=== PATIENT | female | born 1940 | race Caucasian/White ===

== ENCOUNTER 2023-08-05 20:28 | Inpatient (IN) | payer MEDICARE, OTHER, SELFPAY ==
[2023-08-05 20:30] VITALS: BP 165/82; PULSE 68; RESP 18; TEMP 36.7; O2SAT 97; BMI 19.5
--- NOTE | 2023-08-05 20:55 | CT_ITS ---
EXAM: CT ABDOMEN AND PELVIS WITH INTRAVENOUS CONTRAST CLINICAL INDICATION: abdominal pain TECHNIQUE: Helically acquired images were obtained of the abdomen and pelvis with intravenous contrast. This CT exam was performed using one or more of the following dose reduction techniques: automated exposure control, adjustment of the mA and/or kV according to patient size, and/or use of iterative reconstruction technique. CONTRAST: IV 100mL [id number] COMPARISON: No relevant prior studies available. FINDINGS: LOWER THORAX: Unremarkable. Lung bases are clear. No cardiomegaly. No significant pericardial effusion. ABDOMEN: LIVER: Unremarkable. Homogeneous. No focal mass. GALLBLADDER AND BILE DUCTS: There is dilatation of the common bile duct measuring 1.3 cm. Patient is status post cholecystectomy. PANCREAS: Unremarkable. No focal cystic or solid mass. SPLEEN: Unremarkable. Normal size without focal cystic or solid mass. ADRENALS: Unremarkable. No nodules. KIDNEYS AND URETERS: Unremarkable. Normal renal size and position. No hydronephrosis. STOMACH AND BOWEL: There are dilated gas and fluid-filled loops of small bowel proximally with normal caliber bowel loops distally compatible chemical obstruction. Transition point appears to be within the pelvis. There is no free air. The stomach is mildly distended with fluid. No focal inflammatory change. PELVIS: APPENDIX: No evidence of acute appendicitis. BLADDER: Unremarkable. REPRODUCTIVE: Unremarkable as visualized. No mass. ABDOMEN and PELVIS: INTRAPERITONEAL SPACE: See above. BONES/JOINTS: Unremarkable. No suspicious lytic or blastic abnormality. SOFT TISSUES: Unremarkable. No discrete abdominal or pelvic wall hernia. VASCULATURE: Unremarkable. Abdominal aorta is non-dilated. LYMPH NODES: Unremarkable. No enlarged lymph nodes. CT/Abdomen/Pelvis W IV Cont ONLY IMPRESSION: Dilated gas and fluid-filled loops of small bowel proximally with normal caliber bowel loops distally compatible with bowel obstruction. Transition point appears be within the pelvis. There is no free air. Electronically Signed: Nito Franks MD at 0:01 EDT ,
--- NOTE | 2023-08-05 21:08 | EX.ED.DYSGE1 ---
HPI <IOANA Osborn - Last Filed: 08/05/23 21:50> History of Present Illness Chief Complaint: Abd Pain Narrative Narrative: Patient presenting today with generalized abdominal pain that started last night. She reports that the pain is constant and sharp. She does have a history of diverticulitis, is unsure if this feels similar. She has had intermittent chills, nausea, and several episodes of loose stool today. Previous abdominal surgeries include cholecystectomy, appendectomy, colostomy and colostomy reversal. She denies any urinary symptoms, melena, and hematochezia. PFSH <IOANA Osborn - Last Filed: 08/05/23 21:50> PFSH Home Medications fluoxetine 20 mg capsule (Prozac) 20 mg PO DAILY 08/05/23 [History Last Taken Unknown] levothyroxine 2 tab PO .COMPLEX 08/05/23 [History Last Taken Unknown] Allergy/AdvReac Type Severity Reaction Status Date / Time Penicillins Allergy Intermediate SKIN SHEDS Verified 08/05/23 20:32 Surgical History (Updated 08/05/23 @ 22:07 by Hattie Potter) History of colostomy Social History Smoking Status: Never smoker ROS <IOANA Osborn - Last Filed: 08/05/23 21:50> ROS ED Constitutional Constitutional ED: Denies chills or fever(s) Cardiovascular Cardiovascular: Denies chest pain Respiratory/Chest Respiratory/Chest: Denies cough or dyspnea Gastrointestinal Gastrointestinal: Reports abdominal pain, diarrhea, nausea and vomiting; Denies constipation or melena Genitourinary Genitourinary ED: Denies dysuria, hematuria or urinary urgency Musculoskeletal Musculoskeletal: Denies arthralgias or myalgias Integumentary Denies rash Neurologic Neurologic: Denies weakness EXAM <IOANA Osborn - Last Filed: 08/05/23 21:50> Physical Exam Const Vital Signs: 08/05/23 20:30 08/05/23 22:29 08/05/23 23:10 Temperature 98.1 F 97.5 F L Temperature Source Temporal Temporal Pulse Rate 68 75 Respiratory Rate 18 16 Respiratory Effort Normal Respiratory Pattern Normal Blood Pressure 165/82 H 141/66 H Blood Pressure Mean 109 91 Pulse Ox 97 93 Oxygen Delivery Method Room Air Room Air Oxygen Flow Rate (L/min) 08/05/23 23:19 08/05/23 23:19 Temperature Temperature Source Pulse Rate Respiratory Rate 16 18 Respiratory Effort Respiratory Pattern Blood Pressure Blood Pressure Mean Pulse Ox 87 94 Oxygen Delivery Method Room Air Nasal Cannula Oxygen Flow Rate (L/min) 2 Positive well nourished, well developed and no apparent distress General Appearance ED: well developed HEENT Reports normocephalic and head/scalp atraumatic Mouth ED: Yes moist mucous membranes normal Eyes PERRL and EOMs intact bilaterally Neck full ROM and supple Chest Wall inspection of chest normal Resp normal respiratory effort and clear to auscultation bilaterally Cardio regular rate and regular rhythm GI non-distended and no masses GI Narrative: Patient has generalized abdominal tenderness on exam, she does have rigidity and guarding Back/Spine normal ROM and normal to inspection Extremity normal to inspection and full ROM Neuro oriented x3, CN's II-XII intact bilaterally, moves all extremities, no focal motor deficits and no sensory deficits noted Sensorium / Orientation: awake and alert Psych mental status grossly normal and thought process normal Skin no rashes or lesions noted and no wounds <Dr. Cornelius Bowden DO - Last Filed: 08/06/23 01:06> Physical Exam Const Vital Signs: 08/05/23 20:30 08/05/23 22:29 08/05/23 23:10 Temperature 98.1 F 97.5 F L Temperature Source Temporal Temporal Pulse Rate 68 75 Respiratory Rate 18 16 Respiratory Effort Normal Respiratory Pattern Normal Blood Pressure 165/82 H 141/66 H Blood Pressure Mean 109 91 Pulse Ox 97 93 Oxygen Delivery Method Room Air Room Air Oxygen Flow Rate (L/min) 08/05/23 23:19 08/05/23 23:19 Temperature Temperature Source Pulse Rate Respiratory Rate 16 18 Respiratory Effort Respiratory Pattern Blood Pressure Blood Pressure Mean Pulse Ox 87 94 Oxygen Delivery Method Room Air Nasal Cannula Oxygen Flow Rate (L/min) 2 MDM <IOANA Osborn - Last Filed: 08/05/23 21:50> [facility] Narrative Medical decision making narrative: Patient presenting due to generalized abdominal pain, nausea, and diarrhea that started last night. She does appear to be uncomfortable. She does have significant abdominal tenderness to palpation on exam, CT scan will be obtained to rule out diverticulitis, bowel obstruction, and other etiology. She will be given IV fluids, Zofran, and morphine. Abdominal labs will be obtained. Workup is pending. Lab Data Labs: Laboratory Results - last 24 hr 08/05/23 08/05/23 08/05/23 21:18 22:26 22:40 WBC 27.9 H RBC 5.08 Hgb 15.6 H Hct 47.6 H MCV 93.7 MCH 30.7 MCHC 32.8 RDW Std Deviation 47.4 H RDW Coeff of Jenn 13.8 Plt Count 336 MPV 10.9 Immature Gran % (Auto) 0.900 Neut % (Auto) 82.4 H Lymph % (Auto) 8.8 L [place] % (Auto) 6.8 Eos % (Auto) 0.5 Baso % (Auto) 0.6 Absolute Neuts (auto) 23.0 H Absolute Lymphs (auto) 2.45 Nucleated RBC % 0 Differential Comment SCANNED Diff Path Review May foll PT Cancelled INR Cancelled APTT Cancelled Sodium 138 Potassium 4.1 Chloride 104 Carbon Dioxide 25.0 Anion Gap 9 BUN 37 H Creatinine 0.89 Estim Creat Clear Calc 38.54 Est GFR (MDRD) Af Amer 78 Est GFR (MDRD) Non-Af 65 BUN/Creatinine Ratio 41.7 H Glucose 214 H Lactic Acid 2.5 H* Calcium 9.3 Total Bilirubin 0.70 AST 22 ALT 23 Alkaline Phosphatase 54 Total Protein 7.5 Albumin 3.5 Globulin 4.0 Albumin/Globulin Ratio 0.9 Lipase 1168 H 08/05/23 23:48 WBC RBC Hgb Hct MCV MCH MCHC RDW Std Deviation RDW Coeff of Jenn Plt Count MPV Immature Gran % (Auto) Neut % (Auto) Lymph % (Auto) [place] % (Auto) Eos % (Auto) Baso % (Auto) Absolute Neuts (auto) Absolute Lymphs (auto) Nucleated RBC % Differential Comment Diff Path Review PT 14.0 INR 1.1 APTT 24.0 L Sodium Potassium Chloride Carbon Dioxide Anion Gap BUN Creatinine Estim Creat Clear Calc Est GFR (MDRD) Af Amer Est GFR (MDRD) Non-Af BUN/Creatinine Ratio Glucose Lactic Acid Calcium Total Bilirubin AST ALT Alkaline Phosphatase Total Protein Albumin Globulin Albumin/Globulin Ratio Lipase Radiography Diagnostic Testing: Clinical Impression(s) from Imaging Studies Abdomen/Pelvis CT 08/05/23 20:55 IMPRESSION: Dilated gas and fluid-filled loops of small bowel proximally with normal caliber bowel loops distally compatible with bowel obstruction. Transition point appears be within the pelvis. There is no free air. Electronically Signed: Nito Franks MD at 0:01 EDT , <Dr. Cornelius Bowden, DO - Last Filed: 08/06/23 01:06> MDM MDM Narrative Medical decision making narrative: Patient presenting due to generalized abdominal pain, nausea, and diarrhea that started last night. She does appear to be uncomfortable. She does have significant abdominal tenderness to palpation on exam, CT scan will be obtained to rule out diverticulitis, bowel obstruction, and other etiology. She will be given IV fluids, Zofran, and morphine. Abdominal labs will be obtained. Workup is pending. Interventions / MDM: Differential diagnosis: Bowel obstruction, pancreatitis Diagnosis considered but do not suspect: Pneumoperitoneum however CT negative. Colitis however CT negative. KUB #1: NG kinked and does not appear to be in the stomach. KUB #2: Appropriate position of NG tube. My EKG interpretation: N/A Imaging independently reviewed and interpreted by myself: CT abdomen and pelvis IV contrast: Distended gastrum proximal small bowels with air-fluid level consistent with bowel obstruction. Normal pancreas. This also read by radiology. External documents reviewed: N/A Test considered but not ordered:N/A ED course: Attending note: Patient seen and evaluated with screen room operator. I perform my own [id number] evaluation. I agree with the plan of work-up. Increasing mid abdominal pain since yesterday worsened today with increased distention. Cholecystectomy, appendectomy, colostomy with reversal in 2021 from diverticulitis. Recently moved here from [place] here with son. Reports has chronic continued diarrhea. No recent antibiotics. Reports chills. Nausea started vomiting in the ED. Allergies to penicillin causing scaly skin. Denies any alcohol history. Exam with uncomfortable tender mid abdomen. Patient had abdominal labs ordered, CT scan abdomen pelvis, pain and nausea medicines and fluids were started. In the interim had a leukocytosis 27.9. Lactic acid blood cultures were added on type and screen as she is fairly tender on exam. Additional pain medications. Her lipase returned at 1168 normal liver enzymes. Lactic acid 2.5. Fluids were continued. CT scan concerning bowel obstruction with air-fluid levels. NG tube ordered for placement. I discussed with surgeon Dr. Guerrero. Initial KUB appears to be above the diaphragm discussed with nurse the events. This was advanced and improved. 600 cc immediate output with improving symptoms. Patient seen by surgery in the ED, will continue fluids, admit under surgery for further management. Re-evaluation: stable Disposition discussed with patient/family/significant other: Patient and family Case discussed with consulting clinician: General surgery This note was generated with Revel[employer] dictation software. It may contain incorrect words, spelling, and punctuation that were not noted in checking the note before signing. Lab Data Attestation: I reviewed the patient's lab results. Labs: Laboratory Results - last 24 hr 08/05/23 08/05/23 08/05/23 21:18 22:26 22:40 WBC 27.9 H RBC 5.08 Hgb 15.6 H Hct 47.6 H MCV 93.7 MCH 30.7 MCHC 32.8 RDW Std Deviation 47.4 H RDW Coeff of Jenn 13.8 Plt Count 336 MPV 10.9 Immature Gran % (Auto) 0.900 Neut % (Auto) 82.4 H Lymph % (Auto) 8.8 L [place] % (Auto) 6.8 Eos % (Auto) 0.5 Baso % (Auto) 0.6 Absolute Neuts (auto) 23.0 H Absolute Lymphs (auto) 2.45 Nucleated RBC % 0 Differential Comment SCANNED Diff Path Review May foll PT Cancelled INR Cancelled APTT Cancelled Sodium 138 Potassium 4.1 Chloride 104 Carbon Dioxide 25.0 Anion Gap 9 BUN 37 H Creatinine 0.89 Estim Creat Clear Calc 38.54 Est GFR (MDRD) Af Amer 78 Est GFR (MDRD) Non-Af 65 BUN/Creatinine Ratio 41.7 H Glucose 214 H Lactic Acid 2.5 H* Calcium 9.3 Total Bilirubin 0.70 AST 22 ALT 23 Alkaline Phosphatase 54 Total Protein 7.5 Albumin 3.5 Globulin 4.0 Albumin/Globulin Ratio 0.9 Lipase 1168 H 08/05/23 23:48 WBC RBC Hgb Hct MCV MCH MCHC RDW Std Deviation RDW Coeff of Jenn Plt Count MPV Immature Gran % (Auto) Neut % (Auto) Lymph % (Auto) [place] % (Auto) Eos % (Auto) Baso % (Auto) Absolute Neuts (auto) Absolute Lymphs (auto) Nucleated RBC % Differential Comment Diff Path Review PT 14.0 INR 1.1 APTT 24.0 L Sodium Potassium Chloride Carbon Dioxide Anion Gap BUN Creatinine Estim Creat Clear Calc Est GFR (MDRD) Af Amer Est GFR (MDRD) Non-Af BUN/Creatinine Ratio Glucose Lactic Acid Calcium Total Bilirubin AST ALT Alkaline Phosphatase Total Protein Albumin Globulin Albumin/Globulin Ratio Lipase Radiography Diagnostic Testing: Clinical Impression(s) from Imaging Studies Abdomen/Pelvis CT 08/05/23 20:55 IMPRESSION: Dilated gas and fluid-filled loops of small bowel proximally with normal caliber bowel loops distally compatible with bowel obstruction. Transition point appears be within the pelvis. There is no free air. Electronically Signed: Nito Franks MD at 0:01 EDT , Discharge Plan Dx/Rx/DC Orders Clinical Impression: Complete small bowel obstruction, Abdominal pain, Acute pancreatitis Disposition Disposition: Acute Care Hospital [facility]
[2023-08-05] MEDS: Ondansetron 4 MG/2 ML Vial IV (21:16)
[2023-08-05] MEDS: Morphine 4 MG/ML Syringe IV ×2 (21:16→22:38)
[2023-08-05] MEDS: 0.9% Normal Saline (1000mL) 1,000 ML 1000 ML IV (21:18)
[2023-08-05 21:38] LABS: Absolute Lymphocyte Count 2.45 X10^3/uL (0.83-4.51); Basophil# 0.16 X10^3/uL; Basophil% 0.6 % (0-1); Eosinophil# 0.15 X10^3/uL; Eosinophils% 0.5 % (0-5); Hematocrit 47.6 % (37-47); Hemoglobin 15.6 g/dL (12.0-15.0); Lymphocyte # 2.45 X10^3/ul (0.83-4.51); Lymphocyte % 8.8 % (19-41); Mean Corp Hgb Conc 32.8 g/dL (32-36); Mean Corpuscular Hgb 30.7 pg (27.0-32.0); Mean Corpuscular Volume 93.7 fL (81-99); Mean Platelet Vol. 10.9 fl (6.2-12.0); Monocyte% 6.8 % (0-10); NRBC Flagged by Analyzer 0 % (0-5); Neutrophil # 23.02 X10^3/uL (2.7-7.7); Neutrophil % 82.4 % (47-70); POSITIVE DIFFERENTIAL YES; Platelet Count 336 K/mm3 (150-450); RBC Distribution Width CV 13.8 % (11.6-14.6); RBC Distribution Width SD 47.4 fl (35.1-43.9); Red Blood Count 5.08 M/mm3 (4.2-5.4); White Blood Count 27.9 K/mm3 (4.4-11.0)
[2023-08-05 22:03] LABS: Differential Indicated SCAN CRITERIA MET
[2023-08-05 22:29] VITALS: BP 141/66; PULSE 75; RESP 16; TEMP 36.4; O2SAT 93
[2023-08-05 22:39] LABS: Differential Comment SCANNED
[2023-08-05 22:59] LABS: ALB/GLOB Ratio 0.9 RATIO (0.9-2.4); AST(SGOT) 22 U/L (15-37); Alanine Aminotransfer ALT/SGPT 23 U/L (13-56); Albumin, Serum 3.5 g/dL (3.2-5.0); Alkaline Phosphatase 54 U/L (45-117); Anion Gap 9 (5-15); BUN 37 mg/dL (7-18); BUN/Creat Ratio 41.7 RATIO (10-20); Calcium,Total 9.3 mg/dL (8.5-10.1); Chloride 104 mmol/L (98-107); Creatinine, Serum 0.89 mg/dL (0.55-1.02); EST Glomerular Filtration Rate 65 mL/min (>60); Est Glom Filt Rate - Afr Amer 78 mL/min (>60); Estimated Creatinine Clearance 38.54 ml/min; Glucose 214 mg/dL (74-106); Lipase 1168 U/L (13-75); Potassium 4.1 mmol/L (3.5-5.1); Protein, Total 7.5 g/dL (6.4-8.2); Sodium Level 138 mmol/L (136-145)
[2023-08-05 23:17] LABS: Lactic Acid 2.5 mmol/L (0.4-1.9)
[2023-08-05 23:19] VITALS: RESP 16; RESP 18; O2SAT 87; O2SAT 94
[2023-08-05] MEDS: 0.9% Normal Saline (1000mL) 1,000 ML 100 ML IV (23:19)
[2023-08-06] VITALS (9 sets, daily range): BP systolic 121–149; BP diastolic 67–98; PULSE 67–87; RESP 16–18; TEMP 36.2–37; O2SAT 94–100; BMI 19.6
--- NOTE | 2023-08-06 00:07 | RAD_ITS ---
INDICATION: ng tube -- KUB with both diaphragms for NG/OG Verification EXAMINATION/TECHNIQUE: X-RAY - XR Abdomen 1 View AP portable. 12:32 AM. COMPARISON: CT abdomen and pelvis earlier FINDINGS: Single view included lower chest upper abdomen. Tip of the nasogastric tube is in the distal esophagus just above the GE junction, with a focal angulation or kink in the tubing at the sidehole in the distal esophagus. The tube does not extend into the stomach. The stomach is distended. Dilated small bowel in the upper abdomen as on the CT. Opacities at both lung bases. RAD/Abdomen Single View (Portable) IMPRESSION: NG tube in the distal esophagus as detailed above. Electronically Signed: Trini Cuevas MD at 1:14 EDT ,
[2023-08-06 00:08] LABS: International Normalized Ratio 1.1
[2023-08-06] MEDS: Morphine 4 MG/ML Syringe IV (00:13)
[2023-08-06] MEDS: Oxymetazoline 0.05% 1 SPRAY SPRAY.BTL 2 SPRAY NASAL (00:13)
[2023-08-06 00:38] LABS: Bacteria 0 SEEN /hpf (None Seen); Mucous, Urine 0 SEEN /hpf (<or=2+); Red Blood Cells-Urine 0 SEEN /hpf (0-5)
[2023-08-06 00:49] LABS: Color, Urine Yellow (Yellow); Glucose, Dipstick Normal (Normal); Ketone-Dipstick Negative (Negative); Leukocyte Esterase-Dipstick 100 /ul (Negative); Nitrite-Dipstick Negative (Negative); Occult Blood-Urine Negative /ul (Negative); Protein-Dipstick Negative (Negative); Specific Gravity, Urine 1.015 (1.002-1.030); Urine Bilirubin Dipstick Negative (Negative); Urine Clarity Clear (Clear); Urine Urobilinogen Normal (Normal)
--- NOTE | 2023-08-06 00:52 | RAD_ITS ---
INDICATION: ng repositioned EXAMINATION/TECHNIQUE: X-RAY - XR Abdomen 1 View AP portable. 12:55 AM COMPARISON: Abdomen x-ray 12:32 AM FINDINGS: Tip of the nasogastric tube is in the mid stomach. Repositioned compared to the earlier study. Stomach is distended. Small bowel dilated in the upper abdomen as on prior studies. Patchy opacities in the lung bases. RAD/Abdomen Single View (Portable) IMPRESSION: NG tube as described. Dilated bowel in the upper abdomen. Electronically Signed: Trini Cuevas MD at 1:15 EDT ,
--- NOTE | 2023-08-06 01:12 | PCM.HP.STD ---
HPI - General HPI Narrative EMETERIO NGUYEN, is a 82 F who presents with abdominal pain of 2 days. The patient has history of Fabiano fundoplication and open cholecystectomy but most recently in 2021 she had a sigmoid colectomy with colostomy for diverticulitis. She had the colostomy reversed in another hospital in late 2021. She has had no issues since then except for chronic diarrhea. She reports that she had a bowel movement today which was diarrhea. She says the pain is in her upper abdomen. She is not able to vomit because she has had a Fabiano fundoplication. After NG was placed she reports she is much more comfortable. She denies fevers or chills. She says she believes she may have COPD but she has been told also that she does not have COPD. PFSH Home Medications fluoxetine 20 mg capsule (Prozac) 20 mg PO DAILY 08/05/23 [History Last Taken Unknown] levothyroxine 2 tab PO .COMPLEX 08/05/23 [History Last Taken Unknown] Allergy/AdvReac Type Severity Reaction Status Date / Time Penicillins Allergy Intermediate SKIN SHEDS Verified 08/05/23 20:32 Surgical History (Updated 08/05/23 @ 22:07 by Hattie Potter) History of colostomy Social History Smoking Status: Never smoker ROS Constitutional Constitutional: Denies anorexia, chills or fatigue Eyes Eyes: Denies blurry vision ENT HEENT: Denies abnormal hearing Cardiovascular Cardiovascular: Denies chest pain Respiratory/Chest Respiratory/Chest: Reports cough and shortness of breath at rest Gastrointestinal Gastrointestinal: Reports abdominal pain, diarrhea and nausea; Denies constipation or vomiting Genitourinary Genitourinary: Denies change in urinary stream Musculoskeletal Musculoskeletal: Denies abnormal gait Integumentary Integumentary: Denies new lesions Neurologic Neurologic: Denies abnormal gait Psychiatric Psychiatric: Denies anxiety Endocrine Endocrinology: Denies heat intolerance Hematologic/Lymphatic Hematologic/Lymphatic: Denies easy bleeding Vital Signs Vital Signs Vital Signs: 08/05/23 20:30 08/05/23 22:29 08/05/23 23:10 Temperature 98.1 F 97.5 F L Temperature Source Temporal Temporal Pulse Rate 68 75 Respiratory Rate 18 16 Respiratory Effort Normal Respiratory Pattern Normal Blood Pressure 165/82 H 141/66 H Blood Pressure Mean 109 91 Pulse Ox 97 93 Oxygen Delivery Method Room Air Room Air Oxygen Flow Rate (L/min) 08/05/23 23:19 08/05/23 23:19 Temperature Temperature Source Pulse Rate Respiratory Rate 16 18 Respiratory Effort Respiratory Pattern Blood Pressure Blood Pressure Mean Pulse Ox 87 94 Oxygen Delivery Method Room Air Nasal Cannula Oxygen Flow Rate (L/min) 2 Weight Weight: 110 lb 7 oz Body Mass Index (BMI) 19.5 Physical Exam Const oriented x3 and no apparent distress Resp normal respiratory effort Cardio regular rate and regular rhythm GI soft to palpation Inspection: abdominal distention Palpation: tender epigastric Extremity normal to inspection Results Lab / Micro Data 08/05/23 21:18 08/05/23 21:18 Labs: Laboratory Results - last 24 hr 08/05/23 21:18: WBC 27.9 H, RBC 5.08, Hgb 15.6 H, Hct 47.6 H, MCV 93.7, MCH 30.7, MCHC 32.8, RDW Std Deviation 47.4 H, RDW Coeff of Jenn 13.8, Plt Count 336, MPV 10.9, Immature Gran % (Auto) 0.900, Neut % (Auto) 82.4 H, Lymph % (Auto) 8.8 L, [place] % (Auto) 6.8, Eos % (Auto) 0.5, Baso % (Auto) 0.6, Absolute Neuts (auto) 23.0 H, Absolute Lymphs (auto) 2.45, Nucleated RBC % 0, Differential Comment SCANNED, Diff Path Review July, Sodium 138, Potassium 4.1, Chloride 104, Carbon Dioxide 25.0, Anion Gap 9, BUN 37 H, Creatinine 0.89, Estim Creat Clear Calc 38.54, Est GFR (MDRD) Af Amer 78, Est GFR (MDRD) Non-Af 65, BUN/Creatinine Ratio 41.7 H, Glucose 214 H, Calcium 9.3, Total Bilirubin 0.70, AST 22, ALT 23, Alkaline Phosphatase 54, Total Protein 7.5, Albumin 3.5, Globulin 4.0, Albumin/Globulin Ratio 0.9, Lipase 1168 H 08/05/23 22:26: Lactic Acid 2.5 H* 08/05/23 22:40: PT Cancelled, INR Cancelled, APTT Cancelled 08/05/23 23:48: PT 14.0, INR 1.1, APTT 24.0 L Imaging Radiology Impression Abdomen/Pelvis CT 08/05/23 20:55 IMPRESSION: Dilated gas and fluid-filled loops of small bowel proximally with normal caliber bowel loops distally compatible with bowel obstruction. Transition point appears be within the pelvis. There is no free air. Electronically Signed: Nito Franks MD at 0:01 EDT , Assessment & Plan Assessment/Plan (1) Small bowel obstruction: (2) Acute pancreatitis: QUALIFIERS: Pancreatitis type: unspecified pancreatitis type Acute pancreatitis complication: unspecified Qualified Code(s): K85.90 - Acute pancreatitis without necrosis or infection, unspecified PLAN: Plan The patient is having upper abdominal pain that is been there for 2 days. I reviewed the patient's CT scan which showed dilated loops of small bowel approximately with nondilated loops distally. I discussed with the radiologist and they report that they do not see any inflammation around the pancreas although they do see dilated pancreatic and bile duct. LFTs are normal. The patient has elevated lipase. Her lactate was also elevated and her white count is significantly elevated with left shift. The patient has been having bowel obstruction for 2 days and not able to vomit due to history of Fabiano and she may be having an element of ischemia in the bowel although they also said they did not see any pneumatosis or inflammation around the bowel to suggest ischemia. They also postured that it may be the obstruction causing the pancreatitis and the dilated loops. NG was placed and about 800 cc of fluid was suctioned. She did report immediate relief and improvement in pain. She is currently very comfortable. I am going to recheck a lactate in 2 hours and recheck labs in the morning. I will admit her to the floor and check a KUB in the morning. Currently her vitals are stable and she is much more comfortable after the NG was placed. If any of her vital signs worsen or physical exam worsens I will take her to surgery for exploration. If she is doing better in the morning and her labs are improving I will order a small bowel follow-through. Emmett Guerrero MD Pager: [facility] [address] [place] [address], [address] [place] [address] Office:
[2023-08-06 01:16] LABS: Calcium Oxalate Crystals Ur 4+ /hpf (<or=2+); Squamous Epithelial Cells - UA 0-5 SEEN /hpf (5-10); White Blood Cells 5-10 SEEN /hpf (0-5)
[2023-08-06] MEDS: Ondansetron 4 MG/2 ML Vial IV (02:16)
[2023-08-06] MEDS: 0.9% Normal Saline (1000mL) 1,000 ML 125 ML IV ×3 (02:20→14:36)
[2023-08-06 02:33] LABS: Reflex Lactate? Y
[2023-08-06 03:31] LABS: Basophil% 0.5 % (0-1); Eosinophil# 0.06 X10^3/uL; Eosinophils% 0.3 % (0-5); Hematocrit 41.4 % (37-47); Hemoglobin 13.6 g/dL (12.0-15.0); Lymphocyte % 3.5 % (19-41); Mean Corp Hgb Conc 32.9 g/dL (32-36); Mean Corpuscular Hgb 31.3 pg (27.0-32.0); Mean Corpuscular Volume 95.2 fL (81-99); Mean Platelet Vol. 10.2 fl (6.2-12.0); Monocyte# 1.83 X10^3/uL; Monocyte% 9.2 % (0-10); NRBC Flagged by Analyzer 0 % (0-5); Neutrophil # 16.98 X10^3/uL (2.7-7.7); Neutrophil % 85.9 % (47-70); POSITIVE DIFFERENTIAL YES; Platelet Count 258 K/mm3 (150-450); RBC Distribution Width CV 13.9 % (11.6-14.6); RBC Distribution Width SD 49.1 fl (35.1-43.9); Red Blood Count 4.35 M/mm3 (4.2-5.4); White Blood Count 19.8 K/mm3 (4.4-11.0)
[2023-08-06 03:37] LABS: Differential Indicated SCAN CRITERIA MET
[2023-08-06 03:50] LABS: Differential Comment SCANNED
[2023-08-06 03:57] LABS: ALB/GLOB Ratio 0.9 RATIO (0.9-2.4); AST(SGOT) 285 U/L (15-37); Alanine Aminotransfer ALT/SGPT 194 U/L (13-56); Alkaline Phosphatase 67 U/L (45-117); Anion Gap 5 (5-15); BUN 33 mg/dL (7-18); BUN/Creat Ratio 39.3 RATIO (10-20); Calcium,Total 8.5 mg/dL (8.5-10.1); Chloride 106 mmol/L (98-107); Creatinine, Serum 0.84 mg/dL (0.55-1.02); EST Glomerular Filtration Rate 69 mL/min (>60); Est Glom Filt Rate - Afr Amer 83 mL/min (>60); Globulin 3.3 g/dL (2.2-4.2); Glucose 155 mg/dL (74-106); Lipase > 250 U/L (13-75); Magnesium 1.8 mg/dL (1.6-2.6); Phosphorus 4.1 mg/dL (2.5-4.9); Potassium 4.9 mmol/L (3.5-5.1); Protein, Total 6.3 g/dL (6.4-8.2); Sodium Level 140 mmol/L (136-145)
[2023-08-06 03:58] LABS: Lactic Acid 2.2 mmol/L (0.4-1.9)
--- NOTE | 2023-08-06 05:55 | RAD_ITS ---
INDICATION: sbo EXAMINATION/TECHNIQUE: X-RAY - XR Abdomen 1 View portable. 4:52 AM COMPARISON: Abdomen x-ray at 12:[address] abdomen and pelvis 08/05/2023. FINDINGS: NG tube tip in the distal stomach. Dilated small bowel mainly in the left midabdomen, overall partially decreased compared to the prior. Decreased gastric dilatation. There is stool and air in the colon specially the cecum to the transverse. Residual contrast in the ureters and bladder from previous contrast. RAD/Abdomen Single View (Portable) IMPRESSION: Persistent dilated small bowel in the left abdomen, overall partially decreased compared to earlier. Electronically Signed: Trini Cuevas MD at 5:44 EDT ,
--- NOTE | 2023-08-06 08:34 | PCM.PN.SRG ---
Subjective Subjective Patient reports no abdominal pain this morning. She denies flatus. She is not nauseated. Objective Data Objective Data Vital Signs: Vital Signs Temp Pulse Resp BP Pulse Ox O2 Del Method O2 Flow Rate 97.9 F 87 17 142/98 H 98 Nasal Cannula 2 08/06/23 02:25 08/06/23 02:25 08/06/23 02:25 08/06/23 02:25 08/06/23 02:25 08/06/23 02:57 08/06/23 02:57 Oxygen Flow Rate (L/min) 2 Oxygen Delivery Method Nasal Cannula Weight: 110 lb 14.28 oz Body Mass Index (BMI) 19.6 Intake & Output: Intake and Output for Last 24 Hours 08/04/23 08/05/23 08/06/23 23:59 23:59 23:59 Intake Total 1000 / 1000 1958.33 / 1958.33 Output Total 200 / 200 Balance 1000 / 1000 1758.33 / 1758.33 Lab / Micro Data 08/06/23 03:18 08/06/23 03:18 Labs: Laboratory Results - last 24 hr 08/05/23 21:18: WBC 27.9 H, RBC 5.08, Hgb 15.6 H, Hct 47.6 H, MCV 93.7, MCH 30.7, MCHC 32.8, RDW Std Deviation 47.4 H, RDW Coeff of Jenn 13.8, Plt Count 336, MPV 10.9, Immature Gran % (Auto) 0.900, Neut % (Auto) 82.4 H, Lymph % (Auto) 8.8 L, [place] % (Auto) 6.8, Eos % (Auto) 0.5, Baso % (Auto) 0.6, Absolute Neuts (auto) 23.0 H, Absolute Lymphs (auto) 2.45, Nucleated RBC % 0, Differential Comment SCANNED, Diff Path Review July, Sodium 138, Potassium 4.1, Chloride 104, Carbon Dioxide 25.0, Anion Gap 9, BUN 37 H, Creatinine 0.89, Estim Creat Clear Calc 38.54, Est GFR (MDRD) Af Amer 78, Est GFR (MDRD) Non-Af 65, BUN/Creatinine Ratio 41.7 H, Glucose 214 H, Calcium 9.3, Total Bilirubin 0.70, AST 22, ALT 23, Alkaline Phosphatase 54, Total Protein 7.5, Albumin 3.5, Globulin 4.0, Albumin/Globulin Ratio 0.9, Lipase 1168 H 08/05/23 22:26: Lactic Acid 2.5 H* 08/05/23 22:40: PT Cancelled, INR Cancelled, APTT Cancelled 08/05/23 23:48: PT 14.0, INR 1.1, APTT 24.0 L, Blood Type A POSITIVE, Antibody Screen NEGATIVE 08/06/23 00:25: Urine Color Yellow, Urine Clarity Clear, Urine pH 5.0, Ur Specific [place] 1.015, Urine Protein Negative, Urine Glucose (UA) Normal, Urine Ketones Negative, Urine Occult Blood Negative, Urine Nitrite Negative, Urine Bilirubin Negative, Urine Urobilinogen Normal, Ur Leukocyte Esterase 100 H, Urine RBC 0 SEEN, Urine WBC 5-10 SEEN, Ur Squamous Epith Cells 0-5 SEEN, Calcium Oxalate Crystal 4+, Urine Bacteria 0 SEEN, Urine Mucus 0 SEEN 08/06/23 03:18: WBC 19.8 H, RBC 4.35, Hgb 13.6, Hct 41.4, MCV 95.2, MCH 31.3, MCHC 32.9, RDW Std Deviation 49.1 H, RDW Coeff of Jenn 13.9, Plt Count 258, MPV 10.2, Immature Gran % (Auto) 0.600, Neut % (Auto) 85.9 H, Lymph % (Auto) 3.5 L, [place] % (Auto) 9.2, Eos % (Auto) 0.3, Baso % (Auto) 0.5, Absolute Neuts (auto) 17.0 H, Absolute Lymphs (auto) 0.70 L, Nucleated RBC % 0, Differential Comment SCANNED, Sodium 140, Potassium 4.9, Chloride 106, Carbon Dioxide 29.0, Anion Gap 5, BUN 33 H, Creatinine 0.84, Estim Creat Clear Calc 41.00, Est GFR (MDRD) Af Amer 83, Est GFR (MDRD) Non-Af 69, BUN/Creatinine Ratio 39.3 H, Glucose 155 H, Lactic Acid 2.2 H*, Calcium 8.5, Phosphorus 4.1, Magnesium 1.8, Total Bilirubin 1.10 H, AST 285 H, ALT 194 H, Alkaline Phosphatase 67, Total Protein 6.3 L, Albumin 3.0 L, Globulin 3.3, Albumin/Globulin Ratio 0.9, Lipase > 250 H Radiography Diagnostic Testing: Radiology Impression Abdomen/Pelvis CT 08/05/23 20:55 IMPRESSION: Dilated gas and fluid-filled loops of small bowel proximally with normal caliber bowel loops distally compatible with bowel obstruction. Transition point appears be within the pelvis. There is no free air. Electronically Signed: Nito Franks MD at 0:01 EDT , KUB X-Ray 08/06/23 00:07 IMPRESSION: NG tube in the distal esophagus as detailed above. Electronically Signed: Trini Cuevas MD at 1:14 EDT , KUB X-Ray 08/06/23 00:52 IMPRESSION: NG tube as described. Dilated bowel in the upper abdomen. Electronically Signed: Trini Cuevas MD at 1:15 EDT , KUB X-Ray 08/06/23 05:55 IMPRESSION: Persistent dilated small bowel in the left abdomen, overall partially decreased compared to earlier. Electronically Signed: Trini Cuevas MD at 5:44 EDT , Physical Exam Const oriented x3 and no apparent distress Resp normal respiratory effort GI soft to palpation and non-tender Inspection: Negative for abdominal distention Assessment & Plan Assessment/Plan (1) Small bowel obstruction: PLAN: The patient has pancreatitis as well as small bowel obstruction. She had NG placed yesterday which decompressed her abdomen and she is feeling much better today with no pain. Her NG output still looks like she is obstructed but it has had decreased output. I will order a small bowel follow-through today to see how far out we will go through. If she gets nauseated we will connect her back to suction. Emmett Guerrero MD Pager: [facility] [place] [facility] [address] [place] [address], [address] [place] [address] Office:
--- NOTE | 2023-08-06 08:35 | RAD_ITS ---
STUDY: GASTROGRAFIN SMALL BOWEL FOLLOW-THROUGH EXAMINATION. REASON FOR EXAM: Female, 82 years old. sbo -- gastrograffin TECHNIQUE: Gastrografin was introduced through the indwelling oral gastric tube. COMPARISON: None. FINDINGS: There is evidence of scarring and/or infiltrates at the lung bases. There is evidence of a small bowel dilatation. Contrast is seen within the right hemicolon at 90 minutes. Findings are suggestive of a partial small bowel obstruction. The patient is status post laminectomy and fusion in the lower lumbar spine. RAD/Small Bowel Series Only IMPRESSION: Findings in keeping with partial small bowel obstruction. Electronically Signed: Sudeep Cooper MD at 14:03 EDT ,
[2023-08-06] MEDS: Pantoprazole Sodium 40 MG in 0.9% Normal Saline (100mL MB+) 100 ML 330 MG IV (09:54)
--- NOTE | 2023-08-06 10:06 | NURSING ---
pt to x ray via bed and 2l/nc
[2023-08-06 10:09] LABS: Lactic Acid 1.1 mmol/L (0.4-1.9)
--- NOTE | 2023-08-06 12:14 | NURSING ---
pt remains off unit in radiology for testing sfamily in room updated
[2023-08-06 14:38] LABS: Pathologist Review Reviewed
--- NOTE | 2023-08-06 14:40 | CASEMGMT ---
RN?CM?CUSTOMER CARE CONSULTANT?CM?to room to meet with patient for initial transition planning/care coordination?assessment.?RN?CM?introduced self and role at [facility].? Pt voices understanding and consents to?assessment?at this time.? Pt resting in bed in no distress at this time.?Son, Delroy, @ bedside and pt agreeable to him being present during assessment. Pt is A/O at this time and answers all questions appropriately.?? Care providers, pharmacy, and demographics verified/updated at this time. PCP: Pt just moved to [place] from [place] about a month ago and has not established w/PCP yet. Given local provider directory. Specialists: Dr Cohn @ [facility] for neurogenic cough. Pt plans to get established w/GI as well. Preferred [facility]acy: [facility] Insurance: [employer], [employer] supplement Prescription Benefit:?yes Living Will/HPOA:?Has done LW and HCPOA, who is her son, Delroy LNOK: SonDelroy. Living Arrangements: Lives alone in one-story home w/basement and 2 steps to enter and states does okay w/the stairs. Independent w/ADL's, IADL's, and manages her own medications. Transportation:?Pt states drives self and states no transportation concerns at this time.? DME: States has the following DME:?[employer] and [employer] that belongs to her, although she states she no longer wears home oxygen. Pt currently on O2 via [place]. Discussed possibilty of pt qualifying for o2 @ dc. Pt states if she does need home O2 she wishes to use her Inogen and does not want any O2 set up through a DME co, although, she states it is still packed away and she does not know if it is charged. Delroy states he will try and locate it and charge it up. Pt made aware if she does qualify for o2 @ d/c and if [employer] unable to be located and charged to let staff know so home o2 can be set up through DME co. She voices understanding. Pt states no need for further DME at this time.? HHC/SNF: No hx of either. Has had HHC in the past when in [place]. Pt wishes to return home and states has no concerns with going home at time of discharge. ?CM?to follow for home oxygen needs and any further discharge planning/needs.? Pt voices no further concerns/needs at this time.? Advised pt to ask for?CM?if any further questions/concerns/needs arise.? Voices understanding. PLAN:??Home Follow for possible home o2. Rayne BSN?RN?CM
[2023-08-07] MEDS: 0.9% Normal Saline (1000mL) 1,000 ML 125 ML IV ×2 (00:04→07:06)
[2023-08-07 04:07] VITALS: BP 118/75; PULSE 60; RESP 18; TEMP 36.6; O2SAT 93
--- NOTE | 2023-08-07 05:35 | RAD_ITS ---
INDICATION: sbo EXAMINATION/TECHNIQUE: X-RAY - XR Abdomen 1 View portable. 5:30 AM COMPARISON: Abdomen x-rays/small bowel series 08/06/2023. FINDINGS: AP supine view. There is residual contrast in the colon cecum to the rectum. No dilated small bowel. Previously noted small bowel dilatation is decreased. Sensitivity for free air limited on supine view. Lung bases were not included. Nasogastric tube was removed. RAD/Abdomen Single View (Portable) IMPRESSION: No bowel obstruction. Contrast in the colon to the rectum with decreased small bowel dilatation. Electronically Signed: Trini Cuevas MD at 8:08 EDT ,
[2023-08-07 10:00] VITALS: BP 121/69; PULSE 76; RESP 16; TEMP 36.8; O2SAT 94
--- NOTE | 2023-08-07 10:08 | PN.SURG_ITS ---
Subjective Subjective Patient seen and examined during AM rounds. She is found resting in bed. She states that she has some soreness of her abdomen today. However, she comments that she has had ongoing loose bowels and her abdominal distention from yesterday is improved. She denies an appetite today. Objective Data Objective Data Vital Signs: Vital Signs Temp Pulse Resp BP Pulse Ox O2 Del Method O2 Flow Rate 98 F 60 18 118/75 93 Room Air 2 08/07/23 04:07 08/07/23 04:07 08/07/23 04:07 08/07/23 04:07 08/07/23 04:07 08/07/23 04:19 08/06/23 15:00 Oxygen Flow Rate (L/min) 2 Oxygen Delivery Method Room Air Weight: 110 lb 14.28 oz Body Mass Index (BMI) 19.6 Intake & Output: Intake and Output for Last 24 Hours 08/05/23 08/06/23 08/07/23 23:59 23:59 23:59 Intake Total 1000 / 1000 4776.33 / 4776.33 879.17 / 879.17 Output Total 700 / 700 Balance 1000 / 1000 4076.33 / 4076.33 879.17 / 879.17 Lab / Micro Data 08/07/23 10:23 08/06/23 03:18 Labs: Laboratory Results - last 24 hr 08/05/23 21:18: Diff Path Review Reviewed 08/06/23 03:18: Diff Path Review May 08/06/23 09:30: Lactic Acid 1.1 Radiography Diagnostic Testing: Radiology Impression Small Bowel X-Ray 08/06/23 08:35 IMPRESSION: Findings in keeping with partial small bowel obstruction. Electronically Signed: Sudeep Cooper MD at 14:03 EDT , KUB X-Ray 08/07/23 05:35 IMPRESSION: No bowel obstruction. Contrast in the colon to the rectum with decreased small bowel dilatation. Electronically Signed: Trini Cueavs MD at 8:08 EDT , Physical Exam Const oriented x3 and no apparent distress Resp normal respiratory effort GI GI Narrative: Nondistended, soft, mild tenderness with palpation particularly periumbilically Assessment & Plan Assessment/Plan (1) Small bowel obstruction: PLAN: Patient is hospital day 3 for admission for pancreatitis as well as small bowel obstruction. She passed a small bowel follow-through yesterday with rather rapid transit to the colon, but still radiology was calling probable partial small bowel obstruction. This a.m. repeat KUB shows all of the contrast that remains in the colon and no evidence of dilated small bowel. However, patient remains mildly tender on palpation and denies an appetite. I am suspicious for ongoing pancreatitis symptoms and therefore the encourage patient to go slowly with reinitiation of a clear liquid diet today. Will plan to reassess for tolerance this afternoon. Repeating labs now. Dion Haji MD General Surgery Endocrine Surgery Pager: [facility] [address] [place] [address], [address] [place] [address] Office: [phone] Charges/Coding Visit Charges Inpatient E&M: 42399 Subs Hosp L2
[2023-08-07 10:45] LABS: Absolute Lymphocyte Count 1.52 X10^3/uL (0.83-4.51); Absolute Neutrophil Count 6.2 X10^3/uL (2.0-7.7); Basophil# 0.02 X10^3/uL; Basophil% 0.2 % (0-1); Eosinophil# 0.22 X10^3/uL; Eosinophils% 2.5 % (0-5); Hematocrit 36.6 % (37-47); Hemoglobin 11.7 g/dL (12.0-15.0); Lymphocyte # 1.52 X10^3/ul (0.83-4.51); Lymphocyte % 17.4 % (19-41); Mean Corpuscular Volume 96.8 fL (81-99); Mean Platelet Vol. 10.9 fl (6.2-12.0); Monocyte# 0.71 X10^3/uL; Monocyte% 8.1 % (0-10); NRBC Flagged by Analyzer 0 % (0-5); Neutrophil # 6.22 X10^3/uL (2.7-7.7); Neutrophil % 71.2 % (47-70); Platelet Count 232 K/mm3 (150-450); RBC Distribution Width SD 49.9 fl (35.1-43.9); Red Blood Count 3.78 M/mm3 (4.2-5.4); White Blood Count 8.7 K/mm3 (4.4-11.0)
[2023-08-07] MEDS: Pantoprazole Sodium 40 MG in 0.9% Normal Saline (100mL MB+) 100 ML 330 MG IV (10:45)
[2023-08-07 11:23] LABS: Anion Gap 1 (5-15); BUN 18 mg/dL (7-18); BUN/Creat Ratio 24.8 RATIO (10-20); Calcium,Total 8.5 mg/dL (8.5-10.1); Chloride 108 mmol/L (98-107); Creatinine, Serum 0.72 mg/dL (0.55-1.02); EST Glomerular Filtration Rate 82 mL/min (>60); Est Glom Filt Rate - Afr Amer 99 mL/min (>60); Estimated Creatinine Clearance 43.05 ml/min; Glucose 98 mg/dL (74-106); Magnesium 1.6 mg/dL (1.6-2.6); Phosphorus 2.2 mg/dL (2.5-4.9); Potassium 4.2 mmol/L (3.5-5.1); Sodium Level 140 mmol/L (136-145)
[2023-08-07 12:00] VITALS: BP 121/69; PULSE 76; RESP 16; TEMP 36.8; O2SAT 94
[2023-08-07 12:07] LABS: Lipase 63 U/L (13-75)
[2023-08-07] MEDS: 0.9% Normal Saline (1000mL) 1,000 ML 50 ML IV (15:39)
[2023-08-07 16:00] VITALS: BP 115/72; PULSE 70; RESP 16; TEMP 36.6; O2SAT 94
[2023-08-07] MEDS: Potassium Phosphate 15 MM in 0.9% Normal Saline (250mL Bag) 250 ML 125 MM IV (16:05)
[2023-08-07 22:00] VITALS: BP 155/76; PULSE 58; RESP 16; RESP 18; TEMP 36.9; O2SAT 96
[2023-08-08 04:00] VITALS: BP 158/70; PULSE 61; RESP 16; TEMP 36.8; O2SAT 97
[2023-08-08 05:36] LABS: Absolute Lymphocyte Count 1.48 X10^3/uL (0.83-4.51); Absolute Neutrophil Count 5.6 X10^3/uL (2.0-7.7); Basophil# 0.01 X10^3/uL; Basophil% 0.1 % (0-1); Eosinophil# 0.21 X10^3/uL; Eosinophils% 2.6 % (0-5); Hematocrit 36.1 % (37-47); Lymphocyte # 1.48 X10^3/ul (0.83-4.51); Lymphocyte % 18.2 % (19-41); Mean Corp Hgb Conc 33.2 g/dL (32-36); Mean Corpuscular Hgb 31.3 pg (27.0-32.0); Mean Platelet Vol. 10.2 fl (6.2-12.0); Monocyte# 0.78 X10^3/uL; Monocyte% 9.6 % (0-10); NRBC Flagged by Analyzer 0 % (0-5); Neutrophil % 68.9 % (47-70); Platelet Count 221 K/mm3 (150-450); RBC Distribution Width CV 13.7 % (11.6-14.6); RBC Distribution Width SD 47.1 fl (35.1-43.9); Red Blood Count 3.84 M/mm3 (4.2-5.4); White Blood Count 8.1 K/mm3 (4.4-11.0)
[2023-08-08 05:59] LABS: Anion Gap 4 (5-15); BUN 8 mg/dL (7-18); BUN/Creat Ratio 13.5 RATIO (10-20); Calcium,Total 8.5 mg/dL (8.5-10.1); Chloride 107 mmol/L (98-107); Creatinine, Serum 0.59 mg/dL (0.55-1.02); EST Glomerular Filtration Rate 103 mL/min (>60); Est Glom Filt Rate - Afr Amer 125 mL/min (>60); Estimated Creatinine Clearance 43.05 ml/min; Glucose 106 mg/dL (74-106); Magnesium 1.5 mg/dL (1.6-2.6); Phosphorus 2.2 mg/dL (2.5-4.9); Potassium 3.5 mmol/L (3.5-5.1); Sodium Level 140 mmol/L (136-145)
--- NOTE | 2023-08-08 09:10 | PCM.PN.SRG ---
Subjective Subjective Patient seen and examined during AM rounds. She is found resting in bed. She states that she tolerated her liquids overnight without any nausea and has ongoing loose stools. She favorably reports that she is feeling somewhat better today and having less abdominal discomfort. Although she denies any nausea with the current diet she finds it unappetizing. Objective Data Objective Data Vital Signs: Vital Signs Temp Pulse Resp BP Pulse Ox O2 Del Method O2 Flow Rate 98.3 F 61 16 158/70 H 97 Room Air 2 08/08/23 04:00 08/08/23 04:00 08/08/23 04:00 08/08/23 04:00 08/08/23 04:00 08/08/23 04:00 08/06/23 15:00 Oxygen Flow Rate (L/min) 2 Oxygen Delivery Method Room Air Weight: 110 lb 14.28 oz Body Mass Index (BMI) 19.6 Intake & Output: Intake and Output for Last 24 Hours 08/06/23 08/07/23 08/08/23 23:59 23:59 23:59 Intake Total 4776.33 / 4776.33 2270.00 / 2510.00 360 / 360 Output Total 700 / 700 Balance 4076.33 / 4076.33 2270.00 / 2510.00 360 / 360 Lab / Micro Data 08/08/23 05:25 08/08/23 05:25 Labs: Laboratory Results - last 24 hr 08/07/23 10:23: WBC 8.7, RBC 3.78 L, Hgb 11.7 L, Hct 36.6 L, MCV 96.8, MCH 31.0, MCHC 32.0, RDW Std Deviation 49.9 H, RDW Coeff of Jenn 14.0, Plt Count 232, MPV 10.9, Immature Gran % (Auto) 0.600, Neut % (Auto) 71.2 H, Lymph % (Auto) 17.4 L, [place] % (Auto) 8.1, Eos % (Auto) 2.5, Baso % (Auto) 0.2, Absolute Neuts (auto) 6.2, Absolute Lymphs (auto) 1.52, Nucleated RBC % 0, Sodium 140, Potassium 4.2, Chloride 108 H, Carbon Dioxide 31.0, Anion Gap 1 L, BUN 18, Creatinine 0.72, Estim Creat Clear Calc 43.05, Est GFR (MDRD) Af Amer 99, Est GFR (MDRD) Non-Af 82, BUN/Creatinine Ratio 24.8 H, Glucose 98, Calcium 8.5, Phosphorus 2.2 L, Magnesium 1.6, Lipase 63 08/08/23 05:25: WBC 8.1, RBC 3.84 L, Hgb 12.0, Hct 36.1 L, MCV 94.0, MCH 31.3, MCHC 33.2, RDW Std Deviation 47.1 H, RDW Coeff of Jenn 13.7, Plt Count 221, MPV 10.2, Immature Gran % (Auto) 0.600, Neut % (Auto) 68.9, Lymph % (Auto) 18.2 L, [place] % (Auto) 9.6, Eos % (Auto) 2.6, Baso % (Auto) 0.1, Absolute Neuts (auto) 5.6, Absolute Lymphs (auto) 1.48, Nucleated RBC % 0, Sodium 140, Potassium 3.5, Chloride 107, Carbon Dioxide 29.0, Anion Gap 4 L, BUN 8, Creatinine 0.59, Estim Creat Clear Calc 43.05, Est GFR (MDRD) Af Amer 125, Est GFR (MDRD) Non-Af 103, BUN/Creatinine Ratio 13.5, Glucose 106, Calcium 8.5, Phosphorus 2.2 L, Magnesium 1.5 L Physical Exam Const oriented x3 and no apparent distress Resp normal respiratory effort GI GI Narrative: Nondistended, soft, minimally tender to palpation in the left lower quadrant (representing marked improvement in her exam from yesterday) Assessment & Plan Assessment/Plan (1) Small bowel obstruction: PLAN: Patient is hospital day 4 for admission for pancreatitis as well as small bowel obstruction. She passed a small bowel follow-through 2 days ago and KUB yesterday showed nonobstructive gas patterns. However, yesterday patient remained tender on exam so her diet was not advanced and we simply continue clinical monitoring. Lipase was rechecked given evidence of pancreatitis on intake and this was normal. Today patient is pleased to report that her abdominal symptoms are significantly improved. Given this finding and her continued tolerance of clear liquids will advance to a full liquid diet today and monitor for tolerance. Likely owing to patient's suboptimal nutritional status over the past couple of days several electrolytes were found at low levels on her labs and will be repleted today. Dion Haji MD General Surgery Endocrine Surgery Pager: [facility] [address] [place] [address], [address] [place] [id number] Office: [phone] Charges/Coding Visit Charges Inpatient E&M: 98945 Subs Hosp L2
[2023-08-08 10:00] VITALS: BP 128/80; PULSE 70; RESP 18; TEMP 36.6; O2SAT 98
[2023-08-08] MEDS: Pantoprazole Sodium 40 MG in 0.9% Normal Saline (100mL MB+) 100 ML 330 MG IV (10:23)
[2023-08-08] MEDS: Potassium Phosphate 15 MM in 0.9% Normal Saline (250mL Bag) 250 ML 125 MM IV (10:40)
[2023-08-08] MEDS: Levothyroxine 25 MCG TABLET 75 MCG PO (11:18)
[2023-08-08] MEDS: Magnesium Sulfate 4gm/100mL 4 GM/100 ML IV.SOLN. IV (13:29)
[2023-08-08 14:33] VITALS: BP 143/54; PULSE 87; RESP 18; TEMP 36.6; O2SAT 97
[2023-08-08 20:00] VITALS: BP 121/56; PULSE 66; RESP 18; TEMP 36.6; O2SAT 97
[2023-08-08] MEDS: 0.9% Normal Saline (1000mL) 1,000 ML 50 ML IV (20:46)
[2023-08-09 02:00] VITALS: BP 143/78; PULSE 59; RESP 18; TEMP 36.7; O2SAT 97
[2023-08-09] MEDS: Levothyroxine 25 MCG TABLET 50 MCG PO (06:38)
--- NOTE | 2023-08-09 07:11 | PCM.PN.SRG ---
Subjective Subjective Patient reports no abdominal pain this morning. She denies any nausea or vomiting. She is passing gas. She has not had a bowel movement since admission. Objective Data Objective Data Vital Signs: Vital Signs Temp Pulse Resp BP Pulse Ox O2 Del Method O2 Flow Rate 98.1 F 59 L 18 143/78 H 97 Room Air 2 08/09/23 02:00 08/09/23 02:00 08/09/23 02:00 08/09/23 02:00 08/09/23 02:00 08/09/23 04:44 08/06/23 15:00 Oxygen Flow Rate (L/min) 2 Oxygen Delivery Method Room Air Weight: 110 lb 14.28 oz Body Mass Index (BMI) 19.6 Intake & Output: Intake and Output for Last 24 Hours 08/07/23 08/08/23 08/09/23 23:59 23:59 23:59 Intake Total 2270.00 / 2510.00 2299.17 / 2299.17 150 / 150 Balance 2270.00 / 2510.00 2299.17 / 2299.17 150 / 150 Lab / Micro Data 08/08/23 05:25 08/08/23 05:25 Micro: Microbiology 08/05/23 22:26 Blood Culture (Wb) - Right Wrist Blood Culture - Preliminary No growth in 48 hours. 08/05/23 22:40 Blood Culture (Wb) - Left Wrist Blood Culture - Preliminary No growth in 48 hours. Physical Exam Const oriented x3 and no apparent distress Resp normal respiratory effort GI soft to palpation Extremity normal to inspection Assessment & Plan Assessment/Plan (1) Small bowel obstruction: PLAN: Patient denies any abdominal pain. She is passing flatus with no nausea or vomiting. I will start her on a regular diet as she is tolerating full's. Hopeful for DC home today if tolerating regular diet. Emmett Guerrero MD Pager: [facility] [address] [place] [address], [address] [place] [phone] Office:
[2023-08-09 10:00] VITALS: BP 168/92; PULSE 85; RESP 14; TEMP 36.6; O2SAT 99
--- NOTE | 2023-08-09 11:44 | PCM.DC.SUM ---
Providers Date of Admission: 08/06/23 Primary Care Physician: Kassandra Primary Care Phys Reason For Visit: SMALL BOWEL OBSTRUCTION Diagnosis Discharge Diagnosis (1) Small bowel obstruction: Status: Acute Code(s): K56.609 - Unspecified intestinal obstruction, unspecified as to partial versus complete obstruction Medications at Discharge Home Medications fluoxetine 20 mg capsule (Prozac) 20 mg PO DAILY 08/05/23 levothyroxine 2 tab PO .COMPLEX 08/05/23 Hospital Course Summary of Care Provided Minutes Spent on Discharge: 35 Hospital Course: Patient is an 82 y/o F I am following for a 2 day history of abdominal pain, who presented to the ED. CT scan of ab/pel was obtained demonstrating dilated loops of small bowel. Patient was admitted. She had a small bowel follow-though on 08/06/23 which demonstrated partial small bowel obstruction. KUB was obtained on 08/06 which demonstrated no bowel obstruction. Patient was restarted on a clear liquid diet and tolerated this. Patient was slowly advanced to a regular diet without any nausea or abdominal pain. Upon discharge, patient was tolerating a regular diet. She has been passing flatus and having bowel movements. She denies any nausea, vomiting. She is ready for discharge. Physical Exam Const alert, oriented x3 and no apparent distress GI normal to inspection, nondistended, normoactive bowel sounds Weight / BMI Weight Weight: 110 lb 14.28 oz Body Mass Index (BMI) 19.6 ABG / Lab / Microbiology Data 08/08/23 05:25 08/08/23 05:25 Microbiology: Microbiology 08/05/23 22:26 Blood Culture (Wb) - Right Wrist Blood Culture - Preliminary No growth in 48 hours. 08/05/23 22:40 Blood Culture (Wb) - Left Wrist Blood Culture - Preliminary No growth in 48 hours. D/C Instructions Discharge Diet: - (Low fiber diet included) Discharge Activity: [address] Please Follow Up With: Emmett Guerrero MD When: Follow-up as needed. Our office number is [phone] if any questions or concerns come up. Meaningful Use Info Meaningful Use Meaningful Use Diagnoses (Choose all that apply): None applicable Ischemic Stroke Statin Dosing Therapy Reference: STATIN DOSE THERAPY REFERENCE: * Patients > 75 years receive moderate or high dose statin therapy. * Patients 75 years or YOUNGER should receive HIGH intensity statin dose unless contraindicated. You will be required to document reason for non-treatment if statin daily dose does not meet guidelines. HIGH DOSE STATIN THERAPY DAILY Atorvastatin > than or = to 40 mg Rosuvastatin > than or = to 20 mg Amlodipine + Atorvastatin > than or = to 2.5/40 mg Ezetimibe + Simvastatin 10/80 mg Simvastatin 80mg Discharge Plan Admission Admit Date/Time: 08/06/23 01:00 Primary Reason for Your Visit: Small bowel obstruction Attending Provider: Emmett Guerrero Primary Care Provider: Care Physician,No Primary Consulting Providers: Kayden Garcia Instructions Additional Instructions / Restrictions: What are low-fiber foods? If your doctor tells you to follow a low-fiber diet, here are low-fiber foods you can eat and higher-fiber foods you should avoid. Remember to always choose foods that you would normally eat. Do not try any foods that caused you discomfort or allergic reactions in the past. If you are on a ?low-residue diet,? your food choices are even more restricted than those listed below. Talk with your cancer care team or dietitian if you have questions about certain foods or amounts. Meat, fish, poultry, and protein Eat: Tender cuts of meat Ground meat Tofu Fish and shellfish Smooth peanut butter Eggs Bake, broil, or poach meats, and use mild seasonings. Try preparing meats as stews, roasts, meatloaves, casseroles, sandwiches, and soups using ingredients on the approved lists. Scramble, poach, or boil eggs; or make omelets, souffl?s, custard, puddings, and casseroles, using ingredients noted below. You might want to ask your doctor, nurse, or dietitian about other foods may be OK for you to eat, and find out when you can go back to your normal diet. Avoid: All beans, nuts, peas, lentils, and legumes Processed meats, hot dogs, sausage, and cold cuts Tough meats with gristle Dairy: Milk and cheese Eat: Only in small to medium amounts and only if they don?t cause problems for you Milk, chocolate milk, buttermilk, and milk drinks Yogurt without seeds or granola Sour cream Cheese Cottage cheese Custard or pudding Ice cream or frozen desserts (without nuts) Cream sauces, soups, and casseroles You can use these items in desserts, snacks, or breads. Bread, cereals, and grains Eat: White breads, waffles, Pashto toast, plain white rolls, or white bread toast Pretzels Plain pasta or noodles White rice Crackers, zwieback, spike, and matzoh (no cracked wheat or whole grains) Cereals without whole grains, added fiber, seeds, raisins, or other dried fruit Use white flour for baking and making sauces. Grains, such as white rice, Cream of Wheat, or grits, should be well-cooked. Include the above grains in casseroles, dumplings, souffl?s, cheese strata, kugels, and pudding. Avoid any food that contains: Brown or wild rice Whole grains, cracked grains, or whole wheat products Kasha (buckwheat) Cornbread or cornmeal Donnell crackers Bran Wheat germ Nuts Granola Coconut Dried fruit Seeds Vegetables and potatoes Eat: Tender, well-cooked fresh or canned vegetables without seeds, stems, or skins Cooked sweet or white potatoes without skins Strained vegetable juices without pulp or spices You can also eat these with cream sauces, or in soups, souffl?s, kugels, and casseroles. Avoid: All raw or steamed vegetables All types of beans Potatoes with skin Peas [place] Cabbage, broccoli, cauliflower, [place] sprouts, and greens Sauerkraut Onions Fruits and desserts Eat: Soft canned or cooked fruit without seeds or skins (small amounts) Small amounts of well-ripened banana Strained or clear juices Small amounts of soft cantaloupe or honeydew melon Cookies and other desserts without whole grains, dried fruit, berries, nuts, or coconut Sherbet and popsicles Serving suggestions include gelatins, milk shakes, frozen desserts, puddings, tapioca, cakes, and sauces. Avoid: All raw or dried fruits Berries Prune juice, prunes, and raisins Other foods Eat: Mayonnaise and mild salad dressings Margarine, butter, cream, and oils in small amounts Plain gravies Plain bouillon and broth Ketchup and mild mustard Spices, cooked herbs, and salt Sugar, honey, and syrup Clear jellies Hard candy and marshmallows Plain chocolate Avoid: Marmalade Pickles, olives, relish, and horseradish Popcorn Potato chips Liquids Keep in mind that low-fiber foods cause fewer bowel movements and smaller stools. You may need to drink extra fluids to help prevent constipation while you are on a low-fiber diet. Drink plenty of water unless your doctor tells you otherwise, and use juices and milk as noted above. Discharge Orders/Prescriptions Prescriptions: Continued fluoxetine [Prozac] 20 mg capsule 20 mg PO DAILY levothyroxine 2 tab PO .COMPLEX Patient Comments: 2 tabs orally TAKES 2 TABLETS TWO DAYS AND THREE THE OTHER; Rx Instructions: 2 tabs orally TAKES 2 TABLETS TWO DAYS AND THREE THE OTHER; Referrals / Follow Up: Maria Del Carmen Veliz MD [Med Staff - Active Staff] - Ino Monroe MD [Med Staff - School Psychologist] - Richard Arguello MD [Med Staff - School Psychologist] - Care Physician,No Primary [Primary Care Provider] - NOT,DEFINED [Non-Staff] - Disposition Disposition (needs filled in before D/C Order can be placed): Home, Self Care Charges/Coding Visit Charges Inpatient E&M: 05669 Disch Hosp >30min
[2023-08-09] MEDS: Pantoprazole Sodium 40 MG in 0.9% Normal Saline (100mL MB+) 100 ML 330 MG IV (11:55)
--- NOTE | 2023-08-09 13:33 | CASEMGMT ---
MELISSA CM into pt room, pt sitting up in bed in no distress. Pt stated I at home with ADLs and IADLs. Denies any concerns with going home at this time.
[2023-08-10 10:18] LABS: Pathologist Review Reviewed
== END 2023-08-09 13:59 | disposition home or self-care (01) | DRG 388 ==
LOC: ED 08-06 00:09 → PCU 08-06 01:25 → MS3 08-08 14:10
PROVIDERS: Physician Assistant; Surgery; Admitting Provider Internal Medicine; Emergency Provider Emergency Medicine; Visit Provider Surgery
DX: K56.600 Partial intestinal obstruction, unspecified as to cause (principal); K85.91 Acute pancreatitis with uninfected necrosis, unspecified; E44.0 Moderate protein-calorie malnutrition; Z68.1 Body mass index [BMI] 19.9 or less, adult
CPT/HCPCS: 36415; 74018; 74177; 74250; 80048; 80053; 81001; 83605; 83690; 83735; 84100; 85025; 85610; 85730; 86850; 86900; 86901; 87040; 94668; 97802; 99285; J7030; J7050; Q9967; A4216; J2405

== ENCOUNTER → 2023-10-21 | Outpatient (CLI) | payer MEDICARE, OTHER, SELFPAY ==
--- NOTE | 2023-10-21 07:58 | MRI_ITS ---
STUDY: MRI BRAIN WITH AND WITHOUT CONTRAST REASON FOR EXAM: Female, 83 years old. H/O MENANGIOMA TECHNIQUE: Standardized multiplanar fat and water weighted pulse sequences were obtained. IV 9cc clariscan was administered for the contrast portion of the examination. COMPARISON: 10/05/2022 FINDINGS: There is mild cerebral atrophy with widening of the extra-axial spaces and ventricular dilatation. There are a limited number of small white matter hyperintensities, distributed throughout the deep white matter tracts of the cerebral hemispheres, consistent with mild chronic white matter ischemic changes. There is no evidence for recent intracranial ischemia or other cause of cytotoxic edema on diffusion weighted imaging (DWI). Normal T2* images of the brain without demonstrated susceptibility artifact. There is no demonstrated hemosiderin stain. Status post right parietal craniotomy with subjacent encephalomalacia and gliosis which is unchanged. Normal bilateral basal ganglia. Normal thalami. There is no extra-axial fluid accumulation. Normal flow voids within the major intracranial circulation suggesting patency by spin echo criteria. Normal venous enhancement. There is no enhancing intra-axial or extra-axial abnormality. Normal sella turcica, pituitary gland, infundibular stalk, optic chiasm and hypothalamus. Normal tectal plate and pineal gland. Normal midbrain, gutierrez and medulla. Normal cerebellum. Normal basal cisterns. Normal bilateral temporal bones. Normal bilateral internal auditory canals. No demonstrated orbital abnormality, within the constraints of a routine brain study. Normal visualized paranasal sinuses. Normal calvarium and skull base. Normal visualized soft tissue structures. Normal visualized upper cervical spine. MRI/Brain W/WO Contrast IMPRESSION: No change from 10/05/2022. Electronically Signed: Abilio Quinonez MD at 14:19 EDT ,
[2023-10-21 08:28] LABS: CREATININE FINGERSTICK < 1.0 mg/dL (0.55-1.02); EGFR FINGERSTICK > 60.0000 mL/min (>60)
== END | disposition home or self-care (01) ==
LOC: MRI 07:43
PROVIDERS: Referring Provider Ophthalmology; Visit Provider Ophthalmology
DX: D32.9 Benign neoplasm of meninges, unspecified (principal)
CPT/HCPCS: 70553; A9575

== ENCOUNTER 2023-12-28 12:46 | Emergency (ER) | payer MEDICARE, OTHER, SELFPAY ==
[2023-12-28 12:46] VITALS: BP 145/86; PULSE 100; RESP 18; TEMP 36.2; O2SAT 94; BMI 19.7
--- NOTE | 2023-12-28 13:23 | EX.ED.GENINJ ---
HPI History of Present Illness Chief Complaint: Chest Other Informant: patient Onset/Context/Timing Onset: Today Mechanism/Context: Fall Quality of Pain: Sharp Location: Left abdomen Worsened by: Movement, breathing Relieved by: Nothing Associated Symptoms Associated Symptoms: Negative for Parasthesias, Weakness, Loss of function, Inability to ambulate, Loss of consciousness or Amnesia Narrative Narrative: Patient presents after a fall that occurred earlier this morning. Patient states she fell and hit the left side of her chest on her toilet seat. Patient states that pain is mainly over the left side of her chest. Patient states the pain radiates into her abdomen and pelvis on the left side. Patient describes her pain as sharp. Patient states it is worse with any breathing or movement. Patient denies any nausea or vomiting. Patient denies any paresthesias or weakness. Patient denies any head injury or loss of consciousness. PFSH PFS Home Medications ?Medication ?Instructions ?Recorded ?Last Taken ?Type fluoxetine 20 mg capsule (Prozac) 20 mg PO DAILY 08/05/23 Unknown History levothyroxine 2 tab PO .COMPLEX 08/05/23 Unknown History Allergy/AdvReac Type Severity Reaction Status Date / Time Penicillins Allergy Intermediate SKIN SHEDS Verified 12/28/23 12:46 Surgical History History of colostomy Social History Smoking Status: Never smoker ROS ROS ED Constitutional Constitutional ED: Denies chills or fever(s) Eyes Eyes: Denies blurry vision or change in vision ENT ENT ED: Denies rhinorrhea or sore throat Cardiovascular Cardiovascular: Reports chest pain; Denies palpitations Respiratory/Chest Respiratory/Chest: Denies cough or dyspnea Gastrointestinal Gastrointestinal: Denies nausea or vomiting Genitourinary Genitourinary ED: Denies dysuria or hematuria Musculoskeletal Musculoskeletal: Denies back pain or neck pain Integumentary Denies abscess or rash Neurologic Neurologic: Denies headache(s) or weakness Allergic/Immunologic Allergic/Immunologic ED: Denies mouth swelling or urticaria EXAM Physical Exam Const Vital Signs: 12/28/23 12:46 12/28/23 13:13 12/28/23 13:16 Temperature 97.1 F L Temperature Source Temporal Pulse Rate 100 Respiratory Rate 18 Respiratory Effort Normal Non-Labored Normal Non-Labored Respiratory Depth Normal Respiratory Pattern Normal Blood Pressure 145/86 H Blood Pressure Mean 105 Pulse Ox 94 Oxygen Delivery Method Room Air Room Air 12/28/23 16:20 Temperature Temperature Source Pulse Rate 69 Respiratory Rate 19 H Respiratory Effort Respiratory Depth Respiratory Pattern Blood Pressure 142/72 H Blood Pressure Mean 95 Pulse Ox Oxygen Delivery Method Positive well nourished and well developed General Appearance ED: well developed and NAD HEENT atraumatic Neck full ROM Chest Wall Chest Narrative: There is tenderness over the left lower ribs. There is no bony crepitance or step-off. There is no subcutaneous emphysema palpated. Resp normal respiratory effort and clear to auscultation bilaterally Cardio regular rhythm Rate: regular rate GI non-distended Palpation: soft and tender LLQ and LUQ; Negative for guarding or rebound tenderness present Neuro oriented x3, CN's II-XII intact bilaterally, moves all extremities, no focal motor deficits and no sensory deficits noted Hollins Coma Scale: document GCS findings Spontaneous Obeys Commands Oriented 15 Sensorium / Orientation: alert Motor Exam: strength 5/5 throughout Psych mental status grossly normal MDM MDM MDM Narrative Medical decision making narrative: Differential diagnosis includes rib fracture, pneumonia, pneumothorax, intra-abdominal bleeding, closed head injury, concussion, and intracranial bleeding. CBC will be obtained to assess for leukocytosis and anemia. Comprehensive metabolic profile will be obtained to assess for hepatic function, renal function, and electrolyte abnormality. Urinalysis will be obtained to assess for hematuria and urinary tract infection. CT scan of the brain will be obtained to assess for intracranial bleeding. CT of the chest, abdomen, and pelvis will be obtained to assess for rib fracture, pneumothorax, and intra-abdominal bleeding. Lab Data Attestation: I reviewed the patient's lab results. Lab results narrative: CBC was reviewed and was within normal limits. Comprehensive metabolic profile was reviewed and was within normal limits. Urinalysis was reviewed. Leukocyte esterase was 100 with 2+ bacteria. There are 0-5 white blood cells however. There were positive nitrates. There is no hematuria noted. Labs: Laboratory Results - last 24 hr 12/28/23 14:28 WBC 9.9 RBC 4.78 Hgb 14.6 Hct 45.0 MCV 94.1 MCH 30.5 MCHC 32.4 RDW Std Deviation 45.5 H RDW Coeff of Jenn 13.1 Plt Count 262 MPV 10.2 Immature Gran % (Auto) 0.700 Neut % (Auto) 71.8 H Lymph % (Auto) 17.5 L [place] % (Auto) 7.8 Eos % (Auto) 1.8 Baso % (Auto) 0.4 Absolute Neuts (auto) 7.1 Absolute Lymphs (auto) 1.74 Nucleated RBC % 0 Sodium 139 Potassium 4.2 Chloride 100 Carbon Dioxide 34.0 H Anion Gap 4 L BUN 16 Creatinine 0.99 Estim Creat Clear Calc 34.33 Est GFR (MDRD) Af Amer 69 Est GFR (MDRD) Non-Af 57 L BUN/Creatinine Ratio 16.1 Glucose 96 Calcium 9.6 Total Bilirubin 0.90 AST 23 ALT 25 Alkaline Phosphatase 66 Total Protein 7.7 Albumin 3.6 Globulin 4.1 Albumin/Globulin Ratio 0.9 Urine Color Yellow Urine Clarity Sl. Cloudy Urine pH 8.0 Ur Specific [place] 1.010 Urine Protein Negative Urine Glucose (UA) Normal Urine Ketones Negative Urine Occult Blood Negative Urine Nitrite Positive H Urine Bilirubin Negative Urine Urobilinogen Normal Ur Leukocyte Esterase 100 H Urine RBC 0 SEEN Urine WBC 0-5 SEEN Ur Squamous Epith Cells 0 SEEN Urine Bacteria 2+ Urine Mucus 0 SEEN Radiography Diagnostic Testing: Clinical Impression(s) from Imaging Studies Brain CT 12/28/23 14:17 IMPRESSION: Chronic involutional changes of the brain. Electronically Signed: Sudeep Cooper MD at 15:29 EDT , Chest/Abdomen/Pelvis CTA 12/28/23 15:15 IMPRESSION: No acute abnormality is seen.. Electronically Signed: Sudeep Cooper MD at 15:33 EDT , CT scan of the brain was obtained. There is no acute intracranial abnormality. There are chronic involutional changes noted. This was interpreted by the radiologist and was also independently reviewed by myself. CTA of the chest, abdomen, and pelvis was obtained. There is no acute abnormality noted. There is no rib fracture or pneumothorax. There is no intra-abdominal bleeding noted. There are no solid organ lacerations. This was interpreted by the radiologist and was also independently reviewed by myself. Treatment and Re-Evaluation Narrative: Patient was given IV fluids, morphine, and Zofran. Patient was advised of her findings. Patient was instructed to take 10-15 deep breaths every hour while awake to prevent atelectasis and pneumonia. Patient was instructed to take Tylenol or ibuprofen as needed for pain. Urine culture was ordered. Since the patient is asymptomatic we will hold off on prescribing antibiotics for possible urinary tract infection until urine culture results returned. Discharge Plan Triage Chief Complaint: Chest Other ED Provider: Ino Aponte Dx/Rx/DC Orders Clinical Impression: Fall, Chest wall contusion Instructions: ED Chest Wall Contusion Prescriptions: No Action fluoxetine [Prozac] 20 mg capsule 20 mg PO DAILY levothyroxine 2 tab PO .COMPLEX Patient Comments: 2 tabs orally TAKES 2 TABLETS TWO DAYS AND THREE THE OTHER; Rx Instructions: 2 tabs orally TAKES 2 TABLETS TWO DAYS AND THREE THE OTHER; Primary Care Provider: Care Physician,No Primary Referrals: Richard Arguello MD [Med Staff - Aquatics Director] - 5-7 Days Care Physician,No Primary [Primary Care Provider] - Print Language: Monegasque Disposition Disposition: Home, Self Care
--- NOTE | 2023-12-28 14:17 | CT_ITS ---
STUDY: CT BRAIN WITHOUT CONTRAST REASON FOR EXAM: Female, 83 years old. Injury/Pain RADIATION DOSAGE (If Supplied By Facility): CTDIvol = ( 44.99 ) mGy, DLP = ( 762.36 ) mGycm TECHNIQUE: Transaxial CT imaging of the brain was performed without administration of intravenous contrast material. Individualized dose optimization techniques were used for this CT. COMPARISON: No relevant priors. FINDINGS: Normal soft tissue structures. Prior left frontoparietal craniotomy. There is mild cerebral atrophy with widening of the extra-axial spaces and ventricular dilatation. There are areas of decreased attenuation within the white matter tracts of the supratentorial brain, consistent with microvascular disease changes. Normal basal ganglia and thalami. Normal brainstem. Normal cerebellum. There is no intracranial hemorrhage. There are no findings of an acute ischemic infarction. Normal visualized paranasal sinuses. CT/Brain/Head without Contrast IMPRESSION: Chronic involutional changes of the brain. Electronically Signed: Sudeep Cooper MD at 15:29 EDT ,
[2023-12-28] MEDS: Morphine 4 MG/ML Syringe IV (14:24)
[2023-12-28] MEDS: Ondansetron 4 MG/2 ML Vial IV (14:25)
[2023-12-28] MEDS: 0.9% Normal Saline (1000mL) 1,000 ML 1000 ML IV (14:25)
[2023-12-28 14:33] LABS: Mucous, Urine 0 SEEN /hpf (<or=2+); Red Blood Cells-Urine 0 SEEN /hpf (0-5); Squamous Epithelial Cells - UA 0 SEEN /hpf (5-10)
[2023-12-28 14:35] LABS: Color, Urine Yellow (Yellow); Glucose, Dipstick Normal (Normal); Ketone-Dipstick Negative (Negative); Leukocyte Esterase-Dipstick 100 /ul (Negative); Nitrite-Dipstick Positive (Negative); Occult Blood-Urine Negative /ul (Negative); Protein-Dipstick Negative (Negative); Urine Bilirubin Dipstick Negative (Negative); Urine Clarity Sl. Cloudy (Clear); Urine Urobilinogen Normal (Normal)
[2023-12-28 14:37] LABS: Absolute Lymphocyte Count 1.74 X10^3/uL (0.83-4.51); Absolute Neutrophil Count 7.1 X10^3/uL (2.0-7.7); Basophil# 0.04 X10^3/uL; Basophil% 0.4 % (0-1); Eosinophil# 0.18 X10^3/uL; Eosinophils% 1.8 % (0-5); Hemoglobin 14.6 g/dL (12.0-15.0); Lymphocyte # 1.74 X10^3/ul (0.83-4.51); Lymphocyte % 17.5 % (19-41); Mean Corp Hgb Conc 32.4 g/dL (32-36); Mean Corpuscular Hgb 30.5 pg (27.0-32.0); Mean Corpuscular Volume 94.1 fL (81-99); Mean Platelet Vol. 10.2 fl (6.2-12.0); Monocyte# 0.77 X10^3/uL; Monocyte% 7.8 % (0-10); NRBC Flagged by Analyzer 0 % (0-5); Neutrophil # 7.12 X10^3/uL (2.7-7.7); Neutrophil % 71.8 % (47-70); Platelet Count 262 K/mm3 (150-450); RBC Distribution Width CV 13.1 % (11.6-14.6); RBC Distribution Width SD 45.5 fl (35.1-43.9); Red Blood Count 4.78 M/mm3 (4.2-5.4); White Blood Count 9.9 K/mm3 (4.4-11.0)
[2023-12-28 14:41] LABS: Bacteria 2+ /hpf (None Seen)
[2023-12-28 14:42] LABS: White Blood Cells 0-5 SEEN /hpf (0-5)
[2023-12-28 15:01] LABS: ALB/GLOB Ratio 0.9 RATIO (0.9-2.4); AST(SGOT) 23 U/L (15-37); Alanine Aminotransfer ALT/SGPT 25 U/L (13-56); Albumin, Serum 3.6 g/dL (3.2-5.0); Alkaline Phosphatase 66 U/L (45-117); Anion Gap 4 (5-15); BUN 16 mg/dL (7-18); BUN/Creat Ratio 16.1 RATIO (10-20); Calcium,Total 9.6 mg/dL (8.5-10.1); Chloride 100 mmol/L (98-107); Creatinine, Serum 0.99 mg/dL (0.55-1.02); EST Glomerular Filtration Rate 57 mL/min (>60); Est Glom Filt Rate - Afr Amer 69 mL/min (>60); Estimated Creatinine Clearance 34.33 ml/min; Globulin 4.1 g/dL (2.2-4.2); Glucose 96 mg/dL (74-106); Potassium 4.2 mmol/L (3.5-5.1); Protein, Total 7.7 g/dL (6.4-8.2); Sodium Level 139 mmol/L (136-145)
--- NOTE | 2023-12-28 15:15 | CT_ITS ---
INDICATION: History of fall. COMPARISON: None. TECHNIQUE: CT scan through the chest, abdomen, and pelvis was performed before and after the administration of intravenous contrast and with oral contrast. CT scan done according to ALARA (As Low As Reasonably Achievable). CONTRAST: 100 mL of Omnipaque (350 mmol/mL) single-use vial was administered IV with 0 mL discarded. FINDINGS: Lungs: Increased interstitial markings in both lungs with evidence of subpleural blebs and interstitial scarring in the bronchiectasis in keeping with diffuse interstitial fibrosis.. Mediastinum: Normal. Coronary artery calcification. Liver: No mass. No intrahepatic biliary dilatation. Gallbladder: The patient is status post cholecystectomy. Mildly dilated common bile duct most likely due to the postcholecystectomy state.. Common bile duct: Normal caliber. No stones. Spleen: Within normal limits. Pancreas: No mass. No pancreatic fluid collections. Adrenals: No masses. Kidneys: No masses. No hydronephrosis. Lymph nodes: No adenopathy. Scattered sigmoid diverticula. No bowel wall thickening or obstruction. Peritoneal cavity: No mesenteric stranding or free fluid. Osseous structures: No acute fracture or destructive lesion. Abdominal aorta: Atherosclerotic calcification of the abdominal aorta.. Pelvic organs: The patient is status post hysterectomy.. Grade 1 anterolisthesis of L3 on L4. Prior fusion at the L3-L4 level. Multilevel degenerative changes. CT/CTA Chst, Abd, Pel W and/or WO IMPRESSION: No acute abnormality is seen.. Electronically Signed: Sudeep Cooper MD at 15:33 EDT ,
[2023-12-28 16:20] VITALS: BP 142/72; PULSE 69; RESP 19
[2023-12-28 17:06] VITALS: BP 149/80; PULSE 76; RESP 18; TEMP 36.7; O2SAT 96
== END 2023-12-28 17:09 | disposition home or self-care (01) ==
PROVIDERS: Emergency Provider Emergency Medicine; Visit Provider Emergency Medicine
DX: S20.20XA Contusion of thorax, unspecified, initial encounter (principal); Z93.3 Colostomy status; W19.XXXA Unspecified fall, initial encounter
CPT/HCPCS: 70450; 71275; 74174; 80053; 81001; 85025; 87077; 87086; 87088; 87186; 96361; 96374; 96375; 99284; J7030; Q9967; A4216; J2405

== ENCOUNTER → 2024-06-06 | Outpatient (CLI) | payer MEDICARE, OTHER, SELFPAY ==
[2024-06-06 16:03] LABS: Hematocrit 42.5 % (37-47); Mean Corp Hgb Conc 32.9 g/dL (32-36); Mean Corpuscular Volume 91.2 fL (81-99); Mean Platelet Vol. 12.3 fl (6.2-12.0); Platelet Count 250 K/mm3 (150-450); RBC Distribution Width CV 14.5 % (11.6-14.6); Red Blood Count 4.66 M/mm3 (4.2-5.4); White Blood Count 7.1 K/mm3 (4.4-11.0)
[2024-06-06 19:06] LABS: ALB/GLOB Ratio 1.2 RATIO (0.9-2.4); AST(SGOT) 28 U/L (<=31); Alanine Aminotransfer ALT/SGPT 15 U/L (<=34); Albumin, Serum 4.2 g/dL (3.4-4.8); Alkaline Phosphatase 56 U/L (35-104); Anion Gap 15 (5-15); BUN 21 mg/dL (4-19); Carbon Dioxide 23.9 mmol/L (21.0-32.0); Chloride 102 mmol/L (98-108); Cholesterol 202 mg/dL (<=200); Creatinine, Serum 0.95 mg/dL (0.70-1.20); EST Glomerular Filtration Rate 59 (>60); Globulin 3.6 g/dL (2.2-4.2); Glucose 108 mg/dL (70-99); High Density Lipoprotein 86 mg/dL; Low Density Lipoprotein Calc. 101 mg/dL; Potassium 3.6 mmol/L (3.3-5.1); Protein, Total 7.8 g/dL (5.9-8.4); Sodium Level 141 mmol/L (133-145); Total Bilirubin 0.62 mg/dL (0.00-1.30); Triglycerides 71 mg/dL; Very Low Density Lipoprotein 14 mg/dL (5-40); Vitamin B12 610 pg/mL (180-914); cholesterol:hdl ratio screen 2.34
[2024-06-12 15:08] LABS: ACHR Recep AB, Blocking 19 % (0-25); Acetylcholine Receptor Binding 0.04 nmol/L (0.00-0.24); Folate, RBC (Hct) Test 45.6 % (34.0-46.6); Folates, RBC Test 868 ng/mL (>498); Vitamin B1, Thiamine 124.5 nmol/L (66.5-200.0)
== END | disposition home or self-care (01) ==
PROVIDERS: PCP Family Medicine; Referring Provider Psychiatry & Neurology Neurology; Visit Provider Psychiatry & Neurology Neurology
DX: G47.00 Insomnia, unspecified (principal); R53.83 Other fatigue; E03.9 Hypothyroidism, unspecified
CPT/HCPCS: 36415; 80053; 80061; 82607; 82747; 83519; 84238; 84425; 84439; 84443; 85014; 85027

== ENCOUNTER → 2024-07-05 | Outpatient (CLI) | payer MEDICARE, OTHER, SELFPAY ==
--- NOTE | 2024-07-04 | LES_PTH ---
PATIENT: EMETERIO NGUYEN LOC: [facility] U#:[id number] AGE/SX: 83/F ROOM: RE07/05/[address]: Dr. Britany Sexton MD : 1940 BED: DIS: 07/05/2024 SPEC #: [id number] RECD: 07/05/24 09:28 STATUS: SUNI MCGOWAN #: [id number] HIMA: 07/04/24 00:[address]: Britany Sexton DEPT: SURGICAL PATHOLOGY RECD BY: Alfa Vail Tissues: A - Skin of forearm, NOS Procedures: Surgery Specimen Level IV HEADER OPERATION: Punch biopsy PRE-OP DIAGNOSIS: 9mm skin lesion TISSUE SUBMITTED: A- Left forearm 3mm MICROSCOPIC DIAGNOSIS A. Skin, left forearm, punch biopsy: * Actinic keratosis, eroded, with neutrophil crust. MICROSCOPIC DESCRIPTION Slides are reviewed. GROSS DESCRIPTION A. Received in formalin in a container labeled with the patient's name, date of , and skin lesion is an unoriented cylindrical punch of white-mendoza skin measuring 0.3 x 0.3 cm with a depth of 0.2 cm. The possible epidermal surface exhibits a 0.2 x 0.2 cm focus of brown speckling that abuts the peripheral margin. The opposing surface is inked green, and it is submitted entirely in A1. [facility] 07-05-2024 CPT:32087
== END | disposition home or self-care (01) ==
LOC: LABSPEC 09:28
PROVIDERS: PCP Family Medicine; Visit Provider Family Medicine
DX: L98.9 Disorder of the skin and subcutaneous tissue, unspecified (principal)
CPT/HCPCS: 88305

== ENCOUNTER 2024-08-15 14:42 | Outpatient (CLI) | payer MEDICARE, OTHER, SELFPAY | END 2024-08-15 23:59 | disposition home or self-care (01) | PROVIDERS: PCP Family Medicine; Referring Provider Psychiatry & Neurology Neurology; Visit Provider Psychiatry & Neurology Neurology | DX: G70.00 Myasthenia gravis without (acute) exacerbation (principal) | CPT/HCPCS: 36415 ==

== ENCOUNTER → 2024-10-11 | Outpatient (CLI) | payer MEDICARE, OTHER, SELFPAY ==
[2024-10-11 13:18] LABS: Anion Gap 11 (5-15); BUN 14 mg/dL (4-19); BUN/Creat Ratio 13.9 RATIO (10-20); Calcium,Total 9.8 mg/dL (7.6-11.0); Carbon Dioxide 27.9 mmol/L (21.0-32.0); Chloride 101 mmol/L (98-108); Glucose 101 mg/dL (70-99); Magnesium 1.9 mg/dL (1.5-2.2); Potassium 4.1 mmol/L (3.3-5.1)
== END | disposition home or self-care (01) ==
LOC: LAB 11:48
PROVIDERS: PCP Family Medicine; Referring Provider Internal Medicine Cardiovascular Disease; Visit Provider Internal Medicine Cardiovascular Disease
DX: E04.9 Nontoxic goiter, unspecified (principal)
CPT/HCPCS: 36415; 80048; 83735; 84443

== ENCOUNTER → 2024-11-06 | Outpatient (CLI) | payer MEDICARE, OTHER, SELFPAY ==
--- NOTE | 2024-11-06 13:54 | ECHOD_ITS ---
Reason For Study Reason For Study: MVP Procedure This was a 2D Doppler, Color Flow transthoracic echocardiogram. Exam performed in department. Left Ventricle Normal LV size. Mild concentric left ventricular hypertrophy. The left ventricular ejection fraction is 65 %. No regional wall motion abnormalities noted. Right Ventricle Normal RV size. Normal systolic function. Atria Normal left atrium. Normal right atrium. Mitral Valve Bileaflet diffuse mitral valve thickening. Mild mitral valve prolapse. Mild- Moderate (1-2+) eccentric mitral valve insufficiency. Tricuspid Valve Normal tricuspid valve. Mild (1+) tricuspid valve insufficiency. Pulmonary artery systolic pressure is 40 mmHg. Aortic Valve Trisinus/trileaflet aortic valve. Pulmonic Valve Normal pulmonic valve. Great Vessels Normal aortic root. The pulmonary artery is normal size. Inferior vena cava collapse with respiration. Pericardium/Pleural No pericardial effusion. MMode/2D Measurements & Calculations LVIDd: 3.9 cm IVSd: 1.3 cm Ao root diam: 3.2 cm LVIDs: 2.7 cm LVPWd: 1.2 cm RVDd: 3.5 cm FS: 30.0 % LAV(MOD-bp): 37.7 ml LVAd ap4: 22.2 cm2 SV(MOD-sp4): 39.3 ml LAV(MOD-bp) Indexed: 24.6 ml/m2 LVLd ap4: 6.6 cm SI(MOD-sp4): 25.7 ml/m2 LAV(MOD-sp2): 40.7 ml EDV(MOD-sp4): 61.8 ml LAV(MOD-sp4): 33.1 ml EDV(sp4-el): 63.6 ml LVAs ap4: 11.9 cm2 LVLs ap4: 5.3 cm ESV(MOD-sp4): 22.5 ml ESV(sp4-el): 22.7 ml EF(MOD-sp4): 63.6 % EF(sp4-el): 64.3 % SV(sp4-el): 40.9 ml LA A4 area: 13.7 cm2 LA dimension(2D): 3.4 cm RA A4 area: 8.2 cm2 TAPSE: 1.7 cm Time Measurements MV dec time: 0.16 sec Doppler Measurements & Calculations MV E max cristino: 29.2 cm/sec Lat Peak E' Cristino: 4.9 cm/sec Med Peak E' Cristino: 4.2 cm/sec MV A max cristino: 77.1 cm/sec E/E' lat: 6.0 E/E' med: 6.9 MV E/A: 0.38 Ao V2 max: 101.0 cm/sec LV V1 max: 76.6 cm/sec MV dec slope: 188.0 cm/sec2 Ao max P.1 mmHg LV V1 max P.3 mmHg Ao V2 mean: 73.6 cm/sec LV V1 mean P.6 mmHg Ao mean P.4 mmHg LV V1 mean: 62.3 cm/sec Ao V2 VTI: 17.2 cm LV V1 VTI: 14.4 cm AV (velocity ratio): 0.84 PA V2 max: 71.8 cm/sec PI end-d cristino: 115.9 cm/sec TR max cristino: 305.9 cm/sec TR max P.4 mmHg ECHO/Echo Complete Interpretation Summary Normal LV size. Mild concentric left ventricular hypertrophy. The left ventricular ejection fraction is 65 %. Bileaflet diffuse mitral valve thickening. Mild-Moderate (1-2+) eccentric mitral valve insufficiency. Ordering Physician: Tim Samayoa Referring Physician: Britany Sexton Performed By: Gisella Henry, RDCS, RVT
== END | disposition home or self-care (01) ==
LOC: CVS 13:48
PROVIDERS: PCP Family Medicine; Referring Provider Internal Medicine Cardiovascular Disease; Visit Provider Internal Medicine Cardiovascular Disease
DX: R07.9 Chest pain, unspecified (principal)
CPT/HCPCS: 93306; A4216

== ENCOUNTER → 2024-12-21 | Outpatient (CLI) | payer MEDICARE, OTHER, SELFPAY ==
--- NOTE | 2024-12-21 10:05 | CT_ITS ---
PROCEDURE: SOFT TISSUE NECK WITH CONTRAST 12/21/2024 REASON FOR EXAM: DYSPHAGIA; RIGHT PARATRACHIAL MASS TECHNIQUE: Procedure Code: CTNEW Modality: CT Procedure: SOFT TISSUE NECK WITH CONTRAST CONTRAST: Isovue-300 VOLUME: 98 mL One or more dose reduction techniques were used (e.g., Automated exposure control, adjustment of the mA and/or kV according to patient size, use of iterative reconstruction technique). RADIATION DOSE SUMMARY: DLP: 347.19 MGycm COMPARISON: None available. FINDINGS: Dental hardware limits evaluation of the oral cavity and adjacent anatomy. Aerodigestive tract: The floor of mouth, base of tongue, nasopharynx, oropharynx, hypopharynx, and larynx appear overall symmetric without evidence of nodular or masslike enhancement. The visualized trachea is clear. The nasal cavity is unobstructed. Salivary glands: (Major): The submandibular glands and parotid glands appear within normal limits. Thyroid gland: Unremarkable. Lymph nodes: There is no evidence of pathologic cervical lymphadenopathy. Vasculature: The common carotid, cervical internal carotid, and cervical vertebral arteries opacify with intravenously administered contrast. Paranasal sinuses: The paranasal sinuses are predominantly clear. Orbits: Bilateral ocular lens replacement. Intracranial/cranium: The partially visualized intracranial contents appear overall within normal limits for the patient's stated age, although assessment is limited due to technique (e.g. the [id number]). Cervical spine: Unremarkable. Lung apices: Bilateral ground-glass opacities and interlobular septal thickening at the lung apices, [id number]. Mild reversal of the usual cervical lordosis. Cervical spondylosis. CT/Soft Tissue Neck WITH Contrast IMPRESSION: 1. Dental hardware limits evaluation of the oral cavity and adjacent anatomy. 2. No dominant neck mass or pathologic cervical lymphadenopathy. 3. Biapical lung interstitial disease. Reading Location: [id number]
--- NOTE | 2024-12-21 10:05 | CT_ITS ---
PROCEDURE: SOFT TISSUE NECK WITH CONTRAST 12/21/2024 REASON FOR EXAM: DYSPHAGIA; RIGHT PARATRACHIAL MASS TECHNIQUE: Procedure Code: CTNEW Modality: CT Procedure: SOFT TISSUE NECK WITH CONTRAST CONTRAST: Isovue-300 VOLUME: 98 mL One or more dose reduction techniques were used (e.g., Automated exposure control, adjustment of the mA and/or kV according to patient size, use of iterative reconstruction technique). RADIATION DOSE SUMMARY: DLP: 347.19 MGycm COMPARISON: None available. FINDINGS: Dental hardware limits evaluation of the oral cavity and adjacent anatomy. Aerodigestive tract: The floor of mouth, base of tongue, nasopharynx, oropharynx, hypopharynx, and larynx appear overall symmetric without evidence of nodular or masslike enhancement. The visualized trachea is clear. The nasal cavity is unobstructed. Salivary glands: (Major): The submandibular glands and parotid glands appear within normal limits. Thyroid gland: Unremarkable. Lymph nodes: There is no evidence of pathologic cervical lymphadenopathy. Vasculature: The common carotid, cervical internal carotid, and cervical vertebral arteries opacify with intravenously administered contrast. Paranasal sinuses: The paranasal sinuses are predominantly clear. Orbits: Bilateral ocular lens replacement. Intracranial/cranium: The partially visualized intracranial contents appear overall within normal limits for the patient's stated age, although assessment is limited due to technique (e.g. the [id number]). Cervical spine: Unremarkable. Lung apices: Bilateral ground-glass opacities and interlobular septal thickening at the lung apices, [id number]. Mild reversal of the usual cervical lordosis. Cervical spondylosis. CT/Soft Tissue Neck WITH Contrast IMPRESSION: 1. Dental hardware limits evaluation of the oral cavity and adjacent anatomy. 2. No dominant neck mass or pathologic cervical lymphadenopathy. 3. Biapical lung interstitial disease. Reading Location: [id number]
--- OUTSIDE RECORDS SUMMARY | 2024-12-21 10:59 | XMS RPT_ITS | CCD ---
Author Organization [facility] Care Team Providers Care Medical Billing Coder Name Role Phone Unavailable Primary Care Provider UnavailDr. Cornelius Galloway Emergency Provider Care Physician, No Primary Primary Care Provider Unavailable Dr. Emmett Guerrero Attending Provider Dr. Kayden Garcia Admit Provider UnavailDr. Kayden Velásquez Other Provider UnavailDr. Emmtet Welsh Other Provider Dr. Dion Haji Attending Provider Unavailable Primary Care Provider UnavailALHAJI Jensen Attending Unavailable TEGAN, ALHAJI Referring Unavailable TEGAN, ALHAJI Attending Unavailable TEGAN, ALHAJI Referring Unavailable TEGAN, ALHAJI Attending Unavailable Stefan Cazares MD Unavailable Generic Provider , No Assigned Pcp Primary Car e Provider Unavailable THOMAE, RUBIO R Attending Unavailable THOMAE, RUBIO R Referring Unavailable THOMAE, RUBIO R Referring Unavailable GENERIC PROVIDER, NO ASSIGNED PCP Primary Care Unavailable THOMAE, RUBIO R Referring Unavailable GENERIC PROVIDER, NO ASSIGNED PCP Primary Care Unavailable Stefan Cazares MD Unavailable Generic Provider , No Assigned Pcp Primary Car e Provider Unavailable THOMAE, RUBIO R Attending Unavailable THOMAE, RUBIO R Attending Unavailable THOMAE, RUBIO R Attending Unavailable DEBORA STEFAN A Attending Unavailable THOMAE, RUBIO R Attending Unavailable GENERIC PROVIDER, NO ASSIGNED PCP Primary Care Unavailable THOMAE, RUBIO R Attending Unavailable GENERIC PROVIDER, NO ASSIGNED PCP Primary Care Unavailable DEBORA, STEFAN A Attending Unavailable DEBORA, STEFAN A Referring Unavailable GENERIC PROVIDER, NO ASSIGNED PCP Primary Care Unavailable Care Physician, No Primary Primary Care Provider Unavailable Care Physician, No Primary Referring Provider Un available Brando LUDWIG, Dr. Parker Attending Provider Dr. Britany Sexton MD Primary Care Provider Dr. Ingrid Michaels MD Referring Provider Dr. Britany Sexton MD Attending Provider [phone] Generic Provider MD, No Assigned Pcp Primary Car e Provider Unavailable INGRID OMALLEY Attending Unavailable STEFAN CAZARES Referring Unavailable Dr. Britany Sexton MD Referring Provider [phone] Friend DO, Dr. Sandoval Attending Provider Dr. Britany Sexton MD Primary Care Provider Care Physician, No Primary Referring Provider Un available Dr. Ingrid Michaels MD Attending Provider Brando LUDWIG, Dr. Parker Referring Provider Danita LUDWIG, Dr. Dumont Attending Provider Danita LUDWIG, Dr. Dumont Referring Provider Dr. Britany Sexton MD Primary Care Provider Ana Mcknight Attending Provider Ino Aponte Attending Unavailable Care Physician, No Primary Primary Care Unava ilable Miedel, Britany Primary Care Unavailable Ingrid Michaels Attending Unavailable Ingrid Michaels Referring Unavailable Miedel, Britany Primary Care Unavailable Ingrid Michaels Referring Unavailable Ingrid Michaels Attending Unavailable Miedel, Britany Primary Care Unavailable Miedel, Britany Referring Unavailable Jaime Allen Attending Unavailable Miedel, Britany Primary Care Unavailable Miedel, Britany Referring Unavailable Tim Samayoa Attending Unavailable Miedel, Britany Primary Care Unavailable Ana Bush Attending Unavailable Miedel, Britany Primary Care Unavailable Tim Samayoa Attending Unavailable Miedel, Britany Primary Care Unavailable Miedel, Britany Referring Unavailable Jaime Allen Attending Unavailable Miedel, Britany Primary Care Unavailable Miedel, Britany Referring Unavailable Ingrid Michaels Attending Unavailable Care Physician, No Primary Primary Care Unava ilable Baddour, Ingrid Attending Unavailable Care Physician, No Primary Referring Unava ilable Gladysedel, Britany Primary Care Unavailable Brando Ingrid Attending Unavailable Care Physician, No Primary Referring Unava ilable Miedel, Britany Attending Unavailable Miedel, Britany Primary Care Unavailable Miedel, Britany Primary Care Unavailable Baddour, Ingrid Referring Unavailable Baddour, Ingrid Attending Unavailable Miedel, Britany Primary Care Unavailable Danita, [place] Referring Unavailable Danita, [place] Attending Unavailable Miedel, Britany Primary Care Unavailable Danita, Tim Referring Unavailable Danita, [place] Attending Unavailable Allergies Allergy Classification Reported Allergen(s) Allergy Type Date of Onset Reaction(s) Facility (17 sources) Aspirin / oxyCODONE; Translations: [OXYCODONE-ASPIRIN] Drug Allergy Mental Status Change, Hallucinations [facility] (19 sources) Penicillins; Translations: [PENICILLINS] Propensity to adverse reactions 007 [facility] Work Phone: (12 sources) Penicillins Allergy to substance 024 SKIN SHEDS [facility] (17 sources) Midazolam; Translations: [MIDAZOLAM] Drug Allergy 024 Confusion [facility] (12 sources) Codeine; Translations: [CODEINE] Drug Allergy 008 Unknown [facility] (7 sources) Doxycycline; Translations: [DOXYCYCLINE] Drug Allergy 022 [facility] Work Phone: (7 sources) Latex; Translations: [LATEX] Allergy to substance 022 Rash [facility] Work Phone: (1 source) Penicillins Drug Intolerance 007 Other [facility] (2 sources) Sulfamethoxazole / Trimethoprim; Translations: [SULFAMETHOXAZOLE-T RIMETHOPRIM] Drug Allergy 020 Itching, Nausea Only, Unknown [facility] Work Phone: (5 sources) Sulfamethoxazole Drug Allergy 025 Itching [facility] (5 sources) Trimethoprim Drug Allergy Itching [facility] (1 source) Codeine Drug Allergy [facility] (1 source) Doxycycline Drug Allergy [facility] (1 source) Latex Drug allergy (disorder) [facility] (1 source) Midazolam Drug Allergy [facility] (1 source) Penicillins Drug allergy (disorder) [facility] (1 source) Sulfamethoxazole Drug Allergy [facility] (1 source) Trimethoprim Drug Allergy [facility] Medications Current Medications Medication Drug Class(es) Dates Sig (Normalized) Sig (Original) [id number] 200 actuat albuterol 0.09 mg/actuat metered dose inhaler (1 source) beta2-Adrenergic Agonist take 2 puff(s) by inhalation four times daily as needed albuterol 90 mcg/actuation inhaler Inhale 2 puffs 4 times a day as needed. Active budesonide 3 mg delayed release oral capsule (3 sources) Corticosteroid Start: 12-05-2024 take 3 capsules by mouth once daily in the morning Budesonide 3 mg capsule,delayed, extend.release Active 9 mg PO EVERY MORNING 180 60 0 December 05, 2024 12:00am February 02, 2025 1:00am Start: 10-06-2023 End: 10-05-2024 take 2 capsules by mouth once daily in the morning budesonide EC (Entocort EC) 3 mg 24 hr capsule Indications: Microscopic colitis, unspecified microscopic colitis type Take 2 capsules (6 mg) by mouth once daily in the morning. 60 capsule 11 10/06/2023 10/18/2023 Discontinued calcium chloride 0.0014 meq/ml / potassium chloride 0.004 meq/ml / sodium chloride 0.103 meq/ml / sodium lactate 0.028 meq/ml injectable solution (1 source) Start: 10-18-2023 take 50 mL intravenously every hour 50 mL/hr, intravenous, Continuous, Starting on 10/18/23 at 1415, Preprocedure Cholestyramine Resin (3 sources) Bile Acid Sequestrant Start: 12-05-2024 Cholestyramine (With Sugar) 4 gram powder Active 4 g PO AT BEDTIME 378 14 0 December 05, 2024 12:00am December 18, 2024 12:00am administer w/meal; avoid other meds within 1hr before or 4-6hr after dose Start: 09-02-2023 take 8 [oz_av] by mo [facility] twice daily before mealtime cholestyramine (Questran) 4 gram packet DISSOLVE 1/2 PACKET IN 8 OZ OF LIQUID AND DRINK BEFORE A MEAL. TAKE MIXTURE BY MOUTH 2 TIMES A DAY (MORNING AND LATE AFTERNOON) 09/02/2023 Active Start: 09-02-2023 End: 10-06-2023 cholestyramine (Questran) 4 gram powder Indications: Bile salt-induced diarrhea (HHS-HCC) Take 0.5 packets (2 g) by mouth 2 times daily (morning and late afternoon). Dissolve in 8 oz of liquid and drink before a meal 30 packet 3 09/02/2023 10/06/2023 Discontinued (Other) ciprofloxacin 500 mg oral tablet (11 sources) Quinolone Antimicrobial Start: 01-03-2024 take 1 tablet by mouth every twelve hours ciprofloxacin (Cipro) 500 mg tablet Take 1 tablet (500 mg) by mouth every 12 hours. 01/03/2024 Active Start: 01-01-2024 End: 06-06-2024 take 1 tablet by mouth twice daily Ciprofloxacin Hcl 500 mg tablet Discontinued 500 mg PO TWICE A DAY 14 0 January 01, 2024 12:00am June 06, 2024 9:01am 12 hr dextromethorphan polistirex 6 mg/ml extended release suspension (6 sources) Uncompetitive M-jwwkag-D-aspartate Receptor Antagonist, Sigma-1 Agonist Start: 02-11-2007 take 1 [tsp_us] by mouth twice daily Dextromethorphan Poly Complex (DELSYM) 30 mg/5 mL ORAL Su12 1 TSP BID 12 OZ 3 02/11/2007 Active esomeprazole 40 mg delayed release oral capsule (6 sources) Proton Pump Inhibitor Start: 02-10-2007 take 1 capsule by mouth once daily esomeprazole (NEXIUM) 40 mg ORAL CpDR Indications: Esophageal reflux Take one(1) capsule daily. 30 3 02/10/2007 Active 168 hr estradiol 0.59166 mg/hr transdermal system (6 sources) Estrogen Start: 02-10-2007 estradiol 0.05 mg/24 hr TRANSDERM. PTWK Indications: Symptomatic menopausal or female climacteric states use as directly 4 3 02/10/2007 Active FLUoxetine 20 mg oral capsule (20 sources) Serotonin Reuptake Inhibitor Start: 08-05-2023 take 1 capsule by mouth once daily Fluoxetine (Prozac) 20 mg capsule Active 20 mg PO DAILY August 05, 2023 12:00am Start: 02-10-2007 take 1 tablet by magaly th once daily Fluoxetine HCl 40 mg ORAL Cap Take one(1) tablet daily. 0 02/10/2007 Active homatropine methylbromide 0.3 mg/ml / HYDROcodone bitartrate 1 mg/ml oral solution (6 sources) Opioid Agonist, Cholinergic Muscarinic Agonist Start: 02-11-2007 hydrocodone-homatropine (HYCODAN) 5-1.5 mg/5 mL ORAL Syrp Take 1 teaspoon(s) (5ml) every 4-6 hours as needed for coughing. 8 OZ 1 02/11/2007 Active levothyroxine sodium 0.05 mg oral tablet (20 sources) l-Thyroxine Start: 10-06-2024 take 1 tablet by mouth once daily Levothyroxine 50 mcg tablet Active 50 ug PO daily October 06, 2024 12:00am Start: 06-06-2024 End: 10-06-2024 Levothyroxine 25 mcg tablet Discontinued ug PO June 06, 2024 12:00am October 06, 2024 3:35pm Start: 08-05-2023 End: 06-06-2024 levothyroxine Discontinued 2 {tbl} PO .COMPLEX August 05, 2023 12:00am June 06, 2024 9:00am 2 tabs orally TAKES 2 TABLETS TWO DAYS AND THREE THE OTHER; Start: 08-05-2023 levothyroxine Active 2 TABLET PO .COMPLEX August 05, 2023 12:00am 2 tabs orally TAKES 2 TABLETS TWO DAYS AND THREE THE OTHER; levothyroxine (T irosint) 25 mcg capsule Take 1 capsule (25 mcg) by mouth. Active lidocaine hydrochloride 20 mg/ml mucous membrane topical solution (6 sources) Antiarrhythmic, Amide Local Anesthetic Start: 07-30-2023 lidocaine (Xylocaine) 2 % solution SWISH 15 ML BY MOUTH NEEDED 07/30/2023 Active Start: 07-28-2023 LIDOCAINE VISC OUS 2 % solution Take 15 mL by mouth as needed. 100 mL 4 07/28/2023 Active metFORMIN hydrochloride 500 mg oral tablet (1 source) Biguanide Start: 12-16-2022 take 1 tablet by mouth once daily at mealtime metFORMIN (Glucophage) 500 mg tablet TAKE ONE TABLET BY MOUTH ONE TIME DAILY IN THE MORNING WITH FOOD 12/16/2022 Active Completed/Discontinued Medications Medication Drug Class(es) Dates Sig (Normalized) Sig (Original) alosetron 0.5 mg oral tablet (8 sources) Serotonin-3 Receptor Antagonist Start: 02-18-2024 End: 02-17-2025 take 1 tablet by mouth twice daily Alosetron 0.5 mg tablet Discontinued 0.5 mg PO TWICE A DAY October 06, 2024 12:00am October 11, 2024 11:09am aspirin 81 mg delayed release oral tablet (6 sources) Platelet Aggregation Inhibitor, Nonsteroidal Anti-inflammatory Drug Start: 10-06-2024 End: 10-11-2024 take 1 tablet by mouth once daily Aspirin (Adult Aspirin Regimen) 81 mg tablet,delayed release (DR/EC) Discontinued 81 mg PO daily October 06, 2024 12:00am October 11, 2024 11:09am take 1 capsule by mouth once chayito ly aspirin 81 mg capsule Take 1 capsule by mouth once daily. Active atropine sulfate 0.025 mg / diphenoxylate hydrochloride 2.5 mg oral tablet (13 sources) Anticholinergic, Cholinergic Muscarinic Antagonist, Antidiarrheal Start: 01-17-2024 End: 12-02-2024 Diphenoxylate-Atropine 2.5-0.025 mg tablet Discontinued 1 {tbl} PO 4 TIMES DAILY as needed for diarrhea October 06, 2024 12:00am October 11, 2024 11:09am barium sulfate (E-Z-Paque) 96 % (w/w) suspension 355 mL (1 source) Start: 04-17-2024 End: 04-17-2024 take 355 mL by mouth once 355 mL, oral, Once in imaging, Starting on Wed04/17/24 at 1133, For 1 dose onabotulinumtoxina 100 unt injection (2 sources) Acetylcholine Release Inhibitor Start: 11-03-2023 End: 11-03-2023 onabotulinum toxin type A 100 Units injection (BOTOX) Start: 11-03-2023 End: 11-03-2023 onabotulinum toxin type A 10 0 Units injection (BOTOX) Bupivacaine (2 sources) Amide Local Anesthetic Start: 07-30-2023 End: 07-30-2023 BUPivacaine HCl 3.75 mg injection (SENSORCAINE) glucagon (rdna) 1 mg injection (1 source) Antihypoglycemic Agent Start: 10-18-2023 End: 10-18-2023 intravenous, As needed, Starting on Wed10/18/23 at 1426, Intraprocedure magnesium oxide 400 mg oral tablet (5 sources) Start: 10-09-2024 End: 10-11-2024 take 1 tablet by mouth once daily Magnesium Oxide 400 mg magnesium tablet Discontinued 400 mg PO daily October 09, 2024 12:00am October 11, 2024 11:09am meloxicam 7.5 mg oral tablet (14 sources) Nonsteroidal Anti-inflammatory Drug Start: 10-09-2024 End: 10-11-2024 take 1 tablet by mouth twice daily Meloxicam 7.5 mg tablet Discontinued 7.5 mg PO TWICE A DAY October 09, 2024 12:00am October 11, 2024 11:09am Start: 06-30-2023 End: 03-14-2024 meloxicam (Mobic) 7.5 mg tab let Take 1 tablet (7.5 mg) by mouth. 06/30/2023 03/14/2024 Discontinued (Med List Cleanup) predniSONE 5 mg oral tablet (17 sources) Start: 06-06-2024 End: 09-05-2024 take 1 tablet by mouth every other day Prednisone 5 mg tablet Discontinued 5 mg PO every other day 15 0 June 06, 2024 12:00am September 05, 2024 7:45am Start: 02-10-2007 take 1 tablet by magaly th every other day predniSONE 10 mg ORAL Tab Take one(1) tablet every other day. 0 02/10/2007 Active pyridostigmine bromide 30 mg oral tablet (5 sources) Start: 10-09-2024 End: 10-11-2024 take 1 tablet by mouth three times daily Pyridostigmine [place] 30 mg tablet Discontinued 30 mg PO THREE TIMES A DAY October 09, 2024 12:00am October 11, 2024 11:10am 1 ml triamcinolone acetonide 40 mg/ml injection (2 sources) Corticosteroid Start: 07-30-2023 End: 07-30-2023 triamcinolone acetonide 120 mg injection (KeNALog 40) Start: 07-30-2023 End: 07-30-2023 triamcinolone acetonide 120 mg injection (KeNALog 40) Problems Active Problems Problem Classification Problem Date Documented Da te Episodic/Chronic Abdominal hernia (6 sources) Hiatal hernia Episodic Abdominal pain (15 sources) Abdominal pain; Translations: [Unspecified abdominal pain] Onset: 07-26-2024 08-06-2023 Episodic Anxiety disorders (8 sources) Anxiety; Translations: [Anxiety disorder, unspecified] Onset: 10-18-2023 10-18-2023 Chronic Cardiac and circulatory congenital anomalies (6 sources) Patent foramen ovale; Translations: [Patent foramen ovale (HHS-HCC)] Onset: 02-05-2015 07-26-2024 Chronic Cardiac dysrhythmias (11 sources) Palpitations; Translations: [Palpitations] Onset: 09-08-2022 07-26-2024 Episodic Chronic obstructive pulmonary disease and bronchiectasis (9 sources) Chronic obstructive lung disease; Translations: [Chronic obstructive pulmonary disease, unspecified] Onset: 07-28-2017 10-18-2023 Chronic Diverticulosis and diverticulitis (2 sources) Diverticulosis of colon; Translations: [Diverticulosis of large intestine without perforation or abscess without bleeding] Onset: 09-17-2021 07-26-2024 Chronic E Codes: Fall (10 sources) Fall; Translations: [Unspecified fall, initial encounter] 01-05-2024 Episodic Esophageal disorders (7 sources) Gastro-esophageal reflux disease with esophagitis; Translations: [Gastro-esophageal reflux disease with esophagitis] Onset: 05-20-2016 07-26-2024 Chronic Heart valve disorders (18 sources) Mitral valve prolapse; Translations: [Nonrheumatic mitral (valve) prolapse] Onset: 02-06-2015 07-26-2024 Chronic Intestinal obstruction without hernia (20 sources) Complete obstruction of lumen of small intestine; Translations: [Complete intestinal obstruction, unspecified as to cause] Onset: 08-19-2023 08-06-2023 Episodic Malaise and fatigue (20 sources) Fatigue; Translations: [Other fatigue] Onset: 11-02-2022 06-06-2024 Episodic Menopausal disorders (2 sources) Atrophic vaginitis; Translations: [Postmenopausal atrophic vaginitis] Onset: 06-04-2016 07-26-2024 Chronic Mood disorders (1 source) Depressive disorder; Translations: [Depression] Onset: 10-29-2021 07-26-2024 Chronic Neoplasms of unspecified nature or uncertain behavior (1 source) Monoclonal gammopathy (clinical); Translations: [Monoclonal gammopathy] Onset: 02-05-2015 07-26-2024 Chronic Noninfectious gastroenteritis (6 sources) Microscopic colitis; Translations: [Microscopic colitis, unspecified] Onset: 10-06-2023 10-06-2023 Chronic Nonspecific chest pain (13 sources) Atypical chest pain; Translations: [Other chest pain] Onset: 09-08-2022 07-26-2024 Episodic Osteoarthritis (14 sources) Degenerative joint disease involving multiple joints; Translations: [Polyosteoarthritis, unspecified] Onset: 06-30-2012 07-26-2024 Chronic Other and unspecified benign neoplasm (1 source) Benign neoplasm of meninges; 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, unspecified] Onset: 11-15-2023 07-26-2024 Chronic Other diseases of kidney and ureters (1 source) Renal mass; Translations: [Other specified disorders of kidney and ureter] Onset: 04-28-2018 07-26-2024 Chronic Other gastrointestinal disorders (3 sources) Intestinal malabsorption, unspecified; Translations: [Diarrhea due to malabsorption] Onset: 09-02-2023 Chronic Other gastrointestinal disorders (1 source) Colostomy present; Translations: [Colostomy status] Onset: 09-19-2021 07-26-2024 Chronic Other gastrointestinal disorders (6 sources) Other dysphagia; Translations: [Other dysphagia] Onset: 01-17-2024 Episodic Other gastrointestinal disorders (20 sources) Dysphagia; Translations: [Dysphagia, unspecified] Episodic Other gastrointestinal disorders (2 sources) Diarrhea; Translations: [Diarrhea, unspecified] 12-05-2024 Episodic Other gastrointestinal disorders (2 sources) Dysphagia, unspecified; Translations: [Dysphagia, unspecified] Onset: 12-12-2024 Episodic Other lower respiratory disease (6 sources) Fibrosis of lung; Translations: [Pulmonary fibrosis, unspecified] Onset: 04-25-2010 07-26-2024 Chronic Other lower respiratory disease (1 source) Interstitial lung disease; Translations: [Interstitial pulmonary disease, unspecified] Onset: 03-09-2019 07-26-2024 Chronic Other lower respiratory disease (20 sources) Chronic cough; Translations: [Chronic cough] Onset: 06-23-2011 07-28-2023 Episodic Other nervous system disorders (20 sources) Myasthenia gravis; Translations: [Myasthenia gravis without (acute) exacerbation] Onset: 07-31-2022 07-28-2023 Chronic Other nervous system disorders (3 sources) Myasthenia gravis without (acute) exacerbation; Translations: [Myasthenia gravis (HCC)] Onset: 09-07-2023 Chronic Other nervous system disorders (3 sources) Disorder of vagus nerve; Translations: [Disorders of vagus nerve] 07-30-2023 Episodic Other nutritional; endocrine; and metabolic disorders (1 source) Hyperbilirubinemia; Translations: [Other disorders of bilirubin metabolism] Onset: 10-29-2021 07-26-2024 Chronic Other skin disorders (18 sources) Actinic keratosis; Translations: [Actinic keratosis] Episodic Other upper respiratory disease (3 sources) Laryngeal spasm; Translations: [Laryngeal spasm] 07-28-2023 Episodic Other upper respiratory disease (3 sources) Disorder of vocal cord; Translations: [Other diseases of vocal cords] 07-30-2023 Episodic Pancreatic disorders (not diabetes) (15 sources) Acute pancreatitis; Translations: [Acute pancreatitis without necrosis or infection, unspecified] Onset: 08-19-2023 08-06-2023 Episodic Regional enteritis and ulcerative colitis (1 source) Crohn's disease; Translations: [Crohn's disease, unspecified, without complications] Onset: 12-17-2015 07-26-2024 Chronic Residual codes; unclassified (12 sources) History of fundoplication; Translations: [Other specified postprocedural states] Onset: 01-17-2024 01-17-2024 Episodic Residual codes; unclassified (4 sources) Other specified postprocedural states; Translations: [Other specified postprocedural states] Onset: 01-17-2024 Episodic Thyroid disorders (13 sources) Hypothyroidism; Translations: [Hypothyroidism, unspecified] Onset: 05-01-2009 07-26-2024 Chronic Unclassified (8 sources) L57.0 - Actinic keratosis Unclassified (7 sources) R05.3 - Chronic cough,R13.10 - Dysphagia, unspecified Unclassified (11 sources) R07.89 - Other chest pain Unclassified (11 sources) K44.9 - Diaphragmatic hernia without obstruction or gangrene Past or Other Problems Problem Classification Problem Date Documented Da te Episodic/Chronic Biliary tract disease (1 source) Calculus of bile duct; Translations: [Calculus of bile duct without cholangitis or cholecystitis without obstruction] Onset: 02-05-2015 07-26-2024 Episodic Blindness and vision defects (1 source) Disorder of vision; Translations: [Unspecified visual disturbance] Onset: 06-04-2016 07-26-2024 Episodic Calculus of urinary tract (1 source) Kidney stone; Translations: [Calculus of kidney] Onset: 02-12-2016 07-26-2024 Episodic Complications of surgical procedures or medical care (8 sources) Delayed recovery from general anesthesia; Translations: [Other complications of anesthesia, initial encounter] Onset: 10-18-2023 Resolved: 01-17-2024 01-17-2024 Episodic Conditions associated with dizziness or vertigo (1 source) Lightheadedness; Translations: [Dizziness and giddiness] Onset: 02-21-2018 07-26-2024 Episodic Headache; including migraine (1 source) Scalp tenderness; Translations: [Scalp tenderness] Onset: 09-24-2022 07-26-2024 Episodic Other connective tissue disease (1 source) Pain in left lower limb; Translations: [Pain in left leg] Onset: 10-02-2022 07-26-2024 Episodic Other diseases of kidney and ureters (1 source) Hydronephrosis; Translations: [Unspecified hydronephrosis] Onset: 04-28-2018 07-26-2024 Episodic Other disorders of stomach and duodenum (1 source) Gastroparesis syndrome; Translations: [Gastroparesis] Onset: 04-13-2016 07-26-2024 Episodic Other ear and sense organ disorders (1 source) Impacted cerumen; Translations: [Impacted cerumen, unspecified ear] Onset: 05-16-2018 07-26-2024 Episodic Other gastrointestinal disorders (9 sources) Diarrhea; Translations: [Intestinal malabsorption, unspecified] Onset: 09-02-2023 Resolved: 01-17-2024 01-17-2024 Chronic Other gastrointestinal disorders (17 sources) Esophageal dysphagia; Translations: [Other dysphagia] Onset: 01-17-2024 01-17-2024 Episodic Other gastrointestinal disorders (11 sources) Functional diarrhea; Translations: [Functional diarrhea] Onset: 01-17-2024 01-17-2024 Episodic Other gastrointestinal disorders (5 sources) Diarrhea, unspecified; Translations: [Diarrhea due to malabsorption] Onset: 09-02-2023 Episodic Other gastrointestinal disorders (1 source) Functional diarrhea; Translations: [Functional diarrhea] Onset: 01-17-2024 Episodic Other gastrointestinal disorders (1 source) Urgent desire for stool; Translations: [Fecal urgency] Onset: 05-11-2021 07-26-2024 Episodic Other lower respiratory disease (1 source) Hypoxemia; Translations: [Hypoxemia] Onset: 07-28-2017 07-26-2024 Episodic Other nervous system disorders (1 source) Disorders of vagus nerve; Translations: [Vagal nerve sensitivity] Onset: 11-03-2023 Episodic Other nervous system disorders (1 source) Pseudomeningocele; 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] Onset: 07-08-2017 07-26-2024 Episodic Other nutritional; endocrine; and metabolic disorders (1 source) Weight increased; Translations: [Abnormal weight gain] Onset: 11-02-2022 07-26-2024 Episodic Other skin disorders (1 source) Actinic keratosis; Translations: [Actinic keratosis] Onset: 08-15-2024 Episodic Other skin disorders (1 source) Disorder of the skin and subcutaneous tissue, unspecified; Translations: [Disorder of the skin and subcutaneous tissue, unspecified] Onset: 07-07-2024 Episodic Other upper respiratory disease (1 source) Laryngeal spasm; Translations: [Laryngeal spasm] Onset: 11-03-2023 Episodic Other upper respiratory disease (1 source) Other diseases of vocal cords; Translations: [Disorder of vocal cords] Onset: 11-03-2023 Episodic Other upper respiratory disease (1 source) Posterior rhinorrhea; Translations: [Other specified disorders of nose and nasal sinuses] Onset: 02-06-2015 07-26-2024 Episodic Residual codes; unclassified (1 source) Insomnia, unspecified; Translations: [Insomnia, unspecified] Onset: 06-15-2024 Episodic Spondylosis; intervertebral disc disorders; other back problems (2 sources) Lumbago with sciatica; Translations: [Lumbago with sciatica, unspecified side] Onset: 02-13-2016 07-26-2024 Episodic Superficial injury; contusion (12 sources) Contusion of chest; Translations: [Contusion of unspecified front wall of thorax, initial encounter] Onset: 01-19-2024 01-05-2024 Episodic Urinary tract infections (1 source) Recurrent urinary tract infection; Translations: [Urinary tract infection, site not specified] Onset: 05-11-2021 07-26-2024 Episodic Viral infection (1 source) Varicella-zoster virus infection; Translations: [Zoster without complications] Onset: 10-06-2022 07-26-2024 Episodic Results Test Name Value Interpretation Reference Range Facility Neurology Visit Reporton Neurology Visit Report [facility] [address] [place] [address], [address] [place] [address] OFFICE VISIT Date of Service: 12/12/24 MR#: [id number] Acct: [id number] Name: ESTEFANIA MONTIEL (STEPH) Rep #: [id number] : 1940 Provider: Dr. Ingrid barnard MD Age/Sex: 84/F Location: [facility] Status: Signed HPI HPI Chief Complaint: Establish Care Details: Interim History: Estefania returns for follow-up visit. She has a history of hypothyroidism, myasthenia gravis, and interstitial fibrosis. She stated she was diagnosed with myasthenia gravis when she was 12 years old. Her presenting symptoms were weakness in the arms and legs, and diplopia. She does not recall the treatment that was initiated at that time. Over subsequent years, she has had periods of remission of her myasthenia gravis lasting weeks to months, as well as periods of recurrence of her myasthenia gravis manifesting with diplopia, right ptosis and/or weakness in the arms and legs. She stated that pyridostigmine was not of benefit for her myasthenia gravis. She has been treated with courses of prednisone for periods of several months to years at a time and this was of benefit for her myasthenic symptoms. She denies having any breathing difficulty. She denied having speech difficulty. She has experienced some jaw claudication when she eats food. She has had some dysphagia but attributes this to a chronic cough and treatment of suspected gastroesophageal reflux (Fabiano fundoplication). She also had a LINX procedure performed however this was subsequently removed. Benzonatate was not of benefit. She uses a prism lens and this has been of some benefit for her diplopia. She has had a period of worsened myasthenic symptoms since 2023 and had ongoing right ptosis, diplopia, and feeling of weakness in the arms and legs. Her myasthenic symptoms have improved and she now states that her current myasthenic symptoms are intermittent diplopia and chronic fatigue. Prior B12 injections were not of benefit for her fatigue. A 1 month course of prednisone 5 mg every other day earlier in 2024 was of benefit for her diplopia and this diminished significantly. She continues to experience fatigue. She has experienced mild headaches about 2 days/week and has had this pattern for over 20 years. She does not have associated nausea. She has had some left hand numbness; this has subsided. She experiences occasional neck pain. She has low back pain. She has a left hand Dupuytren's contracture. She has had occasional disequilibrium. She is seeing a basketball player regarding actinic keratosis, seborrheic dermatitis and other skin conditions. She had a right frontal convexity meningioma resected in 2000. The meningioma was found on evaluation for an evaluation of an episode of loss of consciousness in 2000. Her last AChR modulating antibody, AChR binding antibody, and AChR blocking antibody were negative. Her recent striated muscle antibody and MuSK antibody were negative. Physical Exam: Neuro: The patient is awake and alert and responds appropriately; speech is fluent; no ptosis is noted Heart: Regular rhythm and rate Neck: A nonmobile prominence is noted over the upper region of the trachea on the right side; no bruits Supplemental Info Head MRI (10/21/2023): FINDINGS: There is mild cerebral atrophy with widening of the extra-axial spaces and ventricular dilatation. There are a limited number of small white matter hyperintensities, distributed throughout the deep white matter tracts of the cerebral hemispheres, consistent with mild chronic white matter ischemic changes. There is no evidence for recent intracranial ischemia or other cause of cytotoxic edema on diffusion weighted imaging (DWI). Normal T2* images of the brain without demonstrated susceptibility artifact. There is no demonstrated hemosiderin stain. Status post right parietal craniotomy with subjacent encephalomalacia and gliosis which is unchanged. Normal bilateral basal ganglia. Normal thalami. There is no extra-axial fluid accumulation. Normal flow voids within the major intracranial circulation suggesting patency by spin echo criteria. Normal venous enhancement. There is no enhancing intra-axial or extra-axial abnormality. Normal sella turcica, pituitary gland, infundibular stalk, optic chiasm and hypothalamus. Normal tectal plate and pineal gland. Normal midbrain, gutierrez and medulla. Normal cerebellum. Normal basal cisterns. Normal bilateral temporal bones. Normal bilateral internal auditory canals. No demonstrated orbital abnormality, within the constraints of a routine brain study. Normal visualized paranasal sinuses. Normal calvarium and skull base. Normal visualized soft tissue structures. Normal visualized upper cervical spine. IMPRESSION: No change from 10/05/2022. These images were reviewed on 08/15/2024. Mild diffuse age-related cerebral atr (more content not included)... Normal [facility] Gastroenterology Visit Repor ton 12-05-2024 Gastroenterology Visit Report [facility] [address] [place] [address] OFFICE VISIT Date of Service: 12/05/24 MR#: [id number] Acct: [id number] Name: ESTEFANIA MONTIEL (STEPH) Rep #: [id number] : 1940 Provider: Jaime Allen DO Age/Sex: 84/F [place] [facility] Status: Signed Intake Vital Signs 08/15/24 13:35 10/11/24 10:47 Height 5 ft 3 in 5 ft 3 in Intake Visit Reasons: 3 M FU Allergies sulfamethoxazole (From Bactrim) Allergy (Severe, Verified 10/11/24 11:08) Itching trimethoprim (From Bactrim) Allergy (Severe, Verified 10/11/24 11:08) Itching doxycycline Allergy (Intermediate, Verified 10/11/24 11:08) Other midazolam Allergy (Intermediate, Verified 10/11/24 11:08) Other Penicillins Allergy (Intermediate, Verified 10/11/24 11:08) SKIN SHEDS latex Adverse Reaction (Intermediate, Verified 10/11/24 11:08) Rash codeine Adverse Reaction (Verified 10/11/24 11:08) Other Medications ???Medication ???Instructions ???Recorded ???Confirmed ???Type fluoxetine 20 mg capsule (Prozac) 20 mg PO DAILY 08/05/23 12/05/24 History levothyroxine 50 mcg tablet 50 mcg PO QDAY 10/06/24 12/05/24 H istory budesonide 3 mg 9 mg (3 x 3 mg) PO QAM 2 months 12/05/24 Rx capsule,delayed,extended release #180 ea cholestyramine (with sugar) 4 gram 4 g PO QHS 2 weeks #378 grams 12/05/24 Rx oral powder Have you fallen in the past year?: No PFSH Medical History Pulmonary fibrosis PFO (patent foramen ovale) Palpitations Mitral regurgitation MVP (mitral valve prolapse) Goiter GERD (gastroesophageal reflux disease) DJD (degenerative joint disease) Arthritis Hypothyroid Chest pain Dysphagia Chronic cough Fatigue Myasthenia gravis Surgical History History of Fabiano fundoplication Hx laparoscopic cholecystectomy History of colostomy Family History Mother Heart disease Sister Cancer Social History Smoking Status: Former smoker alcohol intake: current substance use type: does not use HPI HPI Details: ESTEFANIA MONTIEL, is a 84 F who presents to the office today for follow up. *BGI established 09.05.24 pt reports she is here about a cough she has had for 24 years. Reports that last year she had an EGD with dilation and botox and then lost her voice for 6 months. Pt reports this is her only symptom of concern. OV 12.05.24 pt reports that she is doing well, has decided not to proceed with general surgery referral for Fabiano reversal. Pt reports continued diarrhea and cough. Pt reports she has an appointment with Pulmonary coming up in a few weeks. Denies other GI symptoms of concern at this time. ROS Const Constitutional: Positive for fatigue and weakness; No fever(s) or weight change ENT ENT: Positive for difficulty swallowing Gastro GI: Positive for diarrhea and difficulty swallowing; No abdominal pain, belching, bloating, change in bowel habits, change in stool character, coffee ground emesis, constipation, cramping, heartburn, feeling full early, excessive flatus, incontinent of stools, Vomiting blood/hematemesis, Blood in stool, loose stools, Black,tarry stools, nausea/dyspepsia, pain with swallowing, vomiting or other Musc Musculoskeletal: Positive for joint pain, back pain, joint swelling and Arthritis Skin Skin: No yellowing of the eye or itchy eyes Neuro Neurology: Positive for weakness Psych Psychiatric: No anxiety and No depression Endo Endocrine: Positive for fatigue; No weight change Aller/Imm Allergy/Immunologic: No itchy eyes Charly/Lymp Hematologic/Lymphatic: No easy bleeding or easy bruising Exam Const General: cooperative, healthy appearing and comfortable Nutritional Appearance: average body habitus Orientation: alert and oriented x3 Eyes General: appearance normal, both eyes and all related structures Sclera: sclerae normal Neck Neck: normal visual inspection Resp Effort Inspection: normal respiratory effort Auscultation: Bilateral: Clear to Auscultation Cardio Rate: regular rate Rhythm: regular rhythm GI Inspection: normal to inspection Auscultation: normal bowel sounds Palpation: no hepatosplenomegaly Rectal Exam: visual inspection normal Assessment and Plan Assessment and Plan (1) Chronic cough: Status: Chronic (2) Myasthenia gravis: Status: Acute (3) Fatigue: Status: Acute (4) Dysphagia: Status: Acute Plan: She has a has history of Fabiano fundoplication and open cholecystectomy but most recently in 2021 she had a sigmoid colectomy with colostomy for diverticulitis. She had the colostomy reversed in anoth (more content not included)... Normal [facility] Echo Completeon 11-06-2024 [facility] [address] [place] [address] Echo Complete 11/06/24 1355 MR#: [id number] Acct: [id number] Name: ESTEFANIA MONTIEL NIKITA Rep #: [id number] : 1940 84 From: Tim Samayoa MD Attending Dr: Dr. Tim Samayoa MD Status: KELLEY SANCHEZ Ordering Dr: Tim Samayoa MD Date: 11/06/24 Location: [facility] Sex: F C Admitted: Reason For Study Reason For Study: MVP Procedure This was a 2D Doppler, Color Flow transthoracic echocardiogram. Exam performed in department. Left Ventricle Normal LV size. Mild concentric left ventricular hypertrophy. The left ventricular ejection fraction is 65 %. No regional wall motion abnormalities noted. Right Ventricle Normal RV size. Normal systolic function. Atria Normal left atrium. Normal right atrium. Mitral Valve Bileaflet diffuse mitral valve thickening. Mild mitral valve prolapse. Mild-Moderate (1-2+) eccentric mitral valve insufficiency. Tricuspid Valve Normal tricuspid valve. Mild (1+) tricuspid valve insufficiency. Pulmonary artery systolic pressure is 40 mmHg. Aortic Valve Trisinus/trileaflet aortic valve. Pulmonic Valve Normal pulmonic valve. Great Vessels Normal aortic root. The pulmonary artery is normal size. Inferior vena cava collapse with respiration. Pericardium/Pleural No pericardial effusion. MMode/2D Measurements Calculations LVIDd: 3.9 cm IVSd: 1.3 cm Ao root diam: 3.2 cm LVIDs: 2.7 cm LVPWd: 1.2 cm RVDd: 3.5 cm FS: 30.0 % LAV(MOD-bp): 37.7 ml LVAd ap4: 22.2 cm2 SV(MOD-sp4): 39.3 ml LAV(MOD-bp) Indexed: 24.6 ml/m2 LVLd ap4: 6.6 cm SI(MOD-sp4): 25.7 ml/m2 LAV(MOD-sp2): 40.7 ml EDV(MOD-sp4): 61.8 ml LAV(MOD-sp4): 33.1 ml EDV(sp4-el): 63.6 ml LVAs ap4: 11.9 cm2 LVLs ap4: 5.3 cm ESV(MOD-sp4): 22.5 ml ESV(sp4-el): 22.7 ml EF(MOD-sp4): 63.6 % EF(sp4-el): 64.3 % SV(sp4-el): 40.9 ml LA A4 area: 13.7 cm2 LA dimension(2D): 3.4 cm RA A4 area: 8.2 cm2 TAPSE: 1.7 cm Time Measurements MV dec time: 0.16 sec Doppler Measurements Calculations MV E max alyssa: 29.2 cm/sec Lat Peak E' Alyssa: 4.9 cm/sec Med Peak E' Alyssa: 4.2 cm/sec MV A max alyssa: 77.1 cm/sec E/E' lat: 6.0 E/E' med: 6.9 MV E/A: 0.38 Ao V2 max: 101.0 cm/sec LV V1 max: 76.6 cm/sec MV dec slope: 188.0 cm/sec2 Ao max P.1 mmHg LV V1 max P.3 mmHg Ao V2 mean: 73.6 cm/sec LV V1 mean P.6 mmHg Ao mean P.4 mmHg LV V1 mean: 62.3 cm/sec Ao V2 VTI: 17.2 cm LV V1 VTI: 14.4 cm AV (velocity ratio): 0.84 PA V2 max: 71.8 cm/sec PI end-d alyssa: 115.9 cm/sec TR max alyssa: 305.9 cm/sec TR max P.4 mmHg ECHO/Echo Complete Interpretation Summary Normal LV size. Mild concentric left ventricular hypertrophy. The left ventricular ejection fraction is 65 %. Bileaflet diffuse mitral valve thickening. Mild-Moderate (1-2+) eccentric mitral valve insufficiency. ___ Ordering Physician: Tim Samayoa Referring Physician: Britany Sexton Performed By: Gisella Henry, MIRELLA, RVT 11/06/24 1730 Date Tim Samayoa MD CC: Dr. Tim Samayoa MD; Dr. Britany Sexton MD Date Dictated: 11/06/24 135 Date Transcribed: 11/06/24 1730 Manager Configuration: Signed Normal [facility] Echocardiogram study reportO rdered By: Tim Samayoa on 11-06-2024 Study report [facility] Cardi[facility] [address] [place] [address] Echo Complete 11/06/241354 MR#: [id number] Acct: [id number] Name: ESTEFANIA MONTIEL NIKITA Rep #:[id number] : 1940 84 From: Tim Wolf Attending Dr: Dr. Tim Samayoa MD S tatus: REG CLI Ordering Dr: Tim Samayoa MD Date: 02/20 Location: [facility] Sex: F C Admitted: Reason For Study Reason For Study: MVP Procedure This was a 2D Doppler, Color Flow transthoracic echocardiogram. Exam performed in department. Left Ventricle Normal LV size. Mild concentric left ventricular hypertrophy. The left ventricular ejection fraction is 65 %. No regional wall motion abnormalities noted. Right Ventricle Normal RV size. Normal systolic function. Atria Normal left atrium. Normal right atrium. Mitral Valve Bileaflet diffuse mitral valve thickening. Mild mitral valve prolapse. Mild-Moderate (1-2+) eccentric mitral valve insufficiency. Tricuspid Valve Normal tricuspid valve. Mild (1+) tricuspid valve insufficiency. Pulmonary artery systolic pressure is 40 mmHg. Aortic Valve Trisinus/trileaflet aortic valve. Pulmonic Valve Normal pulmonic valve. Great Vessels Normal aortic root. The pulmonary artery is normal size. Inferior vena cava collapse with respiration. Pericardium/Pleural No pericardial effusion. MMode/2D Measurements & Calculations LVIDd: 3.9 cm IVSd: 1.3 cm Ao root diam: 3.2 cm LVIDs: 2.7 cm LVPWd: 1.2 cm RVDd: 3.5 cm FS: 30.0 % LAV(MOD-bp): 37.7 ml LVAd ap4: 22.2 cm2 SV(MOD-sp4): 39.3 ml LAV(MOD-bp) Indexed: 24.6 ml/m2 LVLd ap4: 6.6 cm SI(MOD-sp4): 25.7 ml/m2 LAV(MOD-sp2): 40.7 ml EDV(MOD-sp4): 61.8 ml LAV(MOD-sp4): 33.1 ml EDV(sp4-el): 63.6 ml LVAs ap4: 11.9 cm2 LVLs ap4: 5.3 cm ESV(MOD-sp4): 22.5 ml ESV(sp4-el): 22.7 ml EF(MOD-sp4): 63.6 % EF(sp4-el): 64.3 % SV(sp4-el): 40.9 ml LA A4 area: 13.7 cm2 LA dimension(2D): 3.4 cm RA A4 area: 8.2 cm2 TAPSE: 1.7 cm Time Measurements MV dec time: 0.16 sec Doppler Measurements & Calculations MV E max alyssa: 29.2 cm/sec Lat Peak E' Alyssa: 4.9 cm/sec Med Peak E' Alyssa: 4.2 cm/sec MV A max alyssa: 77.1 cm/sec E/E' lat: 6.0 E/E' med: 6.9 MV E/A: 0.38 Ao V2 max: 101.0 cm/sec LV V1 max: 76.6 cm/sec MV dec slope: 188.0 cm/sec2 Ao max P.1 mmHg LV V1 max P.3 mmHg Ao V2 mean: 73.6 cm/sec LV V1 mean P.6 mmHg Ao mean P.4 mmHg LV V1 mean: 62.3 cm/sec Ao V2 VTI: 17.2 cm LV V1 VTI: 14.4 cm AV (velocity ratio): 0.84 PA V2 max: 71.8 cm/sec PI end-d alyssa: 115.9 cm/sec TR max alyssa: 305.9 cm/sec TR max P.4 mmHg ECHO/Echo Complete Interpretation Summary Normal LV size. Mild concentric left ventricular hypertrophy. The left ventricular ejection fraction is 65 %. Bileaflet diffuse mitral valve thickening. Mild-Moderate (1-2+) eccentric mitral valve insufficiency. ___ Ordering Physician: Tim Samayoa Referring Physician: Britany Sexton Performed By: Gisella Henry, MIRELLA, RVT 11/06/241729 Date _ Tim Samayoa MD CC: Dr. Tim Samayoa MD; Dr. Britany Sexton MD ~ Date Dictated: 11/06/24 1355 Date Transcribed: 11/06/241729 Manager Configuration: Signed [facility] Work Phone: [phone] Anion gap in Serum or Plasma Ordered By: Tim Samayoa on 10-11-2024 Anion gap [Moles/Vol] 11 mmol/L - [facility] BUN/creatinine ratioOrdered By: Tim Samayoa on 10-11-2024 Urea nitrogen/Creatinine [Mass ratio] 13.9 mg/mg - [facility] Basic Metabolic Profile (BMP )on 10-11-2024 BUN/CRE 13.9 RATIO Normal - [facility] Comment on above: Performed By: #### L 501.9520, L501.5200, L500.2500 #### [facility] [address] [place], [address] Calcium [Mass/Vol] 9.8 mg/dL Normal 7.6-11.0 [facility] Comment on above: Performed By: #### L 501.9520, L501.5200, L500.2500 #### [facility] [address] [place], [address] Chloride [Moles/Vol] 101 mmol/L Normal 98-108 [facility] Comment on above: Performed By: #### L 501.9520, L501.5200, L500.2500 #### [facility] [address] [place], [address] CO2 [Moles/Vol] 27.9 mmol/L Normal 21.0-32.0 [facility] Comment on above: Performed By: #### L 501.9520, L501.5200, L500.2500 #### [facility] [address] [place], [address] Creatinine [Mass/Vol] 1.00 mg/dL Normal 0.70-1.20 [facility] Comment on above: Performed By: #### L 501.9520, L501.5200, L500.2500 #### [facility] [address] [place], [address] GAP 11 Normal 5-15 [facility] Comment on above: Performed By: #### L 501.9520, L501.5200, L500.2500 #### [facility] [address] [place], [address] GFR/1.73 sq M.predicted among non-blacks MDRD (S/P/Bld) [Vol rate/Area] 56 mL/min/{1.73_m2} Low >60 [facility] Comment on above: Result Comment: mL/m in/1.73m2 CKD-EPI Creatinine Equation (2020) Performed By: #### L 501.9520, L501.5200, L500.2500 #### [facility] [address] [place], [address] Glucose [Mass/Vol] 101 mg/dL High 70-99 [facility] Comment on above: Performed By: #### L 501.9520, L501.5200, L500.2500 #### [facility] [address] [place], [address] Potassium [Moles/Vol] 4.1 mmol/L Normal 3.3-5.1 [facility] Comment on above: Performed By: #### L 501.9520, L501.5200, L500.2500 #### [facility] [address] [place], [address] Sodium [Moles/Vol] 140 mmol/L Normal 133-145 [facility] Comment on above: Performed By: #### L 501.9520, L501.5200, L500.2500 #### [facility] [address] [place], [address] Urea nitrogen [Mass/Vol] 14 mg/dL Normal 4-19 [facility] Comment on above: Performed By: #### L 501.9520, L501.5200, L500.2500 #### [facility] [address] [place], [address] Carbon dioxide, total [Moles /volume] in Central venous bloodOrdered By: Tim Samayoa on 10-11-2024 CO2 [Moles/Vol] 27.9 mmol/L 21.0-32.0 [facility] Cardiology Visit Reporton Cardiology Visit Report [facility] [address] [place] [address] OFFICE VISIT Date of Service: 10/11/24 MR#: [id number] Acct: [id number] Name: ESTEFANIA MONTIEL NIKITA Rep #: [id number] : 1940 Provider: Dr. Tim Samayoa MD Age/Sex: 83/F [place] [facility] Status: Signed HPI HPI History of Present Illness Details: 83-year old lady with previous history of hiatal hernia status post Fabiano fundoplication over 20 years ago. She comes in with nonspecific complaints with palpitations some shortness of breath with activity occasional fatigue some dizziness but no sam syncope. She is underwent intensive therapy she does say that she has a chronic cough and occasionally feels that her food is choking. She did have an evaluation with the gastroenterology service as well as the surgical service within the last year. She is on minimal medication and does have a lipid profile which is favorable with a total cholesterol 202 HDL of 86 LDL of 101. Her physical exam is unremarkable her electrocardiogram demonstrates sinus rhythm with a rate of 81 bpm and no acute changes. Intake Vital Signs 08/15/24 13:35 10/11/24 10:47 Height 5 ft 3 in 5 ft 3 in Weight: 122 lb 119 lb BMI 21.6 21.0 BP 135/62 H 125/80 H Blood Pressure Location Lt brachial Lt brachial Position Sitting Sitting Respiration 17 16 Pulse 98 80 Pulse Source Monitor Monitor Temp 98.2 F Pulse Oximetry (%) 96 Oxygen Delivery Method room air Intake Visit Reasons: Chest pain, Fatique Pals Specialist Required: No Accompanied by: Self Is patient in pain?: No Allergies sulfamethoxazole (From Bactrim) Allergy (Severe, Verified 10/11/24 11:08) Itching trimethoprim (From Bactrim) Allergy (Severe, Verified 10/11/24 11:08) Itching doxycycline Allergy (Intermediate, Verified 10/11/24 11:08) Other midazolam Allergy (Intermediate, Verified 10/11/24 11:08) Other Penicillins Allergy (Intermediate, Verified 10/11/24 11:08) SKIN SHEDS latex Adverse Reaction (Intermediate, Verified 10/11/24 11:08) Rash codeine Adverse Reaction (Verified 10/11/24 11:08) Other Medications ???Medication ???Instructions ???Recorded ???Confirmed ???Type fluoxetine 20 mg capsule (Prozac) 20 mg PO DAILY 08/05/23 10/11/24 History levothyroxine 50 mcg tablet 50 mcg PO QDAY 10/06/24 10/11/24 H istory Have you fallen in the past year?: Yes PFSH Medical History Pulmonary fibrosis PFO (patent foramen ovale) Palpitations Mitral regurgitation MVP (mitral valve prolapse) Goiter GERD (gastroesophageal reflux disease) DJD (degenerative joint disease) Arthritis Hypothyroid Chest pain Dysphagia Chronic cough Fatigue Myasthenia gravis Surgical History History of Fabiano fundoplication Hx laparoscopic cholecystectomy History of colostomy Family History Mother Heart disease Sister Cancer Social History Smoking Status: Former smoker alcohol intake: current substance use type: does not use ROS Const Const: Positive for fatigue and excessive sweating; Negative for weakness, headache(s), daytime sleepiness or difficulty sleeping ENT ENT: Positive for dizziness; Negative for headache(s) or Nosebleed/epistaxis Cardio Chest Pain: No Palpitations: Yes (occas.) feels like its: pounding and irregular Edema: None Resp Respiratory: Positive for SOB at rest (hx pulmonary fibrosis) and Cough; Negative for SOB with activity or SOB orthopnea SOB lying down GI GI: Negative nausea, vomiting or heartburn Neuro Neuro: Positive for dizziness, lightheadedness (true with position changes) and near syncope; Negative for headache(s) or weakness Endo Endo: Positive for fatigue and excessive sweating Cardiology Exam Const Appearance: cooperative, healthy appearing, no acute distress, well developed and well groomed Nutritional Appearance: average body habitus and well nourished Orientation: alert, awake and oriented x3 Head Head: normal to inspection, normocephalic and atraumatic Ears: hearing grossly normal bilaterally and external ears normal Nose: external nose normal, nares normal, nasal mucous membranes and turbinates normal, septum normal and no nasal discharge Face and Sinus: face symmetric Mouth: oral mucosae normal, tongue normal, oropharynx normal and moist mucous membranes Teeth and gingiva: dentition normal Throat: posterior oropharynx normal, tonsils normal and uvula midline Eyes General: appearance normal, both eyes and all related structures Eyelids: eyelids normal Conjunctivae: conjunctivae normal Pupils: PERRL, normal by con (more content not included)... Normal [facility] Chloride assayOrdered By: Anmol Samayoa on 10-11-2024 Chloride [Moles/Vol] 101 mmol/L 98-108 [facility] Glomerular filtration rate ( GFR) estimation/1.73 sq m using serum, plasma, or whole bOrdered By: Tim Samayoa on 10-11-2024 GFR/1.73 sq M.predicted among non-blacks MDRD (S/P/Bld) [Vol rate/Area] 56 mL/min/{1.73_m2} Low >60 [facility] Comment on above: mL/min/1.73m2 CKD-EP I Creatinine Equation (2020) Magnesiumon 10-11-2024 Magnesium [Mass/Vol] 1.9 mg/dL Normal 1.5-2.2 [facility] Comment on above: Performed By: #### L 501.9520, L501.5200, L500.2500 #### [facility] [address] [place], [address] Magnesium measurement (mass/ volume)Ordered By: Tim Samayoa on 10-11-2024 Magnesium (Unsp spec) [Mass/Vol] 1.9 mg/dL 1.5-2.2 [facility] Potassium measurement (mass/ volume)Ordered By: Tim Samayoa on 10-11-2024 Potassium (Unsp spec) [Mass/Vol] 4.1 mmol/L 3.3-5.1 [facility] Serum creatinine measurement (mass/volume)Ordered By: Tim Samayoa on 10-11-2024 Creatinine [Mass/Vol] 1.00 mg/dL 0.70-1.20 [facility] Serum glucose measurement (m ass/volume)Ordered By: Tim Samayoa on 10-11-2024 Glucose [Mass/Vol] 101 mg/dL High 70-99 [facility] Serum or plasma calcium adrian urement (mass/volume)Ordered By: Tim Samayoa on 10-11-2024 Calcium [Mass/Vol] 9.8 mg/dL 7.6-11.0 [facility] Serum or plasma urea nitroge n measurement (mass/volume)Ordered By: Tim Samayoa on 10-11-2024 Urea nitrogen [Mass/Vol] 14 mg/dL 4-19 [facility] Sodium levelOrdered By: Omkar Samayoa on 10-11-2024 Sodium [Moles/Vol] 140 mmol/L 133-145 [facility] TSH DL <= 0.005 mIU/L QnOrde red By: Tim Samayoa on 10-11-2024 TSH Qn 1.780 uIU/mL 0.300-4.20 0 [facility] Thyroid Stim Hormone (TSH)on 10-11-2024 TSH 1.780 uIU/mL Normal 0.300-4.20 0 [facility] Comment on above: Performed By: #### L 501.9520, L501.5200, L500.2500 #### [facility] [address] [place], [address] L3410.9992on 09-07-2024 [facility] [place] Normal . [facility] Comment on above: Order Comment: [id number] MUSJ AB Result Comment: Test Ordered: [id number] MuSK Abs, Serum MuSK Abs, Serum <1.0 U/mL ES Reference Range: . Reference Range: Negative: <1.0 Positive: 1.0 or higher A positive result, in the context of congruent clinical findings, confirms the diagnosis of autoimmune MuSK myasthenia gravis. COMMENTS: - Myasthenia gravis (MG) is caused by auto-antibodies against proteins of the neuromuscular junction. Most cases (about 90%) of generalized MG are anti- acetylcholine receptor (AChR) antibody-positive.(1) - Of generalized MG patients who lack anti-AChR antibodies (AChR-seronegative), about 40% are positive for Muscle- Specific Kinase (MuSK) antibody.(1,2) - Though a positive MuSK result is specific for the diagnosis of MuSK MG, a negative MuSK result does not rule out a MG diagnosis. - MuSK antibody levels have been shown to correlate with disease severity.(3) Serial measurements may be useful to follow treatment. References: 1. Nicki-Addis S et al. J Autoimmunity 2014;52:90-100. 2. Joe BEE et al. PNAS 2013;110(83);49444-60080. 3. Domenica E et al. Neurology 2006;67:505-507. This test was developed and its performance characteristics determined by [facility]. It has not been cleared or approved by the Food and Drug Administration. Performed at: [facility] [address] [place] [id number] Soldering Machine Setter: Fidencio Newman MD, Phone: [phone] Performed at: [address] [id number] Soldering Machine Setter: Jesse Anne PhD, Phone: [phone] Performed By: #### L 3410.9992 #### [facility] [address] [place], [address] Gastroenterology Visit Repor ton 09-05-2024 Gastroenterology Visit Report [facility] Gastroenterology [address] [place] [address] OFFICE VISIT Date of Service: 09/05/24 MR#: [id number] Acct: [id number] Name: ESTEFANIA MONTIEL NIKITA Rep #: [id number] : 1940 Provider: Jaime Allen DO Age/Sex: 83/F [place] [facility] [place] Status: Signed Intake Vital Signs 08/15/24 13:35 Height 5 ft 3 in Weight: 122 lb BMI 21.6 BP 135/62 H Blood Pressure Location Lt brachial Position Sitting Respiration 17 Pulse 98 Pulse Source Monitor Temp 98.2 F Temp Source Temporal Pulse Oximetry (%) 96 Oxygen Delivery Method room air Intake Visit Reasons: dysphagia chronic cough Chief Complaint: Establish Care Allergies Penicillins Allergy (Intermediate, Verified 08/15/24 13:40) SKIN SHEDS codeine Adverse Reaction (Verified 08/15/24 13:40) Other Medications ???Medication ???Instructions ???Recorded ???Confirmed ???Type fluoxetine 20 mg capsule (Prozac) 20 mg PO DAILY 08/05/23 09/05/24 History levothyroxine 25 mcg tablet mcg PO 06/06/24 09/05/24 History Have you fallen in the past year?: No PFSH Surgical History History of colostomy Social History Smoking Status: Never smoker HPI HPI Chief Complaint: Establish Care Details: ESTEFANIA MONTIEL, is a 83 F who presents to the office today for initial consult. *BGI established 09.05.24 pt reports she is here about a cough she has had for 24 years. Reports that last year she had an EGD with dilation and botox and then lost her voice for 6 months. Pt reports this is her only symptom of concern. ROS Const Constitutional: No fatigue, fever(s) or weight change ENT ENT: Positive for difficulty swallowing Resp Respiratory: Positive for cough Gastro GI: Positive for difficulty swallowing; No abdominal pain, belching, bloating, change in bowel habits, change in stool character, coffee ground emesis, constipation, cramping, diarrhea, heartburn, feeling full early, excessive flatus, incontinent of stools, Vomiting blood/hematemesis, Blood in stool, loose stools, Black,tarry stools, nausea/dyspepsia, pain with swallowing, vomiting or other Musc Musculoskeletal: No joint pain Skin Skin: No yellowing of the eye or itchy eyes Psych Psychiatric: No anxiety and No depression Endo Endocrine: No fatigue or weight change Aller/Imm Allergy/Immunologic: No itchy eyes Charly/Lymp Hematologic/Lymphatic: No easy bleeding or easy bruising Assessment and Plan Assessment and Plan (1) Chronic cough: Status: Chronic (2) Myasthenia gravis: Status: Acute (3) Fatigue: Status: Acute (4) Dysphagia: Status: Acute Plan: 83-year-old comes in for evaluation of a chronic cough. She has a has history of Fabiano fundoplication and open cholecystectomy but most recently in 2021 she had a sigmoid colectomy with colostomy for diverticulitis. She had the colostomy reversed in another hospital in late 2021. She has had no issues since then except for chronic diarrhea. She also has a history of myasthenia gravis. She has been all over the [place] for evaluation of her chronic cough. She has gone to [facility]. She has had Botox injections externally for her chronic cough. She has also been on steroids and other medicines for possible myasthenia gravis involvement of her upper airway. Nothing has been successful. She also underwent a Fabiano fundoplication due to her chronic cough. She would like to get evaluated regarding getting the Fabiano fundoplication removed. She is also concerned that the symptoms that she is experiencing may not be secondary to her esophagus and secondary to her heart. She says she did had a cardiac echo approximately 3 years ago and it was normal but no other history of cardiovascular disease. We will refer her to general surgery to evaluate her hiatal hernia and we will refer her to cardiology regarding her atypical chest pain. Coding Level of Care Code Off vis,new,level 4 Diagnoses Chronic cough R05.3 Myasthenia gravis G70.00 Fatigue R53.83 Dysphagia R13.10 Clinical Quality Measures Falls Risk Screening/Assistive Devices Have you fallen in the past year?: No 09/05/24 1216 Date Jaime Friend DO Beth Signature: Date (if applicable) CC: Normal [facility] L3410.9992on 08-23-2024 [facility]. COMMENT Normal . [facility] Comment on above: Order Comment: [id number] 4 striated muscle antibody Result Comment: Test Ordered: [id number] Striation Abs, Serum Test(s) 497115-Kndyeiwvd Abs, Serum was developed and its performance characteristics determined by [facility]. It has not been cleared or approved by the Food and Drug Administration. Striation Abs, Serum Negative Reference Range: Neg:<1:100 Performed at: - [facility] [id number] Soldering Machine Setter: Marti Singh MD, Phone: [phone] Performed at: - [facility] [id number] Soldering Machine Setter: Jesse Anne PhD, Phone: [phone] Performed By: #### L 3648.9993 #### [facility] [address] [place], [address] Neurology Visit Reporton Neurology Visit Report [facility] [address] [facility], [address] [place], [place] [id number] OFFICE VISIT Date of Service: 08/15/24 MR#: [id number] Acct: [id number] Name: ESTEFANIA MONTIEL NIKITA Rep #: [id number] : 1940 Provider: Dr. Ingrid barnard MD Age/Sex: 83/F [place] [facility] [place] Status: Signed HPI [facility] Chief Complaint: Establish Care Details: Interim History: Estefania returns for follow-up visit. She has a history of hypothyroidism, myasthenia gravis, and interstitial fibrosis. She stated she was diagnosed with myasthenia gravis when she was 12 years old. Her presenting symptoms were weakness in the arms and legs, and diplopia. She does not recall the treatment that was initiated at that time. Over subsequent years, she has had periods of remission of her myasthenia gravis lasting weeks to months, as well as periods of recurrence of her myasthenia gravis manifesting with diplopia, right ptosis and/or weakness in the arms and legs. She stated that pyridostigmine was not of benefit for her myasthenia gravis. She has been treated with courses of prednisone for periods of several months to years at a time and this was of benefit for her myasthenic symptoms. She denies having any breathing difficulty. She denied having speech difficulty. She has experienced some jaw claudication when she eats food. She has had some dysphagia but attributes this to a chronic cough and treatment of suspected gastroesophageal reflux (Fabiano procedure). She also had a LINX procedure performed however this was subsequently removed. Benzonatate was not of benefit. She uses a prism lens and this has been of some benefit for her diplopia. She has had a period of worsened myasthenic symptoms since 2023 and has had having ongoing right ptosis, diplopia, and feeling of weakness in the arms and legs. She has chronic fatigue. Prior B12 injections were not of benefit for her fatigue. A 1 month course of prednisone 5 mg every other day earlier in 2024 was of benefit for her diplopia and this has diminished significantly. She continues to experience fatigue. She experiences mild headaches about 2 days/week and has had this pattern for over 20 years. She does not have associated nausea. She has had some left hand numbness; this has subsided. She experiences occasional neck pain. She has low back pain. She has a left hand Dupuytren's contracture. She has had occasional disequilibrium. She has actinic keratosis in the left arm. She has tried a prescribed topical cream however this was not of benefit. She had a right frontal convexity meningioma resected in 2000. The meningioma was found on evaluation for an evaluation of an episode of loss of consciousness in 2000. Physical Exam: Neuro: The patient is awake and alert and responds appropriately; speech is fluent; no ptosis is noted; EOMI however she does report having diplopia on leftward gaze; no drift; motor strength is 5/5 in the quadriceps bilaterally and foot dorsiflexors bilaterally Neck: No bruits Heart: Regular rhythm and rate Extremities: A 1-1/2 cm left upper arm scabbed skin lesion is noted Supplemental Info Head MRI (10/21/2023): FINDINGS: There is mild cerebral atrophy with widening of the extra-axial spaces and ventricular dilatation. There are a limited number of small white matter hyperintensities, distributed throughout the deep white matter tracts of the cerebral hemispheres, consistent with mild chronic white matter ischemic changes. There is no evidence for recent intracranial ischemia or other cause of cytotoxic edema on diffusion weighted imaging (DWI). Normal T2* images of the brain without demonstrated susceptibility artifact. There is no demonstrated hemosiderin stain. Status post right parietal craniotomy with subjacent encephalomalacia and gliosis which is unchanged. Normal bilateral basal ganglia. Normal thalami. There is no extra-axial fluid accumulation. Normal flow voids within the major intracranial circulation suggesting patency by spin echo criteria. Normal venous enhancement. There is no enhancing intra-axial or extra-axial abnormality. Normal sella turcica, pituitary gland, infundibular stalk, optic chiasm and hypothalamus. Normal tectal plate and pineal gland. Normal midbrain, gutierrez and medulla. Normal cerebellum. Normal basal cisterns. Normal bilateral temporal bones. Normal bilateral internal auditory canals. No demonstrated orbital abnormality, within the constraints of a routine brain study. Normal visualized paranasal sinuses. Normal calvarium and skull base. Normal visualized soft tissue structures. Normal visualized upper cervical spine. IMPRESSION: No change from 10/05/2022. These images were reviewed on 08/15/2024. Mild diffuse age-related cerebral atrophy is noted. A small area of right frontal lobe cortical encephalomalacia and sclerosis is noted at the site of her prior meningiom (more content not included)... Normal [facility] Surgery Specimen Level Steve 07-04-2024 Surgery Specimen Level IV Patient Age/Sex Location Account Attending Physician ESTEFANIA MONTIEL 83/F [facility] [id number] Dr. Britany Sexton MD Specimen: [id number] Received: 07/05/24 Status: SUNI Zayas Num: [id number] Spec Type: Lesion Subm Dr: Dr. Britany Sexton MD HEADER OPERATION: Punch biopsy PRE-OP DIAGNOSIS: 9mm skin lesion TISSUE SUBMITTED: A- Left forearm 3mm MICROSCOPIC DIAGNOSIS A. Skin, left forearm, punch biopsy: * Actinic keratosis, eroded, with neutrophil crust. MICROSCOPIC DESCRIPTION Slides are reviewed. GROSS DESCRIPTION A. Received in formalin in a container labeled with the patient's name, date of , and skin lesion is an unoriented cylindrical punch of white-mendoza skin measuring 0.3 x 0.3 cm with a depth of 0.2 cm. The possible epidermal surface exhibits a 0.2 x 0.2 cm focus of brown speckling that abuts the peripheral margin. The opposing surface is inked green, and it is submitted entirely in A1. [facility] 07-05-2024 CPT:62476 Patient Age/Sex Location Account Attending Physician ESTEFANIA MONTIEL 83/F [facility] [id number] Dr. Britany Sexton MD Signed (signature on file) Dr. Liliana Coto MD 07/14/24 6927 Normal [facility] Comment on above: Performed By: #### L 500.4050, L100.0100 #### [facility] [address] [place], [address] ACHR AB Modulatingon 0325-2 025 ACHR AB MODULAT 0 Normal 0-45 [facility] Comment on above: Order Comment: Test( s) 191479-ALtZ-ksiozrrlzo Abwas developed and its performance characteristicsdetermined by [employer]. It has not been cleared or approvedby the Food and Drug Administration. Result Comment: Inte rpretive Information: Negative: 0 - 45% Positive: > 45% No single value for AChR-modulating antibody should be used as a sole basis for diagnosis or response to therapy. Performed By: #### L 500.4050, L100.0100 #### [facility] [address] [place], [address] ACHR Ruby On Rails Developer AB, Blockingon ACHR SAUSAGE TIER AB 19 Normal 0-25 [facility] Comment on above: Order Comment: Test( s) 033840-YYwN Blocking Abs, SerumThis test was developed and its performance characteristicsdetermined by [facility]. It has not been cleared orapproved by the Food and Drug Administration. Result Comment: Nega tive: 0 - 25 Borderline: 26 - 30 Positive: >30 Performed By: #### L 500.4050, L100.0100 #### [facility] [address] [place], [address] Acetylcholine Receptoron ACHR AB 0.04 nmol/L Normal 0.00-0.24 [facility] Comment on above: Order Comment: Test( s) 762228-MPoN Blocking Abs, SerumThis test was developed and its performance characteristicsdetermined by [facility]. It has not been cleared orapproved by the Food and Drug Administration.N Result Comment: Nega tive: 0.00 - 0.24 Borderline: 0.25 - 0.40 Positive: >0.40 Performed By: #### L 500.4050, L100.0100 #### [facility] [address] [place], [address] Folates, RBCon 06-12-2024 Fol.,Hemolysate 396.0 ng/mL Normal Not Estab. [facility] Comment on above: Order Comment: Test( s) 532421-XJeZ Blocking Abs, SerumThis test was developed and its performance characteristicsdetermined by [facility]. It has not been cleared orapproved by the Food and Drug Administration. Performed By: #### L 500.4050, L100.0100 #### [facility] [address] [place], [address] Folate, RBC 868 ng/mL Normal >498 [facility] Comment on above: Order Comment: Test( s) 879792-ZWnA Blocking Abs, SerumThis test was developed and its performance characteristicsdetermined by [facility]. It has not been cleared orapproved by the Food and Drug Administration. Performed By: #### L 500.4050, L100.0100 #### [facility] [address] [place], [address] Hematocrit (Bld) [Volume fraction] 45.6 % Normal 34.0-46.6 [facility] Comment on above: Order Comment: Test( s) 551815-ATlR Blocking Abs, SerumThis test was developed and its performance characteristicsdetermined by [facility]. It has not been cleared orapproved by the Food and Drug Administration. Performed By: #### L 500.4050, L100.0100 #### [facility] [address] [place], [address] Vitamin B1, Thiamineon 06-12 VIT B1 THIAMINE 124.5 nmol/L Normal 66.5-200.0 [facility] Comment on above: Order Comment: Test( s) 007662-EPbP Blocking Abs, SerumThis test was developed and its performance characteristicsdetermined by [employer]. It has not been cleared orapproved by the Food and Drug Administration. Result Comment: Perf ormed at: CB - [facility] [address] [id number] Soldering Machine Setter: Jesse Anne PhD, Phone: [phone] Performed at: - [facility] [address] [id number] Soldering Machine Setter: Marti Signh MD, Phone: [phone] Performed By: #### L 5004058, L100.0100 #### [facility] [address] [place], [place], [address] Acetylcholine receptorOrdere d By: Ingrid Michaels on 06-06-2024 Acetylcholine Receptor Antibody 0.04 nmol/L 0.00-0.24 [facility] Comment on above: Negative: 0.00 - 0.2 4 Borderline: 0.25 - 0.40 Positive: >0.40 Acetylcholine receptor block ing antibody assayOrdered By: Ingrid Michaels on 06-06-2024 Acetylcholine Receptor Blocking Ab 19 % 0-25 [facility] Comment on above: Negative: 0 - 25 Bor derline: 26 - 30 Positive: >30 Acetylcholine receptor modul ation Ab/Acetylcholine Ab.total (S) [Molar fraction]Ordered By: Ingrid Michaels on 06-06-2024 Acetylcholine Recept Modulating Ab 0 % 0-45 [facility] Comment on above: Interpretive Informa tion: Negative: 0 - 45% Positive: > 45%No single value for AChR-modulating antibody shouldbe used as a sole basis for diagnosis or responseto therapy. Anion gap in Serum or Plasma Ordered By: Ingrid Michaels on 06-06-2024 Anion gap [Moles/Vol] 15 mmol/L 5-15 [facility] BUN/creatinine ratioOrdered By: Ingrid Michaels on 06-06-2024 Urea nitrogen/Creatinine [Mass ratio] 22.0 mg/mg High 10-20 [facility] Bilirubin, totalOrdered By: Ingrid Michaels on 06-06-2024 Bilirubin [Mass/Vol] 0.62 mg/dL 0.00-1.30 [facility] CBC-Complete Blood Cnt No Di ffon 06-06-2024 Erythrocyte distribution width (RBC) [Ratio] 14.5 % Normal 11.6-14.6 [facility] Comment on above: Performed By: #### L 3300.8000, L3410.0100, L3410.0200, L501.9520, L100.0500, L3300.0600, L503.0106, L500.4050, L500.4100, L3100.1725, L506.0400 #### [facility] [address] [place], [place], [phone] (753) Hematocrit (Bld) [Volume fraction] 42.5 % Normal 37-47 [facility] Comment on above: Performed By: #### L 3300.8000, L3410.0100, L3410.0200, L501.9520, L100.0500, L3300.0600, L503.0106, L500.4050, L500.4100, L3100.1725, L506.0400 #### [facility] [address] [place], [place], [phone] (705) Hemoglobin (Bld) [Mass/Vol] 14.0 g/dL Normal 12.0-15.0 [facility] Comment on above: Performed By: #### L 3300.8000, L3410.0100, L3410.0200, L501.9520, L100.0500, L3300.0600, L503.0106, L500.4050, L500.4100, L3100.1725, L506.0400 #### [facility] [address] [place], [address] MCH (RBC) [Entitic mass] 30.0 pg Normal 27.0-32.0 [facility] Comment on above: Performed By: #### L 3300.8000, L3410.0100, L3410.0200, L501.9520, L100.0500, L3300.0600, L503.0106, L500.4050, L500.4100, L3100.1725, L506.0400 #### [facility] [address] [place], [address] MCHC (RBC) [Mass/Vol] 32.9 g/dL Normal 32-36 [facility] Comment on above: Performed By: #### L 3300.8000, L3410.0100, L3410.0200, L501.9520, L100.0500, L3300.0600, L503.0106, L500.4050, L500.4100, L3100.1725, L506.0400 #### [facility] [address] [place], [address] MCV (RBC) [Entitic vol] 91.2 fL Normal 81-[address] [facility] Comment on above: Performed By: #### L 3300.8000, L3410.0100, L3410.0200, L501.9520, L100.0500, L3300.0600, L503.0106, L500.4050, L500.4100, L3100.1725, L506.0400 #### [facility] [address] [place], [address] Platelet mean volume (Bld) [Entitic vol] 12.3 fL High 6.2-12.0 [facility] Comment on above: Performed By: #### L 3300.8000, L3410.0100, L3410.0200, L501.9520, L100.0500, L3300.0600, L503.0106, L500.4050, L500.4100, L3100.1725, L506.0400 #### [facility] [address] [place], [address] Platelets (Bld) [#/Vol] 250 10*3/uL Normal 150-450 [facility] Comment on above: Performed By: #### L 3300.8000, L3410.0100, L3410.0200, L501.9520, L100.0500, L3300.0600, L503.0106, L500.4050, L500.4100, L3100.1725, L506.0400 #### [facility] [address] [place], [place], [phone] (585) RBC (Bld) [#/Vol] 4.66 10*6/uL Normal 4.2-5.4 [facility] Comment on above: Performed By: #### L 3300.8000, L3410.0100, L3410.0200, L501.9520, L100.0500, L3300.0600, L503.0106, L500.4050, L500.4100, L3100.1725, L506.0400 #### [facility] [address] [place], [place], [id number] RDW SD 49.0 fl High 35.1-43.9 [facility] Comment on above: Performed By: #### L 3300.8000, L3410.0100, L3410.0200, L501.9520, L100.0500, L3300.0600, L503.0106, L500.4050, L500.4100, L3100.1725, L506.0400 #### [facility] [address] [place], [place], [phone] WBC (Bld) [#/Vol] 7.1 10*3/uL Normal 4.4-11.0 [facility] Comment on above: Performed By: #### L 3300.8000, L3410.0100, L3410.0200, L501.9520, L100.0500, L3300.0600, L503.0106, L500.4050, L500.4100, L3100.1725, L506.0400 #### [facility] [address] [place], [place], [id number] Calculated very low density lipoprotein (VLDL) cholesterol measurementOrdered By: Ingrid Michaels on 06-06-2024 Calculated very low density lipoprotein (VLDL) cholesterol measurement 14 mg/dL [facility] VLDL Cholesterol 14 mg/dL [facility] Carbon dioxide, total [Moles /volume] in Central venous bloodOrdered By: Ingrid Michaels on 06-06-2024 CO2 [Moles/Vol] 23.9 mmol/L 21.0-32.0 [facility] Chloride assayOrdered By: Ra asha Michaels on 06-06-2024 Chloride [Moles/Vol] 102 mmol/L 98-108 [facility] Comprehensive Metabolic Prof ilon 06-06-2024 Albumin [Mass/Vol] 4.2 g/dL Normal 3.4-4.8 [facility] Comment on above: Performed By: #### L 3300.8000, L3410.0100, L3410.0200, L501.9520, L100.0500, L3300.0600, L503.0106, L500.4050, L500.4100, L3100.1725, L506.0400 #### [facility] [address] [place], [place], [id number] Albumin/Globulin [Mass ratio] 1.2 {ratio} Normal 0.9-2.4 [facility] Comment on above: Performed By: #### L 3300.8000, L3410.0100, L3410.0200, L501.9520, L100.0500, L3300.0600, L503.0106, L500.4050, L500.4100, L3100.1725, L506.0400 #### [facility] [address] [place], [address] ALK PHOS 56 U/L Normal 35-104 [facility] Comment on above: Performed By: #### L 3300.8000, L3410.0100, L3410.0200, L501.9520, L100.0500, L3300.0600, L503.0106, L500.4050, L500.4100, L3100.1725, L506.0400 #### [facility] [address] [place], [address] ALT [Catalytic activity/Vol] 15 U/L Normal <=34 [facility] Comment on above: Performed By: #### L 3300.8000, L3410.0100, L3410.0200, L501.9520, L100.0500, L3300.0600, L503.0106, L500.4050, L500.4100, L3100.1725, L506.0400 #### [facility] [address] [place], [address] AST [Catalytic activity/Vol] 28 U/L Normal <=31 [facility] Comment on above: Performed By: #### L 3300.8000, L3410.0100, L3410.0200, L501.9520, L100.0500, L3300.0600, L503.0106, L500.4050, L500.4100, L3100.1725, L506.0400 #### [facility] [address] [place], [address] Bilirubin [Mass/Vol] 0.62 mg/dL Normal 0.00-1.30 [facility] Comment on above: Performed By: #### L 3300.8000, L3410.0100, L3410.0200, L501.9520, L100.0500, L3300.0600, L503.0106, L500.4050, L500.4100, L3100.1725, L506.0400 #### [facility] [address] [place], [address] BUN/CRE 22.0 RATIO High 10-20 [facility] Comment on above: Performed By: #### L 3300.8000, L3410.0100, L3410.0200, L501.9520, L100.0500, L3300.0600, L503.0106, L500.4050, L500.4100, L3100.1725, L506.0400 #### [facility] [address] [place], [place], [phone] (332) Calcium [Mass/Vol] 10.0 mg/dL Normal 7.6-11.0 [facility] Comment on above: Performed By: #### L 3300.8000, L3410.0100, L3410.0200, L501.9520, L100.0500, L3300.0600, L503.0106, L500.4050, L500.4100, L3100.1725, L506.0400 #### [facility] [address] [place], [place], [id number] (964) Chloride [Moles/Vol] 102 mmol/L Normal 98-108 [facility] Comment on above: Performed By: #### L 3300.8000, L3410.0100, L3410.0200, L501.9520, L100.0500, L3300.0600, L503.0106, L500.4050, L500.4100, L3100.1725, L506.0400 #### [facility] [address] [place], [place], [phone] (407) CO2 [Moles/Vol] 23.9 mmol/L Normal 21.0-32.0 [facility] Comment on above: Performed By: #### L 3300.8000, L3410.0100, L3410.0200, L501.9520, L100.0500, L3300.0600, L503.0106, L500.4050, L500.4100, L3100.1725, L506.0400 #### [facility] [address] [place], [place], [phone] (736) Creatinine [Mass/Vol] 0.95 mg/dL Normal 0.70-1.20 [facility] Comment on above: Performed By: #### L 3300.8000, L3410.0100, L3410.0200, L501.9520, L100.0500, L3300.0600, L503.0106, L500.4050, L500.4100, L3100.1725, L506.0400 #### [facility] [address] [facility] [place], [place], [phone] GAP 15 Normal 5-15 [facility] Comment on above: Performed By: #### L 3300.8000, L3410.0100, L3410.0200, L501.9520, L100.0500, L3300.0600, L503.0106, L500.4050, L500.4100, L3100.1725, L506.0400 #### [facility] [address] [facility] [place], [place], [id number] GFR/1.73 sq M.predicted among non-blacks MDRD (S/P/Bld) [Vol rate/Area] 59 mL/min/{1.73_m2} Low >60 [facility] Comment on above: Result Comment: mL/m in/1.73m2 CKD-EPI Creatinine Equation (2020) Performed By: #### L 3300.8000, L3410.0100, L3410.0200, L501.9520, L100.0500, L3300.0600, L503.0106, L500.4050, L500.4100, L3100.1725, L506.0400 #### [facility] [address] [place], [place], [phone] Globulin (S) [Mass/Vol] 3.6 g/dL Normal 2.2-4.[address] [facility] Comment on above: Performed By: #### L 3300.8000, L3410.0100, L3410.0200, L501.9520, L100.0500, L3300.0600, L503.0106, L500.4050, L500.4100, L3100.1725, L506.0400 #### [facility] [address] [place], [address] Glucose [Mass/Vol] 108 mg/dL High 70-99 [facility] Comment on above: Performed By: #### L 3300.8000, L3410.0100, L3410.0200, L501.9520, L100.0500, L3300.0600, L503.0106, L500.4050, L500.4100, L3100.1725, L506.0400 #### [facility] [address] [place], [address] Potassium [Moles/Vol] 3.6 mmol/L Normal 3.3-5.1 [facility] Comment on above: Performed By: #### L 3300.8000, L3410.0100, L3410.0200, L501.9520, L100.0500, L3300.0600, L503.0106, L500.4050, L500.4100, L3100.1725, L506.0400 #### [facility] [address] [place], [address] Sodium [Moles/Vol] 141 mmol/L Normal 133-145 [facility] Comment on above: Performed By: #### L 3300.8000, L3410.0100, L3410.0200, L501.9520, L100.0500, L3300.0600, L503.0106, L500.4050, L500.4100, L3100.1725, L506.0400 #### [facility] [address] [place], [address] T PROT 7.8 g/dL Normal 5.9-8.4 [facility] Comment on above: Performed By: #### L 3300.8000, L3410.0100, L3410.0200, L501.9520, L100.0500, L3300.0600, L503.0106, L500.4050, L500.4100, L3100.1725, L506.0400 #### [facility] [address] [place], [address] Urea nitrogen [Mass/Vol] 21 mg/dL High 4-19 [facility] Comment on above: Performed By: #### L 3300.8000, L3410.0100, L3410.0200, L501.9520, L100.0500, L3300.0600, L503.0106, L500.4050, L500.4100, L3100.1725, L506.0400 #### [facility] [address] [place], [place], [address] Erythrocyte distribution wid th ratioOrdered By: Ingrid Michaels on 06-06-2024 Erythrocyte distribution width (RBC) [Ratio] 14.5 % 11.6-14.6 [facility] Erythrocyte distribution wid th standard deviationOrdered By: Ingrid Michaels on 06-06-2024 Erythrocyte distribution width (RBC) [Entitic vol] 49.0 fL High 35.1-43.9 [facility] Erythrocyte distribution width (RBC) [Ratio] 49.0 fl High 35.1-43.9 [facility] Erythrocyte folate measureme ntOrdered By: Ingrid Mcihaels on 06-06-2024 RBC Folate Hemolysate 396.0 ng/mL Not Estab. [facility] Red Blood Cell Folate 868 ng/mL >498 [facility] Erythrocyte folate measureme nt with hematocritOrdered By: Ingrid Michaels on 06-06-2024 Hematocrit (Bld) [Volume fraction] 45.6 % 34.0-46.6 [facility] GFR/1.73 sq M.predicted antonella g non-blacks MDRD (S/P/Bld) [Vol rate/Area]Ordered By: Ingrid Michaels on 06-06-2024 Estimated GFR (MDRD) Non-Af Amer 59 Low >60 [facility] Comment on above: mL/min/1.73m2 CKD-EP I Creatinine Equation (2020) Glomerular filtration rate ( GFR) estimation/1.73 sq m using serum, plasma, or whole bOrdered By: Ingrid Michaels on 06-06-2024 GFR/1.73 sq M.predicted among non-blacks MDRD (S/P/Bld) [Vol rate/Area] 59 mL/min/{1.73_m2} Low >60 [facility] Comment on above: mL/min/1.73m2 CKD-EP I Creatinine Equation (2020) Hematocrit Auto (Bld) [Volum e fraction]Ordered By: Ingrid Michaels on 06-06-2024 Hematocrit (Bld) [Volume fraction] 42.5 % 37-47 [facility] Hemoglobin measurementOrdere d By: Ingrid Michaels on 06-06-2024 Hemoglobin (Bld) [Mass/Vol] 14.0 g/dL 12.0-15.0 [facility] L503.0106on 06-06-2024 Cobalamin (Vitamin B12) [Mass/Vol] 610 pg/mL Normal 180-914 [facility] Comment on above: Performed By: #### L 500.4050, L100.0100 #### [facility] [address] [place] [address], [address] LDL calc ser/plasOrdered By: Ingrid Michaels on 06-06-2024 Cholesterol in LDL [Mass/Vol] 101 mg/dL [facility] Comment on above: Hknrhfswom=947-551 m g/dL & Higher Nzbb=880 mg/dL or greater LDL Cholesterol, Calculated 101 mg/dL [facility] Comment on above: Lscnjmpwrs=150-793 m g/dL & Higher Giiu=802 mg/dL or greater Laboratory - Chemistry and C hemistry - challengeOrdered By: Ingrid Michaels on 06-06-2024 AST [Catalytic activity/Vol] 28 U/L <32 [facility] Lipid Profileon 06-06-2024 CHOL:HDL 2.34 Normal [facility] Comment on above: Performed By: #### L 3300.8000, L3410.0100, L3410.0200, L501.9520, L100.0500, L3300.0600, L503.0106, L500.4050, L500.4100, L3100.1725, L506.0400 #### [facility] [address] [place], [address] Cholesterol [Mass/Vol] 202 mg/dL High <=200 [facility] Comment on above: Result Comment: Chol esterol level, Desirable <200 mg/dL Borderline high cholesterol 200-239 mg/dL High cholesterol >=240 mg/dL Recommendations of the NCEP Adult Treatment Panel for the following risk-cutoff thresholds for the [place] population. Performed By: #### L 3300.8000, L3410.0100, L3410.0200, L501.9520, L100.0500, L3300.0600, L503.0106, L500.4050, L500.4100, L3100.1725, L506.0400 #### [facility] [address] [place], [address] Cholesterol in HDL [Mass/Vol] 86 mg/dL Normal [facility] Comment on above: Result Comment: Dina onal Cholesterol Education Program (NCEP) guidelines: <40 mg/dL: Low HDL-cholesterol (major risk factor for CHD) >= 60 mg/dL: High HDL-cholesterol (negative risk factor for CHD) HDL-cholesterol is affected by a number of factors, e.g. smoking, exercise, hormones, sex and age. Performed By: #### L 3300.8000, L3410.0100, L3410.0200, L501.9520, L100.0500, L3300.0600, L503.0106, L500.4050, L500.4100, L3100.1725, L506.0400 #### [facility] [address] [place], [address] Cholesterol in LDL [Mass/Vol] 101 mg/dL Normal [facility] Comment on above: Result Comment: Bord ctvpks=511-515 mg/dL Higher Bwbd=489 mg/dL or greater Performed By: #### L 3300.8000, L3410.0100, L3410.0200, L501.9520, L100.0500, L3300.0600, L503.0106, L500.4050, L500.4100, L3100.1725, L506.0400 #### [facility] [address] [place], [address] Cholesterol in VLDL [Mass/Vol] 14 mg/dL Normal 5-40 [facility] Comment on above: Performed By: #### L 3300.8000, L3410.0100, L3410.0200, L501.9520, L100.0500, L3300.0600, L503.0106, L500.4050, L500.4100, L3100.1725, L506.0400 #### [facility] [address] [place], [address] Triglyceride [Mass/Vol] 71 mg/dL Normal [facility] Comment on above: Result Comment: The drugs N-Acetylcysteine and Metamizole may falsely depress this assay. Normal range: <150 mg/dL Borderline High: 150-199 mg/dL High: 200-499 mg/dL Very High: >500 mg/dL Performed By: #### L 3300.8000, L3410.0100, L3410.0200, L501.9520, L100.0500, L3300.0600, L503.0106, L500.4050, L500.4100, L3100.1725, L506.0400 #### [facility] [address] [place], [address] MCV (mean corpuscular volume ) determinationOrdered By: Ingrid Michaels on 06-06-2024 MCV (RBC) [Entitic vol] 91.2 fL 81-[address] [facility] Mean corpuscular hemoglobin (MCH) determinationOrdered By: Ingrid Michaels on 06-06-2024 MCH (RBC) [Entitic mass] 30.0 pg 27.0-32.0 [facility] Mean corpuscular hemoglobin concentration (MCHC) determinationOrdered By: Ingrid Michaels on 06-06-2024 MCHC (RBC) [Mass/Vol] 32.9 g/dL 32-36 [facility] Mean platelet volume determi nationOrdered By: Ingrid Michaels on 06-06-2024 Platelet mean volume (Bld) [Entitic vol] 12.3 fL High 6.2-12.0 [facility] Neurology Visit Reporton Neurology Visit Report [facility] [address] [facility] [place] [address] OFFICE VISIT Date of Service: 06/06/24 MR#: [id number] Acct: [id number] Name: ESTEFANIA MONTIEL) NIKITA Rep #: [id number] : 1940 Provider: Dr. Ingrid barnard MD Age/Sex: 83/F Location: [facility] Status: Signed HPI HPI Chief Complaint: Establish Care Details: History: The patient is an 83-year-old right-handed woman with a past medical history of hypothyroidism, myasthenia gravis, and interstitial fibrosis who presents for evaluation of her myasthenia gravis. The patient states she was diagnosed with myasthenia gravis when she was 12 years old. Her presenting symptoms were weakness in the arms and legs and diplopia. She does not recall the treatment that was initiated at that time. Over subsequent years she has had periods of remission of her myasthenia gravis lasting weeks to months as well as periods of recurrence of her myasthenia gravis manifesting with diplopia, right ptosis and/or weakness in the arms and legs. She states that pyridostigmine was not of benefit for her myasthenia gravis. She has been treated with courses of prednisone for periods of several months to years at a time and this was of benefit for her myasthenic symptoms. She denies having any breathing difficulty or speech difficulty. She has experienced some jaw claudication when she eats food. She has had some dysphagia but attributes this to a chronic cough and treatment of suspected gastroesophageal reflux (possibly a Fabiano procedure). She uses a prism lens and this has been of some benefit for her diplopia. She has had a period of worsened myasthenic symptoms since mid 2023 and reports having ongoing right ptosis, diplopia, and feeling of weakness in the arms and legs. She has had a chronic cough. Benzonatate was not of benefit. She has chronic fatigue. She experiences mild headaches about 2 days/week and has had this pattern for over 20 years. She does not have associated nausea. She has had some left hand numbness; this has subsided. She experiences occasional neck pain. She has low back pain. She has a left hand Dupuytren's contracture. She experiences occasional disequilibrium. Past Medical History: As above. There is no history of hypertension, diabetes mellitus, heart disease, hyperlipidemia, stroke, seizure, cancer, renal disease, or sleep apnea. She has a history of diverticulitis and had had a colostomy in the past which was subsequently reversed. Social History: There is no history of smoking tobacco. There is no history of alcohol abuse, or illicit drug use. Family History: The patient's mother had a stroke. There is no family history of myasthenia gravis, cerebral aneurysm, or seizure. Review of Systems: As above. The patient has not had any recent fever, rash, chest pain, or shortness of breath. She has urinary urgency, frequency and occasional urinary stress incontinence. She denies having depression or anxiety. She has some insomnia. She does not feel well rested when she awakens in the morning. She occasionally naps during the day. She did not wish to pursue a sleep study. Physical Exam: General: Well-developed, well-nourished female in no acute distress. Neuro: The patient is awake and alert and responds appropriately; speech is fluent; language function is within normal limits Cranial nerves: PERRL, 3mm bilaterally; EOMI; visual sewell are full; visual acuity is 20/50 on the right and 20/25 on the left; marginal right ptosis is noted otherwise face is symmetrical; tongue is midline; there are no deficits to pinprick; palate elevation is symmetrical; gag reflex is preserved Cerebellar system: No nystagmus or dysmetria Deep tendon reflexes: +2 at the triceps bilaterally and right brachioradialis, absent at the left brachioradialis, biceps bilaterally, knees, and ankles; plantar responses are downward bilaterally Motor: Strength 5/5 in the biceps bilaterally, abductor pollicis brevis muscles bilaterally, first dorsal interosseous muscles bilaterally, triceps bilaterally, deltoid bilaterally, iliopsoas bilaterally, quadriceps bilaterally and foot dorsiflexors bilaterally; no drift Sensory: There are no deficits to soft touch, vibration or pinprick Gait: Unremarkable HEENT: Normocephalic; atraumatic; tympanic membranes are clear Neck: No bruits Heart: Regular rhythm and rate Extremities: No cyanosis or edema; dorsalis pedis pulses are +2 bilaterally Assessment and Plan Assessment and Plan (1) Myasthenia gravis: Status: Acute (2) Fatigue: Status: Acute Orders: Orders ACHR AB Modulating Today G70.00 - Myasthenia gravis without (acute) exacerbation, R53.83 - Other fatigue Acetylcholine Receptor Binding Today G70.00 - Myasthenia gravis without (acute) exacerbation, R53.83 - Other fatigue ACHR Ruby [employer] Rails Developer AB, Blocking Today G70.00 - Myasthenia (more content not included)... Normal [facility] Platelet countOrdered By: Ra asha Michaels on 06-06-2024 Platelets (Bld) [#/Vol] 250 10*3/uL 150-450 [facility] Potassium (Unsp spec) [Mass/ Vol]Ordered By: Ingrid Michaels on 06-06-2024 Potassium [Moles/Vol] 3.6 mmol/L 3.3-5.1 [facility] Potassium measurement (mass/ volume)Ordered By: Ingrid Michaels on 06-06-2024 Potassium (Unsp spec) [Mass/Vol] 3.6 mmol/L 3.3-5.1 [facility] RBC Auto (Bld) [#/Vol]Ordere d By: Ingrid Michaels on 06-06-2024 RBC (Bld) [#/Vol] 4.66 10*6/uL 4.2-5.4 [facility] Screening total cholesterol/ high density lipoprotein (HDL) cholesterol ratioOrdered By: Ingrid Michaels on 06-06-2024 Cholesterol.total/Choles terol in HDL [Mass ratio] 2.34 {ratio} [facility] Serum acetylcholine receptor modulation antibody/total acetylcholine antibody ratio (Ordered By: Ingrid Michaels on 06-06-2024 Acetylcholine receptor modulation Ab/Acetylcholine Ab.total (S) [Molar fraction] 0 % 0-45 [facility] Comment on above: Interpretive Informa tion: Negative: 0 - 45% Positive: > 45%No single value for AChR-modulating antibody shouldbe used as a sole basis for diagnosis or responseto therapy. Serum creatinine measurement (mass/volume)Ordered By: Ingrid Michaels on 06-06-2024 Creatinine [Mass/Vol] 0.95 mg/dL 0.70-1.20 [facility] Serum globulin measurementOr dered By: Ingrid Michaels on 06-06-2024 Globulin (S) [Mass/Vol] 3.6 g/dL 2.2-4.[address] [facility] Serum glucose measurement (m ass/volume)Ordered By: Ingrid Michaels on 06-06-2024 Glucose [Mass/Vol] 108 mg/dL High 70-99 [facility] Serum or plasma alanine barahona otransferase (ALT) measurementOrdered By: Ingrid Michaels on 06-06-2024 ALT [Catalytic activity/Vol] 15 U/L <35 [facility] Serum or plasma albumin adrian urement (mass/volume)Ordered By: Ingrid Michaels on 06-06-2024 Albumin [Mass/Vol] 4.2 g/dL 3.4-4.8 [facility] Serum or plasma albumin/glob ulin mass ratioOrdered By: Ingrid Michaels 06-06-2024 Albumin/Globulin [Mass ratio] 1.2 {ratio} 0.9-2.4 [facility] Serum or plasma alkaline farnaz sphatase measurementOrdered By: Ingrid Michaels 06-06-2024 ALP [Catalytic activity/Vol] 56 U/L 35-104 [facility] Serum or plasma calcium adrian urement (mass/volume)Ordered By: Ingrid Michaels on 06-06-2024 Calcium [Mass/Vol] 10.0 mg/dL 7.6-11.0 [facility] Serum or plasma cholesterol in HDL measurement (mass/volume)Ordered By: Ingrid Michaels on 06-06-2024 Cholesterol in HDL [Mass/Vol] 86 mg/dL >40 [facility] Comment on above: National Cholesterol Education Program (NCEP) guidelines:<40 mg/dL: Low HDL-cholesterol (major risk factor for CHD)>= 60 mg/dL: High HDL-cholesterol (negative risk factor for CHD)HDL-cholesterol is affected by a number of factors, e.g. smoking, exercise, hormones, sex and age. Serum or plasma cholesterol measurement (mass/volume)Ordered By: Ingrid Michaels on 06-06-2024 Cholesterol [Mass/Vol] 202 mg/dL High <201 [facility] Comment on above: Cholesterol level, D esirable <200 mg/dLBorderline high cholesterol 200-239 mg/dLHigh cholesterol >=240 mg/dLRecommendations of the NCEP Adult Treatment Panel for the following risk-cutoff thresholds for the [place] population. Serum or plasma thiamine nitesh surement (mass/volume)Ordered By: Ingrid Michaels on 06-06-2024 Thiamine [Mass/Vol] 124.5 nmol/L 66.5-200.0 [facility] Comment on above: Performed at: [address] [id number] Director: Jesse Anne PhD, Phone: [phone] at: - [facility] [id number] Director: Marti Singh MD, Phone: [phone] Serum or plasma urea nitroge n measurement (mass/volume)Ordered By: Ingrid Michaels on 06-06-2024 Urea nitrogen [Mass/Vol] 21 mg/dL High 4-19 [facility] Sodium levelOrdered By: Farrukh Michaels on 06-06-2024 Sodium [Moles/Vol] 141 mmol/L 133-145 [facility] T4 Free Directon 06-06-2024 T4 FREE DIRECT 1.00 ng/dL Normal 0.76-1.46 [facility] Comment on above: Performed By: #### L 500.4050, L100.0100 #### [facility] [address] [place], [address] T4 freeOrdered By: Ingrid abernathy on 06-06-2024 Free T4 [Mass/Vol] 1.00 ng/dL 0.76-1.46 [facility] TSH DL <= 0.005 mIU/L QnOrde red By: Ingrid Michaels on 06-06-2024 Thyroid Stimulating Hormone (TSH) 2.220 uIU/mL 0.300-4.20 0 [facility] TSH Qn 2.220 uIU/mL 0.300-4.20 0 [facility] Thiamine [Mass/Vol]Ordered B y: Ingrid Michaels on 06-06-2024 Whole Blood Vitamin B1 Level 124.5 nmol/L 66.5-200.0 [facility] Comment on above: Performed at: - [address] [id number] Director: Jesse Anne PhD, Phone: [phone] at: - [facility] [id number] Director: Marti Singh MD, Phone: [phone] Thyroid Stim Hormone (TSH)on 06-06-2024 TSH 2.220 uIU/mL Normal 0.300-4.20 0 [facility] Comment on above: Performed By: #### L 500.4050, L100.0100 #### [facility] [address] [place] [address], [id number] Total proteinOrdered By: Kenrick Michaels on 06-06-2024 Protein [Mass/Vol] 7.8 g/dL 5.9-8.4 [facility] Triglycerides measurementOrd ered By: Ingrid Michaels on 06-06-2024 Triglyceride [Mass/Vol] 71 mg/dL <[address] [facility] Comment on above: The drugs N-Acetylcy steine and Metamizole may falsely depress this assay. Normal range: <150 mg/dLBorderline High: 150-199 mg/dLHigh: 200-499 mg/dLVery High: >500 mg/dL Vitamin B12 ser/plasOrdered By: Ingrid Michaels on 06-06-2024 Cobalamin (Vitamin B12) [Mass/Vol] 610 pg/mL 180-914 [facility] White blood cell (WBC) count Ordered By: Ingrid Michaels on 06-06-2024 WBC (Bld) [#/Vol] 7.1 10*3/uL 4.4-11.0 [facility] EGDon 05-15-2024 Esophagogastroduodenosco py Table formatting from the original result was not included. Impression Irregular Z-line Healthy previous fundoplication in the esophagus; wrap appears to be intact; dilated to 57 Fr ending size. Dilation caused no change Endoflip impedance planimetry showed a normal EGJ opening with EGJ-DI at 2.9 mm2/mmHg and maximum EGJ diameter at 17.2 mm. Contractility pattern was impaired and also completely absent contractile response (IDCR). The stomach and duodenum appeared normal. ALFARO was not done as patient was not having any reflux symptoms Findings The Endoflip impedance planimetry system was utilized to assess distensibility and secondary peristalsis. Results Below: Placement time: 831 Removal time: 839 Lower esophageal sphincter measurement (cm): 39 Balloon Volume (mL): 50 Diameter (mm): 7.3 Distensibility (mm2/mmHg): 1.3 Pressure (mm/Hg): 32.2 Balloon Volume (mL): 60 Diameter (mm): 13.2 Distensibility (mm2/mmHg): 2.9 Pressure (mm/Hg): 47.3 Balloon Volume (mL): 70 Diameter (mm): 17.2 Distensibility (mm2/mmHg): 2.9 Pressure (mm/Hg): 80.4 Balloon Volume (mL): Diameter (mm): Distensibility (mm2/mmHg): Pressure (mm/Hg): Healthy previous fundoplication in the esophagus; no bleeding was observed; dilated with Savary-Ambreen dilator from 54 Fr starting size to 57 Fr ending size. Dilation caused no change Irregular Z-line 39 cm from the incisors The stomach and duodenum appeared normal. Recommendation Observe clinical response to today's dilation Will discuss in upcoming motility meeting and consider referral to surgery for take down of Fabiano Indication Esophageal dysphagia Staff Staff Role Stefan Cazares MD Proceduralist Medications See Anesthesia Record. Preprocedure A history and physical has been performed, and patient medication allergies have been reviewed. The patient's tolerance of previous anesthesia has been reviewed. The risks and benefits of the procedure and the sedation options and risks were discussed with the patient. All questions were answered and informed consent obtained. Details of the Procedure The patient underwent monitored anesthesia care, which was administered by an anesthesia professional. The patient's blood pressure, ECG, ETCO2, heart rate, level of consciousness, oxygen and respirations were monitored throughout the procedure. The scope was introduced through the mouth and advanced to the second part of the duodenum. Retroflexion was performed in the cardia. The patient experienced no blood loss. The procedure was not difficult. The patient tolerated the procedure well. There were no apparent adverse events. Events Procedure Events Event Event Time ENDO SCOPE IN TIME 05/15/2024 8:29 AM ENDO SCOPE OUT TIME 05/15/2024 8:48 AM Specimens No specimens collected Procedure [facility] [address] [facility] [address] Referring Provider Stefan Cazares MD Procedure Provider Stefan Cazares MD [facility] EGD Study observation Narrat marisabel 05-15-2024 Table formatting fro m the original result was not included. Impression Irregular Z-line Healthy previous fundoplication in the esophagus; wrap appears to be intact; dilated to 57 Fr ending size. Dilation caused no change Endoflip impedance planimetry showed a normal EGJ opening with EGJ-DI at 2.9 mm2/mmHg and maximum EGJ diameter at 17.2 mm. Contractility pattern was impaired and also completely absent contractile response (IDCR). The stomach and duodenum appeared normal. ALFARO was not done as patient was not having any reflux symptoms Findings The Endoflip impedance planimetry system was utilized to assess distensibility and secondary peristalsis. Results Below: Placement time: 0832 Removal time: 08 Lower esophageal sphincter measurement (cm): 39 Balloon Volume (mL): 50 Diameter (mm): 7.3 Distensibility (mm2/mmHg): 1.3 Pressure (mm/Hg): 32.2 Balloon Volume (mL): 60 Diameter (mm): 13.2 Distensibility (mm2/mmHg): 2.9 Pressure (mm/Hg): 47.3 Balloon Volume (mL): 70 Diameter (mm): 17.2 Distensibility (mm2/mmHg): 2.9 Pressure (mm/Hg): 80.4 Balloon Volume (mL): Diameter (mm): Distensibility (mm2/mmHg): Pressure (mm/Hg): Healthy previous fundoplication in the esophagus; no bleeding was observed; dilated with Savary-Ambreen dilator from 54 Fr starting size to 57 Fr ending size. Dilation caused no change Irregular Z-line 39 cm from the incisors The stomach and duodenum appeared normal. Recommendation Observe clinical response to today's dilation Will discuss in upcoming motility meeting and consider referral to surgery for take down of Fabiano Indication Esophageal dysphagia Staff Staff Role Stefan Cazares MD Proceduralist Medications See Anesthesia Record. Preprocedure A history and physical has been performed, and patient medication allergies have been reviewed. The patient's tolerance of previous anesthesia has been reviewed. The risks and benefits of the procedure and the sedation options and risks were discussed with the patient. All questions were answered and informed consent obtained. Details of the Procedure The patient underwent monitored anesthesia care, which was administered by an anesthesia professional. The patient's blood pressure, ECG, ETCO2, heart rate, level of consciousness, oxygen and respirations were monitored throughout the procedure. The scope was introduced through the mouth and advanced to the second part of the duodenum. Retroflexion was performed in the cardia. The patient experienced no blood loss. The procedure was not difficult. The patient tolerated the procedure well. There were no apparent adverse events. Events Procedure Events Event Event Time ENDO SCOPE IN TIME 05/15/2024 8:29 AM ENDO SCOPE OUT TIME 05/15/2024 8:48 AM Specimens No specimens collected Procedure Location [facility] [address] [facility] [id number] Referring Provider Stefan Cazares MD Procedure Provider Stefan Cazares MD [facility] Work Phone: [facility] Work Phone: Radiology Study observation (narrative) [facility] Work Phone: [place] [facility] ESOPHAGRAMon 5 [place] [facility] ESOPHAGRAM Interpreted By: Con Vaz, STUDY: [place] GI ESOPHAGRAM; 04/17/2024 11:32 am INDICATION: Signs/Symptoms:post fundoplication dysphagia. ,R13.19 Other dysphagia COMPARISON: None. ACCESSION NUMBER(S): [id number] ORDERING CLINICIAN: STEFAN CAZARES TECHNIQUE: Initial building tech radiograph of the esophagus was obtained. Multiple fluoroscopic spot images were obtained after the administration of 100 mL of barium contrast. The patient tolerated the procedure well. FINDINGS: Initial building tech image is grossly unremarkable. Fluoroscopic images demonstrate normal peristalsis with free flow of barium through the pharynx and esophagus without evidence of obstruction or stricture. There is no evidence of extraluminal contrast suggestive of leak. No intraluminal mass lesions or hiatal hernia is appreciated. Tertiary contractions are seen in the mid to distal esophagus, consistent with dysmotility. There is no evidence of extrinsic compression of the esophagus or pharynx. The gastroesophageal junction is unremarkable without evidence of gastroesophageal reflux. IMPRESSION: 1. Findings consistent with dysmotility. 2. Otherwise unremarkable esophagram, without evidence of stenosis or mass. MACRO: None Signed by: Con Shah 04/18/2024 10:04 AM Dictation workstation: [id number] [facility] CNOVon 02-02-2024 CNOV Office Visit (OTOLTW ) ----- ESTEFANIA MONTIEL ([id number]) 1940 F Date Time Provider Department 02/02/24 1:30 PM ALHAJI JAVED OTOLTW During your visit today, we recorded the following information about you: Alhaji Javed MD 02/07/2024 1:16 PM Signed Today, Some initial benefit to cough from botox. Had 1 month side effects - lost her voice. When voice returned, her cough also returned to baseline. Voice is still not back to baseline A/P We agreed to forgo botox today due to side effects - we will give her voice time to recover We have largely exhausted our arsenal of cough treatment options from a medical standpoint - I did provide some more conservative treatment avenues such as acupuncture or massage Follow up - 6 weeks to revisit options Alhaji Javed MD Referring Provider: ALHAJI JAVED [[id number]] Allergies As of Date: 02/02/2024 Noted Allergy Reaction PENICILLINS 02/10/2007 Comments: skin peeling PERCODAN (OXYCODONE-ASPIRIN) 02/10/2007 1 - Mental Status Change Date Reviewed: 02/02/2024 Reviewed by: Kareen Fields MA - Fully Assessed Reason for Visit: Botox Injection [373] Primary Visit Diagnosis:Laryngeal spasm [J38.5] Other Visit Diagnoses:Vagal nerve sensitivity [G52.2] 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 - levothyroxine 25 mcg cap Take 25 mcg by mouth daily before breakfast. - meloxicam (MOBIC) 7.5 mg tablet Take 7.5 mg by mouth two times a day with meals. - LIDOCAINE VISCOUS 2 % solution Take 15 mL by mouth as needed. - Dextromethorphan Poly Complex (DELSYM) 30 mg/5 mL ORAL Su12 1 TSP BID - hydrocodone-homatropine (HYCODAN) 5-1.5 mg/5 mL ORAL Syrp Take 1 teaspoon(s) (5ml) every 4-6 hours as needed for coughing. - predniSONE 10 mg ORAL Tab Take one(1) tablet every other day. - Fluoxetine HCl 40 mg ORAL Cap Take one(1) tablet daily. - esomeprazole (NEXIUM) 40 mg ORAL CpDR Take one(1) capsule daily. - estradiol 0.05 mg/24 hr TRANSDERM. PTWK use as directly Problem List As Of Date: 02/02/2024 (None) Encounter Status:Closed by ALHAJI JAVED on 02/07/24 Normal [facility] Urine Cultureon 12-30-2023 [facility] Klebsiella pneumonia e sp pneum [place] Count >100,000 Klebsiella pneumoniae sp pneum: REACTION Ampicillin Islt CHARO Ampicillin+Sulbac Islt CHARO 4 S ceFAZolin Islt CHARO <=4 S Cefepime Islt CHARO <=0.12 S cefTRIAXone Islt CHARO <=0.25 S Ciprofloxacin Islt CHARO <=0.25 S B-Lactamase Extended Susc Islt NEG Gentamicin Islt CHARO <=1 S Imipenem Islt CHARO <=0.25 S levoFLOXacin Islt CHARO <=0.12 S Nitrofurantoin Islt CHARO 64 I Pip+Tazo Islt CHARO <=4 S Tobramycin Islt CHARO <=1 S TMP SMX Islt CHARO <=20 S Normal [facility] Comment on above: Performed By: #### L 500.4050, L100.0100 #### [facility] [address] [place], [address] Brain/Head without Contrasto n 12-28-2023 Brain/Head without Contrast [facility] Imaging Services [address] [place] [address] Brain/Head without Contrast MR#: [id number] Acct: [id number] Name: ESTEFANIA MONTIEL NIKITA Rep #: [id number] : 1940 F 83 From: Sudeep waters MD PCP: Care Physician,No Primary Status: REG ER Study: Brain/Head without Contrast Date of Exam: 04/21 Exam# [id number] Ordering Dr: Ino Aponte DO [id number] STUDY: CT BRAIN WITHOUT CONTRAST REASON FOR EXAM: Female, 83 years old. Injury/Pain RADIATION DOSAGE (If Supplied By Facility): CTDIvol = ( 44.99 ) mGy, DLP = ( 762.36 ) mGycm TECHNIQUE: Transaxial CT imaging of the brain was performed without administration of intravenous contrast material. Individualized dose optimization techniques were used for this CT. COMPARISON: No relevant priors. FINDINGS: Normal soft tissue structures. Prior left frontoparietal craniotomy. There is mild cerebral atrophy with widening of the extra-axial spaces and ventricular dilatation. There are areas of decreased attenuation within the white matter tracts of the supratentorial brain, consistent with microvascular disease changes. Normal basal ganglia and thalami. Normal brainstem. Normal cerebellum. There is no intracranial hemorrhage. There are no findings of an acute ischemic infarction. Normal visualized paranasal sinuses. CT/Brain/Head without Contrast IMPRESSION: Chronic involutional changes of the brain. Electronically Signed: Sudeep Cooper MD at 15:29 EDT , CC: Dr. Ino Aponte, DO; No Primary Care Physician Manager Configuration: Signed Normal [facility] CBC W/Diff, Automatedon 10-0 Absolute Lymph 1.74 X10 3/uL Normal 0.83-4.51 [facility] Comment on above: Performed By: #### L 500.4050, L100.0100 #### [facility] [address] [place], [address] Absolute Neut 7.1 X10 3/uL Normal 2.0-7.7 [facility] Comment on above: Performed By: #### L 500.4050, L100.0100 #### [facility] [address] [place], [address] Basophils/100 WBC (Bld) 0.4 % Normal 0-[address] [facility] Comment on above: Performed By: #### L 500.4050, L100.0100 #### [facility] [address] [place], [address] Eosinophils/100 WBC (Bld) 1.8 % Normal 0-5 [facility] Comment on above: Performed By: #### L 500.4050, L100.0100 #### [facility] [address] [place], [address] Erythrocyte distribution width (RBC) [Ratio] 13.1 % Normal 11.6-14.6 [facility] Comment on above: Performed By: #### L 500.4050, L100.0100 #### [facility] [address] [place], [address] Hematocrit (Bld) [Volume fraction] 45.0 % Normal 37-47 [facility] Comment on above: Performed By: #### L 500.4050, L100.0100 #### [facility] [address] [place], [address] Hemoglobin (Bld) [Mass/Vol] 14.6 g/dL Normal 12.0-15.0 [facility] Comment on above: Performed By: #### L 500.4050, L100.0100 #### [facility] [address] [place], [address] IG% 0.700 Normal 0.0-0.9 [facility] Comment on above: Result Comment: IG% - Immature Granulocytes (promyelocytes, myelocytes and metamyelocytes) > 1% indicates that a LEFT SHIFT is Present. Performed By: #### L 500.4050, L100.0100 #### [facility] [address] [place], [address] Lymphocytes/100 WBC (Bld) 17.5 % Low 19-41 [facility] Comment on above: Performed By: #### L 500.4050, L100.0100 #### [facility] [address] [place], [address] MCH (RBC) [Entitic mass] 30.5 pg Normal 27.0-32.0 [facility] Comment on above: Performed By: #### L 500.4050, L100.0100 #### [facility] [address] [place], [address] MCHC (RBC) [Mass/Vol] 32.4 g/dL Normal 32-36 [facility] Comment on above: Performed By: #### L 500.4050, L100.0100 #### [facility] [address] [place], [address] MCV (RBC) [Entitic vol] 94.1 fL Normal 81-[address] [facility] Comment on above: Performed By: #### L 500.4050, L100.0100 #### [facility] [address] [place], [address] Monocytes/100 WBC (Bld) 7.8 % Normal 0-[address] [facility] Comment on above: Performed By: #### L 500.4050, L100.0100 #### [facility] [address] [place], [address] Neutrophils/100 WBC (Bld) 71.8 % High 47-70 [facility] Comment on above: Performed By: #### L 500.4050, L100.0100 #### [facility] [address] [place], [address] Nucleated RBC (Bld) [#/Vol] 0 10*3/uL Normal 0-5 [facility] Comment on above: Performed By: #### L 500.4050, L100.0100 #### [facility] [address] [place], [address] Platelet mean volume (Bld) [Entitic vol] 10.2 fL Normal 6.2-12.0 [facility] Comment on above: Performed By: #### L 500.4050, L100.0100 #### [facility] [address] [place], [address] Platelets (Bld) [#/Vol] 262 10*3/uL Normal 150-450 [facility] Comment on above: Performed By: #### L 500.4050, L100.0100 #### [facility] [address] [place], [address] RBC (Bld) [#/Vol] 4.78 10*6/uL Normal 4.2-5.4 [facility] Comment on above: Performed By: #### L 500.4050, L100.0100 #### [facility] [address] [place], [address] RDW SD 45.5 fl High 35.1-43.9 [facility] Comment on above: Performed By: #### L 500.4050, L100.0100 #### [facility] [address] [place], [address] WBC (Bld) [#/Vol] 9.9 10*3/uL Normal 4.4-11.0 [facility] Comment on above: Performed By: #### L 500.4050, L100.0100 #### [facility] [address] [place], [address] CTA Chst, Abd, Pel W and/or WOon 12-28-2023 CTA Chst, Abd, Pel W and/or WO [facility] Imaging Services [address] [place] [address] CTA Chst, Abd, Pel W and/or WO MR#: [id number] Acct: [id number] Name: ESTEFANIA MONTIEL NIKITA Rep #: [id number] : 1940 F 83 From: Sudeep waters MD PCP: Care Physician,No Primary Status: [facility] ER Study: CTA Chst, Abd, Pel W and/or WO Date of Exam: Exam# [id number] Ordering Dr: Ino Aponte DO ADDENDUM by Dr. Sudeep Cooper MD on 01/07/24 at 1453 ADDENDUM [id number] ADDENDUM for billing purposes. Heading: CT chest abdomen and pelvis. Electronically Signed: Sudeep Cooper MD at 14:53 EDT , 01/07/24 1453 Date cc: Dr. Ino Aponte DO; No Primary Care Physician * Signed ADDENDUM by Dr. Sudeep Cooper MD on 01/07/[address]/CTA Chst, Abd, Pel W and/or WO IMPRESSION: undefined 01/07/24 1500 Date cc: Dr. Ino Aponte DO; No Primary Care Physician * Signed [id number] INDICATION: History of fall. COMPARISON: None. TECHNIQUE: CT scan through the chest, abdomen, and pelvis was performed before and after the administration of intravenous contrast and with oral contrast. CT scan done according to ALARA (As Low As Reasonably Achievable). CONTRAST: 100 mL of Omnipaque (350 mmol/mL) single-use vial was administered IV with 0 mL discarded. FINDINGS: Lungs: Increased interstitial markings in both lungs with evidence of subpleural blebs and interstitial scarring in the bronchiectasis in keeping with diffuse interstitial fibrosis.. Mediastinum: Normal. Coronary artery calcification. Liver: No mass. No intrahepatic biliary dilatation. Gallbladder: The patient is status post cholecystectomy. Mildly dilated common bile duct most likely due to the postcholecystectomy state.. Common bile duct: Normal caliber. No stones. Spleen: Within normal limits. Pancreas: No mass. No pancreatic fluid collections. Adrenals: No masses. Kidneys: No masses. No hydronephrosis. Lymph nodes: No adenopathy. Scattered sigmoid diverticula. No bowel wall thickening or obstruction. Peritoneal cavity: No mesenteric stranding or free fluid. Osseous structures: No acute fracture or destructive lesion. Abdominal aorta: Atherosclerotic calcification of the abdominal aorta.. Pelvic organs: The patient is status post hysterectomy.. Grade 1 anterolisthesis of L3 on L4. Prior fusion at the L3-L4 level. Multilevel degenerative changes. CT/CTA Chst, Abd, Pel W and/or WO IMPRESSION: No acute abnormality is seen.. Electronically Signed: Sudeep Cooper MD at 15:33 EDT , CC: Dr. Ino Aponte, DO; No Primary Care Physician Manager Configuration: Signed Normal [facility] Comprehensive Metabolic Prof ilon 12-28-2023 Albumin [Mass/Vol] 3.6 g/dL Normal 3.2-5.0 [facility] Comment on above: Performed By: #### L 500.4050, L100.0100 #### [facility] [address] [place], [address] Albumin/Globulin [Mass ratio] 0.9 {ratio} Normal 0.9-2.4 [facility] Comment on above: Performed By: #### L 500.4050, L100.0100 #### [facility] [address] [place], [address] ALK P 66 U/L Normal 45-117 [facility] Comment on above: Performed By: #### L 500.4050, L100.0100 #### [facility] [address] [place], [address] ALT [Catalytic activity/Vol] 25 U/L Normal 13-56 [facility] Comment on above: Performed By: #### L 500.4050, L100.0100 #### [facility] [address] [place], [address] AST [Catalytic activity/Vol] 23 U/L Normal 15-37 [facility] Comment on above: Performed By: #### L 500.4050, L100.0100 #### [facility] [address] [place], [address] Bilirubin [Mass/Vol] 0.90 mg/dL Normal 0.20-1.00 [facility] Comment on above: Result Comment: For patients on eltrombopag therapy, use of Dimension [place] TBIL is not recommended. Performed By: #### L 500.4050, L100.0100 #### [facility] [address] [place], [address] BUN/CRE 16.1 RATIO Normal 10-20 [facility] Comment on above: Performed By: #### L 500.4050, L100.0100 #### [facility] [address] [place], [address] CA,Total 9.6 mg/dL Normal 8.5-10.1 [facility] Comment on above: Performed By: #### L 500.4050, L100.0100 #### [facility] [address] [place], [address] Chloride [Moles/Vol] 100 mmol/L Normal 98-107 [facility] Comment on above: Performed By: #### L 500.4050, L100.0100 #### [facility] [address] [place], [address] CO2 [Moles/Vol] 34.0 mmol/L High 21.0-32.0 [facility] Comment on above: Performed By: #### L 500.4050, L100.0100 #### [facility] [address] [place], [address] Creatinine [Mass/Vol] 0.99 mg/dL Normal 0.55-1.02 [facility] Comment on above: Result Comment: The validity of the calculated GFR GFRAA in patients over 70 years has not been determined. Clinical correlation is essential. Performed By: #### L 500.4050, L100.0100 #### [facility] [address] [place], [address] ECRCL 34.33 ml/min Normal [facility] Comment on above: Performed By: #### L 500.4050, L100.0100 #### [facility] [address] [place], [address] EST GFR - AA 69 mL/min Normal >60 [facility] Comment on above: Result Comment: Afri can Afghan GFR Calc Performed By: #### L 500.4050, L100.0100 #### [facility] [address] [place], [address] GAP 4 Low 5-15 [facility] Comment on above: Performed By: #### L 500.4050, L100.0100 #### [facility] [address] [place], [address] GFR/1.73 sq M.predicted among non-blacks MDRD (S/P/Bld) [Vol rate/Area] 57 mL/min/{1.73_m2} Low >60 [facility] Comment on above: Result Comment: Non- GFR Calc Performed By: #### L 500.4050, L100.0100 #### [facility] [address] [place], [address] Globulin (S) [Mass/Vol] 4.1 g/dL Normal 2.2-4.2 [facility] Comment on above: Performed By: #### L 500.4050, L100.0100 #### [facility] [address] [place], [address] Glucose [Mass/Vol] 96 mg/dL Normal 74-106 [facility] Comment on above: Performed By: #### L 500.4050, L100.0100 #### [facility] [address] [place], [address] Potassium [Moles/Vol] 4.2 mmol/L Normal 3.5-5.1 [facility] Comment on above: Performed By: #### L 500.4050, L100.0100 #### [facility] [address] [place], [address] Sodium [Moles/Vol] 139 mmol/L Normal 136-145 [facility] Comment on above: Performed By: #### L 500.4050, L100.0100 #### [facility] [address] [place] [place], [address] T PROT 7.7 g/dL Normal 6.4-8.2 [facility] Comment on above: Performed By: #### L 500.4050, L100.0100 #### [facility] [address] [place], [address] Urea nitrogen [Mass/Vol] 16 mg/dL Normal 7-18 [facility] Comment on above: Performed By: #### L 500.4050, L100.0100 #### [facility] [address] [place], [address] Emergency Department Summary on 12-28-2023 Emergency Department Summary [facility] Medical Records Department [address] [place] [address] Emergency Department Summary 12/28/23 MR#: [id number] Acct: [id number] Name: ESTEFANIA MONTIEL NIKITA Rep #: [id number] : 1940 83 From: Ino Aponte DO PCP: Care Physician,No Primary Status:REG ER Location: ED HPI History of Present Illness Chief Complaint: Chest Other Informant: patient Onset/Context/Timing Onset: Today Mechanism/Context: Fall Quality of Pain: Sharp Location: Left abdomen Worsened by: Movement, breathing Relieved by: Nothing Associated Symptoms Associated Symptoms: Negative for Parasthesias, Weakness, Loss of function, Inability to ambulate, Loss of consciousness or Amnesia Narrative Narrative: Patient presents after a fall that occurred earlier this morning. Patient states she fell and hit the left side of her chest on her toilet seat. Patient states that pain is mainly over the left side of her chest. Patient states the pain radiates into her abdomen and pelvis on the left side. Patient describes her pain as sharp. Patient states it is worse with any breathing or movement. Patient denies any nausea or vomiting. Patient denies any paresthesias or weakness. Patient denies any head injury or loss of consciousness. PFSH PFSH Home Medications ???Medication ???Instructions ???Recorded ???Last Taken ???Type fluoxetine 20 mg capsule (Prozac) 20 mg PO DAILY 08/05/23 Unknown History levothyroxine 2 tab PO .COMPLEX 08/05/23 Unknown History Allergy/AdvReac Type Severity Reaction Status Date / Time Penicillins Allergy Intermediate SKIN SHEDS Verified 12/28/23 12:46 Surgical History History of colostomy Social History Smoking Status: Never smoker ROS ROS ED Constitutional Constitutional ED: Denies chills or fever(s) Eyes Eyes: Denies blurry vision or change in vision ENT ENT ED: Denies rhinorrhea or sore throat Cardiovascular Cardiovascular: Reports chest pain; Denies palpitations Respiratory/Chest Respiratory/Chest: Denies cough or dyspnea Gastrointestinal Gastrointestinal: Denies nausea or vomiting Genitourinary Genitourinary ED: Denies dysuria or hematuria Musculoskeletal Musculoskeletal: Denies back pain or neck pain Integumentary Denies abscess or rash Neurologic Neurologic: Denies headache(s) or weakness Allergic/Immunologic Allergic/Immunologic ED: Denies mouth swelling or urticaria EXAM Physical Exam Const Vital Signs: 12/28/23 12:46 12/28/23 13:13 12/28/23 13:16 Temperature 97.1 F L Temperature Source Temporal Pulse Rate 100 Respiratory Rate 18 Respiratory Effort Normal Non-Labored Normal Non-Labored Respiratory Depth Normal Respiratory Pattern Normal Blood Pressure 145/86 H Blood Pressure Mean 105 Pulse Ox 94 Oxygen Delivery Method Room Air Room Air 12/28/23 16:20 Temperature Temperature Source Pulse Rate 69 Respiratory Rate 19 H Respiratory Effort Respiratory Depth Respiratory Pattern Blood Pressure 142/72 H Blood Pressure Mean 95 Pulse Ox Oxygen Delivery Method Positive well nourished and well developed General Appearance ED: well developed and NAD HEENT atraumatic Neck full ROM Chest Wall Chest Narrative: There is tenderness over the left lower ribs. There is no bony crepitance or step-off. There is no subcutaneous emphysema palpated. Resp normal respiratory effort and clear to auscultation bilaterally Cardio regular rhythm Rate: regular rate GI non-distended Palpation: soft and tender LLQ and LUQ; Negative for guarding or rebound tenderness present Neuro oriented x3, CN's II-XII intact bilaterally, moves all extremities, no focal motor deficits and no sensory deficits noted [place] Coma Scale: document GCS findings Spontaneous Obeys Commands Oriented 15 Sensorium / Orientation: alert Motor Exam: strength 5/5 throughout Psych mental status grossly normal MDM MDM MDM Narrative Medical decision making narrative: Differential diagnosis includes rib fracture, pneumonia, pneumothorax, intra-abdominal bleeding, closed head injury, concussion, and intracranial bleeding. CBC will be obtained to assess for veronica kocytosis and anemia. Comprehensive metabolic profile will be obtained to assess for hepatic function, renal function, and electrolyte abnormality. Urinalysis will be obtained to assess for hematuria and urinary tract infection. CT scan of the brain will be obtained to assess for intracranial bleeding. CT of the chest, abdomen, and pelvis will be obtained to assess for rib fracture, pneumothorax, and intra-abdominal bleeding. Lab Data Attestation: I reviewed the patient's lab re (more content not included)... Normal [facility] Urinalysis, Completeon 12-27 WBC 0-5 SEEN Normal 0-5 [facility] Comment on above: Order Comment: [id number] MUSJ AB Performed By: #### L 0.9992 #### [facility] [address] [place], [place], [id number] BACTERIA 2+ /hpf Normal None Seen [facility] Comment on above: Order Comment: [id number] MUSJ AB Performed By: #### L 3410.9992 #### [facility] [address] [place], [place], [id number] EPI,SQUAMOUS 0 SEEN Normal -10 [facility] Comment on above: Order Comment: [id number] MUSJ AB Performed By: #### L 341.9992 #### [facility] [address] [place], [address] Mucus Ql (Urine sed) 0 SEEN Normal [facility] Comment on above: Order Comment: [id number] MUSJ AB Performed By: #### L 3410.9992 #### [facility] [address] [place], [place], [address] RBC 0 SEEN Normal 0-5 [facility] Comment on above: Order Comment: [id number] 0 MUSJ AB Performed By: #### L 3410.9992 #### [facility] [address] [place], [place], [address] CNOVon 11-03-2023 CNOV Office Visit (OTOLTW ) ----- ESTEFANIA MONTIEL ([id number]) 1940 F Date Time Provider Department 11/03/23 2:30 PM ALHAJI JAVED OTOLTW During your visit today, we recorded the following information about you: Alhaji Javed MD 11/03/2023 2:58 PM Signed CC: Estefania Montiel is a 83 year old female seen as a return patient with a history of chronic refractory cough, laryngeal spasm, Myasthenia gravis, vagal nerve sensitivity, disorder of vocal cords IMPRESSION AND PLANS (Medical Decision Making): 83 y/o female, return patient, w/ hx of chronic refractory cough, irritable larynx. Has been on prednisone for >35 years (now at 10 mg every other day for the last 2 yrs. ) . S/P first SLN w/ me 07/28/23 Today, she is here for first laryngeal botox I reiterated the r/b/a of botox and answered the patient's questions LCQ: 7.67 UNIVERSAL PROTOCOL / SAFETY CHECKLIST Procedure to be Performed: botulinum injection of the larynx Sign In: A Moment of CARE was completed. Personnel directly involved with the procedure wore the appropriate PPE (Personal Protective Equipment). Special equipment: EMG Patient/Surrogate Stated/Verified: PATIENT VERIFIED(optional for EMERGENT procedures): Patient name, Date of , Relevant allergies, and The intended procedure Time Out Communication: Intended patient and procedure match the source documents. Consent documented and matches the intended procedure. Relevant labs, photos, and/or imaging studies have been reviewed. Correct side/site marked and visible. Medications required for procedure verified. No fire risk assessment and interventions applicable. No implant(s) inserted. Sign Out: SIGN OUT (optional for EMERGENT procedures): No specimen collected. All instruments, equipment, possible retained foreign bodies accounted for. Post-procedure follow-up management communicated and Plan of Care Visit completed when applicable. Alhaji Javed MD Preoperative Diagnosis: Adductor spasmodic dysphonia, laryngeal spasm Postoperative Diagnosis: Same Operation/Procedure: Botulinum Injection of larynx Risks, benefits and alternatives explained to patient and he did wish to proceed Surgeon: Alhaji Javed MD [place] Upholsterer: Sandy Flores RN INDICATIONS: Adductor spasmodic dysphonia, laryngeal spasm with hoarseness PROCEDURE: The patient was brought to the procedure room and placed in a semi-recumbant position. A small amount of 2% xylocaine was injected into the neck anterior to the cricothyroid space. A hollow electromyographic needle was inerted through the skin, passed through the cricothyroid space and was directed superiorly and laterally until the left thyroarytenoid muscle was encountered. Position was confirmed by EMG. 1.5 units of botox was injected. In a similar fashion the needle was passed superiorly and laterally into the right thyro-arytenoid muscle and postion was confirmed by EMG. 1.5 units of botox was injected.The patient tolerated the procedure well and was observed briefly in the outpatient clinic before being discharged in good condition. Total dose of botox: 3 units Amount wasted: 97 units Signal: Right 5/5 Left 5/5 COMPLICATIONS: none Alhaji Javed MD By signing my name below, I, Harshad Mckinney, attest that this documentation has been prepared under the direction and in the presence of Dr. Alhaji Javed Electronically signed, Manohar Peres November 03, 2023 2:42 PM I agree with the chief complaint, ROS, and Past Histories independently gathered by the clinical it application support analyst and the remaining scribed note accurately describes my personal service to the patient. 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 - levothyroxine 25 mcg cap Take 25 mcg by mouth daily before breakfast. - meloxicam (MOBIC) 7.5 mg tablet Take 7.5 mg by mouth two times a day with meals. - LIDOCAINE VISCOUS 2 % solution Take 15 mL by mouth as needed. - Dextromethorphan Poly Complex (DELSYM) 30 mg/5 mL ORAL Su12 1 TSP BID - hydrocodone-homatropine (HYCODAN) 5-1.5 mg/5 mL ORAL Syrp Take 1 teaspoon(s) (5ml) every 4-6 hours as needed for coughing. - predniSONE 10 mg ORAL Tab Take one(1) tablet every other day. - Fluoxetine HCl 40 mg ORAL Cap Take o (more content not included)... Normal [facility] COLONOSCOPYon 10-18-2023 Colonoscopy Table formatting fro m the original result was not included. Impression Healthy end-to-side anastomosis in the distal sigmoid colon Performed pancolonic forceps biopsies to rule out colitis Findings Healthy end-to-side anastomosis in the distal sigmoid colon Performed pancolonic forceps biopsies to rule out colitis Recommendation Follow up with me in clinic, due: 11/17/2023 No further screening colonoscopies necessary Indication Microscopic colitis, unspecified microscopic colitis type Staff Staff Role No Staff Documented Medications See Anesthesia Record. Preprocedure A history and physical has been performed, and patient medication allergies have been reviewed. The patient's tolerance of previous anesthesia has been reviewed. The risks and benefits of the procedure and the sedation options and risks were discussed with the patient and patient's partner. All questions were answered and informed consent obtained. Details of the Procedure The patient underwent monitored anesthesia care, which was administered by an anesthesia professional. The patient's blood pressure, ECG, ETCO2, heart rate, level of consciousness, oxygen and respirations were monitored throughout the procedure. A digital rectal exam was performed. The scope was introduced through the anus and advanced to the cecum. Retroflexion was performed in the rectum. The quality of bowel preparation was evaluated using the [place] Bowel Preparation Scale with scores of: right colon = 3, transverse colon = 3, left colon = 3. The total BBPS score was 9. Bowel prep was adequate. The patient experienced no blood loss. The procedure was not difficult. The patient tolerated the procedure well. There were no apparent adverse events. Events Procedure Events Event Event Time ENDO SCOPE IN TIME 10/18/2023 2:28 PM ENDO CECUM REACHED 10/18/2023 2:32 PM ENDO SCOPE OUT TIME 10/18/2023 2:43 PM Specimens ID Type Source Tests Collected by Time 1 : random colon biopsies Tissue COLON - RANDOM BIOPSY SURGICAL PATHOLOGY EXAM Sunni Cooley RN 10/18/[address] [facility] [place] [address] [place] [phone] Referring Provider Rubio Mirza DO Procedure Provider Rubio Mirza DO [facility] Comment on above: Order Comment: 10/17 last case please Colonoscopy studyon 10-18-19 24 Table formatting fro m the original result was not included. Impression Healthy end-to-side anastomosis in the distal sigmoid colon Performed pancolonic forceps biopsies to rule out colitis Findings Healthy end-to-side anastomosis in the distal sigmoid colon Performed pancolonic forceps biopsies to rule out colitis Recommendation Follow up with me in clinic, due: 11/17/2023 No further screening colonoscopies necessary Indication Microscopic colitis, unspecified microscopic colitis type Staff Staff Role No Staff Documented Medications See Anesthesia Record. Preprocedure A history and physical has been performed, and patient medication allergies have been reviewed. The patient's tolerance of previous anesthesia has been reviewed. The risks and benefits of the procedure and the sedation options and risks were discussed with the patient and patient's partner. All questions were answered and informed consent obtained. Details of the Procedure The patient underwent monitored anesthesia care, which was administered by an anesthesia professional. The patient's blood pressure, ECG, ETCO2, heart rate, level of consciousness, oxygen and respirations were monitored throughout the procedure. A digital rectal exam was performed. The scope was introduced through the anus and advanced to the cecum. Retroflexion was performed in the rectum. The quality of bowel preparation was evaluated using the [place] Bowel Preparation Scale with scores of: right colon = 3, transverse colon = 3, left colon = 3. The total BBPS score was 9. Bowel prep was adequate. The patient experienced no blood loss. The procedure was not difficult. The patient tolerated the procedure well. There were no apparent adverse events. Events Procedure Events Event Event Time ENDO SCOPE IN TIME 10/18/2023 2:28 PM ENDO CECUM REACHED 10/18/2023 2:32 PM ENDO SCOPE OUT TIME 10/18/2023 2:43 PM Specimens ID Type Source Tests Collected by Time 1 : random colon biopsies Tissue COLON - RANDOM BIOPSY SURGICAL PATHOLOGY EXAM Sunni Cooley RN 10/18/[address] [facility] [place] [address] [place] [phone] Referring Provider Rubio Mirza DO Procedure Provider Rubio Mirza DO [facility] Work Phone: [facility] Work Phone: Radiology Study observation (narrative) [facility] Work Phone: Surgical pathology studyon 0 10-18-2023 Surgical pathology study Pathology repor t.total SEE COMMENT Surgical Pathology Case: [id number] Authorizing Provider: Rubio Mirza DO Collected: 10/18/2023 1432 Ordering Location: [facility] Received: 10/18/2023 1616 Center [place] Pathologist: Jessica Hebert MD Specimen: COLON - RANDOM BIOPSY, RANDOM COLON BIOPSY Path report.final diagnosis SEE COMMENT A. COLON - RANDOM BIOPSY: Colonic mucosa with no significant diagnostic alteration. Laboratory comment By the signature on this report, the individual or group listed as making the Final Interpretation/Diagnosis certifies that they have reviewed this case. Path report.gross observation SEE COMMENT A: Received in formalin, labeled with the patient's name and hospital number and colon random BX, are multiple fragments of mendoza, soft tissue aggregating to 2.0 x 0.2 x 0.2 cm. The specimen is submitted in toto in two cassettes. [facility] CNPNon 09-21-2023 CNPN Telephone (OTOLTW) ----- ESTEFANIA MONTIEL ([id number]) 1940 F Date Time Provider Department 09/21/23 ALHAJI JAVED During your visit today, we recorded the following information about you: Tiffani Levy 09/21/2023 3:32 PM Signed Delroy, son of Estefania is calling Alhaji Javed MD today to request Appointment. Patient is currently scheduled for 09/28. Son is inquiring if this could be rescheduled for a few weeks later. Please assist. Patient has been identified by name and birthdate. Duration of symptoms: N/A Person calling: son: Call patient at: [phone] Was an appointment scheduled: No Closing statement: Results or non-symptom based questions: Thank you for calling [facility], your call will be returned within the next business day. Rachele Piña RN 09/21/2023 4:05 PM Signed Called and spoke to patient's son, Delroy. Rescheduled Botox 11/03/23. Will forward as I. Allergies As of Date: 09/21/2023 Noted Allergy Reaction PENICILLINS 02/10/2007 Comments: skin peeling PERCODAN (OXYCODONE-ASPIRIN) 02/10/2007 1 - Mental Status Change Date Reviewed: 07/28/2023 Reviewed by: Tahira Lyle OCCA - Fully Assessed Reason for Visit: Appointment [186] Prescriptions as of 09/21/2023 - FLUoxetine (PROZAC) 20 mg capsule Take 20 mg by mouth once daily. - levothyroxine 25 mcg cap Take 25 mcg by mouth daily before breakfast. - meloxicam (MOBIC) 7.5 mg tablet Take 7.5 mg by mouth two times a day with meals. - LIDOCAINE VISCOUS 2 % solution Take 15 mL by mouth as needed. - Dextromethorphan Poly Complex (DELSYM) 30 mg/5 mL ORAL Su12 1 TSP BID - hydrocodone-homatropine (HYCODAN) 5-1.5 mg/5 mL ORAL Syrp Take 1 teaspoon(s) (5ml) every 4-6 hours as needed for coughing. - predniSONE 10 mg ORAL Tab Take one(1) tablet every other day. - Fluoxetine HCl 40 mg ORAL Cap Take one(1) tablet daily. - esomeprazole (NEXIUM) 40 mg ORAL CpDR Take one(1) capsule daily. - estradiol 0.05 mg/24 hr TRANSDERM. [facility] use as directly Problem List As Of Date: 09/21/2023 (None) Encounter Status:Closed by RACHELE STERN on 09/21/23 Normal [facility] ACETYLCHOLINE REC BINDING AB on 09-07-2023 ACETYLCHOLINE BINDING, QUAL Negative Normal Negative [facility] Comment on above: Order Comment: Salvador luu Type: BLOOD SPECIMEN Ordering Facility: [facility] Address: [address] [place], [place] [id number] Result Comment: Anti -acetylcholine receptor binding antibody test is used as an aid in diagnosis of myasthenia gravis. A negative result cannot exclude myasthenia gravis. Clinical correlation is required. Performed By: #### A CHRAB #### [facility] CLIA [id number] [address] [place] [address] [place] Acetylcholine receptor binding Ab (S) [Moles/Vol] 0.06 nmol/L Normal <0.21 [facility] Comment on above: Order Comment: Salvador luu Type: BLOOD SPECIMEN Ordering Facility: [facility] Address: [address] [place], [place] [id number] Performed By: #### A CHRAB #### [facility] CLIA [id number] [address] [place] [address] [place] ACETYLCHOLINE REC BLOCKING A Bon 09-07-2023 ACETYLCHOLINE BLOCKING, QUAL Negative Normal Negative [facility] Comment on above: Order Comment: Salvador luu Type: BLOOD SPECIMEN Ordering Facility: [facility] Address: [address] [place] [address] Result Comment: Anti -acetylcholine receptor blocking antibody test is used as an aid in diagnosis of myasthenia gravis. A negative result cannot exclude myasthenia gravis. Clinical correlation is required. Performed By: #### A CHRAB #### [facility] CLIA [id number] [address] [place] [address] [place] Acetylcholine receptor blocking Ab/Acetylcholine Ab.total (S) [Molar fraction] <13 Normal <21 [facility] Comment on above: Order Comment: Salvador luu Type: BLOOD SPECIMEN Ordering Facility: [facility] Address: [address] [place] [address] Performed By: #### A CHRAB #### [facility] IA [id number] [address] [place] [address] [place] ACETYLCHOLINE RECEPTOR MODUL ATING ANTIBODYon 09-07-2023 ACETYLCHOLINE RECEPT/MODULATING 1 % Normal <=45 [facility] Comment on above: Order Comment: Salvador luu Type: BLOOD SPECIMEN Ordering Facility: [facility] Address: [address] [place] [address] Result Comment: INTE RPRETIVE INFORMATION: Acetylcholine Modulating Ab Negative .......... 0-45 percent modulating Positive .......... 46 percent or greater modulating Approximately 85-90 percent of patients with myasthenia gravis (MG) express antibodies to the acetylcholine receptor (AChR), which can be divided into binding, blocking, and modulating antibodies. Binding antibody can activate complement and lead to loss of AChR. Blocking antibody may impair binding of acetylcholine to the receptor, leading to poor muscle contraction. Modulating antibody causes receptor endocytosis resulting in loss of AChR expression, which correlates most closely with clinical severity of disease. Approximately 10-15 percent of individuals with confirmed myasthenia gravis have no measurable binding, blocking, or modulating antibodies. This test was developed and its performance characteristics determined by [employer]. It has not been cleared or approved by the [place] Food and Drug Administration. This test was performed in a CLIA certified laboratory and is intended for clinical purposes. Performed By: [facility] [employer] [address] [place] [address] Stockroom Attendant: Howard Jarrett MD, PhD CLIA Number: [id number] Performed By: #### A CEMOD #### [facility] CLIA [id number] [address] [place] [address] C diff Tox gens Stl Ql ELAINE+p robeon 09-07-2023 C. difficile toxin genes ELAINE+probe Ql (Stl) Negative Normal Negative for C. difficile toxin by PCR [facility] Comment on above: Order Comment: Salvador luu Type: BLOOD SPECIMEN Ordering Facility: [facility] Address: [address] [place] [address] Performed By: #### A CHRAB #### [facility] CLIA [id number] [address] [place] [address] [place] Calprotectin (Stl) [Mass/Mas s]on 09-07-2023 CALPROTECTIN, FECAL QUANTITATIVE 64.9 ug/g High <50 [facility] Comment on above: Order Comment: Salvador luu Type: BLOOD SPECIMEN Ordering Facility: [facility] Address: [address] [place] [address] Performed By: #### A CHRAB #### [facility] CLIA [id number] [address] [place] [address] [place] Gastrointestinal pathogens p beatrice ELAINE+probe (Stl)on 09-07-2023 ADENOVIRUS F 40/41 DNA Not detected Normal Not Detected [facility] Comment on above: Order Comment: Salvador luu Type: BLOOD SPECIMEN Ordering Facility: [facility] Address: [address] [place] [address] Performed By: #### A CHRAB #### [facility] CLIA [id number] [address] [place] [address] [place] ASTROVIRUS RNA Not detected Normal Not Detected [facility] Comment on above: Order Comment: Speci men Type: BLOOD SPECIMEN Ordering Facility: [facility] Address: [address] [place] [address] Performed By: #### A CHRAB #### [facility] CLIA [id number] [address] [place] [address] [place] C. cayetanensis DNA ELAINE+probe Ql (Unsp spec) Not detected Normal Not Detected [facility] Comment on above: Order Comment: Minervai men Type: BLOOD SPECIMEN Ordering Facility: [facility] Address: [address] [place] [address] Performed By: #### A CHRAB #### [facility] CLIA [id number] [address] [place] [address] [place] Campylobacter sp DNA.diarrheagenic ELAINE+probe Ql (Stl) Not detected Normal Not Detected [facility] Comment on above: Order Comment: Minervai men Type: BLOOD SPECIMEN Ordering Facility: [facility] Address: [address] [place] [address] Performed By: #### A CHRAB #### [facility] CLIA [id number] [address] [place] [address] [place] Cryptosporidium sp DNA ELAINE+probe Ql (Unsp spec) Not detected Normal Not Detected [facility] Comment on above: Order Comment: Speci men Type: BLOOD SPECIMEN Ordering Facility: [facility] Address: [address] [place] [address] Performed By: #### A CHRAB #### [facility] CLIA [id number] [address] [place] [address] [place] E. coli O157:H7 DNA ELAINE+probe Ql (Unsp spec) Not Applicable Normal Not Detected [facility] Comment on above: Order Comment: Speci men Type: BLOOD SPECIMEN Ordering Facility: [facility] Address: [address] [place] [address] Performed By: #### A CHRAB #### [facility] CLIA [id number] [address] [place] [address] [place] E. coli stx1+stx2 genes ELAINE+probe Ql (Stl) Not detected Normal Not Detected [facility] Comment on above: Order Comment: Speci men Type: BLOOD SPECIMEN Ordering Facility: [facility] Address: [address] [place] [address] Performed By: #### A CHRAB #### [facility] CLIA [id number] [address] [place] [address] [place] E. histolytica DNA ELAINE+probe Ql (Unsp spec) Not detected Normal Not Detected [facility] Comment on above: Order Comment: Speci men Type: BLOOD SPECIMEN Ordering Facility: [facility] Address: [address] [place] [address] Performed By: #### A CHRAB #### [facility] CLIA [id number] [address] [place] [address] [place] ENTEROAGGREGATIVE E. COLI (EAEC) DNA Not detected Normal Not Detected [facility] Comment on above: Order Comment: Speci men Type: BLOOD SPECIMEN Ordering Facility: [facility] Address: [address] [place] [address] Performed By: #### A CHRAB #### [facility] CLIA [id number] [address] [place] [address] [place] ENTEROPATHOGENIC E. COLI (EPEC) DNA Not detected Normal Not Detected [facility] Comment on above: Order Comment: Speci men Type: BLOOD SPECIMEN Ordering Facility: [facility] Address: [address] [place] [address] Performed By: #### A CHRAB #### [facility] CLIA [id number] [address] [place] [address] [place] ENTEROTOXIGENIC E. COLI (ETEC) DNA Not detected Normal Not Detected [facility] Comment on above: Order Comment: Speci men Type: BLOOD SPECIMEN Ordering Facility: [facility] Address: [address] [place] [address] Performed By: #### A CHRAB #### [facility] CLIA [id number] [address] [place] [address] [place] G. lamblia DNA ELAINE+probe Ql (Unsp spec) Not detected Normal Not Detected [facility] Comment on above: Order Comment: Speci men Type: BLOOD SPECIMEN Ordering Facility: [facility] Address: [address] [place] [address] Performed By: #### A CHRAB #### [facility] CLIA [id number] [address] [place] [address] [place] NOROVIRUS GI/GII RNA Not detected Normal Not Detected [facility] Comment on above: Order Comment: Speci men Type: BLOOD SPECIMEN Ordering Facility: [facility] Address: [address] [place] [address] Performed By: #### A CHRAB #### [facility] CLIA [id number] [address] [place] [address] [place] PLESIOMONAS SHIGELLOIDES DNA Not detected Normal Not Detected [facility] Comment on above: Order Comment: Speci men Type: BLOOD SPECIMEN Ordering Facility: [facility] Address: [address] [place] [address] Performed By: #### A CHRAB #### [facility] CLIA [id number] [facility] [place] [address] [place] ROTAVIRUS A RNA Not detected Normal Not Detected [facility] Comment on above: Order Comment: Speci men Type: BLOOD SPECIMEN Ordering Facility: [facility] Address: [address] [place] [address] Performed By: #### A CHRAB #### [facility] CLIA [id number] [address] [id number] [address] [place] Salmonella sp DNA ELAINE+probe Ql (Unsp spec) Not detected Normal Not Detected [facility] Comment on above: Order Comment: Minervai men Type: BLOOD SPECIMEN Ordering Facility: [facility] Address: [address] [place] [address] Performed By: #### A CHRAB #### [facility] CLIA [id number] [address] [place] [address] [place] SAPOVIRUS (GENOGROUPS I, II, IV, V) RNA Not detected Normal Not Detected [facility] Comment on above: Order Comment: Speci men Type: BLOOD SPECIMEN Ordering Facility: [facility] Address: [address] [place] [address] Performed By: #### A CHRAB #### [facility] CLIA [id number] [address] [place] [address] [place] Shigella species+EIEC invasion plasmid antigen H ipaH gene ELAINE+probe Ql (Stl) Not detected Normal Not Detected [facility] Comment on above: Order Comment: Speci men Type: BLOOD SPECIMEN Ordering Facility: [facility] Address: [address] [place] [address] Performed By: #### A CHRAB #### [facility] CLIA [id number] [address] [place] [address] [place] V. cholerae DNA ELAINE+probe Ql (Unsp spec) Not detected Normal Not Detected [facility] Comment on above: Order Comment: Speci men Type: BLOOD SPECIMEN Ordering Facility: [facility] Address: [address] [place] [address] Performed By: #### A CHRAB #### [facility] CLIA [id number] [address] [place] [address] [place] Vibrio sp DNA ELAIEN+probe Nom (Unsp spec) Not detected Normal Not Detected [facility] Comment on above: Order Comment: Speci men Type: BLOOD SPECIMEN Ordering Facility: [facility] Address: [address] [place] [address] Performed By: #### A CHRAB #### [facility] CLIA [id number] [address] [place] [address] [place] Yersinia sp DNA ELAINE+probe Nom (Unsp spec) Not detected Normal Not Detected [facility] Comment on above: Order Comment: Speci men Type: BLOOD SPECIMEN Ordering Facility: [facility] Address: [address] [place] [address] Performed By: #### A CHRAB #### [facility] CLIA [id number] [address] [place] [address] [place] PANC ELASTASE, FECALon 09-06 ELASTASE INTERPRETATION Normal Normal Normal C [facility] Comment on above: Order Comment: Speci men Type: BLOOD SPECIMEN Ordering Facility: [facility] Address: [address] [place] [address] Performed By: #### A CHRAB #### [facility] CLIA [id number] [address] [place] [address] [place] ELASTASE-1 CONCENTRATION >800 Normal >=200 [facility] Comment on above: Order Comment: Speci men Type: BLOOD SPECIMEN Ordering Facility: [facility] Address: [address] [place] [address] Result Comment: Inte rpretation: <100 ug/g: Severe Exocrine Pancreatic Insufficiency 100-199 ug/g: Mild to Moderate Exocrine Pancreatic Insufficiency >=200 ug/g: Normal Performed By: #### A CHRAB #### [facility] CLIA [id number] [address] [place] [address] [place] Absolute lymphocyte countOrd ered By: Dion Haji on 08-08-2023 Lymphocytes Auto (Unsp spec) [#/Vol] 1.48 10*3/uL 0.83-4.51 [facility] Automated lymphocyte count a s percentage of total leukocytesOrdered By: Dion Haji on 08-08-2023 Lymphocytes/100 WBC Auto (Unsp spec) 18.2 % 19-41 [facility] Basophil percentageOrdered B y: Dion Haji on 08-08-2023 Basophil percentage 2.2 mg/dL 2.5-4.9 [facility] Basophils/100 WBC (Bld) 0.1 % 0-[address] [facility] Chloride [Moles/Vol] 107 mmol/L 98-107 [facility] Eosinophils/100 WBC (Bld) 2.6 % 0-5 [facility] Glucose [Mass/Vol] 106 mg/dL 74-106 [facility] Comment on above: Fasting Glucose resu lt from 100 to 125 mg/dL suggests IMPAIRED HOMEOSTASIS per A.D.A. criteria. Hemoglobin (Bld) [Mass/Vol] 12.0 g/dL 12.0-15.0 [facility] Monocytes/100 WBC (Bld) 9.6 % 0-[address] [facility] Neutrophils (Bld) [#/Vol] 5.6 10*3/uL 2.0-7.7 [facility] Neutrophils/100 WBC (Bld) 68.9 % 47-70 [facility] Potassium [Moles/Vol] 3.5 mmol/L 3.5-5.1 [facility] Sodium [Moles/Vol] 140 mmol/L 136-145 [facility] WBC (Bld) [#/Vol] 8.1 10*3/uL 4.4-11.0 [facility] Determination of erythrocyte mean corpuscular volume (MCV)Ordered By: Dion Haji on 08-08-2023 MCV (RBC) [Entitic vol] 94.0 fL 81-[address] [facility] Erythrocyte distribution wid th ratioOrdered By: Dion Haji on 08-08-2023 Erythrocyte distribution width (RBC) [Ratio] 13.7 % 11.6-14.6 [facility] Erythrocyte distribution wid th standard deviationOrdered By: Dion Haji on 08-08-2023 Erythrocyte distribution width (RBC) [Entitic vol] 47.1 fL 35.1-43.9 [facility] Hematocrit Auto (Bld) [Volum e fraction]Ordered By: Dion Haji on 08-08-2023 Hematocrit (Bld) [Volume fraction] 36.1 % 37-47 [facility] Immature granulocytes/100 WB C Auto (Bld)Ordered By: Dion Haji on 08-08-2023 Immature granulocytes/100 WBC (Bld) 0.600 % 0.0-0.9 [facility] Comment on above: IG% - Immature Granu locytes (promyelocytes, myelocytes and metamyelocytes) > 1% indicates that a LEFT SHIFT is Present. Laboratory - Chemistry and C hemistry - challengeOrdered By: Dion Haji on 08-08-2023 CO2 [Moles/Vol] 29.0 mmol/L 21.0-32.0 [facility] Magnesium [Mass/Vol] 1.5 mg/dL 1.6-2.6 [facility] Urea nitrogen/Creatinine [Mass ratio] 13.5 mg/mg 10-20 [facility] Laboratory - Hematology and Cell countsOrdered By: Dion Haji on 08-08-2023 MCH (RBC) [Entitic mass] 31.3 pg 27.0-32.0 [facility] MCHC (RBC) [Mass/Vol] 33.2 g/dL 32-36 [facility] Nucleated RBC/100 WBC (Bld) [Ratio] 0 % 0-5 [facility] Platelet mean volume (Bld) [Entitic vol] 10.2 fL 6.2-12.0 [facility] Platelets (Bld) [#/Vol] 221 10*3/uL 150-450 [facility] No Panel InformationOrdered By: Dion Haji on 08-08-2023 Estimated Creatinine Clearance Calc 43.05 ml/min [facility] Estimated GFR (MDRD) Amer 125 mL/min >60 [facility] Comment on above: GFR Calc Estimated GFR (MDRD) Non-Af Amer 103 mL/min >60 [facility] Comment on above: Non- GFR Calc RBC Auto (Bld) [#/Vol]Ordere d By: Dion Haji on 08-08-2023 RBC (Bld) [#/Vol] 3.84 10*6/uL 4.2-5.4 [facility] Serum or plasma calcium adrian urement (mass/volume)Ordered By: Dion Haji on 08-08-2023 Calcium [Mass/Vol] 8.5 mg/dL 8.5-10.1 [facility] Serum or plasma creatinine m easurement (mass/volume)Ordered By: Dion Haji on 08-08-2023 Creatinine [Mass/Vol] 0.59 mg/dL 0.55-1.02 [facility] Comment on above: The validity of the calculated GFR & GFRAA in patients over 70 years has not been determined. Clinical correlation is essential. Serum or plasma urea nitroge n measurement (mass/volume)Ordered By: Dion Haji on 08-08-2023 Urea nitrogen [Mass/Vol] 8 mg/dL 7-18 [facility] Thin prep Papanicolaou smear with manual screeningOrdered By: Dion Haji on 08-08-2023 Thin prep Papanicolaou smear with manual screening 4 5-15 [facility] Laboratory - Chemistry and C hemistry - challengeOrdered By: Dion Haji on 08-07-2023 Lipase [Catalytic activity/Vol] 63 U/L 13-75 [facility] Comment on above: Please note:LIPASE r evised reference range effective 22. New Lipase methodology. Expected to produce lower values than the previous assay method. NEW Reference Range: 13 - 75 U/L Basophil percentageOrdered B y: Emmett Guerrero on 08-06-2023 Lactate [Moles/Vol] 1.1 mmol/L 0.4-2.0 [facility] Bilirubin [Mass/Vol] 1.10 mg/dL 0.20-1.00 [facility] Comment on above: For patients on eltr ombopag therapy, use of Dimension [place] TBIL is not recommended. Protein [Mass/Vol] 6.3 g/dL 6.4-8.2 [facility] Basophil percentageOrdered B y: Aylin Charles on 08-06-2023 Basophil percentage 5-10 SEEN /hpf 0-[address] [facility] Bilirubin Test strip Ql (U)O rdered By: Aylin Charles on 08-06-2023 Bilirubin Ql (U) Negative Negative [facility] Blood manual differential co mment interpretation (narrative result)Ordered By: Emmett Guerrero on 08-06-2023 Manual differential comment Aden (Bld) [Interp] SCANNED [facility] Calcium oxalate crystals det ection in urine sediment by light microscopyOrdered By: Aylin Charles on 08-06-2023 Calcium oxalate crystals LM Ql (Urine sed) 4+ /hpf [facility] Ketones Test strip Ql (U)Ord ered By: Aylin Charles on 08-06-2023 Ketones Ql (U) Negative Negative [facility] Laboratory - Chemistry and C hemistry - challengeOrdered By: Emmett Guerrero on 08-06-2023 Albumin/Globulin [Mass ratio] 0.9 {ratio} 0.9-2.4 [facility] ALP [Catalytic activity/Vol] 67 U/L 45-117 [facility] ALT [Catalytic activity/Vol] 194 U/L 13-56 [facility] Globulin (S) [Mass/Vol] 3.3 g/dL 2.2-4.[address] [facility] Mucus LM Ql (Urine sed)Order ed By: Aylin Charles on 08-06-2023 Mucus Ql (Urine sed) 0 SEEN /hpf [facility] Nitrite Test strip Ql (U)Ord ered By: Aylni Charles on 08-06-2023 Nitrite Ql (U) Negative Negative [facility] No Panel InformationOrdered By: Aylin Charles on 08-06-2023 Urine RBC 0 SEEN /hpf 0-5 [facility] Protein Test strip Ql (U)Ord ered By: Aylin Charles on 08-06-2023 Protein Ql (U) Negative Negative [facility] Review by pathologistOrdered By: Emmett Guerrero on 08-06-2023 Pathologist review Aden (Unsp spec) [Interp] July foll [facility] Squamous epithelial cells de tection in urine sediment by light microscopyOrdered By: Aylin Charles on 08-06-2023 Epithelial cells.squamous LM Ql (Urine sed) 0-5 SEEN /hpf 5-10 [facility] Thin prep Papanicolaou smear with manual screeningOrdered By: Emmett Guerrero on 08-06-2023 Thin prep Papanicolaou smear with manual screening 3.0 g/dL 3.2-5.0 [facility] Thin prep Papanicolaou smear with manual screening 285 U/L 15-37 [facility] Urine blood detectionOrdered By: Aylin Charles on 08-06-2023 RBC Ql (U) Negative Negative [facility] Urine clarityOrdered By: Fito Charles on 08-06-2023 Clarity (U) Clear Clear [facility] Urine color determinationOrd ered By: Aylin Charles on 08-06-2023 Color (U) Yellow Yellow [facility] Urine glucose detectionOrder ed By: Aylin Charles on 08-06-2023 Glucose Ql (U) Normal mg/dl Normal [facility] Urine leukocyte esterase det ection by dipstickOrdered By: Aylin Charles on 08-06-2023 Leukocyte esterase Test strip Ql (U) 100 /ul Negative [facility] Urine pHOrdered By: Elena Charles on 08-06-2023 pH (U) 5.0 [pH] 5.0 - 8.0 [facility] Urine sediment bacteria coun t by microscopy (number/high power field)Ordered By: Aylin Charles on 08-06-2023 Bacteria LM.HPF (Urine sed) [#/Area] 0 /[HPF] None Seen [facility] Urine specific gravity measu rementOrdered By: Aylin Charles on 08-06-2023 Specific gravity (U) [Rel density] 1.015 1.002-1.03 0 [facility] Urine urobilinogen measureme ntOrdered By: Aylin Charles on 08-06-2023 Urobilinogen Ql (U) Normal mg/dl Normal [facility] Absolute lymphocyte countOrd ered By: Aylin Charles on 08-05-2023 Lymphocytes Auto (Unsp spec) [#/Vol] 2.45 10*3/uL 0.83-4.51 [facility] Activated partial thrombopla stin time (aPTT) in platelet poor plasma by coagulation aOrdered By: Cornelius Bowden on 08-05-2023 aPTT Coag (PPP) [Time] 24.0 s 24.1-36.2 [facility] Automated lymphocyte count a s percentage of total leukocytesOrdered By: Aylin Charles on 08-05-2023 Lymphocytes/100 WBC Auto (Unsp spec) 8.8 % 19-41 [facility] Basophil percentageOrdered B y: Cornelius Bowden on 08-05-2023 Lactate [Moles/Vol] 2.5 mmol/L 0.4-2.0 [facility] Comment on above: Critical Result(s) C alled at: 23:16:15 08/05/2023 by: Ramila buckner TO [email or web address]. Results read back by same. Basophil percentageOrdered B y: Aylin Charles on 08-05-2023 Basophils/100 WBC (Bld) 0.6 % 0-[address] [facility] Bilirubin [Mass/Vol] 0.70 mg/dL 0.20-1.00 [facility] Comment on above: For patients on eltr ombopag therapy, use of Dimension [place] TBIL is not recommended. Chloride [Moles/Vol] 104 mmol/L 98-107 [facility] Eosinophils/100 WBC (Bld) 0.5 % 0-5 [facility] Glucose [Mass/Vol] 214 mg/dL 74-106 [facility] Comment on above: Glucose result great er than or equal to 200 mg/dLsuggests DIABETES MELLITUS per A.D.A. criteria. Hemoglobin (Bld) [Mass/Vol] 15.6 g/dL 12.0-15.0 [facility] Monocytes/100 WBC (Bld) 6.8 % 0-10 [facility] Neutrophils (Bld) [#/Vol] 23.0 10*3/uL 2.0-7.7 [facility] Neutrophils/100 WBC (Bld) 82.4 % 47-70 [facility] Potassium [Moles/Vol] 4.1 mmol/L 3.5-5.1 [facility] Protein [Mass/Vol] 7.5 g/dL 6.4-8.2 [facility] Sodium [Moles/Vol] 138 mmol/L 136-145 [facility] WBC (Bld) [#/Vol] 27.9 10*3/uL 4.4-11.0 [facility] Blood manual differential co mment interpretation (narrative result)Ordered By: Aylin Charles on 08-05-2023 Manual differential comment Aden (Bld) [Interp] SCANNED [facility] Comment on above: NEUTROPHILIA NOTEDMO NOCYTOSIS NOTED Determination of erythrocyte mean corpuscular volume (MCV)Ordered By: Aylin Charles on 08-05-2023 MCV (RBC) [Entitic vol] 93.7 fL 81-[address] [facility] Erythrocyte distribution wid th ratioOrdered By: Aylin Charles on 08-05-2023 Erythrocyte distribution width (RBC) [Ratio] 13.8 % 11.6-14.6 [facility] Erythrocyte distribution wid th standard deviationOrdered By: Aylin Charles on 08-05-2023 Erythrocyte distribution width (RBC) [Entitic vol] 47.4 fL 35.1-43.9 [facility] Hematocrit Auto (Bld) [Volum e fraction]Ordered By: Aylin Charles on 08-05-2023 Hematocrit (Bld) [Volume fraction] 47.6 % 37-47 [facility] Immature granulocytes/100 WB C Auto (Bld)Ordered By: Aylin Charles on 08-05-2023 Immature granulocytes/100 WBC (Bld) 0.900 % 0.0-0.9 [facility] Comment on above: IG% - Immature Granu locytes (promyelocytes, myelocytes and metamyelocytes) > 1% indicates that a LEFT SHIFT is Present. Laboratory - Chemistry and C hemistry - challengeOrdered By: Aylin Charles on 08-05-2023 Albumin/Globulin [Mass ratio] 0.9 {ratio} 0.9-2.4 [facility] ALP [Catalytic activity/Vol] 54 U/L 45-117 [facility] ALT [Catalytic activity/Vol] 23 U/L 13-56 [facility] CO2 [Moles/Vol] 25.0 mmol/L 21.0-32.0 [facility] Globulin (S) [Mass/Vol] 4.0 g/dL 2.2-4.[address] [facility] Lipase [Catalytic activity/Vol] 1168 U/L 13-75 [facility] Comment on above: Please note:LIPASE r evised reference range effective 22. New Lipase methodology. Expected to produce lower values than the previous assay method. NEW Reference Range: 13 - 75 U/L Urea nitrogen/Creatinine [Mass ratio] 41.7 mg/mg 10-20 [facility] Laboratory - CoagulationOrde red By: Cornelius Bowden on 08-05-2023 INR Coag (Bld) [Relative time] 1.1 {INR} [facility] PT Coag (PPP) [Time] 14.0 s 11.7-14.9 [facility] - Hematology and Cell countsOrdered By: Aylin Charles on 08-05-2023 MCH (RBC) [Entitic mass] 30.7 pg 27.0-32.0 [facility] MCHC (RBC) [Mass/Vol] 32.8 g/dL 32-36 [facility] Nucleated RBC/100 WBC (Bld) [Ratio] 0 % 0-5 [facility] Platelet mean volume (Bld) [Entitic vol] 10.9 fL 6.2-12.0 [facility] Platelets (Bld) [#/Vol] 336 10*3/uL 150-450 [facility] No Panel InformationOrdered By: Aylin Charles on 08-05-2023 Estimated Creatinine Clearance Calc 38.54 ml/min [facility] Estimated GFR (MDRD) Amer 78 mL/min >60 [facility] Comment on above: GFR Calc Estimated GFR (MDRD) Non-Af Amer 65 mL/min >60 [facility] Comment on above: Non- GFR Calc RBC Auto (Bld) [#/Vol]Ordere d By: Aylin Charles on 08-05-2023 RBC (Bld) [#/Vol] 5.08 10*6/uL 4.2-5.4 [facility] Review by pathologistOrdered By: Aylin Charles on 08-05-2023 Pathologist review Aden (Unsp spec) [Interp] May foll [facility] Serum or plasma calcium adrian urement (mass/volume)Ordered By: Aylin Charles on 08-05-2023 Calcium [Mass/Vol] 9.3 mg/dL 8.5-10.1 [facility] Serum or plasma creatinine m easurement (mass/volume)Ordered By: Aylin Charles on 08-05-2023 Creatinine [Mass/Vol] 0.89 mg/dL 0.55-1.02 [facility] Comment on above: The validity of the calculated GFR & GFRAA in patients over 70 years has not been determined. Clinical correlation is essential. Serum or plasma urea nitroge n measurement (mass/volume)Ordered By: Aylin Charles on 08-05-2023 Urea nitrogen [Mass/Vol] 37 mg/dL 7-18 [facility] Thin prep Papanicolaou smear with manual screeningOrdered By: Aylin Charles on 08-05-2023 Thin prep Papanicolaou smear with manual screening 3.5 g/dL 3.2-5.0 [facility] Thin prep Papanicolaou smear with manual screening 22 U/L 15-37 [facility] Thin prep Papanicolaou smear with manual screening 9 5-15 [facility] CNOVon 07-28-2023 CNOV Office Visit (OTOLTW ) ----- ESTEFANIA MONTIEL ([id number]) 1940 F Date Time Provider Department 07/28/23 2:40 PM ALHAJI JAVED OTLIONEL During your visit today, we recorded the following information about you: Tahira Lyle OCCA 07/30/2023 10:06 AM Signed Patient Entered Questionnaires 07/23/2023 Eating Asessment Tool Score EAT Score 16 07/23/2023 [place] Cough Physical Sum Score 2.63 Psychological Sum Score 1.14 Social Sum Score 1.5 Total Score 5.27 (Lower scores are indicative of increased impact or lower quality of life. ) Alhaji Javed MD 07/30/2023 10:06 AM Signed CC: The patient is self referred for evaluation and management of chronic cough. I will communicate with the referring provider via the shared EMR or mail. Assessment and Plan (Medical Decision Making): 82 y/o female, new patient, w/ hx of chronic refractory cough, irritable larynx. Has been on prednisone for >35 years (now at 10 mg every other day for the last 2 yrs. ) S/p SLN series w/ [facility] L[facility]ology, most recent 04/20/23. Presenting today w/ chronic cough Unfortunately, she has not achieved significant mitigation of her cough with any modality todate (neuromodulators, SLN blocks) Today, Neck was sensitive to the touch For cough, we discussed options for cough such as baclofen, botox injections into the neck musculature, nicotine patches, trigger point SLN, viscous lidocaine. At bedtime, we talked about phenergan or a low dose benadryl We agreed to perform SLN with trigger point in office. I also added bupivicaine instead of her traditional lidocaine. We also agreed to try the viscous lidocaine and we may consider botox at a later time after the pt establishes care w/ new Neurologist We could also consider eccentric botox injection around the larynx if the above does not provide relief Spasmodic dysphonia (SD) and laryngeal tremor are life-long voice disorders, classified as a dystonia, that affect the intrinsic muscles of the larynx. There are two subtypes of spasmodic dysphonia, adductor spasmodic dysphonia (ADSD), which affects the muscles of contraction (closing) of the vocal fold, and abductor spasmodic dysphonia (ABSD) which affects the opening muscle of the vocal folds. These laryngeal dystonias result in involuntary spasms of the vocal folds, which can significantly affect vocal quality, vocal function, and therefore quality of life. The most effective treatment and standard of care for management of SD and tremor, acknowledged by [employer] is Botulinum Toxin (Botox) injections. Botox is a temporary treatment, and patients typically receive injections in a planned interval of every 3-4 months. Given the neurologic and involuntary nature of SD and vocal tremor, behavioral treatment for spasmodic dysphonia has been shown to be largely ineffective. Typical average starting dose for ADSD and laryngeal tremor as cited in the literature ranges from 0.25-5 units, and is ~5 units per side for ABSD. Deeffel?Judy Peace, Denis Navarrete., Steven, C.X., Jeremy, E.R. and Michelle Lee., III (2019), Common practices in botulinum toxin injection for spasmodic dysphonia treatment: A national survey. The Laryngoscope, 129: 0508-5829. https://doi.org/10.1002/l tere.58973 Neal Prabhakar, Koko KAMARA, Nolan C, Juan ACUNA, Fahn S. 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 Laryngoscope. 1991;102(2):163-7. doi: 10.1288/31958451-11754364 0-29181. PMID: 1100558. Royce Amin, Yanet H, Abraham Mcrae. 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 J Voice. 2006 May;20(1):137-43. doi: 10.1016/j.jvoice.2005.03. 008. Epub 2004Nov 21. PMID: 61773319. Sowmya MALIK, Kathryn CHACON, Benjy Mccarty, Farooq ORTIZ, Jeremy FERNANDEZ, Jesus MM 3rd. 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 Otolaryngol Head Neck Surg. 2008 Nov;139(3):421-3. doi: 10.1016/j.otohns.2008.06. 013. PMID: 60658849. Sowmya MALIK, Kathryn CHACON, Benjy Mccarty, Farooq ORTIZ, Jeremy FERNANDEZ, Jesus MM 3rd. 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 Otolaryngol Head Neck Surg. 2008 Nov;139(3):421-3. doi: 10.1016/j.otohns.2008.06. 013. PMID: 84745447. Drug management - lidocaine viscous 2% Consults - Neuro Follow up - after botox approval Medical Decision Making: Problems: Moderate: New problem with uncertain prognosis Data: Unique test result(s) reviewed: 3+ Risk: Moderate: Drug management Medical Decision Making Level: 4 - Moderate HPI: Estefania Montiel is a 82 y/o female, new patient, w/ hx of chronic cough. Has been on prednisone for >35 years (now at 10 mg every other day for the last 2 yrs. ). 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 S/p SLN series w/ [facility] laryngology, most (more content not included)... Normal [facility] ----- ESTEFANIA MONTIEL ([id number]) 1940 F Date Time Provider Department 07/23/23 ALHAJI JAVED During your visit today, we recorded the following information about you: Mago Cali OCCA 07/23/2023 10:17 AM Signed Received medical records for patient from [facility] today 07/23/23. Has appointment with Tegan 07/28/23. Will have them scanned into the system. Allergies As of Date: 07/23/2023 Noted Allergy Reaction PENICILLINS 02/10/2007 Comments: skin peeling PERCODAN (OXYCODONE-ASPIRIN) 02/10/2007 1 - Mental Status Change Date Reviewed: 02/10/2007 Reviewed by: Madai Matthews Reason for Visit: Received Outside Medical Records [[id number]] Prescriptions as of 08/09/2023 - FLUoxetine (PROZAC) 20 mg capsule Take 20 mg by mouth once daily. - levothyroxine 25 mcg cap Take 25 mcg by mouth daily before breakfast. - meloxicam (MOBIC) 7.5 mg tablet Take 7.5 mg by mouth two times a day with meals. - LIDOCAINE VISCOUS 2 % solution Take 15 mL by mouth as needed. - Dextromethorphan Poly Complex (DELSYM) 30 mg/5 mL ORAL Su12 1 TSP BID - hydrocodone-homatropine (HYCODAN) 5-1.5 mg/5 mL ORAL Syrp Take 1 teaspoon(s) (5ml) every 4-6 hours as needed for coughing. - predniSONE 10 mg ORAL Tab Take one(1) tablet every other day. - Fluoxetine HCl 40 mg ORAL Cap Take one(1) tablet daily. - esomeprazole (NEXIUM) 40 mg ORAL CpDR Take one(1) capsule daily. - estradiol 0.05 mg/24 hr TRANSDERM. PTWK use as directly Problem List As Of Date: 07/23/2023 (None) Encounter Status:Closed by MAGO CALI on 08/09/23 Normal [facility] Vital Signs Date Time Vital Sign Value Performing Clinician Facility 12-12-2024 10:48-0400 Body height 160.02 cm No Primary Care Physician [facility] 12-12-2024 10:48-0400 Body mass index (BMI) [Ratio] 21.4 kg/m2 No Primary Care Physician [facility] 12-12-2024 10:48-0400 Body temperature 97.8 [degF] No Primary Care Physician [facility] 12-12-2024 10:48-0400 Body weight 54.88 kg No Primary Care Physician [facility] 12-12-2024 10:48-0400 Diastolic blood pressure 71 mm[Hg] No Primary Care Physician [facility] 12-12-2024 10:48-0400 Heart rate 81 /min No Primary Care Physician [facility] 12-12-2024 10:48-0400 Respiratory rate 15 /min No Primary Care Physician [facility] 12-12-2024 10:48-0400 SaO2% (BldA) [Mass fraction] 93 % No Primary Care Physician [facility] 12-12-2024 10:48-0400 Systolic blood pressure 125 mm[Hg] No Primary Care Physician [facility] 10-11-2024 10:47-0400 Body height 160.[address] Britany Sexton MD Work Phone: [facility] 10-11-2024 10:47-0400 Body mass index (BMI) [Ratio] 21 kg/m2 Dr. Britany Sexton MD Work Phone: [facility] 10-11-2024 10:47-0400 Body weight 53.[address] Britany Sexton MD Work Phone: [facility] 10-11-2024 10:47-0400 Diastolic blood pressure 80 mm[Hg] Dr. Britany Sexton MD Work Phone: [facility] 10-11-2024 10:47-0400 Heart rate 80 /min Dr. Britany Sexton MD Work Phone: [facility] 10-11-2024 10:47-0400 Respiratory rate 16 /min Dr. Britany Sexton MD Work Phone: [facility] 10-11-2024 10:47-0400 Systolic blood pressure 125 mm[Hg] Dr. Britany Sexton MD Work Phone: [facility] 08-15-2024 13:35-0400 Body height 160.02 cm No Primary Care Physician [facility] 08-15-2024 13:35-0400 Body mass index (BMI) [Ratio] 21.6 kg/m2 No Primary Care Physician [facility] 08-15-2024 13:35-0400 Body temperature 98.2 [degF] No Primary Care Physician [facility] 08-15-2024 13:35-0400 Body weight 55.33 kg No Primary Care Physician [facility] 08-15-2024 13:35-0400 Diastolic blood pressure 62 mm[Hg] No Primary Care Physician [facility] 08-15-2024 13:35-0400 Heart rate 98 /min No Primary Care Physician [facility] 08-15-2024 13:35-0400 Respiratory rate 17 /min No Primary Care Physician [facility] 08-15-2024 13:35-0400 SaO2% (BldA) [Mass fraction] 96 % No Primary Care Physician [facility] 08-15-2024 13:35-0400 Systolic blood pressure 135 mm[Hg] No Primary Care Physician [facility] 08-01-2024 13:27-0400 Body height 160 cm Ingrid Omalley MD Work Phone: [facility] 08-01-2024 13:27-0400 Body mass index (BMI) [Ratio] 20.94 kg/m2 Ingrid Omalley MD Work Phone: [facility] 08-01-2024 13:27-0400 Body temperature 98.2 [degF] Ingrid Omalley MD Work Phone: [facility] 08-01-2024 13:27-0400 Body weight 53.62 kg Ingrid Omalley MD Work Phone: [facility] 08-01-2024 13:27-0400 Diastolic blood pressure 78 mm[Hg] Ingrid Omalley MD Work Phone: [facility] 08-01-2024 13:27-0400 Heart rate 86 /min Ingrid Omalley MD Work Phone: [facility] 08-01-2024 13:27-0400 Systolic blood pressure 146 mm[Hg] Ingrid Omalley MD Work Phone: [facility] 06-06-2024 08:54-0400 Body height 160.02 cm No Primary Care Physician [facility] 06-06-2024 08:54-0400 Body mass index (BMI) [Ratio] 20.9 kg/m2 No Primary Care Physician [facility] 06-06-2024 08:54-0400 Body temperature 98 [degF] No Primary Care Physician [facility] 06-06-2024 08:54-0400 Body weight 53.52 kg No Primary Care Physician [facility] 06-06-2024 08:54-0400 Diastolic blood pressure 76 mm[Hg] No Primary Care Physician [facility] 06-06-2024 08:54-0400 Heart rate 85 /min No Primary Care Physician [facility] 06-06-2024 08:54-0400 Respiratory rate 16 /min No Primary Care Physician [facility] 06-06-2024 08:54-0400 SaO2% (BldA) [Mass fraction] 92 % No Primary Care Physician [facility] 06-06-2024 08:54-0400 Systolic blood pressure 112 mm[Hg] No Primary Care Physician [facility] 05-15-2024 09:30-0500 Diastolic blood pressure 68 mm[Hg] Stefan Cazares MD Work Phone: [facility] 05-15-2024 09:30-0500 Heart rate 71 /min Stefan Cazares MD Work Phone: [facility] 05-15-2024 09:30-0500 Respiratory rate 16 /min Stefan Cazares MD Work Phone: [facility] 05-15-2024 09:30-0500 SaO2% (BldA) [Mass fraction] 95 % Stefan Cazares MD Work Phone: [facility] 05-15-2024 09:30-0500 Systolic blood pressure 138 mm[Hg] Stefan Cazares MD Work Phone: [facility] 05-15-2024 08:53-0500 Body temperature 97.9 [degF] Stefan Cazares MD Work Phone: [facility] 05-15-2024 07:26-0500 Body height 160 cm Stefan Cazares MD Work Phone: [facility] 05-15-2024 07:26-0500 Body mass index (BMI) [Ratio] 20.54 kg/m2 Stefan Cazares MD Work Phone: [facility] 05-15-2024 07:26-0500 Body weight 52.6 kg Stefan Cazares MD Work Phone: [facility] 03-14-2024 13:55-0500 Body height 160 cm Stefan Cazares MD Work Phone: [facility] 03-14-2024 13:55-0500 Body mass index (BMI) [Ratio] 20.55 kg/m2 Stefan Cazares MD Work Phone: [facility] 03-14-2024 13:55-0500 Body weight 52.62 kg Stefan Cazares MD Work Phone: [facility] 03-14-2024 13:55-0500 Diastolic blood pressure 86 mm[Hg] Stefan Cazares MD Work Phone: [facility] 03-14-2024 13:55-0500 Heart rate 90 /min Stefan Cazares MD Work Phone: [facility] 03-14-2024 13:55-0500 Systolic blood pressure 140 mm[Hg] Stefan Cazares MD Work Phone: [facility] 01-17-2024 14:52-0400 Body height 160 cm Rubio Thomae DO Work Phone: [facility] 01-17-2024 14:52-0400 Body mass index (BMI) [Ratio] 19.67 kg/m2 Rubio Thomae DO Work Phone: [facility] 01-17-2024 14:52-0400 Body weight 50.35 kg Rubio Thomae DO Work Phone: [facility] 01-17-2024 14:52-0400 Diastolic blood pressure 70 mm[Hg] Rubio Thomae DO Work Phone: [facility] 01-17-2024 14:52-0400 Heart rate 76 /min Rubio Rutherfordae DO Work Phone: [facility] 01-17-2024 14:52-0400 Systolic blood pressure 131 mm[Hg] Rubio Thomae DO Work Phone: [facility] 10-18-2023 15:31-0400 Body temperature 97.81 [degF] [address] 10-18-2023 15:31-0400 Diastolic blood pressure 79 mm[Hg] [address] 10-18-2023 15:31-0400 Heart rate 70 /min [address] 10-18-2023 15:31-0400 Respiratory rate 16 /min [address] 10-18-2023 15:31-0400 SaO2% (BldA) [Mass fraction] 99 % [address] 10-18-2023 15:31-0400 Systolic blood pressure 122 mm[Hg] [address] 10-18-2023 13:58-0400 Body height [address] 10-18-2023 13:58-0400 Body mass index (BMI) [Ratio] 18.71 kg/m2 [address] 10-18-2023 13:58-0400 Body weight 47.[address] 08-09-2023 10:00-0400 Body temperature 97.8 [degF] Dr. Cornelius Bowden Work Phone: 8(442)742-087366 [place] [address] 08-09-2023 10:00-0400 Diastolic blood pressure 92 mm[Hg] Dr. Cornelius Bowden Work Phone: 3(262)700-380595 [place] [address] 08-09-2023 10:00-0400 Heart rate 85 /min Dr. Cornelius Bowden Work Phone: 5(982)254-577495 [place] [address] 08-09-2023 10:00-0400 Respiratory rate 14 /min Dr. Cornelius Bowden Work Phone: 8(894)168-676595 [place] [address] 08-09-2023 10:00-0400 SaO2% (BldA) [Mass fraction] 99 % Dr. Cornelius Bowden Work Phone: 6(412)265-186395 [place] [address] 08-09-2023 10:00-0400 Systolic blood pressure 168 mm[Hg] Dr. Cornelius Bowden Work Phone: 2(633)804-459472 [address] 08-06-2023 15:00-0400 Inhaled oxygen flow rate 2 L/min Dr. Cornelius Bowden Work Phone: 4(317)516-279872 [address] 08-06-2023 09:53-0400 Body height 160.[address] Cornelius Bowden Work Phone: 7(476)435-344166 [place] [address] 08-06-2023 09:53-0400 Body weight 50.[address] Cornelius Bowden Work Phone: [facility] 08-06-2023 06:37-0400 Body mass index (BMI) [Ratio] 19.6 kg/m2 Dr. Cornelius Bowden Work Phone: 2(130)353-835572 [address] 08-06-2023 01:44-0400 Body temperature 98.2 [degF] Dr. Cornelius Bowden Work Phone: 4(742)916-826195 [place] [address] 08-06-2023 01:44-0400 Diastolic blood pressure 78 mm[Hg] Dr. Cornelius Bowden Work Phone: 7(169)596-417566 [place] [address] 08-06-2023 01:44-0400 Heart rate 86 /min Dr. Cornelius Bowden Work Phone: [facility] 08-06-2023 01:44-0400 Respiratory rate 16 /min Dr. Cornelius Bowden Work Phone: [facility] 08-06-2023 01:44-0400 SaO2% (BldA) [Mass fraction] 100 % Dr. Cornelius Bowden Work Phone: [facility] 08-06-2023 01:44-0400 Systolic blood pressure 133 mm[Hg] Dr. Cornelius Bowden Work Phone: [facility] 08-06-2023 01:00-0400 Inhaled oxygen flow rate 2 L/min Dr. Cornelius Bowden Work Phone: [facility] 08-05-2023 20:30-0400 Body height 160.[address] Cornelius Bowden Work Phone: [facility] 08-05-2023 20:30-0400 Body mass index (BMI) [Ratio] 19.5 kg/m2 Dr. Cornelius Bowden Work Phone: [facility] 08-05-2023 20:30-0400 Body weight 50.[address] Cornelius Bowden Work Phone: [facility] Encounters Encounter Date Encounter Type Care Provider Facility Start: 12-21-2024 ambulatory [facility] Facility: [facility] Start: 12-12-2024 End: 12-12-[address] Ingrid Michaels MD -[facility] Work Phone: Start: 12-12-2024 End: 12-12-2024 ambulatory No Primary Care Physician -[facility] Start: 12-05-2024 End: 12-05-2024 Patient encounter procedure Jaime Allen DO -[facility] Work Phone: Start: 12-05-2024 End: 12-05-2024 ambulatory No Primary Care Physician -[facility] Start: 11-07-2024 Non-patient / Non-visit Ana ASIF -[facility] Work Phone: Start: 11-07-2024 ambulatory [facility] Facility: [facility] Start: 11-06-2024 Non-patient / Non-visit Dr. Jackson LUDIWG -[facility] Start: 11-06-2024 End: 11-06-2024 ambulatory No Primary Care Physician -[facility] Start: 11-06-2024 End: 11-06-[address] Tim Samayoa MD -[facility] Work Phone: Start: 11-06-2024 End: 11-06-2024 ambulatory [facility] Facility:[facility] Start: 10-11-2024 End: 10-11-[address] Britany Sexton MD Work Phone: -Laboratory Start: 10-11-2024 End: 10-11-[address] Tim Samayoa MD -Laboratory Work Phone: Start: 10-11-2024 End: 10-11-[address] Tim Samayoa MD -[facility] Work Phone: Start: 10-11-2024 End: 10-11-[address] Britany Sexton MD Work Phone: -[facility] Start: 10-11-2024 End: 10-11-2024 ambulatory [facility] Facility:[facility] Start: 09-05-2024 End: 09-05-2024 Patient encounter procedure Jaime Allen DO -[facility] Work Phone: Start: 09-05-2024 End: 09-05-2024 ambulatory No Primary Care Physician [facility] Work Phone: Start: 08-15-2024 End: 08-15-[address] Ingrid Michaels MD -Laboratory [place] Work Phone: Start: 08-15-2024 End: 08-15-2024 ambulatory No Primary Care Physician [facility] Work Phone: Start: 08-15-2024 End: 08-15-[address] Ingrid Michaels MD -[facility] Work Phone: Start: 08-15-2024 End: 08-15-2024 ambulatory No Primary Care Physician [facility] Work Phone: Start: 08-01-2024 End: 08-01-2024 Office outpatient new 45 minutes Ingrid Omalley MD Work Phone: [facility] Comment on above: History of Fabiano fu ndoplication Start: 08-01-2024 End: 08-01-2024 ambulatory INGRID Castro ALEBRT [facility] Start: 07-05-2024 End: 07-05-2024 ambulatory No Primary Care Physician [facility] Work Phone: Start: 07-05-2024 End: 07-05-[address] Britany Sexton MD -Laboratory, [facility] Work Phone: Start: 07-05-2024 End: 07-05-2024 ambulatory Britany Sexton Facility:[facility] Start: 06-06-2024 End: 06-06-2024 ambulatory No Primary Care Physician [facility] Work Phone: Start: 06-06-2024 End: 06-06-[address] Ingrid Michaels MD -Laboratory, [place] Work Phone: Start: 06-06-2024 End: 06-06-[address] Ingrid Michaels MD -[facility] Work Phone: Start: 06-06-2024 End: 06-06-2024 ambulatory No Primary Care Physician Facility:[facility] Start: 06-05-2024 End: 06-05-2024 Office outpatient visit 15 minutes Rubio Rutherford Work Phone: [facility] Comment on above: Esophageal dysphagia (Primary Dx); Functional diarrhea Start: 06-05-2024 End: 06-06-2024 ambulatory [facility] Ambulatory Start: 05-15-2024 End: 05-15-2024 Subsequent hospital visit by physician Stefan Cazares MD Work Phone: [facility] Comment on above: Esophageal dysphagia Start: 05-15-2024 End: 05-15-2024 ambulatory [facility] Start: 04-24-2024 End: 04-24-2024 ambulatory [facility] Ambulatory Start: 04-24-2024 End: 04-24-2024 Office outpatient visit 15 minutes Rubio R Thomae DO Work Phone: [facility] Comment on above: Esophageal dysphagia (Primary Dx); History of Fabiano fundoplication; Functional diarrhea Start: 04-17-2024 End: 04-17-2024 Subsequent hospital visit by physician [facility] Comment on above: Arrived Start: 04-17-2024 End: 04-17-[address] [facility] Start: 04-05-2024 End: 04-05-[address] [facility] Start: 03-14-2024 End: 03-14-2024 Office outpatient new 45 minutes Stefan Cazares MD Work Phone: [facility] Comment on above: History of Fabiano fu ndoplication (Primary Dx); Esophageal dysphagia Start: 03-14-2024 End: 03-14-2024 ambulatory [facility] Start: 02-02-2024 End: 02-02-2024 ambulatory ALHAJI JAVED Facility:[facility] Start: 02-02-2024 End: 02-02-2024 Patient encounter procedure Alhaji Javed MD Work Phone: Otolaryngology Comment on above: Laryngeal spasm (Odette mago Dx); Vagal nerve sensitivity; Disorder of vocal cords; Chronic cough Start: 01-17-2024 End: 01-17-2024 ambulatory [facility] Ambulatory Start: 01-17-2024 End: 01-17-2024 Office outpatient visit 25 minutes Rubio R Thomae DO Work Phone: [facility] Comment on above: Functional diarrhea (Primary Dx); History of Fabiano fundoplication; Esophageal dysphagia Start: 12-28-2023 End: 12-28-2023 Emergency department patient visit Ino Aponte Facility:[facility] Start: 11-10-2023 ambulatory Alhaji Javed MD Work Phone: Otolaryngology Comment on above: Mom's voice Start: 11-03-2023 End: 11-03-2023 ambulatory ALHAJI JAVED Facility:[facility] Start: 11-03-2023 End: 11-03-2023 Patient encounter procedure Alhaji Javed MD Work Phone: Otolaryngology Comment on above: Laryngeal spasm (Odette mago Dx); Vagal nerve sensitivity; Disorder of vocal cords Start: 10-18-2023 End: 10-18-2023 Subsequent hospital visit by physician Rubio Mirza DO Work Phone: [facility] [place] Comment on above: Microscopic colitis, unspecified microscopic colitis type Start: 10-18-2023 End: 10-18-[address] [facility] Start: 10-06-2023 End: 10-06-2023 Office outpatient visit 15 minutes Rubio Mirza DO Work Phone: [facility] Comment on above: Microscopic colitis, unspecified microscopic colitis type (Primary Dx) Start: 10-06-2023 End: 10-06-2023 ambulatory [facility] Ambulatory Start: 09-21-2023 Telephone encounter Alhaji chang MD Work Phone: Otolaryngology Comment on above: Appointment Start: 09-07-2023 End: 09-07-2023 ambulatory ALHAJI JAVED Facility:[facility] Start: 09-02-2023 End: 09-02-2023 ambulatory [facility] Ambulatory Start: 08-09-2023 Non-patient / Non-visit Dr. Clyde Bowden Work Phone: [facility] Start: 08-08-2023 Non-patient / Non-visit Dr. Clyde Bowden Work Phone: [facility] Start: 08-07-2023 Non-patient / Non-visit Dr. Clyde Bowden Work Phone: [facility] Start: 08-06-2023 Non-patient / Non-visit Dr. Clyde Bowden Work Phone: [facility] Start: 08-06-2023 End: 08-09-2023 Evaluation and management of inpatient Dr. Cornelius Bowden Work Phone: [facility] Work Phone: Start: 07-28-2023 End: 07-28-2023 ambulatory ALHAJI JAVED Facility:[facility] Start: 07-28-2023 End: 07-28-2023 Patient encounter procedure Alhaji Javed MD Work Phone: Otolaryngology Comment on above: Chronic cough (Prima ry Dx); Myasthenia gravis (HCC); Laryngeal spasm; Vagal nerve sensitivity; Disorder of vocal cords Start: 07-23-2023 Telephone encounter Alhaji chang MD Work Phone: Otolaryngology Comment on above: Received Outside [facility] Records Procedures Date Procedure Procedure Detail Performing Clinician Start: 08-15-2024 End: 08-15-2024 Procedure No Primary Care Physician Comment on above: Test Ordered: [id number] Striation Abs, Seru mTest(s) 204138-Hhnfjhabl Abs, Serumwas developed and its performance characteristicsdetermined by [facility]. It has not been cleared or approvedby the Food and Drug Administration.Striation Abs, Serum Negative BN Reference Range: Neg:<1:100Performed at: BN - [facility] [id number] Director: Marti Singh MD, Phone: [phone] at: - [facility] [address] [id number] Director: Jesse Anne PhD, Phone: [phone] Test Ordered: [id number] MuSK Abs, SerumMuSK Abs, Serum <1.0 U/mL ES Reference Range: .Reference Range: Negative: <1.0 Positive: 1.0 or higher A positive result, in the context of congruent clinical findings, confirms the diagnosis of autoimmune MuSK myasthenia gravis.COMMENTS: - Myasthenia gravis (MG) is caused by auto-antibodies against proteins of the neuromuscular junction. Most cases (about 90%) of generalized MG are anti- acetylcholine receptor (AChR) antibody-positive.(1) - Of generalized MG patients who lack anti-AChR antibodies (AChR-seronegative), about 40% are positive for Muscle- Specific Kinase (MuSK) antibody.(1,2) - Though a positive MuSK result is specific for the diagnosis of MuSK MG, a negative MuSK result does not rule out a MG diagnosis. - MuSK antibody levels have been shown to correlate with disease severity.(3) Serial measurements may be useful to follow treatment.References:1. Nicki-Addis S et al. J Autoimmunity 2014;52:90-100.2. Joe BEE et al. PNAS 2013;110(51);21626-96660.3. Meghanioni E et al. Neurology 2006;67:505-507.This test was developed and its performance characteristicsdetermined by [facility]. It has not been cleared or approvedby the Food and Drug Administration.Performed at: [facility] [address] [id number] Director: Fidencio Newman MD, Phone: [phone] at: [facility] [id number] [place], [place] [id number] Director: Jesse Anne PhD, Phone: [phone] Start: 06-06-2024 Acetylcholine receptor blocking antibody measurement No Primary Care Physician Comment on above: Negative: 0 - 25 Borderline: 26 - 30 Pos itive: >30 Start: 06-06-2024 Acetylcholine receptor measurement No Pr imary Care Physician Comment on above: Negative: 0.00 - 0.24 Borderline: 0.25 - 0.40 Positive: >0.40 Start: 06-06-2024 Folic acid measurement, RBC No Primary C are Physician Start: 05-15-2024 Dilation esoph unguided sound/bougie 1/mult pass Stefan Cazares MD Work Phone: Start: 05-15-2024 PULSE OXIMETRY, SPOT Stefan Cazares MD Work Phone: Start: 01-17-2024 Follow-up visit Follow-up RUBIO MIRZA Start: 10-18-2023 Colonoscopy w/biopsy single/multiple Rubio Mirza DO Work Phone: Start: 08-07-2023 Plain X-ray abdomen Dr. Cornelius Bowden Work Phone: Start: 08-06-[address] Cornelius Bowden Work Phone: Start: 08-06-2023 Plain X-ray abdomen Dr. Cornelius Bowden Work Phone: Start: 08-06-2023 End: 08-06-2023 Plain X-ray abdomen Dr. Cornelius Bowden Work Phone: Start: 08-05-2023 Computed tomography of abdomen and pelvis with intravenous contrast Dr. Cornelius Bowden Work Phone: Plan of Treatment Date Care Activity Detail Author Start: 04-02-2033 DTaP/Tdap/Td Vaccines (2 - Td or Tdap) DTaP/Tdap/Td Vaccines (2 - Td or Tdap) [facility] Start: 04-02-2033 Urine microalbumin profile DTaP,Tdap,Td Vaccine (2 - T d or Tdap) [facility] Start: 05-05-2026 Screening for malignant neoplasm of colon FIT-DNA (Cologuard) [facility] Start: 11-27-2024 Influenza vaccination Influenza Vaccine (Season Ended) [facility] Start: 10-11-2024 Evaluation of diagnostic study results [facility] Start: 09-06-2024 Patient referral [facility] Work Phone: Start: 08-15-2024 Procedure [facility] Start: 08-15-2024 Patient referral [facility] Work Phone: Start: 06-06-2024 Acetylcholine receptor Ab [Moles/volume] in Serum [facility] Start: 06-06-2024 Acetylcholine receptor blocking Ab [Presence] in Serum [facility] Start: 06-06-2024 Acetylcholine receptor modulating antibody measurement [facility] Start: 06-06-2024 Folic acid measurement, RBC [facility] Start: 06-06-2024 Thiamine measurement [facility] Start: 06-05-2024 End: 06-05-2024 Patient encounter procedure 06/05/2024 3:30 PM EDT Office Visit [facility] [address] [place] [id number] Rubio Mirza DO [address] [facility], [address] [place] [address] [facility] Start: 05-22-2024 End: 05-22-2024 Patient encounter procedure 05/22/2024 2:00 PM EST Appointment [facility] [address] [place] [address] Stefan Cazares MD [address] [address] [facility] Start: 05-15-2024 End: 05-15-2024 Patient encounter procedure 05/15/2024 11:30 AM EST Appointment [facility] [address] [place] [address] Stefan Cazares MD [address] [address] [facility] Start: 04-24-2024 End: 04-24-2024 Patient encounter procedure 04/24/2024 2:30 PM EST Office Visit [facility] [address] [place] [phone] Rubio Mirza DO [address] [facility], [address] [place] [address] [facility] Start: 04-21-2024 End: 04-21-2024 Patient encounter procedure 04/21/2024 11:00 AM EST Office Visit [facility] [address] [facility] [address] [place] [id number] Rubio Mirza, [address] [facility], [address] [place] [address] [facility] Start: 03-15-2024 End: 03-15-2024 Patient encounter procedure 03/15/2024 10:20 AM EST Office Visit Otolaryngology [address] [place] [address] Alhaji Javed MD [address] [place] [address] 6 week follow up per [facility] Ot[facility]aryng[facility] Comment on above: 6 week follow up per [facility] Start: 03-14-2024 End: 03-14-2025 ALFARO ALFARO GI Routine Esophageal dysphagia Expected: 03/14/2024, Expires: 03/14/2025 [facility] Work Phone: Comment on above: Expected: 03/14/2024, Expires: 5 Start: 03-14-2024 End: 09-12-2025 Esophagogastroduodenoscopy (EGD) w EndoFlip Esophagogastroduodenoscopy (EGD) w EndoFlip Endoscopy Routine Esophageal dysphagia Expected: 03/14/2024, Expires: 09/12/2025 [facility] Work Phone: Comment on above: Expected: 03/14/2024, Expires: Start: 03-14-2024 End: 03-14-2025 RF Esophagus Views W barium contrast PO FL GI esophagram Imaging Routine Esophageal dysphagia Expected: 03/14/2024, Expires: 03/14/2025 [facility] Work Phone: Comment on above: Expected: 03/14/2024, Expires: Start: 02-02-2024 End: 02-02-2024 Patient encounter procedure 02/02/2024 1:30 PM EST Office Visit Otolaryngology [address] [place] [address] Alhaji Javed MD [address] [place], [place] [id number] botox Otolaryngology Comment on above: botox Start: 01-24-2024 End: 01-24-2024 Patient encounter procedure 01/24/2024 9:00 AM EDT Office Visit Gastroenterology [facility] [address] [place] [address] [place] [address] [place] [address] [facility]IS [facility] Comment on above: COLITIS Start: 11-28-2023 COVID-19 Vaccine ( season) COVID-19 Vaccine ( season) [facility] Start: 11-28-2023 Covid-19 Vaccine ( season) Covid-19 Vaccine ( season) [facility] Start: 11-28-2023 Influenza vaccination Influenza Vaccine (#1) [facility] Start: 11-03-2023 End: 11-03-2023 Patient encounter procedure 11/03/2023 2:30 PM EDT Office Visit Otolaryngology [address] [place] [address] Alhaji Javed MD [address] [place], [place] [id number] [facility] Comment on above: [facility] Start: 10-18-2023 End: 10-18-2023 Patient encounter procedure 10/18/2023 2:50 PM EDT Appointment [address] [address] Rubio Mirza, DO [address] [facility], [address] [place] [address] [facility] [place] Start: 10-06-2023 End: 10-05-2024 Colonoscopy study Colonoscopy Diagnostic Endoscopy Routine Microscopic colitis, unspecified microscopic colitis type Expected: 10/06/2023, Expires: 10/05/2024 [facility] Service [facility] Work Phone: Comment on above: Expected: 10/06/2023, Expires: Start: 09-29-2023 End: 09-29-2023 Patient encounter procedure 09/29/2023 2:10 PM EDT Office Visit Otolaryngology [address] [place] [address] Alhaji Javed MD [address] [place] [address] [facility] Comment on above: [facility] Start: 08-09-2023 Patient discharge [facility] Start: 08-09-2023 [facility] Start: 08-06-2023 [facility] Start: 08-06-2023 Plain X-ray abdomen Abdomen Single View (Portable) [facility] Start: 08-06-2023 Triacylglycerol lipase measurement [facility] Start: 08-06-2023 [facility] Start: 08-06-2023 Application of intermittent pneumatic compression device [facility] Start: 08-06-2023 Following clinical pathway protocol [facility] Start: 08-06-2023 Transfusion of blood product [facility] Start: 08-06-2023 Ambulation without limitation [facility] Start: 08-06-2023 Following clinical pathway protocol [facility] Start: 08-06-2023 Incentive spirometry [facility] Start: 08-06-2023 Measuring intake and output [facility] Start: 08-06-2023 Taking patient vital signs [facility] Start: 08-06-2023 [facility] Start: 08-06-2023 Hospital admission, emergency, from emergency room, medical nature [facility] Start: 08-06-2023 Admission procedure [facility] Start: 08-06-2023 Patient referral to dietitian [facility] Start: 08-05-2023 End: 08-05-2023 Blood culture [facility] Start: 08-05-2023 [facility] Start: 08-05-2023 Bacteria identified in Blood by Culture Blood Culture [facility] Start: 05-14-2023 Covid-19 Vaccine () Covid-19 Vaccine () [facility] Start: 05-14-2023 Covid-19 Vaccine () Covid-19 Vaccine () [facility] Start: 03-29-2023 Advance Directive Discussion Advance Directive Discussion [facility] Start: 03-29-2023 Behavioral Health Screening Behavioral Health Screening [facility] Start: 11-27-2022 COVID-19 Vaccine ( season) COVID-19 Vaccine () [facility] Start: 11-27-2022 COVID-19 Vaccine () COVID-19 Vaccine () [facility] Start: 02-10-2010 Diabetes Screening Diabetes Screening [facility] Start: 05-13-2007 Hepatitis B Vaccines (2 of 3 - 19+ 3-dose series) Hepatitis B Vaccines (2 of 3 - 19+ 3-dose series) [facility] Start: 2005 Pneumococcal Vaccine: 65+ (1 of 1 - PCV) Pneumococcal Vaccine: 65+ (1 of 1 - PCV) [facility] Start: 2005 Pneumococcal Vaccine: 65+ Years (1 of 1 - PCV) Pneumococcal Vaccine: 65+ Years (1 of 1 - PCV) [facility] Start: 2005 Screening for osteoporosis Bone Density Screening [facility] Start: 2000 RSV patients and/or patients aged 60+ years (1 - 1-dose 60+ series) RSV patients and/or patients aged 60+ years (1 - 1-dose 60+ series) [facility] Start: 1990 Zoster Vaccines (1 of 2) Zoster Vaccines (1 of 2) [facility] Start: 1962 DTaP/Tdap/Td Vaccines (1 - Tdap) DTaP/Tdap/Td Vaccines (1 - Tdap) [facility] Start: 1958 Anxiety Screening Anxiety Screening [facility] Start: 1958 Depression Screening Depression Screening [facility] Start: 1946 Pneumococcal Vaccine: 65+ Years (1 of 2 - PCV) Pneumococcal Vaccine: 65+ Years (1 of 2 - PCV) [facility] Start: 1941 Hepatitis B Surface Antibody [facility]: [facility] Cyanocobalamin vitamin b-12 Vitamin B-12 [facility] Start: 1940 Lipid panel Lipid Panel [facility] Start: 1940 Medicare Annual Wellness Visit Medicare Annual Wellness Visit (AWV) [facility] Start: 1940 Screening for malignant neoplasm of colon [facility] Start: 1940 Screening for osteoporosis Bone Density Scan [facility] Start: 1940 TB Test TB Test [facility] Start: 1940 Thyroid stimulating hormone measurement TSH Level [facility] Start: 1940 Vitamin D25-OH Vitamin D25-OH [facility] Alanine aminotransfe rase [Enzymatic activity/volume] in Serum or Plasma [facility] Albumin [Mass/volume ] in Serum or Plasma [facility] Alkaline phosphatase [Enzymatic activity/volume] in Serum or Plasma [facility] Anion gap measurement [facility] Aspartate aminotrans ferase [Enzymatic activity/volume] in Serum or Plasma [facility] Bilirubin, total measurement [facility] BUN/Creatinine ratio [facility] Calcium [Mass/volume ] in Serum or Plasma [facility] Carbon dioxide, tota l [Moles/volume] in Serum or Plasma [facility] Chloride [Moles/volu me] in Serum or Plasma [facility] Creatinine [Moles/vo lume] in Serum or Plasma [facility] CT Neck W contrast IV [facility] Erythrocyte mean cor puscular volume determination [facility] Glucose [Mass/volume ] in Serum or Plasma [facility] Glucose [Mass/volume ] in Serum or Plasma POCT Glucose Point of Care Testing - Docked Device Routine As needed (Lab) until discontinued starting 10/18/2023 [facility] Service [facility] Work Phone: Comment on above: As needed (Lab) until discontinued start ing 10/18/2023 Hematocrit [Volume F raction] of Blood [facility] Hemoglobin [Mass/vol ume] in Blood [facility] Leukocytes [#/volume ] in Blood [facility] Magnesium [Mass/volu me] in Serum or Plasma [facility] Mean corpuscular hem oglobin concentration determination [facility] Mean corpuscular hem oglobin determination [facility] Measurement of renal function [facility] End: 05-15-2024 Moderate Sedation Moderate Sedation Procedures Routine Once for 1 Occurrences starting 05/15/2024 until 05/15/2024 [facility] Service [facility] Work Phone: Comment on above: Once for 1 Occurrences starting 05/15/19 until 05/15/2024 Neutrophil count [facility] Neutrophil percent differential count [facility] Patient referral [facility] Work Phone: Platelets [#/volume] in Blood [facility] Potassium [Moles/vol ume] in Serum or Plasma [facility] End: 05-15-2024 Pulse oximetry, continuous Pulse oximetry, continuous Respiratory Care Routine Continuous until discontinued starting 05/15/2024 [facility] Work Phone: Comment on above: Continuous until discontinued starting 0 05/15/2024 Red blood cell count [facility] Red cell distributio n width determination [facility] Serum inorganic phos phate measurement [facility] Sodium [Moles/volume ] in Serum or Plasma [facility] Surgical pathology study [facility] Service Area Work Phone: Comment on above: Release Upon Ordering for 1 Occurrences starting 10/18/2023 Total protein measurement [facility] Urea nitrogen [Mass/ volume] in Serum or Plasma [facility] US Heart [facility] Immunizations Immunization Date Immunization Notes Care Provider Karine conway 04-02-2023 Pneumococcal conjuga te vaccine, 20-valent (PREVNAR 20) Ingrid Omalley MD Work Phone: [facility] Work Phone: 04-02-2023 tetanus toxoid, redu cr diphtheria toxoid, and acellular pertussis vaccine, adsorbed Ingrid Omalley MD Work Phone: [facility] Work Phone: 03-15-2023 zoster vaccine recombinant Ingrid Omalley MD Work Phone: [facility] Work Phone: 12-11-2022 influenza, injectabl e, quadrivalent, preservative free Ingrid Omalley MD Work Phone: [facility] Work Phone: 12-11-2022 RSV, 60 Years And Ol jena (AREXVY) Ingrid Omalley MD Work Phone: [facility] Work Phone: 12-11-2022 zoster vaccine recombinant Ingrid Omalley MD Work Phone: [facility] Work Phone: 12-11-2022 influenza virus vaccine, unspecified formulation Alhaji Javed MD Work Phone: [facility] 01-17-2022 Influenza, Seasonal, Quadrivalent, Adjuvanted Ingrid Omalley MD Work Phone: [facility] Work Phone: 12-31-2021 Moderna COVID-19 vaccine, bivalent, blue cap/puga label *Check age/dose* Ingrid Omalley MD Work Phone: [facility] Work Phone: 01-07-2021 Influenza, Seasonal, Quadrivalent, Adjuvanted Ingrid Omalley MD Work Phone: [facility] Work Phone: 01-07-2021 influenza virus vaccine, unspecified formulation Tolu 04 [facility] Work Phone: 11-30-2019 influenza, injectabl e, quadrivalent, preservative free Ingrid Omalley MD Work Phone: [facility] Work Phone: 01-04-2019 Seasonal trivalent influenza vaccine, adjuvanted, preservative free Ingrid Omalley MD Work Phone: [facility] Work Phone: 01-28-2018 Seasonal trivalent influenza vaccine, adjuvanted, preservative free Ingrid Omalley MD Work Phone: [facility] Work Phone: 12-22-2012 influenza virus vaccine, unspecified formulation Ingrid Omalley MD Work Phone: [facility] Work Phone: 04-07-2012 influenza virus vaccine, unspecified formulation Ingrid Omalley MD Work Phone: [facility] Work Phone: 04-15-2007 hepatitis B vaccine, unspecified formulation Ingrid Omalley MD Work Phone: [facility] Work Phone: Payers Date Payer Category Payer Self-pay 2022 Private Health Insurance [id number] 2022 Unknown [id number] 2022 Medicare [id number] 2005 Medicare [id number] 2005 Medicare [id number] 1940 Unknown [id number] 2.16.8 [id number] 1940 Unknown [id number] 2.16.8 40.1.568846.3.579.2.1243 1940 Unknown [id number] 2.16.8 40.1.354432.3.579.2.1242 1940 Unknown [id number] 2.16. [id number] 1940 Unknown [id number] 2.16. 840.1.392337.3.579.2.1243 1940 Unknown [id number] 2.16. 840.1.241192.3.579.2.1243 1940 Unknown [id number] 2.16. 840.1.472921.3.579.2.1243 1940 Unknown [id number] 2.16.8 40.1.089945.3.579.2.1243 1940 Unknown [id number] 2.16.8 40.1.890504.3.579.2.124 1940 Unknown [id number] 2.16.8 40.1.675292.3.579.2.124 1940 Unknown [id number] 2.16.8 40.1.333151.3.579.2.1242 Unknown [id number] 2.16.8 40.1.928602.3.579.2.462 Unknown [id number] 2.16.8 40.1.661180.3.579.2.462 Unknown [id number] 2.16.8 40.1.353282.3.579.2.462 Unknown [id number] 2.16.8 40.1.453691.3.579.2.462 Unknown [id number] 2.16.8 40.1.242671.3.579.2.462 Unknown [id number] 2.16.8 40.1.977786.3.579.2.462 Unknown [id number] 2.16.8 40.1.375735.3.579.2.462 Unknown [id number] 2.16.8 40.1.258697.3.579.2.462 Unknown [id number] 2.16.8 40.1.053146.3.579.2.462 Unknown [id number] 2.16.8 40.1.517884.3.579.2.462 Unknown [id number] 2.16.8 40.1.691632.3.579.2.462 Unknown [id number] 2.16.8 40.1.470386.3.579.2.462 Unknown [id number] 2.16.8 40.1.121963.3.579.2.462 Unknown [id number] 2.16.8 40.1.748906.3.579.2.462 Unknown [id number] 2.16.8 40.1.649716.3.579.2.462 Social History Date Type Detail Facility Start: 07-28-2023 End: 12-28-2023 Tobacco smoking status NHIS Never smoked tobacco [facility] Start: 07-28-2023 End: 09-02-2023 Tobacco use and exposure Smokeless tobacco non-user [facility] Start: 07-28-2023 End: 05-15-2024 History of Social function [facility] Start: 07-28-2023 End: 05-15-2024 Tobacco use panel [facility] Start: 1940 Sex Assigned At Not on file [facility] Start: 08-05-2023 End: 08-06-2023 Tobacco smoking status NHIS Unknown if ever smoked [facility] Start: 1940 Sex Assigned At Female [facility] Start: 01-17-2024 End: 05-15-2024 Alcoholic beverage intake Lifetime non-drinker (finding) [facility] Work Phone: Start: 09-26-2023 End: 08-01-2024 Exposure to SARS-CoV-2 (event) Not sure [facility] Start: 06-15-2024 End: 07-07-2024 Sex Female (finding) [facility] Start: 10-06-2024 Tobacco smoking status NHIS Ex-smoker (finding) [facility] NEGATED: Highlighted rowStart: NINF History of tobacco use Passive smoker [facility] NEGATED: Highlighted row [facility] Goals Date Patient Goal Desired Activity /State Functional Status Date Assessment Result Facility 08-09-2023 Functional status Independent [facility] [place] Phone: 08-09-2023 Functional status Patient Activi ty Bathroom Privilege [facility] Work Phone: Mental Status Date Assessment Result Facility 08-09-2023 Cognitive function Voice/Name [facility] Work Phone: 08-05-2023 Cognitive function Level Of Cons ciousness Awake;Alert;Appropriate;Follow s Commands [facility] Work Phone: Clinical Notes 07-23-2023 to 08-15-2024 Note Date & Type Note Facility 08-15-2024 Evaluation note Diagnosis Onset Date Resolution Dysphagia acute August 15, 2024 1:16pm Myasthenia gravis acute July 1:16pm Chronic cough chronic August 15, 2 025 1:16pm Actinic keratosis resolved July 1:16pm Dysphagia acute September 05 7:45am Fatigue acute September 05 7:45am Myasthenia gravis acute September 052024 7:45am Chronic cough chronic September 05, 2024 7:45am [facility] Work Phone: 1(121) [phone] Evaluation note* Diagnosis Onset Date Resolution Status Admit Date Dysphagia acute August 15, 2024 1:16pm Myasthenia gravis acute July 1:16pm Chronic cough chronic August 15, 2 025 1:16pm Actinic keratosis resolved July 1:16pm Dysphagia acute September 05 7:45am Fatigue acute September 05 7:45am Myasthenia gravis acute September 052024 7:45am Chronic cough chronic September 05, 2024 7:45am MVP (mitral valve prolapse) acute October 11, 2024 10:43am Palpitations acute October 11 025 10:43am [facility] Work Phone: 1(178) 522-423305-20-2025 Evaluation note* Diagnosis Onset Date Resolution Status Admit Date Dysphagia acute August 15, 2024 1:16pm Myasthenia gravis acute July 1:16pm Chronic cough chronic August 15 025 1:16pm Actinic keratosis resolved July 1:16pm Dysphagia acute September 05 7:45am Fatigue acute September 05 7:45am Myasthenia gravis acute September 052024 7:45am Chronic cough chronic September 05, 2024 7:45am MVP (mitral valve prolapse) acute October 11, 2024 10:43am Palpitations acute October 11 025 10:43am Diarrhea acute December 05, 2024 10:21am Dysphagia acute December 05, 2024 10:21am Fatigue acute December 05, 2024 10:21am Myasthenia gravis acute 2024 10:21am Chronic cough chronic December 052024 10:21am Dysphagia acute November 10:45am [facility] Work Phone: 1(390) 110-612605-06-2025 History of Present illness Narrative* Ingrid Omalley MD - 08/01/2024 1:30 PM EDT History Of Present Illness sEtefania Simms is a 83 y.o. female presenting with a long history of dysphagia. She underwent a Fabiano fundoplication by Saad at [facility] in 2006. This was done for extra esophageal manifestations of reflux which is a chronic cough. She had a chronic cough prior to this. Unsure of what her pH studies or manometry were prior to that. Since then she has had this difficulty that she describes as swallowing. She still has a chronic cough. She has had numerous investigations over the years for this chronic cough. There is notes in her symptoms from injection therapy from [facility]. She also seems away from the [facility] recently for this. When she is describing to me her difficulty with swallowing she is always playing to her neck. She feels that she isaspirating at times. Again she has recently moved to [facility] from [place]. She states that she has had about 40 different dilatations in [place]. She had a nice thorough workup to begin here with a barium swallow. There is no evidence of any recurrent hiatal hernia or even reflux. There is some dysmotility in the mid body esophagus. I do not see any holding up of the barium at the GE junction. She has had numerous vocal cord injections for this cough. At one point in time it significantly affected her voice. Her weight has been stable. She has not had vomiting. Although at times she feels like food gets stuck and she is unable to get rid of it which affects her quite a bit. She also had a very complicated perforated diverticulitis at [facility] also in 2021. They did give her diverting colostomy. This done to the midline incision. I do not have the operative note from the first diverticulitis operation I was able to find some note talk about the second 1 where they can reconnect her. She is also had a previous open cholecystectomy. She also had in [facility] for partial small bowel obstruction last year. CT scan was done there but I do not have access to it. She had a recent upper endoscopy with [facility] Last Recorded Vitals Blood pressure 146/78, pulse 86, temperature 36.8 C (98.2 F), height 1.6 m (5' 3), weight 53.6 kg (118 lb 3.2 oz). Physical Examination Awake and alert. Normal respiration. She has a long midline incision. She has an ostomy incision onher left. She has an open cholecystectomy incision. Relevant Results Able to review the recent upper endoscopy and Endoflip. She had evidence of a contractility patternthat was impaired. In the retroflexed view it appears like the wrap is intact but seems to be a little bit longer than expected. I also reviewed the recent barium swallow. Assessment/Plan this is a complex patient who is now 83 years old. Since her previous antireflux operation she has had 2 exploratory laparotomies. A lot of her complaints almost seem to be upper swallowing dysfunction. Has not significant delay at least on the barium swallow. I am unsure of the risk- benefit nature of taking down this Fabiano fundoplication at this point in time. I discussed arrival and discussed with my other colleagues our options. We do have an ENT swallowing specialist and itbe worthwhile for her to be evaluated. They agree with this plan. Based on further discussions if possible and she does not have bad adhesions I can take down the Fabiano fundoplication on her. There are risks and the fact that she has been able to cope with this for many years is important to realize before we take her to surgery. Ingrid Omalley MD FACS bacon skinner Janneth Vera Chair in Surgical [facility] [employer] [address] [place] [address], [id number] email: [email or web address] documented in this [facility] Work Phone: 1(383) 638-224603-11-2025 Evaluation note* Diagnosis Onset Date Resolution Status Admit Date Fatigue acute June 06 8:53am Myasthenia gravis acute May 272024 8:53am [facility] Work Phone: 1(385) 863-789503-11-2025 Evaluation note* Diagnosis Onset Date Resolution Status Admit Date Fatigue acute June 06 8:53am Myasthenia gravis acute May 272024 8:53am Actinic keratosis acute July 1:16pm [facility] Work Phone: 1([phone] 299-711203-11-2025 Evaluation note* Diagnosis Onset Date Resolution Status Admit Date Fatigue acute June 06 8:53am Myasthenia gravis acute May 272024 8:53am Actinic keratosis acute July h2024 1:16pm Dysphagia acute August 15, 2024 1:16pm Myasthenia gravis acute July h2024 1:16pm Chronic cough chronic August 15, 025 1:16pm [facility] Work Phone: 1([phone]) 149-448603-11-2025 Evaluation note* Diagnosis Onset Date Resolution Status Admit Date Fatigue acute June 06 8:53am Myasthenia gravis acute May 272024 8:53am Actinic keratosis acute July 1:16pm Dysphagia acute August 15, 2024 1:16pm Myasthenia gravis acute July 1:16pm Chronic cough chronic August 15, 1:16pm Dysphagia acute September 05 7:45am Fatigue acute September 05 7:45am Myasthenia gravis acute September 052024 7:45am Chronic cough chronic September 05, 2024 7:45am [facility] Work Phone: [phone] History of Present illness Narrative* Rubio Mirza DO - 06/05/2024 3:30 PM EDT Subjective Patient ID: Estefania Simms is a 83 y.o. female who presents for No chief complaint on file.. HPI Virtual or Telephone Consent While technically available, the patient was unable or unwilling to consent to connect via audio/video telehealth technology; therefore, I performed this visit using a real-time audio only connectionbetween Estefania Freeman Dinesh & Rubio Mirza DO. Verbal consent was requested and obtained from Estefania Montiel on this date, 06/05/2024 for a telehealth visit and the patient's location was confirmed at the time of the visit. Patient was evaluated through telephone conversation only. Recent upper endoscopy and Endoflip results were reviewed with patient. Remote hiatal hernia surgery while living in [place]. Now with dysphagia. Endoflip showed incomplete relaxation of lower esophagus with ineffective esophageal motility and clearing. No esophageal stricture was noted despite dilatation no change in lower esophageal sphincter tone was noted. Patient remains symptomatic with dysphagia to solids. States she has to chew very finely and avoid certain food consistencies such as bread, rice, overcooked meats, chicken and nuts or they do not godown. She often feels food buildup in her esophagus to the point where she has to go throw up. She has managed to gain weight since moving home from [place] and is now up to 110 pounds. From a lower GI point of view she is having less diarrhea with a combination of Lomotil and cholestyramine. Workup included colonoscopy. Calprotectin, stool for pancreatic elastase and stool culturesall of which were unremarkable. Patient is having on average 2-3 bowel movements daily and they arenow more solid Review of Systems Constitutional: Negative. HENT: Negative. Eyes: Negative. Respiratory: Negative. Cardiovascular: Negative. Endocrine: Negative. Genitourinary: Negative. Neurological: Negative. Hematological: Negative. Objective Physical Exam Assessment/Plan Diagnoses and all orders for this visit: Esophageal dysphagia Functional diarrhea - diphenoxylate-atropine (Lomotil) 2.5-0.025 mg tablet; Take 1 tablet by mouth 4 times a day as needed for diarrhea. Patient will continue current medical therapy OARRS report was reviewed need for continued treatments Lomotil was discussed with patient. She is appropriate for therapy reviewed risk of dependency, addiction and diversion and updated OARRS report was noted in chart. Rubio Mirza DO 06/06/24 5:21 PM documented in this [facility] Work Phone: 1(660) 368-727702-17-2025 History and physical note* Stefan Cazares MD - 05/15/2024 8:10 AM EST Procedure H&P Patient Profile-Procedures Name Estefania Montiel Date of 1940 Address [address] [place] [id number] [place] [address] Primary Secondary Phone Number Rubio Reddy Procedure(s): Procedures: EGD Primary contact name and number Extended Emergency Contact Information Primary Emergency Contact: DELROY SANTIZO Mobile Relation: Son Preferred language: Cymraes Pals Specialist needed? No General Health Weight Vitals: 05/15/24 0726 Weight: 52.6 kg (115 lb 15.4 oz) BMI Body mass index is 20.54 kg/m . Allergies Allergies Allergen Reactions Oxycodone-Aspirin Hallucinations Penicillins Other skin peeling Versed [Midazolam] Confusion Past Medical History Past Medical History: Diagnosis Date Adverse effect of anesthesia Anxiety COPD (chronic obstructive pulmonary disease) (Multi) Depression Disease of thyroid gland Provider assessment Diagnosis: GERD Medication Reviewed - yes Prior to Admission medications Medication Sig Start Date End Date Taking? Authorizing Provider FLUoxetine (PROzac) 20 mg capsule Take 1 capsule (20 mg) by mouth once daily. Yes Historical Provider, levothyroxine (Tirosint) 25 mcg capsule Take 1 capsule (25 mcg) by mouth. Yes Historical Provider, diphenoxylate-atropine (Lomotil) 2.5-0.025 mg tablet Take 1 tablet by mouth 4 times a day as neededfor diarrhea. 01/17/24 07/15/24 Rubio Mirza DO Physical Exam Vitals: 05/15/24 0726 BP: 164/84 Pulse: 87 Resp: 18 Temp: 36.8 C (98.2 F) SpO2: 96% General: A&Ox3, NAD. HEENT: AT/NC. CV: RRR. No murmur. Resp: CTA bilaterally. No wheezing, rhonchi or rales. GI: Soft, NT/ND. BSx4. Extrem: No edema. Pulses intact. Neuro: No focal deficits. Psych: Normal mood and affect. Procedure Plan - pre-procedural (re)assesment completed by physician: discharge/transfer patient when discharge criteria met Stefan Cazares MD 05/15/2024 8:27 AM [facility] Work Phone: [phone] 546-568902-17-2025 History and physical note* Stefan Cazares MD - 05/15/2024 8:10 AM EST Procedure H&P Patient Profile-Procedures Name Estefania Montiel Date of 1940 Address [address] [place] [id number] [place] [address] Primary Secondary Phone Number [facility] Rubio Mirza Procedure(s): Procedures: EGD Primary contact name and number Extended Emergency Contact Information Primary Emergency Contact: DELROY SANTIZO Mobile Relation: Son Preferred language: Cymraes Pals Specialist needed? No General Health Weight Vitals: 05/15/24 0726 Weight: 52.6 kg (115 lb 15.4 oz) BMI Body mass index is 20.54 kg/m . Allergies Allergies Allergen Reactions Oxycodone-Aspirin Hallucinations Penicillins Other skin peeling Versed [Midazolam] Confusion Past Medical History Past Medical History: Diagnosis Date Adverse effect of anesthesia Anxiety COPD (chronic obstructive pulmonary disease) (Multi) Depression Disease of thyroid gland Provider assessment Diagnosis: GERD Medication Reviewed - yes Prior to Admission medications Medication Sig Start Date End Date Taking? Authorizing Provider FLUoxetine (PROzac) 20 mg capsule Take 1 capsule (20 mg) by mouth once daily. Yes Historical Provider, levothyroxine (Tirosint) 25 mcg capsule Take 1 capsule (25 mcg) by mouth. Yes Historical Provider, diphenoxylate-atropine (Lomotil) 2.5-0.025 mg tablet Take 1 tablet by mouth 4 times a day as neededfor diarrhea. 01/17/24 07/15/24 Rubio Mirza DO Physical Exam Vitals: 05/15/24 07 BP: 164/84 Pulse: 87 Resp: 18 Temp: 36.8 C (98.2 F) SpO2: 96% General: A&Ox3, NAD. HEENT: AT/NC. CV: RRR. No murmur. Resp: CTA bilaterally. No wheezing, rhonchi or rales. GI: Soft, NT/ND. BSx4. Extrem: No edema. Pulses intact. Neuro: No focal deficits. Psych: Normal mood and affect. Procedure Plan - pre-procedural (re)assesment completed by physician: discharge/transfer patient when discharge criteria met Stefan Cazares MD 05/15/2024 8:27 AM documented in this [facility] Work Phone: [phone] 969-710001-27-2025 History of Present illness Narrative* Rubio Mirza DO - 04/24/2024 2:30 PM EST Subjective Patient ID: Estefania Simms is a 83 y.o. female who presents for No chief complaint on file.. HPI Virtual or Telephone Consent A telephone visit (audio only) between the patient (at the originating site) and the provider (at the distant site) was utilized to provide this telehealth service. Verbal consent was requested and obtained from Estefania Montiel on this date, 04/24/24 for a telehealth visit. Ramírez is evaluated by telephone. Underwent colonoscopy for refractory diarrhea biopsies showed no evidence of microscopic colitis. Stool test for C. difficile colitis, typical pathogens, calprotectinand pancreatic elastase been unremarkable. Colonic biopsies showed no microscopic colitis. She is given therapeutic trial of fiber without improvement then therapeutic trial of cholestyramine with little improvement but still had refractory diarrhea. She was given Lotronex without improvement and ultimately is on Lomotil which helps slow down her diarrhea but if she leaves her home and has to have a bowel movement she has to get rapidly to a bathroom creating problems with incontinence. She hastried increasing fiber but finds this to be difficult to swallow because of esophageal dysmotility.She is in the process of workup with esophageal motility clinic to determine if she would benefit from redoing her Fabiano wrap. At this time she has still has trouble swallowing is difficult for her to get nutrition and she can only do liquids or semisolid foods. Review of Systems Objective Physical Exam Assessment/Plan Diagnoses and all orders for this visit: Esophageal dysphagia History of Fabiano fundoplication Functional diarrhea At this time I advised her to continue Lomotil add back the cholestyramine 1/2 packet twice daily follow-up by telephone in 6 weeks. Proceed with esophageal testing and remain lactose-free. Rubio Mirza DO 04/24/24 2:41 PM documented in this [facility] Work Phone: [phone]) 718-802312-17-2024 History of Present illness Narrative* Stefan Cazares MD - 03/14/2024 2:00 PM EST Subjective History of Present Illness: Estefania Simms is a 83 y.o. female who presents to GI clinic for evaluation of dysphagia. She has a history of Fabiano fundoplication done in [place] in 2007 because of a chronic cough. She was told that she has silent reflux and then underwent surgery and her cough never went away. Since her surgery she has been having problems with dysphagia. She feels that the food gets stuck all the time and even water gets stuck. It is very uncomfortable for her and she cannot vomit back tofood. She has had multiple endoscopies in the past with multiple dilation but that did not help her at all. She was evaluated by Dr Mirza in [place] and he referred her to me . She wants to have the surgery redone. Review of Systems Review of Systems Constitutional: Negative. HENT: Negative. Eyes: Negative. Respiratory: Negative. Cardiovascular: Negative. Gastrointestinal: As in HPI Endocrine: Negative. Genitourinary: Negative. Musculoskeletal: Negative. Skin: Negative. Neurological: Negative. Psychiatric/Behavioral: Negative. Past Medical History has a past medical history of Adverse effect of anesthesia, Anxiety, COPD (chronic obstructive pulmonary disease) (Multi), Depression, and Disease of thyroid gland. Social History reports that she has never smoked. She has never used smokeless tobacco. She reports that she does not drink alcohol and does not use drugs. Family History family history includes Crohn's disease in her sister and son; Heart disease in her father and mother. Allergies Allergies Allergen Reactions Penicillins Other skin peeling Versed [Midazolam] Confusion Medications Current Outpatient Medications Medication Instructions alosetron (LOTRONEX) 0.5 mg, oral, 2 times daily diphenoxylate-atropine (Lomotil) 2.5-0.025 mg tablet 1 tablet, oral, 4 times daily PRN FLUoxetine (PROZAC) 20 mg, oral, Daily RT levothyroxine (TIROSINT) 25 mcg, oral meloxicam (MOBIC) 7.5 mg, oral Objective There were no vitals taken for this visit. Physical Exam Vitals reviewed. Constitutional: Appearance: Normal appearance. HENT: Head: Normocephalic. Eyes: Conjunctiva/sclera: Conjunctivae normal. Pupils: Pupils are equal, round, and reactive to light. Cardiovascular: Rate and Rhythm: Normal rate and regular rhythm. Pulmonary: Effort: Pulmonary effort is normal. Breath sounds: Normal breath sounds. Abdominal: General: Abdomen is flat. Bowel sounds are normal. There is no distension. Palpations: Abdomen is soft. Tenderness: There is no abdominal tenderness. There is no guarding or rebound. Musculoskeletal: General: Normal range of motion. Skin: General: Skin is warm and dry. Neurological: General: No focal deficit present. Mental Status: She is alert and oriented to person, place, and time. Assessment/Plan Estefania Simms is a 83 y.o. female who presents to GI clinic for post Fabiano fundoplication dysphagia. She has a Fabiano done originally for chronic cough and acid reflux. She has persistent post Fabiano dysphagia. It seems that she is very miserable with the dysphagia and wants this taken care of. I would like to evaluate her anatomy and motility and pH before. Will order an esophagram to be done at [facility] because it is close to [facility] or in [place]. I will schedule for EGD, Endoflip, and Alfaro, all to be done at the same time. Depending on the results of that I can consider surgery. We will do a virtual follow-up after the results are available. Stefan Cazares MD [facility] Work Phone: 1(896) 871-491811-06-2024 History of Present illness Narrative* Alhaji Javed MD - 02/02/2024 1:30 PM EST Today, Some initial benefit to cough from botox. Had 1 month side effects - lost her voice. When voice returned, her cough also returned to baseline. Voice is still not back to baseline A/P We agreed to forgo botox today due to side effects - we will give her voice time to recover We have largely exhausted our arsenal of cough treatment options from a medical standpoint - I did provide some more conservative treatment avenues such as acupuncture or massage Follow up - 6 weeks to revisit options Alhaji Javed MD documented [facility] NoteHNO ID: [id number] Author: ALHAJI JAVED MD Service: ? Author Type: Physician Type: Progress Notes Filed: 02/07/2024 13:16 Note Text: Today, Some initial benefit to cough from botox. Had 1 month side effects - lost her voice. When voice returned, her cough also returned to baseline. Voice is still not back to baseline A/P We agreed to forgo botox today due to side effects - we will give her voice time to recover We have largely exhausted our arsenal of cough treatment options from a medical standpoint - I did provide some more conservative treatment avenues such as acupuncture or massage Follow up - 6 weeks to revisit options Alhaji Javed, [facility]10-21-2024 History of Present illness Narrative* Rubio Christopher Yuki, DO - 01/17/2024 2:45 PM EDT Subjective Patient ID: Estefania Simms is a 83 y.o. female who presents for Follow-up (Follow up for functional colitis and possible Lotronex prescription. No change. ). GERARDO Simms is a pleasant 83-year-old female who I saw back in August. She relocated from [place] back to [place]. While in [place] had colonic resection for recurrent diverticular disease after surgery hadchronic diarrhea. GI workup in [place] was negative. Because of persistent diarrhea presented here.Stool cultures, pancreatic elastase and celiac panel have been negative. Underwent colonoscopy due to elevated calprotectin exclude inflammatory diarrhea biopsies throughout her colon and ileum returned no evidence of microscopic colitis. She had failed [id number] Imodium was placed on Lotronex. Despite increasing Lotronex to 1 mg twice daily diarrhea persisted. She presents today in follow-up for diarrhea and request additional care. Patient had remote Fabiano fundoplication in 2005. Has had recurrent dysphagia since Fabiano requiring annual dilatation states that dilatation is never helped. She is now having dysphagia to bread andis concerned that she needs something done. Does not want to have repeat dilatation as has not beeneffective in the past does wish to see a surgeon to have her Fabiano taken down. Her surgeon in [place] cautioned her against this stating it would be too complicated. Review of Systems Constitutional: Negative. HENT: Negative. Eyes: Negative. Respiratory: Negative. Cardiovascular: Negative. Gastrointestinal: Positive for diarrhea. Endocrine: Negative. Genitourinary: Negative. Neurological: Negative. Hematological: Negative. Objective Physical Exam Vitals and nursing note reviewed. Constitutional: Appearance: Normal appearance. HENT: Head: Normocephalic. Mouth/Throat: Mouth: Mucous membranes are moist. Pharynx: Oropharynx is clear. Eyes: Conjunctiva/sclera: Conjunctivae normal. Pupils: Pupils are equal, round, and reactive to light. Cardiovascular: Rate and Rhythm: Normal rate and regular rhythm. Heart sounds: Normal heart sounds. Pulmonary: Effort: Pulmonary effort is normal. Breath sounds: Normal breath sounds. Abdominal: General: Abdomen is flat. Bowel sounds are normal. Palpations: Abdomen is soft. Musculoskeletal: Cervical back: Normal range of motion and neck supple. Skin: General: Skin is warm and dry. Neurological: General: No focal deficit present. Mental Status: She is alert and oriented to person, place, and time. Psychiatric: Behavior: Behavior normal. Assessment/Plan Diagnoses and all orders for this visit: Functional diarrhea - diphenoxylate-atropine (Lomotil) 2.5-0.025 mg tablet; Take 1 tablet by mouth 4 times a day as needed for diarrhea. History of Fabiano fundoplication - Referral to Gastroenterology; Future Esophageal dysphagia - Referral to Gastroenterology; Future We discussed beginning diphenoxylate, Lomotil for diarrhea. Reviewed risk of diversion, dependency or addiction. She is aware that this is a controlled drug and has an opium signature. We attempted get her signature today but could not open the program and had computer issues. We discussed obtaining her signature when I see her back in 3 months. We did run OARRS report and she has a 0 score In regards to her dysphagia I advised her rather than perform an endoscopy. Like to see Dr. Kenny Cazares in [place] to have a full evaluation done to see if pneumatic dilatation may not be of benefit andif there is evidence of esophageal dysmotility taking down her Fabiano may be the best option for her. Rubio Mirza DO 01/17/24 3:04 PM documented in this [facility] Work Phone: 1(443) 791-912308-07-2024 History of Present illness Narrative* Alhaji Javed MD - 11/03/2023 2:30 PM EDT CC: Estefania Montiel is a 83 year old female seen as a return patient with a history of chronic refractory cough, laryngeal spasm, Myasthenia gravis, vagal nerve sensitivity, disorder of vocal cords IMPRESSION AND PLANS (Medical Decision Making): 83 y/o female, return patient, w/ hx of chronic refractory cough, irritable larynx. Has been on prednisone for >35 years (now at 10 mg every other day for the last 2 yrs. ) . S/P first SLN w/ me 07/28/23 Today, she is here for first laryngeal botox I reiterated the r/b/a of botox and answered the patient's questions LCQ: 7.67 UNIVERSAL PROTOCOL / SAFETY CHECKLIST Procedure to be Performed: botulinum injection of the larynx Sign In: A Moment of CARE was completed. Personnel directly involved with the procedure wore the appropriate PPE (Personal Protective Equipment). Special equipment: EMG Patient/Surrogate Stated/Verified: PATIENT VERIFIED(optional for EMERGENT procedures): Patient name, Date of , Relevant allergies, and The intended procedure Time Out Communication: Intended patient and procedure match the source documents. Consent documented and matches the intended procedure. Relevant labs, photos, and/or imaging studies have been reviewed. Correct side/site marked and visible. Medications required for procedure verified. No fire risk assessment and interventions applicable. No implant(s) inserted. Sign Out: SIGN OUT (optional for EMERGENT procedures): No specimen collected. All instruments, equipment, possible retained foreign bodies accounted for. Post-procedure follow-up management communicated and Plan of Care Visit completed when applicable. Alhaji Javed MD Preoperative Diagnosis: Adductor spasmodic dysphonia, laryngeal spasm Postoperative Diagnosis: Same Operation/Procedure: Botulinum Injection of larynx Risks, benefits and alternatives explained to patient and he did wish to proceed Surgeon: Alhaji Javed MD [place] Upholsterer: Sandy Flores RN INDICATIONS: Adductor spasmodic dysphonia, laryngeal spasm with hoarseness PROCEDURE: The patient was brought to the procedure room and placed in a semi- recumbant position. [place] amount of 2% xylocaine was injected into the neck anterior to the cricothyroid space. A hollow electromyographic needle was inerted through the skin, passed through the cricothyroid space and was directed superiorly and laterally until the left thyroarytenoid muscle was encountered. Position was confirmed by EMG. 1.5 units of botox was injected. In a similar fashion the needle was passed superiorly and laterally into the right thyro- arytenoid muscle and postion was confirmed by EMG. 1.5 units of botox was injected.The patient tolerated the procedure well and was observed briefly in the outpatient clinic before being discharged in good condition. Total dose of botox: 3 units Amount wasted: 97 units Signal: Right 5/5 Left 5/5 COMPLICATIONS: none Alhaji Javed MD By signing my name below, I, Harshad Mckinney, attest that this documentation has been prepared under the direction and in the presence of Dr. Alhaji Javed Electronically signed, Harshad Mckinney Scribe November 03, 2023 2:42 PM I agree with the chief complaint, ROS, and Past Histories independently gathered by the clinical it application support analyst and the remaining scribed note accurately describes my personal service to the patient. Alhaji Javed MD documented in this encounterTri[facility]08-07-2024 NoteHNO ID: [id number] Author: ALHAJI JAVED MD Service: ? Author Type: Physician Type: Progress Notes Filed: 11/03/2023 14:58 Note Text: CC: Estefania Montiel is a 83 year old female seen as a return patient with a history of chronic refractory cough, laryngeal spasm, Myasthenia gravis, vagal nerve sensitivity, disorder of vocal cords IMPRESSION AND PLANS (Medical Decision Making): 83 y/o female, return patient, w/ hx of chronic refractory cough, irritable larynx. Has been on prednisone for >35 years (now at 10 mg every other day for the last 2 yrs. ) . S/P first SLN w/ me 07/28/23 Today, she is here for first laryngeal botox I reiterated the r/b/a of botox and answered the patient's questions LCQ: 7.67 UNIVERSAL PROTOCOL / SAFETY CHECKLIST Procedure to be Performed: botulinum injection of the larynx Sign In: A Moment of CARE was completed. Personnel directly involved with the procedure wore the appropriate PPE (Personal Protective Equipment). Special equipment: EMG Patient/Surrogate Stated/Verified: PATIENT VERIFIED(optional for EMERGENT procedures): Patient name, Date of , Relevant allergies, and The intended procedure Time Out Communication: Intended patient and procedure match the source documents. Consent documented and matches the intended procedure. Relevant labs, photos, and/or imaging studies have been reviewed. Correct side/site marked and visible. Medications required for procedure verified. No fire risk assessment and interventions applicable. No implant(s) inserted. Sign Out: SIGN OUT (optional for EMERGENT procedures): No specimen collected. All instruments, equipment, possible retained foreign bodies accounted for. Post-procedure follow-up management communicated and Plan of Care Visit completed when applicable. Alhaji Javed MD Preoperative Diagnosis: Adductor spasmodic dysphonia, laryngeal spasm Postoperative Diagnosis: Same Operation/Procedure: Botulinum Injection of larynx Risks, benefits and alternatives explained to patient and he did wish to proceed Surgeon: Alhaji Javed MD [place] Upholsterer: Sandy Flores RN INDICATIONS: Adductor spasmodic dysphonia, laryngeal spasm with hoarseness PROCEDURE: The patient was brought to the procedure room and placed in a semi-recumbant position. A small amount of 2% xylocaine was injected into the neck anterior to the cricothyroid space. A hollow electromyographic needle was inerted through the skin, passed through the cricothyroid space and was directed superiorly and laterally until the left thyroarytenoid muscle was encountered. Position was confirmed by EMG. 1.5 units of botox was injected. In a similar fashion the needle was passed superiorly and laterally into the right thyro-arytenoid muscle and postion was confirmed by EMG. 1.5 units of botox was injected.The patient tolerated the procedure well and was observed briefly in the outpatient clinic before being discharged in good condition. Total dose of botox: 3 units Amount wasted: 97 units Signal: Right 5/5 Left 5/5 COMPLICATIONS: none Alhaji Javed MD By signing my name below, I, Harshad Mckinney, attest that this documentation has been prepared under the direction and in the presence of Dr. Alhaji Javed Electronically signed, Manohar Peres November 03, 2023 2:42 PM I agree with the chief complaint, ROS, and Past Histories independently gathered by the clinical it application support analyst and the remaining scribed note accurately describes my personal service to the patient. Alhaji Javed, [facility]07-22-2024 Hospital Discharge instructions* Discharge Instructions* Mirella Ventura RN - 10/18/2023 2:58 PM EDT Patient Instructions after a Colonoscopy The anesthetics, sedatives or narcotics which were given to you today will be acting in your body for the next 24 hours, so you might feel a little sleepy or groggy. This feeling should slowly wear off. Carefully read and follow the instructions. You received sedation today: - Do not drive or operate any machinery or power tools of any kind. - No alcoholic beverages today, not even beer or wine. - Do not make any important decisions or sign any legal documents. - No over the counter medications that contain alcohol or that may cause drowsiness. - Do not make any important decisions or sign any legal documents. - Make sure you have someone with you for first 24 hours. While it is common to experience mild to moderate abdominal distention, gas, or belching after yourprocedure, if any of these symptoms occur following discharge from the GI Lab or within one week ofhaving your procedure, call the [facility] to be advised whether a visit to your nearest Urgent Care or Emergency Department is indicated. Take this paper with you if you go. - If you develop an allergic reaction to the medications that were given during your procedure suchas difficulty breathing, rash, hives, severe nausea, vomiting or lightheadedness. - If you experience chest pain, shortness of breath, severe abdominal pain, fevers and chills. -If you develop signs and symptoms of bleeding such as blood in your spit, if your stools turn black, tarry, or bloody - If you have not urinated within 8 hours following your procedure. - If your IV site becomes painful, red, inflamed, or looks infected. If you received a biopsy/polypectomy/sphincterotomy the following instructions apply below: __ Do not use Aspirin containing products, non-steroidal medications or anti- coagulants for one week following your procedure. (Examples of these types of medications are: Advil, Arthrotec, Aleve, Coumadin, Ecotrin, Heparin, Ibuprofen, Indocin, Motrin, Naprosyn, Nuprin, Plavix, Vioxx, and Voltarin,or their generic forms. This list is not all-inclusive. Check with your physician or pharmacist before resuming medications.) __ Eat a soft diet today. Avoid foods that are poorly digested for the next 24 hours. These foods would include: nuts, beans, lettuce, red meats, and fried foods. Start with liquids and advance your diet as tolerated, gradually work up to eating solids. __ Do not have a Barium Study or Enema for one week. Your physician recommends the additional following instructions: -You have a contact number available for emergencies. The signs and symptoms of potential delayed complications were discussed with you. You may return to normal activities tomorrow. -Resume your previous diet. -Continue your present medications. -We are waiting for your pathology results. -Your physician has recommended a repeat colonoscopy (date to be determined after pending pathologyresults are reviewed) for surveillance based on pathology results. -The findings and recommendations have been discussed with you. -The findings and recommendations were discussed with your family. - Please see Medication Reconciliation Form for new medication/medications prescribed. If you experience any problems or have any questions following discharge from the GI Lab, please call: Nurse Signature Date Patient/Responsible Alliance Party Signature Date documented in this [facility] Work Phone: 1(410) 502-633307-22-2024 Attending History and physical note* Rubio Mirza DO - 10/18/2023 2:10 PM EDT H&P reviewed. The patient was examined and there are no changes to the H&P. Source Note - Rubio Mirza DO - 10/06/2023 2:30 PM EDT Subjective Patient ID: Steph Montiel is a 82 y.o. female who presents for Follow-up (4 weeks follow up for diarrhea/ cramping. Pt had stool testing completed. Patient states she was taking the cholestyramine dailyand became somewhat constipated so she switched to taking it every other day was going back to having diarrhea. ). HPI patient is seen today in follow-up. Was evaluated for chronic, diarrhea 1 month ago. Stool pancreatic elastase was normal stool calprotectin was slightly elevated. Stool cultures for C. difficileand typical pathogens were negative. Patient did have CT scan of abdomen performed in [place] priorto relocating to [place] in late June. CT did show swelling and inflammatory change throughout the cecum and ascending colon concerning for possible colitis. She admits that her diarrhea did not improve with cholestyramine. She is still having 6-12 bowel movements daily she states she will need it all if she has any appointments that day she is to go right to the bathroom. She denies any rectal bleeding no melanic stools no mucoid stools. Review of Systems Constitutional: Negative. HENT: Negative. Eyes: Negative. Respiratory: Negative. Cardiovascular: Negative. Gastrointestinal: Positive for diarrhea. Endocrine: Negative. Genitourinary: Negative. Neurological: Negative. Hematological: Negative. Objective Physical Exam Vitals and nursing note reviewed. Constitutional: Appearance: Normal appearance. HENT: Head: Normocephalic. Mouth/Throat: Mouth: Mucous membranes are moist. Pharynx: Oropharynx is clear. Eyes: Conjunctiva/sclera: Conjunctivae normal. Pupils: Pupils are equal, round, and reactive to light. Cardiovascular: Rate and Rhythm: Normal rate and regular rhythm. Pulses: Normal pulses. Heart sounds: Normal heart sounds. Pulmonary: Effort: Pulmonary effort is normal. Breath sounds: Normal breath sounds. Abdominal: General: Abdomen is flat. Bowel sounds are normal. Palpations: Abdomen is soft. Musculoskeletal: Cervical back: Normal range of motion and neck supple. Skin: General: Skin is warm and dry. Neurological: General: No focal deficit present. Mental Status: She is alert and oriented to person, place, and time. Psychiatric: Behavior: Behavior normal. Assessment/Plan Diagnoses and all orders for this visit: Microscopic colitis, unspecified microscopic colitis type - budesonide EC (Entocort EC) 3 mg 24 hr capsule; Take 2 capsules (6 mg) by mouth once daily in themorning. - Colonoscopy Diagnostic; Future Discontinue cholestyramine. Arrange colonoscopy with biopsy begin budesonide for presumed microscopic colitis 6 mg daily follow-up after colonoscopy is completed. Patient missed having very severe reaction to Versed stating she will lose track of 3 days. Last procedure was done with propofol and did better. Request being done with anesthesia under propofol. Rubio Mirza DO 10/06/23 1:25 PM [facility] Work Phone: 1(666) 399-661307-22-2024 History and physical note* Rubio Mirza DO - 10/18/2023 2:10 PM EDT H&P reviewed. The patient was examined and there are no changes to the H&P. Source Note - Rubio Mirza DO - 10/06/2023 2:30 PM EDT Subjective Patient ID: Steph Montiel is a 82 y.o. female who presents for Follow-up (4 weeks follow up for diarrhea/ cramping. Pt had stool testing completed. Patient states she was taking the cholestyramine dailyand became somewhat constipated so she switched to taking it every other day was going back to having diarrhea. ). HPI patient is seen today in follow-up. Was evaluated for chronic, diarrhea 1 month ago. Stool pancreatic elastase was normal stool calprotectin was slightly elevated. Stool cultures for C. difficileand typical pathogens were negative. Patient did have CT scan of abdomen performed in [place] priorto relocating to [place] in late June. CT did show swelling and inflammatory change throughout the cecum and ascending colon concerning for possible colitis. She admits that her diarrhea did not improve with cholestyramine. She is still having 6-12 bowel movements daily she states she will need it all if she has any appointments that day she is to go right to the bathroom. She denies any rectal bleeding no melanic stools no mucoid stools. Review of Systems Constitutional: Negative. HENT: Negative. Eyes: Negative. Respiratory: Negative. Cardiovascular: Negative. Gastrointestinal: Positive for diarrhea. Endocrine: Negative. Genitourinary: Negative. Neurological: Negative. Hematological: Negative. Objective Physical Exam Vitals and nursing note reviewed. Constitutional: Appearance: Normal appearance. HENT: Head: Normocephalic. Mouth/Throat: Mouth: Mucous membranes are moist. Pharynx: Oropharynx is clear. Eyes: Conjunctiva/sclera: Conjunctivae normal. Pupils: Pupils are equal, round, and reactive to light. Cardiovascular: Rate and Rhythm: Normal rate and regular rhythm. Pulses: Normal pulses. Heart sounds: Normal heart sounds. Pulmonary: Effort: Pulmonary effort is normal. Breath sounds: Normal breath sounds. Abdominal: General: Abdomen is flat. Bowel sounds are normal. Palpations: Abdomen is soft. Musculoskeletal: Cervical back: Normal range of motion and neck supple. Skin: General: Skin is warm and dry. Neurological: General: No focal deficit present. Mental Status: She is alert and oriented to person, place, and time. Psychiatric: Behavior: Behavior normal. Assessment/Plan Diagnoses and all orders for this visit: Microscopic colitis, unspecified microscopic colitis type - budesonide EC (Entocort EC) 3 mg 24 hr capsule; Take 2 capsules (6 mg) by mouth once daily in themorning. - Colonoscopy Diagnostic; Future Discontinue cholestyramine. Arrange colonoscopy with biopsy begin budesonide for presumed microscopic colitis 6 mg daily follow-up after colonoscopy is completed. Patient missed having very severe reaction to Versed stating she will lose track of 3 days. Last procedure was done with propofol and did better. Request being done with anesthesia under propofol. Rubio Mirza DO 10/06/23 1:25 PM documented in this [facility] Work Phone: 1(100) 394-970307-10-2024 History of Present illness Narrative* Rubio Mirza DO - 10/06/2023 2:30 PM EDT Subjective Patient ID: Steph Montiel is a 82 y.o. female who presents for Follow-up (4 weeks follow up for diarrhea/ cramping. Pt had stool testing completed. Patient states she was taking the cholestyramine dailyand became somewhat constipated so she switched to taking it every other day was going back to having diarrhea. ). HPI patient is seen today in follow-up. Was evaluated for chronic, diarrhea 1 month ago. Stool pancreatic elastase was normal stool calprotectin was slightly elevated. Stool cultures for C. difficileand typical pathogens were negative. Patient did have CT scan of abdomen performed in [place] priorto relocating to [place] in late June. CT did show swelling and inflammatory change throughout the cecum and ascending colon concerning for possible colitis. She admits that her diarrhea did not improve with cholestyramine. She is still having 6-12 bowel movements daily she states she will need it all if she has any appointments that day she is to go right to the bathroom. She denies any rectal bleeding no melanic stools no mucoid stools. Review of Systems Constitutional: Negative. HENT: Negative. Eyes: Negative. Respiratory: Negative. Cardiovascular: Negative. Gastrointestinal: Positive for diarrhea. Endocrine: Negative. Genitourinary: Negative. Neurological: Negative. Hematological: Negative. Objective Physical Exam Vitals and nursing note reviewed. Constitutional: Appearance: Normal appearance. HENT: Head: Normocephalic. Mouth/Throat: Mouth: Mucous membranes are moist. Pharynx: Oropharynx is clear. Eyes: Conjunctiva/sclera: Conjunctivae normal. Pupils: Pupils are equal, round, and reactive to light. Cardiovascular: Rate and Rhythm: Normal rate and regular rhythm. Pulses: Normal pulses. Heart sounds: Normal heart sounds. Pulmonary: Effort: Pulmonary effort is normal. Breath sounds: Normal breath sounds. Abdominal: General: Abdomen is flat. Bowel sounds are normal. Palpations: Abdomen is soft. Musculoskeletal: Cervical back: Normal range of motion and neck supple. Skin: General: Skin is warm and dry. Neurological: General: No focal deficit present. Mental Status: She is alert and oriented to person, place, and time. Psychiatric: Behavior: Behavior normal. Assessment/Plan Diagnoses and all orders for this visit: Microscopic colitis, unspecified microscopic colitis type - budesonide EC (Entocort EC) 3 mg 24 hr capsule; Take 2 capsules (6 mg) by mouth once daily in themorning. - Colonoscopy Diagnostic; Future Discontinue cholestyramine. Arrange colonoscopy with biopsy begin budesonide for presumed microscopic colitis 6 mg daily follow-up after colonoscopy is completed. Patient missed having very severe reaction to Versed stating she will lose track of 3 days. Last procedure was done with propofol and did better. Request being done with anesthesia under propofol. Rubio Mirza DO 10/06/23 1:25 PM [facility]: 1(469) 919-926206-25-2024 Telephone encounter Note* Telephone Encounter - Rachele Stern RN - 09/21/2023 4:04 PM EDT Called and spoke to patient's sonDelroy. Rescheduled Botox 11/03/23. Will forward as FYI. [facility]06-25-2024 Miscellaneous Notes* Telephone Encounter - Rachele Stern RN - 09/21/2023 4:04 PM EDT Called and spoke to patient's sonDelroy. Rescheduled Botox 11/03/23. Will forward as FYI. * Telephone Encounter - Tiffani Levy PAC - 09/21/2023 3:25 PM EDT sampson Potts of [place] is calling Alhaji Javed MD today to request Appointment. Patient is currentlyscheduled for 09/28. Son is inquiring if this could be rescheduled for a few weeks later. Please assist. Patient has been identified by name and birthdate. Duration of symptoms: N/A Person calling: son: Call patient at: [phone] Was an appointment scheduled: No Closing statement: Results or non-symptom based questions: Thank you for calling [facility], your call will be returned within the next business day. Tiffani Levy PAC documented in this encounterTri[facility] Telephone encounter Note * Telephone Encounter - Tiffani Levy PAC - 09/21/2023 3:25 PM EDT sampson Potts of [place] is calling Alhaji Javed MD today to request Appointment. Patient is currentlyscheduled for 09/28. Son is inquiring if this could be rescheduled for a few weeks later. Please assist. Patient has been identified by name and birthdate. Duration of symptoms: N/A Person calling: son: Call patient at: [phone] Was an appointment scheduled: No Closing statement: Results or non-symptom based questions: Thank you for calling [facility], your call will be returned within the next business day. Tiffani Levy PAC [facility]06-11-2024 NoteBorderline elevated. Re-evaluation in 4-6 weeks is recommended if clinically indicated.[facility] HospitalComment on above:Order Comment: Specimen Type: BLOOD SPECIMEN Ordering Facility: [facility] Address: [address] [place], [place] [id number] Comment: On August 18, 2022, [facility] implemented a new fecal calprotectinmethod, the D[employer] Liaison Calprotectin assay. For assistance with interpretation of results in patients undergoing serial monitoring, contact Client Services at [phone] or [phone] to discuss options, preferably within 7 days of issuing this report. Interpretation: <50.0 ug/g: Normal 50.0 ug/g - 120.0 ug/g: Borderline elevated. Re-evaluation in 4-6 weeks is recommended if clinically indicated. >120.0 ug/g: ElevatedPerformed By: #### ACHRAB #### [facility] CLIA [id number] [address] [place] [address] [id number] Discharge summary Author Camilla Thomas [facility] August 09, 2023 12:56pm Note Date/Time August 09, 2023 11:46 am [facility] Medical Records Department [facility] [place] [address] Discharge Summary 08/09/23 1144 MR#: [id number] Acct: [id number] Name: ESTEFANIA MONTIEL NIKITA Rep #:[id number] : 1940 82 From: Camilla TRIPLETT PA-C PCP: Care Physician,No Primary Status :ADM IN [id number] Prov[facility] Date of Admission: 08/06/23 Primary Care Physician: Kassandra Primary Care Phys Reason For Visit: SMALL BOWEL OBSTRUCTION Diagnosis Discharge Diagnosis (1) Small bowel obstruction: Status: Acute Code(s): K56.609 - Unspecified intestinal obstruction, unspecified as to partial versus complete obstruction Medications at Discharge Home Medications fluoxetine 20 mg capsule (Prozac) 20 mg PO DAILY 08/05/23 levothyroxine 2 tab PO .COMPLEX 08/05/23 Hospital Course Summary of Care Provided Minutes Spent on Discharge: 35 Hospital Course: Patient is an 82 y/o F I am following for a 2 day history of abdominal pain, whopresented to the ED. CT scan of ab/pel was obtained demonstrating dilated loops of small bowel. Patient was admitted. She had a small bowel follow-though on 08/06/23 which demonstrated partial small bowel obstruction. KUB was obtained on 08/06 which demonstrated no bowel obstruction. Patient was restarted on a clear liquid diet and tolerated this. Patient was slowly advanced to a regular diet without any nausea or abdominal pain. Upon discharge, patient was tolerating a regular diet. She has been passing flatus and having bowel movements. She deniesany nausea, vomiting. She is ready for discharge. Physical Exam Const alert, oriented x3 and no apparent distress GI normal to inspection, nondistended, normoactive bowel sounds Weight / BMI Weight Weight: 110 lb 14.28 oz Body Mass Index (BMI) 19.6 ABG / Lab / Microbiology Data 08/08/23 05:25 08/08/23 05:25 Microbiology: Microbiology 08/05/23 22:26 Blood Culture (Wb) - Right Wrist Blood Culture - Preliminary No growth in 48 hours. 08/05/23 22:40 Blood Culture (Wb) - Left Wrist Blood Culture - Preliminary No growth in 48 hours. D/C Instructions Discharge Diet: - (Low fiber diet included) Discharge Activity: [address] Please Follow Up With: Emmett Guerrero MD When: Follow-up as needed. Our office number is [phone] if any questions orconcerns come up. Meaningful Use Info Meaningful Use Meaningful Use Diagnoses (Choose all that apply): None applicable Ischemic Stroke Statin Dosing Therapy Reference: STATIN DOSE THERAPY REFERENCE: * Patients > 75 years receive moderate or high dose statin therapy. * Patients 75 years or YOUNGER should receive HIGH intensity statin dose unless contraindicated. You will be required to document reason for non-treatment if statin daily dose does not meet guidelines. HIGH DOSE STATIN THERAPY DAILY Atorvastatin > than or = to 40 mg Rosuvastatin > than or = to 20 mg Amlodipine + Atorvastatin > than or = to 2.5/40 mg Ezetimibe + Simvastatin 10/80 mg Simvastatin 80mg Discharge Plan Admission Admit Date/Time: 08/06/23 01:00 Primary Reason for Your Visit: Small bowel obstruction Attending Provider: Emmett Guerrero Primary Care Provider: Care Physician,No Primary Consulting Providers: Kayden Garcia Instructions Additional Instructions / Restrictions: What are low-fiber foods? If your doctor tells you to follow a low-fiber diet, here are low-fiber foods you can eat and higher-fiber foods you should avoid. Remember to always choose foods that you would normally eat. Do not try any foods that caused you discomfort or allergic reactions in the past. If you are on a ?low-residue diet,? your food choices are even more restricted than those listed below. Talk with your cancer care team or dietitian if you have questions about certainfoods or amounts. Meat, fish, poultry, and protein Eat: Tender cuts of meat Ground meat Tofu Fish and shellfish Smooth peanut butter Eggs Bake, broil, or poach meats, and use mild seasonings. Try preparing meats as stews, roasts, meatloaves, casseroles, sandwiches, and soups using ingredients on the approved lists. Scramble, poach, or boil eggs; or make omelets, souffl?s, custard, puddings, andcasseroles, using ingredients noted below. You might want to ask your doctor, nurse, or dietitian about other foods may be OK for you to eat, and find out when you can go back to your normal diet. Avoid: All beans, nuts, peas, lentils, and legumes Processed meats, hot dogs, sausage, and cold cuts Tough meats with gristle Dairy: Milk and cheese Eat: Only in small to medium amounts and only if they don?t cause problems for you Milk, chocolate milk, buttermilk, and milk drinks Yogurt without seeds or granola Sour cream Cheese Cottage cheese Custard or pudding Ice cream or frozen desserts (without nuts) Cream sauces, soups, and casseroles You can use these items in desserts, snacks, or breads. Bread, cereals, and grains Eat: White breads, waffles, Hungarian toast, plain white rolls, or white bread toast Pretzels Plain pasta or noodles White rice Crackers, zwieback, spike, and matzoh (no cracked wheat or whole grains) Cereals without whole grains, added fiber, seeds, raisins, or other dried fruit Use white flour for baking and making sauces. Grains, such as white rice, Cream of Wheat, or grits, should be well-cooked. Include the above grains in casseroles, dumplings, souffl?s, cheese strata, kugels, and pudding. Avoid any food that contains: Brown or wild rice Whole grains, cracked grains, or whole wheat products Kasha (buckwheat) Cornbread or cornmeal Donnell crackers Bran Wheat germ Nuts Granola Coconut Dried fruit Seeds Vegetables and potatoes Eat: Tender, well-cooked fresh or canned vegetables without seeds, stems, or skins Cooked sweet or white potatoes without skins Strained vegetable juices without pulp or spices You can also eat these with cream sauces, or in soups, souffl?s, kugels, and casseroles. Avoid: All raw or steamed vegetables All types of beans Potatoes with skin Peas Maple Cabbage, broccoli, cauliflower, [place] sprouts, and greens Sauerkraut Onions Fruits and desserts Eat: Soft canned or cooked fruit without seeds or skins (small amounts) Small amounts of well-ripened banana Strained or clear juices Small amounts of soft cantaloupe or honeydew melon Cookies and other desserts without whole grains, dried fruit, berries, nuts, or coconut Sherbet and popsicles Serving suggestions include gelatins, milk shakes, frozen desserts, puddings, tapioca, cakes, and sauces. Avoid: All raw or dried fruits Berries Prune juice, prunes, and raisins Other foods Eat: [facility] and mild salad dressings Margarine, butter, cream, and oils in small amounts Plain gravies Plain bouillon and broth Ketchup and mild mustard Spices, cooked herbs, and salt Sugar, honey, and syrup Clear jellies Hard candy and marshmallows Plain chocolate Avoid: Marmalade Pickles, olives, relish, and horseradish Popcorn Potato chips Liquids Keep in mind that low-fiber foods cause fewer bowel movements and smaller stools. You may need to drink extra fluids to help prevent constipation while you are on a low-fiber diet. Drink plenty of water unless your doctor tells you otherwise, and use juices and milk as noted above. Discharge Orders/Prescriptions Prescriptions: Continued fluoxetine [Prozac] 20 mg capsule 20 mg PO DAILY levothyroxine 2 tab PO .COMPLEX Patient Comments: 2 tabs orally TAKES 2 TABLETS TWO DAYS AND THREE THE OTHER; Rx Instructions: 2 tabs orally TAKES 2 TABLETS TWO DAYS AND THREE THE OTHER; Referrals / Follow Up: Maria Del Carmen Veliz MD [Med Staff - Active Staff] - Ino Monroe MD [Med Staff - Broke Beater Operator] - Richard Arguello MD [Med Staff - Broke Beater Operator] - Care Physician,No Primary [Primary Care Provider] - NOT,DEFINED [Non-Staff] - Disposition Disposition (needs filled in before D/C Order can be placed): Home, Self Care Charges/Coding Visit Charges Inpatient E&M: 14148 Disch Hosp >30min 08/09/23 1256 <Electronically signed by Camilla TRIPLETT PA-C> Cosigner Signature (if applicable): CC: VALERIA Thomas; No Primary Care Physician~ Signed [facility] Work Phone: 1(234) 313-616305-13-2024 Progress note Author Emmett Guerrero [facility] August 09, 2023 7:13am Note Date/Time August 09, 2023 7:12a m [facility] Medical Records Department [address] [place] [address] Progress Note - Surgery 08/09/23 0711 MR#: [id number] Acct: [id number] Name: CARLOSESTEFANIA Christopher NIKITA Rep #:[id number] : 1940 82 From: Emmett greenwood MD PCP: Care Physician,No Primary Status :ADM IN Location: MS3 [id number] Subjective Subjective Patient reports no abdominal pain this morning. She denies any nausea or vomiting. She is passing gas. She has not had a bowel movement since admission. Objective Data Objective Data Vital Signs: Vital Signs Temp Pulse Resp BP Pulse Ox O2 Del Method O2 Flow Rate 98.1 F 59 L 18 143/78 H 97 Room Air 2 08/09/23 02:00 08/09/23 02:00 08/09/23 02:00 08/09/23 02:00 08/09/23 02:00 08/09/23 04:44 08/06/23 15:00 Oxygen Flow Rate (L/min) 2 Oxygen Delivery Method Room Air Weight: 110 lb 14.28 oz Body Mass Index (BMI) 19.6 Intake & Output: Intake and Output for Last 24 Hours 08/07/23 08/08/23 08/09/23 23:59 23:59 23:59 Intake Total 2270.00 / 2510.00 2299.17 / 2299.17 150 / 150 Balance 2270.00 / 2510.00 2299.17 / 2299.17 150 / 150 Lab / Micro Data 08/08/23 05:25 08/08/23 05:25 Micro: Microbiology 08/05/23 22:26 Blood Culture (Wb) - Right Wrist Blood Culture - Preliminary No growth in 48 hours. 08/05/23 22:40 Blood Culture (Wb) - Left Wrist Blood Culture - Preliminary No growth in 48 hours. Physical Exam Const oriented x3 and no apparent distress Resp normal respiratory effort GI soft to palpation Extremity normal to inspection Assessment & Plan Assessment/Plan (1) Small bowel obstruction: PLAN: Patient denies any abdominal pain. She is passing flatus with no nausea or vomiting. I will start her on a regular diet as she is tolerating full's. Hopeful for DC home today if tolerating regular diet. Emmett Gurerero MD Pager: [facility] [address] [place] [address], [address] [place] [address] Office: 08/09/23 [phone] <Electronically signed by Emmett Guerrero MD> Cosigner Signature (if applicable): CC: ~ Signed [facility] Work Phone: [phone]) 949-671105-12-2024 Progress note Author Dion Haji [facility] August 08, 2023 12:05pm Note Date/Time August 08, 2023 9:10a m [facility] Medical Records Department [address] [place] [address] Progress Note - Surgery 08/08/23909 MR#: [id number] Acct: [id number] Name: ESTEFANIA MONTIEL NIKITA Rep #:[id number] : 1940 82 From: Dion Wolf PCP: Care Physician,No Primary Status :ADM IN Location: [place] [address] Subjective Subjective Patient seen and examined during AM rounds. She is found resting in bed. She states that she tolerated her liquids overnight without any nausea and has ongoing loose stools. She favorably reports that she is feeling somewhat bettertoday and having less abdominal discomfort. Although she denies any nausea withthe current diet she finds it unappetizing. Objective Data Objective Data Vital Signs: Vital Signs Temp Pulse Resp BP Pulse Ox O2 Del Method O2 Flow Rate 98.3 F 61 16 158/70 H 97 Room Air 2 08/08/23 04:00 08/08/23 04:00 08/08/23 04:00 08/08/23 04:00 08/08/23 04:00 08/08/23 04:00 08/06/23 15:00 Oxygen Flow Rate (L/min) 2 Oxygen Delivery Method Room Air Weight: 110 lb 14.28 oz Body Mass Index (BMI) 19.6 Intake & Output: Intake and Output for Last 24 Hours 08/06/23 08/07/23 08/08/23 23:59 23:59 23:59 Intake Total 4776.33 / 4776.33 2270.00 / 2510.00 360 / 360 Output Total 700 / 700 Balance 4076.33 / 4076.33 2270.00 / 2510.00 360 / 360 Lab / Micro Data 08/08/23 05:25 08/08/23 05:25 Labs: Laboratory Results - last 24 hr 08/07/23 10:23: WBC 8.7, RBC 3.78 L, Hgb 11.7 L, Hct 36.6 L, MCV 96.8, MCH 31.0,MCHC 32.0, RDW Std Deviation 49.9 H, RDW Coeff of Jenn 14.0, Plt Count 232, MPV 10.9, Immature Gran % (Auto) 0.600, Neut % (Auto) 71.2 H, Lymph % (Auto) 17.4 L,Riley % (Auto) 8.1, Eos % (Auto) 2.5, Baso % (Auto) 0.2, Absolute Neuts (auto) 6.2, Absolute Lymphs (auto) 1.52, Nucleated RBC % 0, Sodium 140, Potassium 4.2, Chloride 108 H, Carbon Dioxide 31.0, Anion Gap 1 L, BUN 18, Creatinine 0.72, Estim Creat Clear Calc 43.05, Est GFR (MDRD) Af Amer 99, Est GFR (MDRD) Non-Af 82, BUN/Creatinine Ratio 24.8 H, Glucose 98, Calcium 8.5, Phosphorus 2.2 L, Magnesium 1.6, Lipase 63 /03/21 05:25: WBC 8.1, RBC 3.84 L, Hgb 12.0, Hct 36.1 L, MCV 94.0, MCH 31.3, MCHC 33.2, RDW Std Deviation 47.1 H, RDW Coeff of Jenn 13.7, Plt Count 221, MPV 10.2, Immature Gran % (Auto) 0.600, Neut % (Auto) 68.9, Lymph % (Auto) 18.2 L, Riley % (Auto) 9.6, Eos % (Auto) 2.6, Baso % (Auto) 0.1, Absolute Neuts (auto) 5.6, Absolute Lymphs (auto) 1.48, Nucleated RBC % 0, Sodium 140, Potassium 3.5, Chloride 107, Carbon Dioxide 29.0, Anion Gap 4 L, BUN 8, Creatinine 0.59, Estim Creat Clear Calc 43.05, Est GFR (MDRD) Af Amer 125, Est GFR (MDRD) Non-Af 103, BUN/Creatinine Ratio 13.5, Glucose 106, Calcium 8.5, Phosphorus 2.2 L, Magnesium1.5 L Physical Exam Const oriented x3 and no apparent distress Resp normal respiratory effort GI GI Narrative: Nondistended, soft, minimally tender to palpation in the left lower quadrant (representing marked improvement in her exam from yesterday) Assessment & Plan Assessment/Plan (1) Small bowel obstruction: PLAN: Patient is hospital day 4 for admission for pancreatitis as well as small bowel obstruction. She passed a small bowel follow-through 2 days ago and KUB yesterday showed nonobstructive gas patterns. However, yesterday patient remained tender on exam so her diet was not advanced and we simply continue clinical monitoring. Lipase was rechecked given evidence of pancreatitis on intake and this was normal. Today patient is pleased to report that her abdominal symptoms are significantly improved. Given this finding and her continued tolerance of clear liquids will advance to a full liquid diet today and monitor for tolerance. Likely owing to patient's suboptimal nutritional status over the past couple of days several electrolytes were found at low levels on her labs and will be repleted today. Dion Haji MD General Surgery Endocrine Surgery Pager: [facility] [address] [place] [address], [facility], [address] [place] [address] Office: [phone] Charges/Coding Visit Charges Inpatient E&M: 80625 Subs Hosp L2 08/08/23 1205 <Electronically signed by Dion Haji MD> Cosigner Signature (if applicable): CC: ~ Signed [facility] Work Phone: [phone]) 200-440705-11-2024 Progress note Author Dion Haji [facility] August 07, 2023 10:56am Note Date/Time August 07, 2023 10:09 am [facility] Medical Records Department [address] [place], [place] [id number] Progress Note - Surgery 08/07/23 1008 MR#: [id number] Acct: [id number] Name: ESTEFANIA MONTIEL NIKITA Rep #:[id number] : 1940 82 From: Dion Wolf PCP: Care Physician,No Primary Status :ADM IN Location: [place] [address] Subjective Subjective Patient seen and examined during AM rounds. She is found resting in bed. She states that she has some soreness of her abdomen today. However, she comments that she has had ongoing loose bowels and her abdominal distention from yesterday is improved. She denies an appetite today. Objective Data Objective Data Vital Signs: Vital Signs Temp Pulse Resp BP Pulse Ox O2 Del Method O2 Flow Rate 98 F 60 18 118/75 93 Room Air 2 08/07/23 04:07 08/07/23 04:07 08/07/23 04:07 08/07/23 04:07 08/07/23 04:07 08/07/23 04:19 08/06/23 15:00 Oxygen Flow Rate (L/min) 2 Oxygen Delivery Method Room Air Weight: 110 lb 14.28 oz Body Mass Index (BMI) 19.6 Intake & Output: Intake and Output for Last 24 Hours 08/05/23 08/06/23 08/07/23 23:59 23:59 23:59 Intake Total 1000 / 1000 4776.33 / 4776.33 879.17 / 879.17 Output Total 700 / 700 Balance 1000 / 1000 4076.33 / 4076.33 879.17 / 879.17 Lab / Micro Data 08/07/23 10:23 08/06/23 03:18 Labs: Laboratory Results - last 24 hr 08/05/23 21:18: Diff Path Review Reviewed 08/06/23 03:18: Diff Path Review May 08/06/23 09:30: Lactic Acid 1.1 Radiography Diagnostic Testing: Radiology Impression Small Bowel X-Ray 08/06/23 08:35 IMPRESSION: Findings in keeping with partial small bowel obstruction. Electronically Signed: Sudeep Cooper MD at 14:03 EDT , KUB X-Ray 08/07/23 05:35 IMPRESSION: No bowel obstruction. Contrast in the colon to the rectum with decreased small bowel dilatation. Electronically Signed: Trini Cuevas MD at 8:08 EDT , Physical Exam Const oriented x3 and no apparent distress Resp normal respiratory effort GI GI Narrative: Nondistended, soft, mild tenderness with palpation particularly periumbilically Assessment & Plan Assessment/Plan (1) Small bowel obstruction: PLAN: Patient is hospital day 3 for admission for pancreatitis as well as small bowel obstruction. She passed a small bowel follow-through yesterday with rather rapid transit to the colon, but still radiology was calling probable partial small bowel obstruction. This a.m. repeat KUB shows all of the contrastthat remains in the colon and no evidence of dilated small bowel. However, patient remains mildly tender on palpation and denies an appetite. I am suspicious for ongoing pancreatitis symptoms and therefore the encourage patientto go slowly with reinitiation of a clear liquid diet today. Will plan to reassess for tolerance this afternoon. Repeating labs now. Dion Haji MD General Surgery Endocrine Surgery Pager: [facility] [address] [place] [address], [facility], [address] [place] [address] Office: [phone] Charges/Coding Visit Charges Inpatient E&M: 75500 Subs Hosp L2 08/07/23 1056 <Electronically signed by Dion Haji MD> Cosigner Signature (if applicable): CC: ~ Signed [facility] Work Phone: [phone]) 507-598505-10-2024 Progress note Author Emmett Guerrero [facility] August 06, 2023 8:35am Note Date/Time August 06, 2023 8:35a m [facility] Medical Records Department [address] [place] [address] Progress Note - Surgery 08/06/23 0834 MR#: [id number] Acct: [id number] Name: ESTEFANIA MONTIEL NIKITA Rep #:[id number] : 1940 82 From: Emmett greenwood MD PCP: Care Physician,No Primary Status :ADM IN Location: [place] [address]- Subjective Subjective Patient reports no abdominal pain this morning. She denies flatus. She is not nauseated. Objective Data Objective Data Vital Signs: Vital Signs Temp Pulse Resp BP Pulse Ox O2 Del Method O2 Flow Rate 97.9 F 87 17 142/98 H 98 Nasal Cannula 2 08/06/23 02:25 08/06/23 02:25 08/06/23 02:25 08/06/23 02:25 08/06/23 02:25 08/06/23 02:57 08/06/23 02:57 Oxygen Flow Rate (L/min) 2 Oxygen Delivery Method Nasal Cannula Weight: 110 lb 14.28 oz Body Mass Index (BMI) 19.6 Intake & Output: Intake and Output for Last 24 Hours 08/04/23 08/05/23 08/06/23 23:59 23:59 23:59 Intake Total 1000 / 1000 1958.33 / 1957.33 Output Total 200 / 200 Balance 1000 / 1000 1758.33 / 1758.33 Lab / Micro Data 08/06/23 03:18 08/06/23 03:18 Labs: Laboratory Results - last 24 hr 08/05/23 21:18: WBC 27.9 H, RBC 5.08, Hgb 15.6 H, Hct 47.6 H, MCV 93.7, MCH 30.7, MCHC 32.8, RDW Std Deviation 47.4 H, RDW Coeff of Jenn 13.8, Plt Count 336,MPV 10.9, Immature Gran % (Auto) 0.900, Neut % (Auto) 82.4 H, Lymph % (Auto) 8.8L, Riley % (Auto) 6.8, Eos % (Auto) 0.5, Baso % (Auto) 0.6, Absolute Neuts (auto)23.0 H, Absolute Lymphs (auto) 2.45, Nucleated RBC % 0, Differential Comment SCANNED, Diff Path Review July, Sodium 138, Potassium 4.1, Chloride 104, Carbon Dioxide 25.0, Anion Gap 9, BUN 37 H, Creatinine 0.89, Estim Creat Clear Calc 38.54, Est GFR (MDRD) Af Amer 78, Est GFR (MDRD) Non-Af 65, BUN/Creatinine Ratio 41.7 H, Glucose 214 H, Calcium 9.3, Total Bilirubin 0.70, AST 22, ALT 23, Alkaline Phosphatase 54, Total Protein 7.5, Albumin 3.5, Globulin 4.0, Albumin/Globulin Ratio 0.9, Lipase 1168 H 08/05/23 22:26: Lactic Acid 2.5 H* 08/05/23 22:40: PT Cancelled, INR Cancelled, APTT Cancelled 08/05/23 23:48: PT 14.0, INR 1.1, APTT 24.0 L, Blood Type A POSITIVE, Antibody Screen NEGATIVE 08/06/23 00:25: Urine Color Yellow, Urine Clarity Clear, Urine pH 5.0, Ur Specific [place] 1.015, Urine Protein Negative, Urine Glucose (UA) Normal, UrineKetones Negative, Urine Occult Blood Negative, Urine Nitrite Negative, Urine Bilirubin Negative, Urine Urobilinogen Normal, Ur Leukocyte Esterase 100 H, Urine RBC 0 SEEN, Urine WBC 5-10 SEEN, Ur Squamous Epith Cells 0-5 SEEN, CalciumOxalate Crystal 4+, Urine Bacteria 0 SEEN, Urine Mucus 0 SEEN 08/06/23 03:18: WBC 19.8 H, RBC 4.35, Hgb 13.6, Hct 41.4, MCV 95.2, MCH 31.3, MCHC 32.9, RDW Std Deviation 49.1 H, RDW Coeff of Jenn 13.9, Plt Count 258, MPV 10.2, Immature Gran % (Auto) 0.600, Neut % (Auto) 85.9 H, Lymph % (Auto) 3.5 L, Riley % (Auto) 9.2, Eos % (Auto) 0.3, Baso % (Auto) 0.5, Absolute Neuts (auto) 17.0 H, Absolute Lymphs (auto) 0.70 L, Nucleated RBC % 0, Differential Comment SCANNED, Sodium 140, Potassium 4.9, Chloride 106, Carbon Dioxide 29.0, Anion Gap5, BUN 33 H, Creatinine 0.84, Estim Creat Clear Calc 41.00, Est GFR (MDRD) Af Amer 83, Est GFR (MDRD) Non-Af 69, BUN/Creatinine Ratio 39.3 H, Glucose 155 H, Lactic Acid 2.2 H*, Calcium 8.5, Phosphorus 4.1, Magnesium 1.8, Total Bilirubin 1.10 H, AST 285 H, ALT 194 H, Alkaline Phosphatase 67, Total Protein 6.3 L, Albumin 3.0 L, Globulin 3.3, Albumin/Globulin Ratio 0.9, Lipase > 250 H Radiography Diagnostic Testing: Radiology Impression Abdomen/Pelvis CT 08/05/23 20:55 IMPRESSION: Dilated gas and fluid-filled loops of small bowel proximally with normal caliber bowel loops distally compatible with bowel obstruction. Transition point appears be within the pelvis. There is no free air. Electronically Signed: Nito Franks MD at 0:01 EDT , KUB X-Ray 08/06/23 00:07 IMPRESSION: NG tube in the distal esophagus as detailed above. Electronically Signed: Trini Cuevas MD at 1:14 EDT , KUB X-Ray 08/06/23 00:52 IMPRESSION: NG tube as described. Dilated bowel in the upper abdomen. Electronically Signed: Trini Cuevas MD at 1:15 EDT , KUB X-Ray 08/06/23 05:55 IMPRESSION: Persistent dilated small bowel in the left abdomen, overall partially decreased compared to earlier. Electronically Signed: Trini Cuevas MD at 5:44 EDT , Physical Exam Const oriented x3 and no apparent distress Resp normal respiratory effort GI soft to palpation and non-tender Inspection: Negative for abdominal distention Assessment & Plan Assessment/Plan (1) Small bowel obstruction: PLAN: The patient has pancreatitis as well as small bowel obstruction. She had NG placed yesterday which decompressed her abdomen and she is feeling much better today with no pain. Her NG output still looks like she is obstructed butit has had decreased output. I will order a small bowel follow-through today tosee how far out we will go through. If she gets nauseated we will connect her back to suction. Emmett Guerrero MD Pager: [facility] [address] [facility], [address] [place] [address] Office: 08/06/23 1653 <Electronically signed by Emmett Guerrero MD> Cosigner Signature (if applicable): CC: ~ Signed [facility] Work Phone: [phone] History and physical note Author Emmett Guerrero [facility] August 06, 2023 1:16am Note Date/Time August 06, 2023 1:16a m [facility] Medical Records Department [address] [place] [address] H&P Exam - Surgical 08/06/23 0112 MR#: [id number] Acct: [id number] Name: ESTEFANIA MONTIEL NIKITA Rep #:[id number] : 1940 82 From: Emmett greenwood MD PCP: Care Physician,No Primary Status :REG ER Location: ED HPI - General HPI Narrative ESTEFANIA MONTIEL, is a 82 F who presents with abdominal pain of 2 days. The patienthas history of Fabiano fundoplication and open cholecystectomy but most recently in 2021 she had a sigmoid colectomy with colostomy for diverticulitis. She had the colostomy reversed in another hospital in late 2021. She has had no issues since then except for chronic diarrhea. She reports that she had a bowel movement today which was diarrhea. She says the pain is in her upper abdomen. She is not able to vomit because she has had a Fabiano fundoplication. After NG was placed she reports she is much more comfortable. She denies fevers or chills. She says she believes she may have COPD but she has been told also thatayesha does not have COPD. [facility] Home Medications fluoxetine 20 mg capsule (Prozac) 20 mg PO DAILY 08/05/23 [History Last Taken Unknown] levothyroxine 2 tab PO .COMPLEX 08/05/23 [History Last Taken Unknown] Allergy/AdvReac Type Severity Reaction Status Date / Time Penicillins Allergy Intermediate SKIN SHEDS Verified 08/05/23 20:32 Surgical History (Updated 08/05/23 @ 22:07 by Hattie Potter) History of colostomy Social History Smoking Status: Never smoker ROS Constitutional Constitutional: Denies anorexia, chills or fatigue Eyes Eyes: Denies blurry vision ENT HEENT: Denies abnormal hearing Cardiovascular Cardiovascular: Denies chest pain Respiratory/Chest Respiratory/Chest: Reports cough and shortness of breath at rest Gastrointestinal Gastrointestinal: Reports abdominal pain, diarrhea and nausea; Denies constipation or vomiting Genitourinary Genitourinary: Denies change in urinary stream Musculoskeletal Musculoskeletal: Denies abnormal gait Integumentary Integumentary: Denies new lesions Neurologic Neurologic: Denies abnormal gait Psychiatric Psychiatric: Denies anxiety Endocrine Endocrinology: Denies heat intolerance Hematologic/Lymphatic Hematologic/Lymphatic: Denies easy bleeding Vital Signs Vital Signs Vital Signs: 08/05/23 20:30 08/05/23 22:29 08/05/23 23:10 Temperature 98.1 F 97.5 F L Temperature Source Temporal Temporal Pulse Rate 68 75 Respiratory Rate 18 16 Respiratory Effort Normal Respiratory Pattern Normal Blood Pressure 165/82 H 141/66 H Blood Pressure Mean 109 91 Pulse Ox 97 93 Oxygen Delivery Method Room Air Room Air Oxygen Flow Rate (L/min) 08/05/23 23:19 08/05/23 23:19 Temperature Temperature Source Pulse Rate Respiratory Rate 16 18 Respiratory Effort Respiratory Pattern Blood Pressure Blood Pressure Mean Pulse Ox 87 94 Oxygen Delivery Method Room Air Nasal Cannula Oxygen Flow Rate (L/min) 2 Weight Weight: 110 lb 7 oz Body Mass Index (BMI) 19.5 Physical Exam Const oriented x3 and no apparent distress Resp normal respiratory effort Cardio regular rate and regular rhythm GI soft to palpation Inspection: abdominal distention Palpation: tender epigastric Extremity normal to inspection Results Lab / Micro Data 08/05/23 21:18 08/05/23 21:18 Labs: Laboratory Results - last 24 hr 08/05/23 21:18: WBC 27.9 H, RBC 5.08, Hgb 15.6 H, Hct 47.6 H, MCV 93.7, MCH 30.7, MCHC 32.8, RDW Std Deviation 47.4 H, RDW Coeff of Jenn 13.8, Plt Count 336, MPV10.9, Immature Gran % (Auto) 0.900, Neut % (Auto) 82.4 H, Lymph % (Auto) 8.8 L, Riley % (Auto) 6.8, Eos % (Auto) 0.5, Baso % (Auto) 0.6, Absolute Neuts (auto) 23.0 H, Absolute Lymphs (auto) 2.45, Nucleated RBC % 0, Differential Comment SCANNED, Diff Path Review July foll, Sodium 138, Potassium 4.1, Chloride 104, Carbon Dioxide 25.0, Anion Gap 9, BUN 37 H, Creatinine 0.89, Estim Creat Clear Calc 38.54, Est GFR (MDRD) Af Amer 78, Est GFR (MDRD) Non-Af 65, BUN/Creatinine Ratio 41.7 H, Glucose 214 H, Calcium 9.3, Total Bilirubin 0.70, AST 22, ALT 23, Alkaline Phosphatase 54, Total Protein 7.5, Albumin 3.5, Globulin 4.0, Albumin/Globulin Ratio 0.9, Lipase 1168 H 08/05/23 22:26: Lactic Acid 2.5 H* 08/05/23 22:40: PT Cancelled, INR Cancelled, APTT Cancelled 08/05/23 23:48: PT 14.0, INR 1.1, APTT 24.0 L Imaging Radiology Impression Abdomen/Pelvis CT 08/05/23 20:55 IMPRESSION: Dilated gas and fluid-filled loops of small bowel proximally with normal caliber bowel loops distally compatible with bowel obstruction. Transition point appears be within the pelvis. There is no free air. Electronically Signed: Nito Franks MD at 0:01 EDT , Assessment & Plan Assessment/Plan (1) Small bowel obstruction: (2) Acute pancreatitis: QUALIFIERS: Pancreatitis type: unspecified pancreatitis type Acute pancreatitis complication: unspecified Qualified Code(s): K85.90 - Acute pancreatitis without necrosis or infection, unspecified PLAN: Plan The patient is having upper abdominal pain that is been there for 2 days. I reviewed the patient's CT scan which showed dilated loops of small bowel approximately with nondilated loops distally. I discussed with the radiologist and they report that they do not see any inflammation around the pancreas although they do see dilated pancreatic and bile duct. LFTs are normal. The patient has elevated lipase. Her lactate was also elevated and her white count is significantly elevated with left shift. The patient has been having bowel obstruction for 2 days and not able to vomit due to history of Fabiano and she may be having an element of ischemia in the bowel although they also said they did not see any pneumatosis or inflammation around the bowel to suggest ischemia. They also postured that it may be the obstruction causing the pancreatitis and the dilated loops. NG was placed and about 800 cc of fluid wassuctioned. She did report immediate relief and improvement in pain. She is currently very comfortable. I am going to recheck a lactate in 2 hours and recheck labs in the morning. I will admit her to the floor and check a KUB in the morning. Currently her vitals are stable and she is much more comfortable after the NG was placed. If any of her vital signs worsen or physical exam worsens I will take her to surgery for exploration. If she is doing better in the morning and her labs areimproving I will order a small bowel follow-through. Emmett Guerrero MD Pager: [facility] [address] [place] [address], [address] [place] [address] Office: 08/06/23 0116 <Electronically signed by Emmett Guerrero MD> Cosigner Signature (if applicable): CC: Dr. Emmett Guerrero MD; No Primary Care Physician~ Signed [facility] Work Phone: [phone]) 735-760105-10-2024 Discharge summary Author Cornelius Dennise [facility] August 06, 2023 1:06am Note Date/Time August 05, 2023 9:11pm [facility] Medical Records Department [address] [place], [place] [id number] Emergency Department Summary 08/05/23 MR#: [id number] Acct: [id number] Name: ESTEFANIA MONTIEL NIKITA Rep #:[id number] : 1940 82 From: Aylin TRIPLETT PCP: Care Physician,No Primary Status :REG ER Location: ED HPI <IOANA Osborn - Last Filed: 08/05/23 21:50> History of Present Illness Chief Complaint: Abd Pain Narrative Narrative: Patient presenting today with generalized abdominal pain that started last night. She reports that the pain is constant and sharp. She does have a history of diverticulitis, is unsure if this feels similar. She has had intermittent chills, nausea, and several episodes of loose stool today. Previous abdominal surgeries include cholecystectomy, appendectomy, colostomy and colostomy reversal. She denies any urinary symptoms, melena, and hematochezia. PFSH <IOANA Osborn - Last Filed: 08/05/23 21:50> PFS Home Medications fluoxetine 20 mg capsule (Prozac) 20 mg PO DAILY 08/05/23 [History Last Taken Unknown] levothyroxine 2 tab PO .COMPLEX 08/05/23 [History Last Taken Unknown] Allergy/AdvReac Type Severity Reaction Status Date / Time Penicillins Allergy Intermediate SKIN SHEDS Verified 08/05/23 20:32 Surgical History (Updated 08/05/23 @ 22:07 by Hattie Potter) History of colostomy Social History Smoking Status: Never smoker ROS <IOANA Osborn - Last Filed: 08/05/23 21:50> ROS ED Constitutional Constitutional ED: Denies chills or fever(s) Cardiovascular Cardiovascular: Denies chest pain Respiratory/Chest Respiratory/Chest: Denies cough or dyspnea Gastrointestinal Gastrointestinal: Reports abdominal pain, diarrhea, nausea and vomiting; Denies constipation or melena Genitourinary Genitourinary ED: Denies dysuria, hematuria or urinary urgency Musculoskeletal Musculoskeletal: Denies arthralgias or myalgias Integumentary Denies rash Neurologic Neurologic: Denies weakness EXAM <IOANA Osborn - Last Filed: 08/05/23 21:50> Physical Exam Const Vital Signs: 08/05/23 20:30 08/05/23 22:29 08/05/23 23:10 Temperature 98.1 F 97.5 F L Temperature Source Temporal Temporal Pulse Rate 68 75 Respiratory Rate 18 16 Respiratory Effort Normal Respiratory Pattern Normal Blood Pressure 165/82 H 141/66 H Blood Pressure Mean 109 91 Pulse Ox 97 93 Oxygen Delivery Method Room Air Room Air Oxygen Flow Rate (L/min) 08/05/23 23:19 08/05/23 23:19 Temperature Temperature Source Pulse Rate Respiratory Rate 16 18 Respiratory Effort Respiratory Pattern Blood Pressure Blood Pressure Mean Pulse Ox 87 94 Oxygen Delivery Method Room Air Nasal Cannula Oxygen Flow Rate (L/min) 2 Positive well nourished, well developed and no apparent distress General Appearance ED: well developed HEENT Reports normocephalic and head/scalp atraumatic Mouth ED: Yes moist mucous membranes normal Eyes PERRL and EOMs intact bilaterally Neck full ROM and supple Chest Wall inspection of chest normal Resp normal respiratory effort and clear to auscultation bilaterally Cardio regular rate and regular rhythm GI non-distended and no masses GI Narrative: Patient has generalized abdominal tenderness on exam, she does have rigidity andguarding Back/Spine normal ROM and normal to inspection Extremity normal to inspection and full ROM Neuro oriented x3, CN's II-XII intact bilaterally, moves all extremities, no focal motor deficits and no sensory deficits noted Sensorium / Orientation: awake and alert Psych mental status grossly normal and thought process normal Skin no rashes or lesions noted and no wounds <Dr. Cornelius Bowden DO - Last Filed: 08/06/23 01:06> Physical Exam Const Vital Signs: 08/05/23 20:30 08/05/23 22:29 08/05/23 23:10 Temperature 98.1 F 97.5 F L Temperature Source Temporal Temporal Pulse Rate 68 75 Respiratory Rate 18 16 Respiratory Effort Normal Respiratory Pattern Normal Blood Pressure 165/82 H 141/66 H Blood Pressure Mean 109 91 Pulse Ox 97 93 Oxygen Delivery Method Room Air Room Air Oxygen Flow Rate (L/min) 08/05/23 23:19 08/05/23 23:19 Temperature Temperature Source Pulse Rate Respiratory Rate 16 18 Respiratory Effort Respiratory Pattern Blood Pressure Blood Pressure Mean Pulse Ox 87 94 Oxygen Delivery Method Room Air Nasal Cannula Oxygen Flow Rate (L/min) 2 MDM <IOANA Osborn - Last Filed: 08/05/23 21:50> [facility] Narrative Medical decision making narrative: Patient presenting due to generalized abdominal pain, nausea, and diarrhea that started last night. She does appear to be uncomfortable. She does have significant abdominal tenderness to palpation on exam, CT scan will be obtained to rule out diverticulitis, bowel obstruction, and other etiology. She will be given IV fluids, Zofran, and morphine. Abdominal labs will be obtained. Workupis pending. Lab Data Labs: Laboratory Results - last 24 hr 08/05/23 08/05/23 08/05/23 21:18 22:26 22:40 WBC 27.9 H RBC 5.08 Hgb 15.6 H Hct 47.6 H MCV 93.7 MCH 30.7 MCHC 32.8 RDW Std Deviation 47.4 H RDW Coeff of Jenn 13.8 Plt Count 336 MPV 10.9 Immature Gran % (Auto) 0.900 Neut % (Auto) 82.4 H Lymph % (Auto) 8.8 L Riley % (Auto) 6.8 Eos % (Auto) 0.5 Baso % (Auto) 0.6 Absolute Neuts (auto) 23.0 H Absolute Lymphs (auto) 2.45 Nucleated RBC % 0 Differential Comment SCANNED Diff Path Review May foll PT Cancelled INR Cancelled APTT Cancelled Sodium 138 Potassium 4.1 Chloride 104 Carbon Dioxide 25.0 Anion Gap 9 BUN 37 H Creatinine 0.89 Estim Creat Clear Calc 38.54 Est GFR (MDRD) Af Amer 78 Est GFR (MDRD) Non-Af 65 BUN/Creatinine Ratio 41.7 H Glucose 214 H Lactic Acid 2.5 H* Calcium 9.3 Total Bilirubin 0.70 AST 22 ALT 23 Alkaline Phosphatase 54 Total Protein 7.5 Albumin 3.5 Globulin 4.0 Albumin/Globulin Ratio 0.9 Lipase 1168 H 08/05/23 23:48 WBC RBC Hgb Hct MCV MCH MCHC RDW Std Deviation RDW Coeff of Jenn Plt Count MPV Immature Gran % (Auto) Neut % (Auto) Lymph % (Auto) Riley % (Auto) Eos % (Auto) Baso % (Auto) Absolute Neuts (auto) Absolute Lymphs (auto) Nucleated RBC % Differential Comment Diff Path Review PT 14.0 INR 1.1 APTT 24.0 L Sodium Potassium Chloride Carbon Dioxide Anion Gap BUN Creatinine Estim Creat Clear Calc Est GFR (MDRD) Af Amer Est GFR (MDRD) Non-Af BUN/Creatinine Ratio Glucose Lactic Acid Calcium Total Bilirubin AST ALT Alkaline Phosphatase Total Protein Albumin Globulin Albumin/Globulin Ratio Lipase Radiography Diagnostic Testing: Clinical Impression(s) from Imaging Studies Abdomen/Pelvis CT 08/05/23 20:55 IMPRESSION: Dilated gas and fluid-filled loops of small bowel proximally with normal caliber bowel loops distally compatible with bowel obstruction. Transition point appears be within the pelvis. There is no free air. Electronically Signed: Nito Franks MD at 0:01 EDT , <Dr. Cornelius Bowden, DO - Last Filed: 08/06/23 01:06> MDM MDM Narrative Medical decision making narrative: Patient presenting due to generalized abdominal pain, nausea, and diarrhea that started last night. She does appear to be uncomfortable. She does have significant abdominal tenderness to palpation on exam, CT scan will be obtained to rule out diverticulitis, bowel obstruction, and other etiology. She will be given IV fluids, Zofran, and morphine. Abdominal labs will be obtained. Workupis pending. Interventions / MDM: Differential diagnosis: Bowel obstruction, pancreatitis Diagnosis considered but do not suspect: Pneumoperitoneum however CT negative. Colitis however CT negative. KUB #1: NG kinked and does not appear to be in thestomach. KUB #2: Appropriate position of NG tube. My EKG interpretation: N/A Imaging independently reviewed and interpreted by myself: CT abdomen and pelvis IV contrast: Distended gastrum proximal small bowels with air-fluid level consistent with bowel obstruction. Normal pancreas. This also read by radiology. 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 I perform my own [id number] evaluation. I agree with the plan of work-up. Increasing mid abdominal pain since yesterday worsened today with increased distention. Cholecystectomy, appendectomy, colostomy with reversal in 2021 from diverticulitis. Recently moved here from [place] here with son. Reports has chronic continued diarrhea. No recent antibiotics. Reports chills. Nausea started vomiting in the ED. Allergies to penicillin causing scaly skin. Deniesany alcohol history. Exam with uncomfortable tender mid abdomen. Patient had abdominal labs ordered, CT scan abdomen pelvis, pain and nausea medicines and fluids were started. In the interim had a leukocytosis 27.9. Lactic acid bloodcultures were added on type and screen as she is fairly tender on exam. Additional pain medications. Her lipase returned at 1168 normal liver enzymes. Lactic acid 2.5. Fluids were continued. CT scan concerning bowel obstruction with air-fluid levels. NG tube ordered for placement. I discussed with surgeonDr. Guerrero. Initial KUB appears to be above the diaphragm discussed with nurse the events. This was advanced and improved. 600 cc immediate output with improving symptoms. Patient seen by surgery in the ED, will continue fluids, admit under surgery for further management. Re-evaluation: stable Disposition discussed with patient/family/significant other: Patient and family Case discussed with consulting clinician: General surgery This note was generated with Clustrix dictation software. It may contain incorrectwords, spelling, and punctuation that were not noted in checking the note beforesigning. Lab Data Attestation: I reviewed the patient's lab results. Labs: Laboratory Results - last 24 hr 08/05/23 08/05/23 08/05/23 21:18 22:26 22:40 WBC 27.9 H RBC 5.08 Hgb 15.6 H Hct 47.6 H MCV 93.7 MCH 30.7 MCHC 32.8 RDW Std Deviation 47.4 H RDW Coeff of Jenn 13.8 Plt Count 336 MPV 10.9 Immature Gran % (Auto) 0.900 Neut % (Auto) 82.4 H Lymph % (Auto) 8.8 L Riley % (Auto) 6.8 Eos % (Auto) 0.5 Baso % (Auto) 0.6 Absolute Neuts (auto) 23.0 H Absolute Lymphs (auto) 2.45 Nucleated RBC % 0 Differential Comment SCANNED Diff Path Review May foll PT Cancelled INR Cancelled APTT Cancelled Sodium 138 Potassium 4.1 Chloride 104 Carbon Dioxide 25.0 Anion Gap 9 BUN 37 H Creatinine 0.89 Estim Creat Clear Calc 38.54 Est GFR (MDRD) Af Amer 78 Est GFR (MDRD) Non-Af 65 BUN/Creatinine Ratio 41.7 H Glucose 214 H Lactic Acid 2.5 H* Calcium 9.3 Total Bilirubin 0.70 AST 22 ALT 23 Alkaline Phosphatase 54 Total Protein 7.5 Albumin 3.5 Globulin 4.0 Albumin/Globulin Ratio 0.9 Lipase 1168 H 08/05/23 23:48 WBC RBC Hgb Hct MCV MCH MCHC RDW Std Deviation RDW Coeff of Jenn Plt Count MPV Immature Gran % (Auto) Neut % (Auto) Lymph % (Auto) Riley % (Auto) Eos % (Auto) Baso % (Auto) Absolute Neuts (auto) Absolute Lymphs (auto) Nucleated RBC % Differential Comment Diff Path Review PT 14.0 INR 1.1 APTT 24.0 L Sodium Potassium Chloride Carbon Dioxide Anion Gap BUN Creatinine Estim Creat Clear Calc Est GFR (MDRD) Af Amer Est GFR (MDRD) Non-Af BUN/Creatinine Ratio Glucose Lactic Acid Calcium Total Bilirubin AST ALT Alkaline Phosphatase Total Protein Albumin Globulin Albumin/Globulin Ratio Lipase Radiography Diagnostic Testing: Clinical Impression(s) from Imaging Studies Abdomen/Pelvis CT 08/05/23 20:55 IMPRESSION: Dilated gas and fluid-filled loops of small bowel proximally with normal caliber bowel loops distally compatible with bowel obstruction. Transition point appears be within the pelvis. There is no free air. Electronically Signed: Nito Franks MD at 0:01 EDT , Discharge Plan Dx/Rx/DC Orders Clinical Impression: Complete small bowel obstruction, Abdominal pain, Acute pancreatitis Disposition Disposition: Acute Care Hospital [facility] What to do if you have Problems For any increased pain, shortness of breath, bleeding, nausea or vomiting, chestpain, or any unexpected problems, contact your Primary Care Provider. Call [facility] ([phone]) or report to the closest Emergency Room. Call 911 if necessary. 08/05/23 2150 <Electronically signed by Aylin TRIPLETT> Cosigner Signature (if applicable): 08/06/23 0106 <Electronically signed by Cornelius Aparicio> CC: No Primary Care Physician ~ Signed [facility] Work Phone: [phone]) 119-770505-09-2024 Discharge summary Author Cornelius Bodwen [facility] August 06, 2023 1:06am Note Date/Time August 05, 2023 9:11pm [facility] Medical Records Department [address] [place] [address] Emergency Department Summary 08/05/23 MR#: [id number] Acct: [id number] Name: ESTEFANIA MONTIEL Rep #:[id number] : 1940 82 From: Aylin TRIPLETT PCP: Care Physician,No Primary Status :REG ER Location: ED HPI <IOANA Osborn - Last Filed: 08/05/23 21:50> History of Present Illness Chief Complaint: Abd Pain Narrative Narrative: Patient presenting today with generalized abdominal pain that started last night. She reports that the pain is constant and sharp. She does have a history of diverticulitis, is unsure if this feels similar. She has had intermittent chills, nausea, and several episodes of loose stool today. Previous abdominal surgeries include cholecystectomy, appendectomy, colostomy and colostomy reversal. She denies any urinary symptoms, melena, and hematochezia. PFSH <IOANA Osborn - Last Filed: 08/05/23 21:50> PFSH Home Medications fluoxetine 20 mg capsule (Prozac) 20 mg PO DAILY 08/05/23 [History Last Taken Unknown] levothyroxine 2 tab PO .COMPLEX 08/05/23 [History Last Taken Unknown] Allergy/AdvReac Type Severity Reaction Status Date / Time Penicillins Allergy Intermediate SKIN SHEDS Verified 08/05/23 20:32 Surgical History (Updated 08/05/23 @ 22:07 by Hattie Potter) History of colostomy Social History Smoking Status: Never smoker ROS <IOANA Osborn - Last Filed: 08/05/23 21:50> ROS ED Constitutional Constitutional ED: Denies chills or fever(s) Cardiovascular Cardiovascular: Denies chest pain Respiratory/Chest Respiratory/Chest: Denies cough or dyspnea Gastrointestinal Gastrointestinal: Reports abdominal pain, diarrhea, nausea and vomiting; Denies constipation or melena Genitourinary Genitourinary ED: Denies dysuria, hematuria or urinary urgency Musculoskeletal Musculoskeletal: Denies arthralgias or myalgias Integumentary Denies rash Neurologic Neurologic: Denies weakness EXAM <IOANA Osborn - Last Filed: 08/05/23 21:50> Physical Exam Const Vital Signs: 08/05/23 20:30 08/05/23 22:29 08/05/23 23:10 Temperature 98.1 F 97.5 F L Temperature Source Temporal Temporal Pulse Rate 68 75 Respiratory Rate 18 16 Respiratory Effort Normal Respiratory Pattern Normal Blood Pressure 165/82 H 141/66 H Blood Pressure Mean 109 91 Pulse Ox 97 93 Oxygen Delivery Method Room Air Room Air Oxygen Flow Rate (L/min) 08/05/23 23:19 08/05/23 23:19 Temperature Temperature Source Pulse Rate Respiratory Rate 16 18 Respiratory Effort Respiratory Pattern Blood Pressure Blood Pressure Mean Pulse Ox 87 94 Oxygen Delivery Method Room Air Nasal Cannula Oxygen Flow Rate (L/min) 2 Positive well nourished, well developed and no apparent distress General Appearance ED: well developed HEENT Reports normocephalic and head/scalp atraumatic Mouth ED: Yes moist mucous membranes normal Eyes PERRL and EOMs intact bilaterally Neck full ROM and supple Chest Wall inspection of chest normal Resp normal respiratory effort and clear to auscultation bilaterally Cardio regular rate and regular rhythm GI non-distended and no masses GI Narrative: Patient has generalized abdominal tenderness on exam, she does have rigidity andguarding Back/Spine normal ROM and normal to inspection Extremity normal to inspection and full ROM Neuro oriented x3, CN's II-XII intact bilaterally, moves all extremities, no focal motor deficits and no sensory deficits noted Sensorium / Orientation: awake and alert Psych mental status grossly normal and thought process normal Skin no rashes or lesions noted and no wounds <Dr. Cornelius Bowden DO - Last Filed: 08/06/23 01:06> Physical Exam Const Vital Signs: 08/05/23 20:30 08/05/23 22:29 08/05/23 23:10 Temperature 98.1 F 97.5 F L Temperature Source Temporal Temporal Pulse Rate 68 75 Respiratory Rate 18 16 Respiratory Effort Normal Respiratory Pattern Normal Blood Pressure 165/82 H 141/66 H Blood Pressure Mean 109 91 Pulse Ox 97 93 Oxygen Delivery Method Room Air Room Air Oxygen Flow Rate (L/min) 08/05/23 23:19 08/05/23 23:19 Temperature Temperature Source Pulse Rate Respiratory Rate 16 18 Respiratory Effort Respiratory Pattern Blood Pressure Blood Pressure Mean Pulse Ox 87 94 Oxygen Delivery Method Room Air Nasal Cannula Oxygen Flow Rate (L/min) 2 MDM <IOANA Osborn - Last Filed: 08/05/23 21:50> [facility] MDM Narrative Medical decision making narrative: Patient presenting due to generalized abdominal pain, nausea, and diarrhea that started last night. She does appear to be uncomfortable. She does have significant abdominal tenderness to palpation on exam, CT scan will be obtained to rule out diverticulitis, bowel obstruction, and other etiology. She will be given IV fluids, Zofran, and morphine. Abdominal labs will be obtained. Workupis pending. Lab Data Labs: Laboratory Results - last 24 hr 08/05/23 08/05/23 08/05/23 21:18 22:26 22:40 WBC 27.9 H RBC 5.08 Hgb 15.6 H Hct 47.6 H MCV 93.7 MCH 30.7 MCHC 32.8 RDW Std Deviation 47.4 H RDW Coeff of Jenn 13.8 Plt Count 336 MPV 10.9 Immature Gran % (Auto) 0.900 Neut % (Auto) 82.4 H Lymph % (Auto) 8.8 L Riley % (Auto) 6.8 Eos % (Auto) 0.5 Baso % (Auto) 0.6 Absolute Neuts (auto) 23.0 H Absolute Lymphs (auto) 2.45 Nucleated RBC % 0 Differential Comment SCANNED Diff Path Review May foll PT Cancelled INR Cancelled APTT Cancelled Sodium 138 Potassium 4.1 Chloride 104 Carbon Dioxide 25.0 Anion Gap 9 BUN 37 H Creatinine 0.89 Estim Creat Clear Calc 38.54 Est GFR (MDRD) Af Amer 78 Est GFR (MDRD) Non-Af 65 BUN/Creatinine Ratio 41.7 H Glucose 214 H Lactic Acid 2.5 H* Calcium 9.3 Total Bilirubin 0.70 AST 22 ALT 23 Alkaline Phosphatase 54 Total Protein 7.5 Albumin 3.5 Globulin 4.0 Albumin/Globulin Ratio 0.9 Lipase 1168 H 08/05/23 23:48 WBC RBC Hgb Hct MCV MCH MCHC RDW Std Deviation RDW Coeff of Jenn Plt Count MPV Immature Gran % (Auto) Neut % (Auto) Lymph % (Auto) Riley % (Auto) Eos % (Auto) Baso % (Auto) Absolute Neuts (auto) Absolute Lymphs (auto) Nucleated RBC % Differential Comment Diff Path Review PT 14.0 INR 1.1 APTT 24.0 L Sodium Potassium Chloride Carbon Dioxide Anion Gap BUN Creatinine Estim Creat Clear Calc Est GFR (MDRD) Af Amer Est GFR (MDRD) Non-Af BUN/Creatinine Ratio Glucose Lactic Acid Calcium Total Bilirubin AST ALT Alkaline Phosphatase Total Protein Albumin Globulin Albumin/Globulin Ratio Lipase Radiography Diagnostic Testing: Clinical Impression(s) from Imaging Studies Abdomen/Pelvis CT 08/05/23 20:55 IMPRESSION: Dilated gas and fluid-filled loops of small bowel proximally with normal caliber bowel loops distally compatible with bowel obstruction. Transition point appears be within the pelvis. There is no free air. Electronically Signed: Nito Franks MD at 0:01 EDT Reading Location ID and State: [facility] / [place] Tel , Service support , <Dr. Cornelius Bowden, DO - Last Filed: 08/06/23 01:06> MDM MDM Narrative Medical decision making narrative: Patient presenting due to generalized abdominal pain, nausea, and diarrhea that started last night. She does appear to be uncomfortable. She does have significant abdominal tenderness to palpation on exam, CT scan will be obtained to rule out diverticulitis, bowel obstruction, and other etiology. She will be given IV fluids, Zofran, and morphine. Abdominal labs will be obtained. Workupis pending. Interventions / MDM: Differential diagnosis: Bowel obstruction, pancreatitis Diagnosis considered but do not suspect: Pneumoperitoneum however CT negative. Colitis however CT negative. KUB #1: NG kinked and does not appear to be in thestomach. KUB #2: Appropriate position of NG tube. My EKG interpretation: N/A Imaging independently reviewed and interpreted by myself: CT abdomen and pelvis IV contrast: Distended gastrum proximal small bowels with air-fluid level consistent with bowel obstruction. Normal pancreas. This also read by radiology. 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 I perform my own [id number] evaluation. I agree with the plan of work-up. Increasing mid abdominal pain since yesterday worsened today with increased distention. Cholecystectomy, appendectomy, colostomy with reversal in 2021 from diverticulitis. Recently moved here from [place] here with son. Reports has chronic continued diarrhea. No recent antibiotics. Reports chills. Nausea started vomiting in the ED. Allergies to penicillin causing scaly skin. Deniesany alcohol history. Exam with uncomfortable tender mid abdomen. Patient had abdominal labs ordered, CT scan abdomen pelvis, pain and nausea medicines and fluids were started. In the interim had a leukocytosis 27.9. Lactic acid bloodcultures were added on type and screen as she is fairly tender on exam. Additional pain medications. Her lipase returned at 1168 normal liver enzymes. Lactic acid 2.5. Fluids were continued. CT scan concerning bowel obstruction with air-fluid levels. NG tube ordered for placement. I discussed with surgeonDr. Guerrero. Initial KUB appears to be above the diaphragm discussed with nurse the events. This was advanced and improved. 600 cc immediate output with improving symptoms. Patient seen by surgery in the ED, will continue fluids, admit under surgery for further management. Re-evaluation: stable Disposition discussed with patient/family/significant other: Patient and family Case discussed with consulting clinician: General surgery This note was generated with Clustrix dictation software. It may contain incorrectwords, spelling, and punctuation that were not noted in checking the note beforesigning. Lab Data Attestation: I reviewed the patient's lab results. Labs: Laboratory Results - last 24 hr 08/05/23 08/05/23 08/05/23 21:18 22:26 22:40 WBC 27.9 H RBC 5.08 Hgb 15.6 H Hct 47.6 H MCV 93.7 MCH 30.7 MCHC 32.8 RDW Std Deviation 47.4 H RDW Coeff of Jenn 13.8 Plt Count 336 MPV 10.9 Immature Gran % (Auto) 0.900 Neut % (Auto) 82.4 H Lymph % (Auto) 8.8 L Riley % (Auto) 6.8 Eos % (Auto) 0.5 Baso % (Auto) 0.6 Absolute Neuts (auto) 23.0 H Absolute Lymphs (auto) 2.45 Nucleated RBC % 0 Differential Comment SCANNED Diff Path Review May foll PT Cancelled INR Cancelled APTT Cancelled Sodium 138 Potassium 4.1 Chloride 104 Carbon Dioxide 25.0 Anion Gap 9 BUN 37 H Creatinine 0.89 Estim Creat Clear Calc 38.54 Est GFR (MDRD) Af Amer 78 Est GFR (MDRD) Non-Af 65 BUN/Creatinine Ratio 41.7 H Glucose 214 H Lactic Acid 2.5 H* Calcium 9.3 Total Bilirubin 0.70 AST 22 ALT 23 Alkaline Phosphatase 54 Total Protein 7.5 Albumin 3.5 Globulin 4.0 Albumin/Globulin Ratio 0.9 Lipase 1168 H 08/05/23 23:48 WBC RBC Hgb Hct MCV MCH MCHC RDW Std Deviation RDW Coeff of Jenn Plt Count MPV Immature Gran % (Auto) Neut % (Auto) Lymph % (Auto) Riley % (Auto) Eos % (Auto) Baso % (Auto) Absolute Neuts (auto) Absolute Lymphs (auto) Nucleated RBC % Differential Comment Diff Path Review PT 14.0 INR 1.1 APTT 24.0 L Sodium Potassium Chloride Carbon Dioxide Anion Gap BUN Creatinine Estim Creat Clear Calc Est GFR (MDRD) Af Amer Est GFR (MDRD) Non-Af BUN/Creatinine Ratio Glucose Lactic Acid Calcium Total Bilirubin AST ALT Alkaline Phosphatase Total Protein Albumin Globulin Albumin/Globulin Ratio Lipase Radiography Diagnostic Testing: Clinical Impression(s) from Imaging Studies Abdomen/Pelvis CT 08/05/23 20:55 IMPRESSION: Dilated gas and fluid-filled loops of small bowel proximally with normal caliber bowel loops distally compatible with bowel obstruction. Transition point appears be within the pelvis. There is no free air. Electronically Signed: Nito Franks MD at 0:01 EDT , Discharge Plan Dx/Rx/DC Orders Clinical Impression: Complete small bowel obstruction, Abdominal pain, Acute pancreatitis Disposition Disposition: Acute Care Hospital [facility] What to do if you have Problems For any increased pain, shortness of breath, bleeding, nausea or vomiting, chestpain, or any unexpected problems, contact your Primary Care Provider. Call [facility] ([phone]) or report to the closest Emergency Room. Call 911 if necessary. 08/05/23 2150 <Electronically signed by Aylin TRIPLETT> Cosigner Signature (if applicable): 08/06/23 0106 <Electronically signed by Cornelius Aparicio> CC: No Primary Care Physician ~ Signed [facility] Work Phone: [phone] History of Present illness Narrative* Alhaji Javed MD - 07/28/2023 2:40 PM EDT CC: The patient is self referred for evaluation and management of chronic cough. I will communicatewith the referring provider via the shared EMR or mail. Assessment and Plan (Medical Decision Making): 82 y/o female, new patient, w/ hx of chronic refractory cough, irritable larynx. Has been on prednisone for >35 years (now at 10 mg every other day for the last 2 yrs. ) S/p SLN series w/ [facility] Laryngology, most recent 04/20/23. Presenting today w/ chronic cough Unfortunately, she has not achieved significant mitigation of her cough with any modality todate (neuromodulators, SLN blocks) Today, Neck was sensitive to the touch For cough, we discussed options for cough such as baclofen, botox injections into the neck musculature, nicotine patches, trigger point SLN, viscous lidocaine. At bedtime, we talked about phenergan or a low dose benadryl We agreed to perform SLN with trigger point in office. I also added bupivicaine instead of her traditional lidocaine. We also agreed to try the viscous lidocaine and we may consider botox at a later time after the pt establishes care w/ new Neurologist We could also consider eccentric botox injection around the larynx if the above does not provide relief Spasmodic dysphonia (SD) and laryngeal tremor are life-long voice disorders, classified as a dystonia, that affect the intrinsic muscles of the larynx. There are two subtypes of spasmodic dysphonia, adductor spasmodic dysphonia (ADSD), which affects the muscles of contraction (closing) of the vocalfold, and abductor spasmodic dysphonia (ABSD) which affects the opening muscle of the vocal folds. These laryngeal dystonias result in involuntary spasms of the vocal folds, which can significantly affect vocal quality, vocal function, and therefore quality of life. The most effective treatment andstandard of care for management of SD and tremor, acknowledged by The [employer] is Botulinum Toxin (Botox) injections. Botox is a temporary treatment, and patients typically receive injections in a planned interval of every 3-4 months. Given the neurologic and involuntary nature of SD and vocal tremor, behavioral treatment for spasmodic dysphonia hasbeen shown to be largely ineffective. Typical average starting dose for ADSD and laryngeal tremor as cited in the literature ranges from 0.25-5 units, and is ~5 units per side for ABSD. Carli, H., Sandra Navarrete, Steven CDebbie., Sergei Luna. and Michelle Lee., III (2019), Common practices in botulinum toxin injection for spasmodic dysphonia treatment: A national survey. The Laryngoscope, 129: 1311-2328. https://doi.org/10.1002/walt.15720 Neal A, Koko MF, Nolan C, Juan JE, Magaly S. 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 Laryngoscope. 1991;102(2):163-7. doi: 10.1288/52579508-848381304-78638. PMID: 1879179. Royce G, Yanet H, Abraham T. 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 J Voice. 2005;20(1):137-43. doi: 10.1016/j.jvoice.2005.03.008. Epub 2004Nov 21. PMID: 24130741. Sowmya MALIK, Benjy Kuhn DelGaudio JM, Jeremy FERNANDEZ, Jesus MM 3rd. 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 Otolaryngol Head Neck Surg. 2008 Nov;139(3):421-3. doi: 10.1016/j.otohns.2008.06.013. PMID: 54733770. Kathryn Deng AM, Wise J, Farooq ORTIZ, Jeremy FERNANDEZ, Jesus FAN 3rd. 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 Otolaryngol Head Neck Surg. 2008 Nov;139(3):421-3. doi: 10.1016/j.otohns.2008.06.013. PMID: 27859232. Drug management - lidocaine viscous 2% Consults - Neuro Follow up - after botox approval Medical Decision Making: Problems: Moderate: New problem with uncertain prognosis Data: Unique test result(s) reviewed: 3+ Risk: Moderate: Drug management Medical Decision Making Level: 4 - Moderate HPI: Estefania Montiel is a 82 y/o female, new patient, w/ hx of chronic cough. Has been on prednisone for >35 years (now at 10 mg every other day for the last 2 yrs. ). 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 S/p SLN series w/ [facility] laryngology, most recent 04/20/23. Presenting today w/ chronic cough Today, Endorses persistent cough Reports benefit from topical lidocaine during her first SLN. Has had 4 previous injections, denies much benefit; only short term relief Triggers include her own saliva, temp change, strong fragrances Has tried gabapentin, tramadol, codeine, hydrocodone, amitriptyline . No benefit Endorses unintentional weight loss REVIEW OF RADIOLOGICAL FILMS AND RECORDS: CT CHEST 02/02: Interpretation: Mediastinal window images demonstrate nonenlarged anterior right hilar lymph nodes. No axillary, mediastinal or hilar adenopathy. Normal cardiac sizeand contour--no pericardial fluid collections or coronary artery calcifications. Small hiatal hernia is suggested. Body Imaging. Lung window images reveal a rounded 6-mm noncalcified nodule in the right apex (SP -597). 3-mm subpleural nodule in the lateral basilar segment of the left lower lobe (SP -726). Similar appearing 4-mm nodule in the same region (-757). Nondependent subpleural reticulation and mild cyst formation. Suture material in the right posterior costophrenic sulcus. No additional non-calcified pulmonary nodules, parenchymal consolidations or foci of cavitation. Tracheobronchial tree is patent--no endobronchial lesions Multiple procedure notes from [facility] ALLERGIES Allergen Reactions Penicillins skin peeling Percodan [Oxycodone* Mental Status Change Current Outpatient Medications Medication Sig Dextromethorphan Poly Complex (DELSYM) 30 mg/5 mL ORAL Su12 1 TSP BID hydrocodone-homatropine (HYCODAN) 5-1.5 mg/5 mL ORAL Syrp Take 1 teaspoon(s) (5ml) every 4-6 hours as needed for coughing. predniSONE 10 mg ORAL Tab Take one(1) tablet every other day. Fluoxetine HCl 40 mg ORAL Cap Take one(1) tablet daily. esomeprazole (NEXIUM) 40 mg ORAL CpDR Take one(1) capsule daily. estradiol 0.05 mg/24 hr TRANSDERM. PTWK use as directly No current facility-administered medications for this visit. No past medical history on file. No past surgical history on file. Social History: Family History: No family history of ENT problems ROS: Constitutional: Denies having night sweats, constant fatigue, loss of appetite, or recent substantial weight loss. Eyes: The pt denies having blurred vision or double vision. Respiratory: Denies symptoms of shortness of breath, noisy breathing. 14 point review of systems was otherwise normal except as noted in HPI. PHYSICAL EXAM: On physical examination Estefania Montiel is a well-developed, well nourished female. Her conversational voice is mildly strained, hoarse. Mental status revealed patient to be alert and oriented x 3. Mood is appropriate. Details of the physical examination: Respiratory: no stridor or SOB Cardiovascular: No clubbing, cyanosis or edema of the upper extremities HEAD AND FACE: Physical examination of the head, neck, external nose, external ears, mouth and facefails to demonstrate any significant abnormality or asymmetry to critical face to face observation.Skin and scalp are normal. NOSE: Examination of the nasal cavity revealed a septum which is midline ORAL CAVITY AND OROPHARYNX: The oral mucosa, hard and soft palates, tongue, and posterior pharyngeal wall are without lesions. LARYNX: deferred NECK: The neck appears intact. On palpation, there are no masses or lymphadenopathy. The ROM is intact Sensitivity to touch (L > R), trigger point zone Alhaji Javed MD [place] [id number] [place] [facility] OPERATIVE REPORT UNIVERSAL PROTOCOL / SAFETY CHECKLIST Procedure to be Performed: bilateral superior laryngeal nerve blockade with trigger point injection Sign In: A Moment of CARE was completed. Personnel directly involved with the procedure wore the appropriate PPE (Personal Protective Equipment). No special equipment needed. Patient/Surrogate Stated/Verified: PATIENT VERIFIED(optional for EMERGENT procedures): Patient name, Date of , Relevant allergies, and The intended procedure Time Out Communication: Intended patient and procedure match the source documents. Consent documented and matches the intended procedure. Relevant labs, photos, and/or imaging studies have been reviewed. Correct side/site marked and visible. Medications required for procedure verified. No fire risk assessment and interventions applicable. No implant(s) inserted. Sign Out: SIGN OUT (optional for EMERGENT procedures): No specimen collected. All instruments, equipment, possible retained foreign bodies accounted for. Post-procedure follow-up management communicated and Plan of Care Visit completed when applicable. Alhaji Javed MD Procedure: Bilateral Vagal (Superior laryngeal branch) nerve blockade Indication: vagal nerve sensitivity with laryngeal spasm and chronic refractory cough Left and right thyrohyoid space in region of superior laryngeal nerve branches of vagus nerves wereinjected with 1.5ml (0.5 mL marcaine 0.5% and 1.0mL kenalog 40) Trigger point zone was injected with 1.5ml (0.5 mL marcaine 0.5% and 1.0mL kenalog 40) Tolerated well I personally performed the procedure By signing my name below, I, Harshad Mckinney, attest that this documentation has been prepared under the direction and in the presence of Dr. Alahji Javed Electronically signed, Harshad Mckinney, Scribe July 28, 2023 3:20 PM I agree with the chief complaint, ROS, and Past Histories independently gathered by the clinical it application support analyst and the remaining scribed note accurately describes my personal service to the patient. Alhaji Javed MD [facility] NoteHNO ID: [id number] Author: ALHAJI JAVED MD Service: ? Author Type: Physician Type: Progress Notes Filed: 07/30/2023 10:06 Note Text: CC: The patient is self referred for evaluation and management of chronic cough. I will communicate with the referring provider via the shared EMR or mail. Assessment and Plan (Medical Decision Making): 82 y/o female, new patient, w/ hx of chronic refractory cough, irritable larynx. Has been on prednisone for >35 years (now at 10 mg every other day for the last 2 yrs. ) S/p SLN series w/ [facility] Laryngology, most recent 04/20/23. Presenting today w/ chronic cough Unfortunately, she has not achieved significant mitigation of her cough with any modality todate (neuromodulators, SLN blocks) Today, Neck was sensitive to the touch For cough, we discussed options for cough such as baclofen, botox injections into the neck musculature, nicotine patches, trigger point SLN, viscous lidocaine. At bedtime, we talked about phenergan or a low dose benadryl We agreed to perform SLN with trigger point in office. I also added bupivicaine instead of her traditional lidocaine. We also agreed to try the viscous lidocaine and we may consider botox at a later time after the pt establishes care w/ new Neurologist We could also consider eccentric botox injection around the larynx if the above does not provide relief Spasmodic dysphonia (SD) and laryngeal tremor are life-long voice disorders, classified as a dystonia, that affect the intrinsic muscles of the larynx. There are two subtypes of spasmodic dysphonia, adductor spasmodic dysphonia (ADSD), which affects the muscles of contraction (closing) of the vocal fold, and abductor spasmodic dysphonia (ABSD) which affects the opening muscle of the vocal folds. These laryngeal dystonias result in involuntary spasms of the vocal folds, which can significantly affect vocal quality, vocal function, and therefore quality of life. The most effective treatment and standard of care for management of SD and tremor, acknowledged by The [employer]ol[employer]-Head [employer]ck [employer] is Botulinum Toxin (Botox) injections. Botox is a temporary treatment, and patients typically receive injections in a planned interval of every 3-4 months. Given the neurologic and involuntary nature of SD and vocal tremor, behavioral treatment for spasmodic dysphonia has been shown to be largely ineffective. Typical average starting dose for ADSD andlaryngeal tremor as cited in the literature ranges from 0.25-5 units, and is ~5 units per side for ABSD. Kaitlinl?Barbara Peace., Denis Navarrete., Steven C.X., Jeremy, E.R. and Michelle Lee., III (2019), Common practices in botulinum toxin injection for spasmodic dysphonia treatment: A national survey. The Laryngoscope, 129: 5191-8688. https://doi.org/10.1002/walt.17090 Neal A, Koko MF, Nolan C, Juan JE, Magaly S. 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 Laryngoscope. 1991;102(2):163-7. doi: 10.1288/[id number]. PMID: 2279789. Royce G, Yanet H, Abraham T. 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 J Voice. 2006 May;20(1):137-43. doi: 10.1016/j.jvoice.2005.03.008. Epub 2004Nov 21. PMID: 66992024. Kathryn Deng AM, Wise J, DelGaudio JM, Jeremy FERNANDEZ, [facility] 3rd. 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 Otolaryngol Head Neck Surg. 2008 Nov;139(3):421-3. doi: 10.1016/j.otohns.2008.06.013. PMID: 43570198. Kathryn Deng AM, Wise J, DelGaudio JM, Jeremy FERNANDEZ, [facility] 3rd. 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 Otolaryngol Head Neck Surg. 2007;139(3):421-3. doi: 10.1016/j.otohns.2008.06.013. PMID: 33340304. Drug management - lidocaine viscous 2% Consults - Neuro Follow up - after botox approval Medical Decision Making: Problems: Moderate: New problem with uncertain prognosis Data: Unique test result(s) reviewed: 3+ Risk: Moderate: Drug management Medical Decision Making Level: 4 - Moderate HPI: Estefania Montiel is a 82 y/o female, new patient, w/ hx of chronic cough. Has been on prednisone for >35 years (now at 10 mg every other day for the last 2 yrs. ). 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 S/p SLN series w/ [facility] laryngology, most recent 04/20/23. Presenting today w/ chronic cough Today, Endorses persistent cough Reports benefit from topical lidocaine during her first SLN. Has had 4 previous injections, denies much benefit; only short term relief Triggers include her own saliva, temp change, strong fragrances Has tried gabapentin, tramadol, codeine, hydrocodone, amitriptyline . No benefit Endorses unintentional weight loss REVIEW OF RADIOLOGICAL FILMS AND RECORDS: CT CHEST 02/02: Interpretation: Mediastinal window images demonstrate non (more content not included)...[facility]05-01-2024 Nurse Note* Tahira Lyle OCCA - 07/28/2023 2:38 PM EDT Patient Entered Questionnaires 07/23/2023 Eating Asessment Tool Score EAT Score 16 07/23/2023 [place] Cough Physical Sum Score 2.63 Psychological Sum Score 1.14 Social Sum Score 1.5 Total Score 5.27 (Lower scores are indicative of increased impact or lower quality of life. ) [facility]05-01-[facility] Nurse Note* Tahira Lyle OCCA - 07/28/2023 2:38 PM EDT Patient Entered Questionnaires 07/23/2023 Eating Asessment Tool Score EAT Score 16 07/23/2023 [place] Cough Physical Sum Score 2.63 Psychological Sum Score 1.14 Social Sum Score 1.5 Total Score 5.27 (Lower scores are indicative of increased impact or lower quality of life. ) documented in [facility] encounter[facility] Telephone encounter Note * Telephone Encounter - Mago Cali OCCA - 07/23/2023 10:15 AM EDT Received medical records for patient from [facility] today 07/23/23. Has appointment with Tegan 07/28/23. Will have them scanned into the system. [facility]04-26-[facility] Miscellaneous Notes* Telephone Encounter - Mago Cali OCCA - 07/23/2023 10:15 AM EDT Received medical records for patient from [facility] today 07/23/23. Has appointment with Tegan 07/28/23. Will have them scanned into the system. 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 documented in this encounter [facility]* Diagnosis Onset Date Resolution Status Abdominal pain acute Acute pancreatitis acute Complete small bowel obstruction acute Small bowel obstruction alex david [facility] Work Phone: Evaluation note* Diagnosis Laryngeal spasm- Primary Vagal nerve 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 [facility]* Diagnosis 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 Esophageal dysphagia Dysphagia, pharyngoesophageal phase documented in this encounter [facility] Work Phone: [phone] note* Diagnosis Laryngeal spasm- Primary Vagal nerve 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 Chronic cough Cough documented in this encounter [facility]* Diagnosis Microscopic colitis, unspecified microscopic colitis type- Primary documented in this encounter [facility] Work Phone: [phone] note* Diagnosis Microscopic colitis, unspecified microscopic colitis type documented in this encounter [facility] Work Phone: [phone] note* Diagnosis History of Fabiano fundoplication- Primary Esophageal dysphagia Dysphagia, pharyngoesophageal phase documented in this encounter [facility] Work Phone: [phone] note* Diagnosis Esophageal dysphagia- Primary Dysphagia, pharyngoesophageal phase History of Fabiano fundoplication Functional diarrhea documented in this encounter [facility] Work Phone: [phone] note* Diagnosis Esophageal dysphagia Dysphagia, pharyngoesophageal phase documented in this encounter [facility] Work Phone: [phone] note* Diagnosis Esophageal dysphagia- Primary Dysphagia, pharyngoesophageal phase Functional diarrhea documented in this encounter [facility] Work Phone: [phone] note* Diagnosis History of Fabiano fundoplication documented in this encounter [facility] Work Phone: [phone] and physical note Author Emmett Calabretta [facility] August 06, 2023 1:16am Note Date/Time August 06, 2023 1:16a m [facility] Medical Records Department [address] [place] [address] H&P Exam - Surgical 08/06/23111 MR#: [id number] Acct: [id number] Name: ESTEFANIA MONTIEL NIKITA Rep #:[id number] : 1940 82 From: Emmett greenwood MD PCP: Care Physician,No Primary Status :REG ER Location: ED HPI - General HPI Narrative ESTEFANIA MONTIEL, is a 82 F who presents with abdominal pain of 2 days. The patienthas history of Fabiano fundoplication and open cholecystectomy but most recently in 2021 she had a sigmoid colectomy with colostomy for diverticulitis. She had the colostomy reversed in another hospital in late 2021. She has had no issues since then except for chronic diarrhea. She reports that she had a bowel movement today which was diarrhea. She says the pain is in her upper abdomen. She is not able to vomit because she has had a Fabiano fundoplication. After NG was placed she reports she is much more comfortable. She denies fevers or chills. She says she believes she may have COPD but she has been told also thatayesha does not have COPD. PFSH Home Medications fluoxetine 20 mg capsule (Prozac) 20 mg PO DAILY 08/05/23 [History Last Taken Unknown] levothyroxine 2 tab PO .COMPLEX 08/05/23 [History Last Taken Unknown] Allergy/AdvReac Type Severity Reaction Status Date / Time Penicillins Allergy Intermediate SKIN SHEDS Verified 08/05/23 20:32 Surgical History (Updated 08/05/23 @ 22:07 by Hattie Potter) History of colostomy Social History Smoking Status: Never smoker ROS Constitutional Constitutional: Denies anorexia, chills or fatigue Eyes Eyes: Denies blurry vision ENT HEENT: Denies abnormal hearing Cardiovascular Cardiovascular: Denies chest pain Respiratory/Chest Respiratory/Chest: Reports cough and shortness of breath at rest Gastrointestinal Gastrointestinal: Reports abdominal pain, diarrhea and nausea; Denies constipation or vomiting Genitourinary Genitourinary: Denies change in urinary stream Musculoskeletal Musculoskeletal: Denies abnormal gait Integumentary Integumentary: Denies new lesions Neurologic Neurologic: Denies abnormal gait Psychiatric Psychiatric: Denies anxiety Endocrine Endocrinology: Denies heat intolerance Hematologic/Lymphatic Hematologic/Lymphatic: Denies easy bleeding Vital Signs Vital Signs Vital Signs: 08/05/23 20:30 08/05/23 22:29 08/05/23 23:10 Temperature 98.1 F 97.5 F L Temperature Source Temporal Temporal Pulse Rate 68 75 Respiratory Rate 18 16 Respiratory Effort Normal Respiratory Pattern Normal Blood Pressure 165/82 H 141/66 H Blood Pressure Mean 109 91 Pulse Ox 97 93 Oxygen Delivery Method Room Air Room Air Oxygen Flow Rate (L/min) 08/05/23 23:19 08/05/23 23:19 Temperature Temperature Source Pulse Rate Respiratory Rate 16 18 Respiratory Effort Respiratory Pattern Blood Pressure Blood Pressure Mean Pulse Ox 87 94 Oxygen Delivery Method Room Air Nasal Cannula Oxygen Flow Rate (L/min) 2 Weight Weight: 110 lb 7 oz Body Mass Index (BMI) 19.5 Physical Exam Const oriented x3 and no apparent distress Resp normal respiratory effort Cardio regular rate and regular rhythm GI soft to palpation Inspection: abdominal distention Palpation: tender epigastric Extremity normal to inspection Results Lab / Micro Data 08/05/23 21:18 08/05/23 21:18 Labs: Laboratory Results - last 24 hr 08/05/23 21:18: WBC 27.9 H, RBC 5.08, Hgb 15.6 H, Hct 47.6 H, MCV 93.7, MCH 30.7, MCHC 32.8, RDW Std Deviation 47.4 H, RDW Coeff of Jenn 13.8, Plt Count 336, MPV10.9, Immature Gran % (Auto) 0.900, Neut % (Auto) 82.4 H, Lymph % (Auto) 8.8 L, Riley % (Auto) 6.8, Eos % (Auto) 0.5, Baso % (Auto) 0.6, Absolute Neuts (auto) 23.0 H, Absolute Lymphs (auto) 2.45, Nucleated RBC % 0, Differential Comment SCANNED, Diff Path Review July, Sodium 138, Potassium 4.1, Chloride 104, Carbon Dioxide 25.0, Anion Gap 9, BUN 37 H, Creatinine 0.89, Estim Creat Clear Calc 38.54, Est GFR (MDRD) Af Amer 78, Est GFR (MDRD) Non-Af 65, BUN/Creatinine Ratio 41.7 H, Glucose 214 H, Calcium 9.3, Total Bilirubin 0.70, AST 22, ALT 23, Alkaline Phosphatase 54, Total Protein 7.5, Albumin 3.5, Globulin 4.0, Albumin/Globulin Ratio 0.9, Lipase 1168 H 08/05/23 22:26: Lactic Acid 2.5 H* 08/05/23 22:40: PT Cancelled, INR Cancelled, APTT Cancelled 08/05/23 23:48: PT 14.0, INR 1.1, APTT 24.0 L Imaging Radiology Impression Abdomen/Pelvis CT 08/05/23 20:55 IMPRESSION: Dilated gas and fluid-filled loops of small bowel proximally with normal caliber bowel loops distally compatible with bowel obstruction. Transition point appears be within the pelvis. There is no free air. Electronically Signed: Nito Franks MD at 0:01 EDT , Assessment & Plan Assessment/Plan (1) Small bowel obstruction: (2) Acute pancreatitis: QUALIFIERS: Pancreatitis type: unspecified pancreatitis type Acute pancreatitis complication: unspecified Qualified Code(s): K85.90 - Acute pancreatitis without necrosis or infection, unspecified PLAN: Plan The patient is having upper abdominal pain that is been there for 2 days. I reviewed the patient's CT scan which showed dilated loops of small bowel approximately with nondilated loops distally. I discussed with the radiologist and they report that they do not see any inflammation around the pancreas although they do see dilated pancreatic and bile duct. LFTs are normal. The patient has elevated lipase. Her lactate was also elevated and her white count is significantly elevated with left shift. The patient has been having bowel obstruction for 2 days and not able to vomit due to history of [place] and she may be having an element of ischemia in the bowel although they also said they did not see any pneumatosis or inflammation around the bowel to suggest ischemia. They also postured that it may be the obstruction causing the pancreatitis and the dilated loops. NG was placed and about 800 cc of fluid wassuctioned. She did report immediate relief and improvement in pain. She is currently very comfortable. I am going to recheck a lactate in 2 hours and recheck labs in the morning. I will admit her to the floor and check a KUB in the morning. Currently her vitals are stable and she is much more comfortable after the NG was placed. If any of her vital signs worsen or physical exam worsens I will take her to surgery for exploration. If she is doing better in the morning and her labs areimproving I will order a small bowel follow-through. Emmett Guerrero MD Pager: [facility] [address] [place] [address], [address] [place] [address] Office: 08/06/23 0116 <Electronically signed by Emmett Guerrero MD> Cosigner Signature (if applicable): CC: Dr. Emmett Guerrero MD; No Primary Care Physician~ Signed [facility] Work Phone: Hospital Discharge instructionsAmbulatory Orders* Dermatology Location: None Selected [facility] Work Phone: Hospital Discharge instructionsAmbulatory Orders* Cardiology Location: None Selected * General Surgery Location: None Selected [facility] Work Phone: Reason for referral (narrative)No reason for referral information availableWSt. [facility] Work Phone: Reason for visit Narrative* Imaging (Routine) - Authorized Specialty Diagnoses / Procedures Referred By Indira mcrae Referred To Contact Radiology Diagnoses Esophageal dysphagia Procedures [place] GI esophagram Rubio Mirza, DO [address] [facility], [facility] [address] [place] [address] Phone: tel: fax: Referral ID Status Reason Start Date Expiration Date Visits Requested Visits Authorized [id number] Authorized Perform Procedure 4 03/14/2025 1 1 [facility] Work Phone: Reason for visit Narrative* Gastroenterology (Routine) - Canceled Specialty Diagnoses / Procedures Referred By Indira mcrae Referred To Contact Gastroenterology Diagnoses Esophageal dysphagia Procedures Stefan Kyle, MD [address] [facility] [address] [place] [address] Phone: tel: fax: Referral ID Status Reason Start Date Expiration Date V isits Requested Visits Authorized [id number] Canceled 03/14/2024 03/14/2025 1 1 [facility] Work Phone: Reason for visit Narrative* Consultation (Routine) - Authorized Specialty Diagnoses / Procedures Referred By Indira mcrae Referred To Contact General Surgery Diagnoses History of Fabiano fundoplication Stefan Cazares MD [address] [facility] [address] [place] [address] Phone: tel: fax: [place] [address] [facility] [place] [address] Phone: tel: fax: Referral ID Status Reason Start Date Expiration Date Visits Requested Visits Authorized [id number] Authorized Specialty Services Required 06/29/2024 06/29/2025 1 1 [facility] Work Phone: Reason for Referral Specialty Diagnoses / Procedures Referred By Indira mcrae Referred To Contact Neurology Diagnoses Myasthenia gravis (HCC) Procedures CONSULT TO NEUROLOGY OFFICE/OUTPATIENT [facility] 60 MINUTES Alhaji Javed MD [address] [place] [address] Referral ID Status Reason Start Date Expiration Date Visits Requested Visits Authorized [id number] Authorized PCP Requested Referral 07/28/2023 07/27/2024 1 1 Specialty Diagnoses / Procedures Referred By Indira t Referred To Contact Gastroenterology Diagnoses Microscopic colitis, unspecified microscopic colitis type Procedures Colonoscopy Diagnostic ID COLONOSCOPY FLX DX W/COLLJ SPEC WHEN PFRMD ID COLONOSCOPY W/BIOPSY SINGLE/MULTIPLE ID COLSC FLX W/RMVL OF TUMOR POLYP LESION SNARE TQ ID COLSC FLX W/REMOVAL LESION BY HOT BX FORCEPS Rubio Mirza, DO [address] [facility], [place] [address] [place] [id number] Referral ID Status Reason Start Date Expiration Date V isits Requested Visits Authorized [id number] Pending Review 10/06/2023 10/05/2024 1 1 Referral ID Status Reason Start Date Expiration Date V isits Requested Visits Authorized [id number] Authorized 10/06/2023 10/05/2024 1 1 Chief Complaint and Reason for Visit Chief Complaint SMALL BOWEL OBSTRUCT ION ABDOMINAL PAIN Reason for Visit Abdominal pain Acute pancreatitis Complete small bowel obstruction Small bowel obstruction Chief Complaint SMALL BOWEL OBSTRUCT ION ABDOMINAL PAIN SMALL BOWEL OBSTRUCTION SMALL BOWEL OBSTRUCTION SMALL BOWEL OBSTRUCTION Reason for Visit Abdominal pain Acute pancreatitis Complete small bowel obstruction Small bowel obstruction Chief Complaint Admit Date MYASTHENIA GRAVIS June 06, 2024 8:5 3am EORDER June 06, 2024 10: 22am Reason for Visit Admit Date Fatigue June 06, 2024 8:5 3am Myasthenia gravis June 06, 2024 8:5 3am Chief Complaint Admit Date MYASTHENIA GRAVIS June 06, 2024 8:5 3am EORDER June 06, 2024 10: 22am 2 M FU August 15, 2024 1:16p m Reason for Visit Admit Date Fatigue June 06, 2024 8:5 3am Myasthenia gravis June 06, 2024 8:5 3am Actinic keratosis August 15, 2024 1:16p m Chief Complaint Admit Date MYASTHENIA GRAVIS June 06, 2024 8:5 3am EORDER June 06, 2024 10: 22am 2 M FU August 15, 2024 1:16p m EORDER August 15, 2024 2:42p m dysphagia chronic cough September 05, 2024 7:45am Reason for Visit Admit Date Fatigue June 06, 2024 8:5 3am Myasthenia gravis June 06, 2024 8:5 3am Actinic keratosis August 15, 2024 1:16p m Dysphagia August 15, 2024 1:16p m Myasthenia gravis August 15, 2024 1:16p m Chronic cough August 15, 2024 1:16p m Reason for Visit Admit Date Fatigue June 06, 2024 8:5 3am Myasthenia gravis June 06, 2024 8:5 3am Actinic keratosis August 15, 2024 1:16p m Dysphagia August 15, 2024 1:16p m Myasthenia gravis August 15, 2024 1:16p m Chronic cough August 15, 2024 1:16p m Dysphagia September 05, 2024 7:45 am Fatigue September 05, 2024 7:45 am Myasthenia gravis September 05, 2024 7:45 am Chronic cough September 05, 2024 7:45 am Chief Complaint Admit Date 2 M FU August 15, 2024 1:16p m EORDER August 15, 2024 2:42p m dysphagia chronic cough September 05, 2024 7:45am Chest pain, Fatique October 11, 2024 10:4 3am Reason for Visit Admit Date Dysphagia August 15, 2024 1:16p m Myasthenia gravis August 15, 2024 1:16p m Chronic cough August 15, 2024 1:16p m Actinic keratosis August 15, 2024 1:16p m Dysphagia September 05, 2024 7:45 am Fatigue September 05, 2024 7:45 am Myasthenia gravis September 05, 2024 7:45 am Chronic cough September 05, 2024 7:45 am Chief Complaint Admit Date 2 M FU August 15, 2024 1:16p m EORDER August 15, 2024 2:42p m dysphagia chronic cough September 05, 2024 7:45am Chest pain, Fatique October 11, 2024 10:4 3am E-ORER October 11, 2024 11:4 5am Reason for Visit Admit Date Dysphagia August 15, 2024 1:16p m Myasthenia gravis August 15, 2024 1:16p m Chronic cough August 15, 2024 1:16p m Actinic keratosis August 15, 2024 1:16p m Dysphagia September 05, 2024 7:45 am Fatigue September 05, 2024 7:45 am Myasthenia gravis September 05, 2024 7:45 am Chronic cough September 05, 2024 7:45 am MVP (mitral valve prolapse) October 11, 10:43am Palpitations October 11, 2024 10:4 3am Chief Complaint Admit Date 2 M FU August 15, 2024 1:16p m EORDER August 15, 2024 2:42p m dysphagia chronic cough September 05, 2024 7:45am Chest pain, Fatique October 11, 2024 10:4 3am E-ORER October 11, 2024 11:4 5am CP, MITRAL VALVE PROLAPSE November 06, 2 025 1:47pm Amb Documentation November 07, 2024 12 :43pm Chief Complaint Admit Date 2 M FU August 15, 2024 1:16p m EORDER August 15, 2024 2:42p m dysphagia chronic cough September 05, 2024 7:45am Chest pain, Fatique October 11, 2024 10:4 3am E-ORER October 11, 2024 11:4 5am CP, MITRAL VALVE PROLAPSE November 06, 2 025 1:47pm Amb Documentation November 07, 2024 12 :43pm 3 M FU December 05, 2024 10:21am Chief Complaint Admit Date 2 M FU August 15, 2024 1:16p m EORDER August 15, 2024 2:42p m dysphagia chronic cough September 05, 2024 7:45am Chest pain, Fatique October 11, 2024 10:4 3am E-ORER October 11, 2024 11:4 5am CP, MITRAL VALVE PROLAPSE November 06, 2 025 1:47pm Amb Documentation November 07, 2024 12 :43pm 3 M FU December 05, 2024 10:21am 4 M FU December 12, 2024 10:45am Reason for Visit Admit Date Dysphagia August 15, 2024 1:16p m Myasthenia gravis August 15, 2024 1:16p m Chronic cough August 15, 2024 1:16p m Actinic keratosis August 15, 2024 1:16p m Dysphagia September 05, 2024 7:45 am Fatigue September 05, 2024 7:45 am Myasthenia gravis September 05, 2024 7:45 am Chronic cough September 05, 2024 7:45 am MVP (mitral valve prolapse) October 11, 2 025 10:43am Palpitations October 11, 2024 10:4 3am Diarrhea December 05, 2024 10:21am Dysphagia December 05, 2024 10:21am Fatigue December 05, 2024 10:21am Myasthenia gravis December 05, 2024 10:21am Chronic cough December 05, 2024 10:21am Dysphagia December 12, 2024 10:45am Advance Directives No Advanced Directives Records Found Advance Directive Response Recorded Date/ Time Living Will No August 05, 2023 8: 56pm Power of Broadcast Supervisor No August 05, 2023 8:56pm Advance Directive Response Recorded Date/ Time Name of Medical Power of Broadcast Supervisor Delroy Santizo August 06, 2023 2:02am Living Will Yes August 06, 2023 2 :02am Power of Broadcast Supervisor Yes August 06, 2023 2:02am Advance Directive Response Recorded Date/ Time Living Will Yes August 06, 2023 2 :02am Do you have a Healthcare Power of Broadcast Supervisor? Yes August 06, 2023 2:02am Summary Purpose Family History No Family History Records Found Relationship Condition Age at Onset Recorded Date/T lala mother Cardiac disease Unknown sister Malignant neoplasm Unknown Additional Source Comments Source Comments (unrecognize d section and content) In the event this informatio n is protected by the Federal Confidentiality of Alcohol and Drug Abuse Patient Records regulations: The Federal rules restrict any use of the information to criminally investigate or prosecute any alcohol or drug abuse patient.[facility] the event this information is protected by the Federal Confidentiality of Alcohol and Drug Abuse Patient Records regulations: The Federal rules restrict any use of the information to criminally investigate or prosecute any alcohol or drug abuse patient.[facility] the event this information is protected by the Federal Confidentiality of Alcohol and Drug Abuse Patient Records regulations: The Federal rules restrict any use of the information to criminally investigate or prosecute any alcohol or drug abuse patient.[facility] the event this information is protected by the Federal Confidentiality of Alcohol and Drug Abuse Patient Records regulations: The Federal rules restrict any use of the information to criminally investigate or prosecute any alcohol or drug abuse patient.[facility] the event this information is protected by the Federal Confidentiality of Alcohol and Drug Abuse Patient Records regulations: The Federal rules restrict any use of the information to criminally investigate or prosecute any alcohol or drug abuse patient.[facility] the event this information is protected by the Federal Confidentiality of Alcohol and Drug Abuse Patient Records regulations: The Federal rules restrict any use of the information to criminally investigate or prosecute any alcohol or drug abuse patient.[facility] Reason for Visit (unrecogniz ed section and content) Reason Comments Botox Injection Specialty Diagnoses / Procedures Referred By Contac t Referred To Contact ENT-OTOLARYNGOLOGY Diagnoses Chronic cough Myasthenia gravis (HCC) Laryngeal spasm Procedures BOTULINUM TOXIN A PER 1 UNIT CHEMODENERVATION MUSCLE LARYNX UNILAT W/EMG Alhaji Javed MD [address] [place] [address] [address] [address] Referral ID Status Reason Start Date Expiration Date V isits Requested Visits Authorized [id number] Authorized 07/30/2023 03/28/2024 99 99 Reason Comments Cough Reason Comments Received Outside Medical Records Reason Comments Appointment Reason Comments Injections Reason Comments Follow-up Follow up for functi onal colitis and possible Lotronex prescription. No change. Reason Comments Follow-up 4 weeks follow up fo r diarrhea/ cramping. Pt had stool testing completed. Patient states she was taking the cholestyramine daily and became somewhat constipated so she switched to taking it every other day was going back to having diarrhea. Specialty Diagnoses / Procedures Referred By Indira t Referred To Contact Gastroenterology Diagnoses Microscopic colitis, unspecified microscopic colitis type Procedures Colonoscopy Diagnostic ID COLONOSCOPY FLX DX W/COLLJ SPEC WHEN PFRMD ID COLONOSCOPY W/BIOPSY SINGLE/MULTIPLE ID COLSC FLX W/RMVL OF TUMOR POLYP LESION SNARE TQ ID COLSC FLX W/REMOVAL LESION BY HOT BX FORCEPS Rubio Mirza, DO [address] [facility], [facility] [address] [place] [address] Referral ID Status Reason Start Date Expiration Date V isits Requested Visits Authorized [id number] Authorized 10/06/2023 10/05/2024 1 1 Reason Comments Dysphagia Pt feels food gets s tuck. Food and liquids. Abdominal Pain With eating. Care Teams (unrecognized sec tion and content) Team Status: Active Member Role Status Dates No Primary Care Physician Primary Care Provider Active Team Status: Active Member Role Status Dates Dr. Cornelius Bowden , DO Emergency Provider Active No Primary Care Physician Primary Care Provider Active Dr. Emmett Guerrero MD Attending Provider Active Team Status: Active Member Role Status Dates Dr. Cornelius Bowden , DO Emergency Provider Active No Primary Care Physician Primary Care Provider Active Dr. Kayden Garcia , DO Admit Provider, Attending Pr ovider Active Team Status: Active Member Role Status Dates Dr. Cornelius Bowden , DO Emergency Provider Active No Primary Care Physician Primary Care Provider Active Dr. Kayden Garcia , DO Admit Provider, Other Provid er Active Dr. Emmett Guerrero MD Other Provider Active Dr. Dion Haji MD Attending Provider Active Team Status: Active Member Role Status Dates Dr. Cornelius Bowden , DO Emergency Provider Active No Primary Care Physician Primary Care Provider Active Dr. Kayden Garcia , DO Admit Provider, Other Provid er Active Dr. Emmett Guerrero MD Attending Provider, Other Provider Active Team Status: Inactive Member Role Status Dates Dr. Cornelius Bowden , DO Emergency Provider Active No Primary Care Physician Primary Care Provider Active Dr. Kayden Garcia , DO Admit Provider, Other Provid er Active Dr. Emmett Guerrero MD Attending Provider Active Medical Billing Coder Relationship Specialty Start Date End Date Generic Provider, No Assigned PcpMD [place] [address] PCP - General Contact Center Consultant 04/05/24 Stefan Cazares MD [address] [place] [address] Consulting Physician Gastroenterology 03/14/24 Medical Billing Coder Relationship Specialty Start Date End Date Generic Provider, No Assigned MD [facility] [place] [address] PCP - General Contact Center Consultant 04/05/24 Stefan Cazares MD [address] [place] [address] Consulting Physician Gastroenterology 03/14/24 Medical Billing Coder Relationship Specialty Start Date End Date Generic Provider, No Assigned MD [facility] [place] [address] PCP - General Contact Center Consultant 04/05/24 Stefan Cazares MD [address] [place] [address] Consulting Physician Gastroenterology 03/14/24 Medical Billing Coder Relationship Specialty Start Date End Date Generic Provider, No [place] [address] PCP - General Contact Center Consultant 04/05/24 Stefan Cazares MD [address] [facility] [address] [place] [address] Consulting Physician Gastroenterology 03/14/24 Team Status: Active Member Role Status Dates Dr. Britany Sexton MD Primary Care Provider Active Team Status: Inactive Member Role Status Dates No Primary Care Physician Primary Care Provider Active Start: June 06, 2024 End: June 06, 2024 No Primary Care Physician Referring Provider Active Start: June 06, 2024 End: June 06, 2024 Dr. Ingrid Michaels MD Attending Provider Active Start: June 06, 2024 End: June 06, 2024 Team Status: Inactive Member Role Status Dates Dr. Britany Sexton MD Primary Care Provider Active Start: June 06, 2024 End: June 06, 2024 Dr. Ingrid Michaels MD Attending Provider Active Start: June 06, 2024 End: June 06, 2024 Dr. Ingrid Michaels MD Referring Provider Active Start: June 06, 2024 End: June 06, 2024 Team Status: Inactive Member Role Status Dates Dr. Britany Sexton MD Primary Care Provider Active Start: July 05, 2024 End: July 05, 2024 Dr. Britany Sexton MD Attending Provider Active Start: July 05, 2024 End: July 05, 2024 Medical Billing Coder Relationship Specialty Start Date End Date Generic Provider, No [place] [address] PCP - General Contact Center Consultant 04/05/24 Stefan Cazares MD [address] [facility] [address] [place] [address] Consulting Physician Gastroenterology 03/14/24 Team Status: Inactive Member Role Status Dates No Primary Care Physician Referring Provider Active Start: August 15, 2024 End: August 15, 2024 Dr. Ingrid Michaels MD Attending Provider Active Start: August 15, 2024 End: August 15, 2024 Dr. Britany Sexton MD Primary Care Provider Active Start: August 15, 2024 End: August 15, 2024 Team Status: Active Member Role Status Dates Dr. Britany Sexton MD Primary Care Provider Active Start: August 15, 2024 Dr. Ingrid Michaels MD Attending Provider Active Start: August 15, 2024 Dr. Ingrid Michaels MD Referring Provider Active Start: August 15, 2024 Team Status: Inactive Member Role Status Dates Dr. Britany Sexton MD Primary Care Provider Active Start: September 05, 2024 End: September 05, 2024 Dr. Britany Sexton MD Referring Provider Active Start: September 05, 2024 End: September 05, 2024 Dr. Jaime Allen DO Attending Provider Active Start: September 05, 2024 End: September 05, 2024 Team Status: Inactive Member Role Status Dates Dr. Britany Sexton MD Primary Care Provider Active Start: August 15, 2024 End: August 15, 2024 Dr. Ingrid Michaels MD Attending Provider Active Start: August 15, 2024 End: August 15, 2024 Dr. Ingrid Michaels MD Referring Provider Active Start: August 15, 2024 End: August 15, 2024 Team Status: Active Member Role/Relationship Status Dates Dr. Britany Sexton MD Primary Care Provider Active Team Status: Inactive Member Role/Relationship Status Dates Dr. Britany Sexton MD Primary Care Provider Active Start: July 05, 2024 End: July 05, 2024 Dr. Britany Sexton MD Attending Provider Active Start: July 05, 2024 End: July 05, 2024 Team Status: Inactive Member Role/Relationship Status Dates No Primary Care Physician Referring Provider Active Start: August 15, 2024 End: August 15, 2024 Dr. Ingrid Michaels MD Attending Provider Active Start: August 15, 2024 End: August 15, 2024 Dr. Britany Sexton MD Primary Care Provider Active Start: August 15, 2024 End: August 15, 2024 Team Status: Inactive Member Role/Relationship Status Dates Dr. Britany Sexton MD Primary Care Provider Active Start: August 15, 2024 End: August 15, 2024 Dr. Ingrid Michaels MD Attending Provider Active Start: August 15, 2024 End: August 15, 2024 Dr. Ingrid Michaels MD Referring Provider Active Start: August 15, 2024 End: August 15, 2024 Team Status: Inactive Member Role/Relationship Status Dates Dr. Britany Sexton MD Primary Care Provider Active Start: September 05, 2024 End: September 05, 2024 Dr. Britany Sexton MD Referring Provider Active Start: September 05, 2024 End: September 05, 2024 Dr. Jaime Allen DO Attending Provider Active Start: September 05, 2024 End: September 05, 2024 Team Status: Inactive Member Role/Relationship Status Dates Dr. Britany Sexton MD Primary Care Provider Active Start: October 11, 2024 End: October 11, 2024 Dr. Britany Sexton MD Referring Provider Active Start: October 11, 2024 End: October 11, 2024 Dr. Tim Samayoa MD Attending Provider Active S tart: October 11, 2024 End: October 11, 2024 Team Status: Inactive Member Role/Relationship Status Dates Dr. Britany Sexton MD Primary Care Provider Active Start: October 11, 2024 End: October 11, 2024 Dr. Tim Samayoa MD Attending Provider Active S tart: October 11, 2024 End: October 11, 2024 Dr. Tim Samayoa MD Referring Provider Active S tart: October 11, 2024 End: October 11, 2024 Team Status: Inactive Member Role/Relationship Status Dates No Primary Care Physician Referring Provider Active Start: August 15, 2024 End: August 15, 2024 Dr. Ingrid Michaels MD Attending Provider Active Start: August 15, 2024 End: August 15, 2024 Dr. Britany Sexton MD Primary Care Provider Active Start: August 15, 2024 End: August 15, 2024 Team Status: Inactive Member Role/Relationship Status Dates Dr. Britany Sexton MD Primary Care Provider Active Start: August 15, 2024 End: August 15, 2024 Dr. Ingrid Michaels MD Attending Provider Active Start: August 15, 2024 End: August 15, 2024 Dr. Ingrid Michaels MD Referring Provider Active Start: August 15, 2024 End: August 15, 2024 Team Status: Inactive Member Role/Relationship Status Dates Dr. Britany Sexton MD Primary Care Provider Active Start: September 05, 2024 End: September 05, 2024 Dr. Britany Sexton MD Referring Provider Active Start: September 05, 2024 End: September 05, 2024 Dr. Jaime Allen DO Attending Provider Active Start: September 05, 2024 End: September 05, 2024 Team Status: Inactive Member Role/Relationship Status Dates Dr. Britany Sexton MD Primary Care Provider Active Start: October 11, 2024 End: October 11, 2024 Dr. Britany Sexton MD Referring Provider Active Start: October 11, 2024 End: October 11, 2024 Dr. Tim Samayoa MD Attending Provider Active S tart: October 11, 2024 End: October 11, 2024 Team Status: Inactive Member Role/Relationship Status Dates Dr. Britany Sexton MD Primary Care Provider Active Start: October 11, 2024 End: October 11, 2024 Dr. Tim Samayoa MD Attending Provider Active S tart: October 11, 2024 End: October 11, 2024 Dr. Tim Samayoa MD Referring Provider Active S tart: October 11, 2024 End: October 11, 2024 Team Status: Inactive Member Role/Relationship Status Dates Dr. Britany Sexton MD Primary Care Provider Active Start: November 06, 2024 End: November 06, 2024 Dr. Tim Samayoa MD Attending Provider Active S tart: November 06, 2024 End: November 06, 2024 Dr. Tim Samayoa MD Referring Provider Active S tart: November 06, 2024 End: November 06, 2024 Team Status: Active Member Role/Relationship Status Dates Dr. Britany Sexton MD Primary Care Provider Active Start: November 06, 2024 Dr. Tim Samayoa MD Attending Provider Active S tart: November 06, 2024 Team Status: Active Member Role/Relationship Status Dates Dr. Britany Sexton MD Primary Care Provider Active Start: November 07, 2024 Ana Bush SIDEWALK REPAIRER, SIDEWALK REPAIRER-C Attending Provider Active Start: November 07, 2024 Team Status: Inactive Member Role/Relationship Status Dates Dr. Britany Sexton MD Primary Care Provider Active Start: December 05, 2024 End: December 05, 2024 Dr. Britany Sexton MD Referring Provider Active Start: December 05, 2024 End: December 05, 2024 Dr. Jaime Allen DO Attending Provider Active Start: December 05, 2024 End: December 05, 2024 Team Status: Inactive Member Role/Relationship Status Dates Dr. Britany Sexton MD Primary Care Provider Active Start: December 12, 2024 End: December 12, 2024 Dr. Britany Sexton MD Referring Provider Active Start: December 12, 2024 End: December 12, 2024 Dr. Ingrid Michaels MD Attending Provider Active Start: December 12, 2024 End: December 12, 2024 Goals (unrecognized section and content) Goals may be documented in a n alternate sectionGoals may be documented in an alternate sectionGoals may be documented in an alternate sectionGoals may be documented in an alternate sectionGoals may be documented in an alternate sectionGoals may be documented in an alternate sectionGoals may be documented in an alternate sectionGoals may be documented in an alternate sectionGoals may be documented in an alternate sectionGoals may be documented in an alternate sectionGoals may be documented in an alternate section INFORMATION SOURCE (unrecogn ized section and content) DATE CREATED AUTHOR 02/08/2024 [facility] DATE CREATED AUTHOR AUTHOR'S ORGANIZ ATION 04/21/2024 [facility] DATE CREATED AUTHOR AUTHOR'S ORGANIZ ATION 06/09/2024 [facility] DATE CREATED AUTHOR AUTHOR'S ORGANIZ ATION 06/17/2024 [facility] DATE CREATED AUTHOR AUTHOR'S ORGANIZ ATION 08/06/2024 [facility] DATE CREATED AUTHOR AUTHOR'S ORGANIZ ATION 12/19/2024 [facility] FOR RECORDS PERTAINING TO PATIENTS WHO ARE OR HAVE BEEN ENROLLED IN A CHEMICAL DEPENDENCY/SUBSTANCEABUSE PROGRAM, SOME INFORMATION MAY BE OMITTED. This clinical summary was aggregated from multiple sources. Caution should be exercised in using it in the provision of clinical care. This summary normalizes information from multiple sources, and as a consequence, information in this document may materially change the coding, format and clinical context of patient data. In addition, data may be omitted in some cases. CLINICAL DECISIONS SHOULD BE BASED ON THE PRIMARY CLINICAL RECORDS. [employer] [facility]. provides no warranty or guarantee of the accuracy or completeness of information in this document.
--- OUTSIDE RECORDS SUMMARY | 2024-12-21 10:59 | XMS RPT_ITS | CCD ---
Author Organization [facility] Care Team Providers Care Veterinary Toxicologist Name Role Phone Unavailable Primary Care Provider UnavailDr. Cornelius Galloway Emergency Provider [phone] Care Physician, No Primary Primary Care Provider Unavailable Dr. Emmett Guerrero Attending Provider Dr. Kayden Garcia Admit Provider UnavailDr. Kayden Velásquez Other Provider UnavailDr. Emmett Welsh Other Provider [phone] Dr. Dion Haji Attending Provider Unavailable Primary [...] available Brando LUDWIG, Dr. Parker Attending Provider [phone] Dr. Britany Sexton MD Primary Care Provider [...] Unavailable Miedel, Britany Primary Care Unavailable Danita, [place] Referring Unavailable Danita, [place] Attending Unavailable Miedel, Britany Primary Care Unavailable Danita, Tim Referring Unavailable Danita, [place] Attending Unavailable Allergies Allergy Classification Reported Allergen(s) Allergy Type Date of Onset Reaction(s) Facility (17 sources) Aspirin / oxyCODONE; Translations: [OXYCODONE-ASPIRIN] Drug Allergy Mental Status Change, Hallucinations [facility] (19 sources) Penicillins; Translations: [PENICILLINS] Propensity to adverse reactions 007 [facility] Work Phone: (12 sources) Penicillins Allergy to substance 024 SKIN SHEDS [facility] (17 sources) Midazolam; Translations: [MIDAZOLAM] Drug Allergy 024 Confusion [facility] (12 sources) Codeine; Translations: [CODEINE] Drug Allergy 008 Unknown [facility] (7 sources) Doxycycline; Translations: [DOXYCYCLINE] Drug Allergy 022 [facility] Work Phone: (7 sources) Latex; Translations: [LATEX] Allergy to substance 022 Rash [facility] Work Phone: (1 source) Penicillins Drug Intolerance 007 Other [facility] (2 sources) Sulfamethoxazole / Trimethoprim; Translations: [SULFAMETHOXAZOLE-T RIMETHOPRIM] Drug Allergy 020 Itching, Nausea Only, Unknown [facility] Work Phone: (5 sources) Sulfamethoxazole Drug Allergy 025 Itching [facility] (5 sources) Trimethoprim Drug Allergy Itching [facility] (1 source) Codeine Drug Allergy [facility] Repository (1 source) Doxycycline Drug Allergy [facility] Repository (1 source) Latex Drug allergy (disorder) [facility] Repository (1 source) Midazolam Drug Allergy [facility] Repository (1 source) Penicillins Drug allergy (disorder) [facility] Repository (1 source) Sulfamethoxazole Drug Allergy [facility] Repository (1 source) Trimethoprim Drug Allergy [facility] Repository Medications Current Medications Medication Drug Class(es) Dates Sig (Normalized) Sig (Original) [id number] 200 actuat albuterol 0.09 mg/actuat metered dose [...] Start: 09-02-2023 take 8 [oz_av] by mo [facility] twice daily before mealtime cholestyramine (Questran) 4 [...] mg/ml extended release suspension (6 sources) Uncompetitive R-envgyw-R-aspartate Receptor Antagonist, Sigma-1 Agonist Start: 02-11-2007 take [...] 30 3 02/10/2007 Active 168 hr estradiol 0.55884 mg/hr transdermal system (6 sources) Estrogen Start: [...] tablet by mouth three times daily Pyridostigmine [place] 30 mg tablet Discontinued 30 mg PO [...] Facility Neurology Visit Reporton Neurology Visit Report [facility] [address] [place] [address], [address] [place] [address] OFFICE VISIT Date of Service: 12/12/24 MR#: [id number] Acct: [id number] Name: ESTEFANIA MONTIEL (STEPH) Rep #: [id number] : 1940 Provider: Dr. Ingrid barnard MD Age/Sex: 84/F Location: [facility] Status: Signed HPI HPI Chief Complaint: [...] had occasional disequilibrium. 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 Normal [facility] Gastroenterology Visit Repor ton 12-05-2024 Gastroenterology Visit Report [facility] Gastroenterology [address] [place] [address] OFFICE VISIT Date of Service: 12/05/24 MR#: [id number] Acct: [id number] Name: ESTEFANIA MONTIEL (STEPH) Rep #: [id number] : 1940 Provider: Jaime Allen DO Age/Sex: 84/F Location: [facility] Status: Signed Intake Vital Signs 08/15/24 13:35 [...] in anoth (more content not included)... Normal [facility] Echo Completeon 11-06-2024 [facility] [address] [place] [address] Echo Complete 11/06/24 1355 MR#: [id number] Acct: [id number] Name: ESTEFANIA MONTIEL NIKITA Rep #: [id number] : 1940 84 From: Tim Samayoa MD Attending Dr: Dr. Tim Samayoa MD Status: KELLEY SANCHEZ Ordering Dr: Tim Samayoa MD Date: 11/06/24 Location: [facility] Sex: F C Admitted: Reason For Study [...] Dictated: 11/06/24 135 Date Transcribed: 11/06/24 1730 Trimming Department Blocker: Signed Normal [facility] Echocardiogram study reportO rdered By: Tim Samayoa on 11-06-2024 Study report [facility] Cardi[facility] Services [address] [place] [address] Echo Complete 11/06/241354 MR#: [id number] Acct: [id number] Name: ESTEFANIA MONTIEL NIKITA Rep #:[id number] : 1940 84 From: Tim Wolf Attending Dr: Dr. Tim Samayoa MD S tatus: REG CLI Ordering Dr: Tim Samayoa MD Date: 02/20 Location: [facility] Sex: F C Admitted: Reason For Study [...] Date Dictated: 11/06/24 1355 Date Transcribed: 11/06/241729 Trimming Department Blocker: Signed [facility] Work Phone: [phone] Anion gap in Serum or Plasma Ordered By: Tim Samayoa on 10-11-2024 Anion gap [Moles/Vol] 11 mmol/L - [facility] BUN/creatinine ratioOrdered By: Tim Samayoa on 10-11-2024 Urea nitrogen/Creatinine [Mass ratio] 13.9 mg/mg - [facility] Basic Metabolic Profile (BMP )on 10-11-2024 BUN/CRE 13.9 RATIO Normal - [facility] Comment on above: Performed By: #### L 501.9520, L501.5200, L500.2500 #### [facility] Laboratory [address] [place], [address] Calcium [Mass/Vol] 9.8 mg/dL Normal 7.6-11.0 [facility] Comment on above: Performed By: #### L 501.9520, L501.5200, L500.2500 #### [facility] [address] [place], [address] Chloride [Moles/Vol] 101 mmol/L Normal 98-108 [facility] Comment on above: Performed By: #### L 501.9520, L501.5200, L500.2500 #### [facility] [address] [place], [address] CO2 [Moles/Vol] 27.9 mmol/L Normal 21.0-32.0 [facility] Comment on above: Performed By: #### L 501.9520, L501.5200, L500.2500 #### [facility] [address] [place], [address] Creatinine [Mass/Vol] 1.00 mg/dL Normal 0.70-1.20 [facility] Comment on above: Performed By: #### L 501.9520, L501.5200, L500.2500 #### [facility] [address] [place], [address] GAP 11 Normal 5-15 [facility] Comment on above: Performed By: #### L 501.9520, L501.5200, L500.2500 #### [facility] [address] [place], [address] GFR/1.73 sq M.predicted among non-blacks MDRD (S/P/Bld) [Vol rate/Area] 56 mL/min/{1.73_m2} Low >60 [facility] Comment on above: Result Comment: mL/m in/1.73m2 CKD-EPI Creatinine Equation (2020) Performed By: #### L 501.9520, L501.5200, L500.2500 #### [facility] [address] [place], [address] Glucose [Mass/Vol] 101 mg/dL High 70-99 [facility] Comment on above: Performed By: #### L 501.9520, L501.5200, L500.2500 #### [facility] [address] [place], [address] Potassium [Moles/Vol] 4.1 mmol/L Normal 3.3-5.1 [facility] Comment on above: Performed By: #### L 501.9520, L501.5200, L500.2500 #### [facility] [address] [place], [address] Sodium [Moles/Vol] 140 mmol/L Normal 133-145 [facility] Comment on above: Performed By: #### L 501.9520, L501.5200, L500.2500 #### [facility] [address] [place], [address] Urea nitrogen [Mass/Vol] 14 mg/dL Normal 4-19 [facility] Comment on above: Performed By: #### L 501.9520, L501.5200, L500.2500 #### [facility] [address] [place], [address] Carbon dioxide, total [Moles /volume] in Central venous bloodOrdered By: Tim Samayoa on 10-11-2024 CO2 [Moles/Vol] 27.9 mmol/L 21.0-32.0 [facility] Cardiology Visit Reporton Cardiology Visit Report [facility] [address] [place] [address] OFFICE VISIT Date of Service: 10/11/24 MR#: [id number] Acct: [id number] Name: ESTEFANIA MONTIEL NIKITA Rep #: [id number] : 1940 Provider: Dr. 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 Normal [facility] Chloride assayOrdered By: Anmol Samayoa on 10-11-2024 Chloride [Moles/Vol] 101 mmol/L 98-108 [facility] Glomerular filtration rate ( GFR) estimation/1.73 sq m using serum, plasma, or whole bOrdered By: Tim Samayoa on 10-11-2024 GFR/1.73 sq M.predicted among non-blacks MDRD (S/P/Bld) [Vol rate/Area] 56 mL/min/{1.73_m2} Low >60 [facility] Comment on above: mL/min/1.73m2 CKD-EP I Creatinine Equation (2020) Magnesiumon 10-11-2024 Magnesium [Mass/Vol] 1.9 mg/dL Normal 1.5-2.2 [facility] Comment on above: Performed By: #### L 501.9520, L501.5200, L500.2500 #### [facility] [address] [place], [address] Magnesium measurement (mass/ volume)Ordered By: Tim Samayoa on 10-11-2024 Magnesium (Unsp spec) [Mass/Vol] 1.9 mg/dL 1.5-2.2 [facility] Potassium measurement (mass/ volume)Ordered By: Tim Samayoa on 10-11-2024 Potassium (Unsp spec) [Mass/Vol] 4.1 mmol/L 3.3-5.1 [facility] Serum creatinine measurement (mass/volume)Ordered By: Tim Samayoa on 10-11-2024 Creatinine [Mass/Vol] 1.00 mg/dL 0.70-1.20 [facility] Serum glucose measurement (m ass/volume)Ordered By: Tim Samayoa on 10-11-2024 Glucose [Mass/Vol] 101 mg/dL High 70-99 [facility] Serum or plasma calcium adrian urement (mass/volume)Ordered By: Tim Samayoa on 10-11-2024 Calcium [Mass/Vol] 9.8 mg/dL 7.6-11.0 [facility] Serum or plasma urea nitroge n measurement (mass/volume)Ordered By: Tim Samayoa on 10-11-2024 Urea nitrogen [Mass/Vol] 14 mg/dL 4-19 [facility] Sodium levelOrdered By: Omkar Samayoa on 10-11-2024 Sodium [Moles/Vol] 140 mmol/L 133-145 [facility] TSH DL <= 0.005 mIU/L QnOrde red By: Tim Samayoa on 10-11-2024 TSH Qn 1.780 uIU/mL 0.300-4.20 0 [facility] Thyroid Stim Hormone (TSH)on 10-11-2024 TSH 1.780 uIU/mL Normal 0.300-4.20 0 [facility] Comment on above: Performed By: #### L 501.9520, L501.5200, L500.2500 #### [facility] [address] [place], [address] L3410.9992on 09-07-2024 [facility]. COMMENT Normal . [facility] Comment on above: Order Comment: [id number] 0 MUSJ AB Result Comment: Test Ordered: [id number] MuSK Abs, Serum MuSK Abs, Serum <1.0 [...] 2014;52:90-100. 2. Joe BEE et al. PNAS 2013;110(37);12197-04915. 3. Domenica E et al. Neurology 2006;67:505-507. This test was developed and its performance characteristics determined by [facility]. It has not been cleared or approved by the Food and Drug Administration. Performed at: [facility] [address] [place] [id number] Finishing Range Operator: Fidencio Newman MD, Phone: [phone] Performed at: [address] [id number] Finishing Range Operator: Jesse Anne PhD, Phone: [phone] Performed By: #### L 3410.9992 #### [facility] [address] [place], [address] Gastroenterology Visit Repor ton 09-05-2024 Gastroenterology Visit Report [facility] Gastroenterology [address] [place] [address] OFFICE VISIT Date of Service: 09/05/24 MR#: [id number] Acct: [id number] Name: ESTEFANIA MONTIEL NIKITA Rep #: [id number] : 1940 Provider: Jaime Allen DO Age/Sex: 83/F Location: [facility] Status: Signed Intake Vital Signs 08/15/24 [...] her chronic cough. She has gone to [facility], [facility] and [facility]. She has had Botox injections externally for [...] Beth Signature: Date (if applicable) CC: Normal [facility] L3410.9992on 08-23-2024 [facility]. COMMENT Normal . [facility] Comment on above: Order Comment: 02035 4 striated muscle antibody Result Comment: Test Ordered: [id number] Striation Abs, Serum Test(s) 595408-Cyicxlbxy Abs, Serum was developed and its performance characteristics determined by [facility]. It has not been cleared or approved by the Food and Drug Administration. Striation Abs, Serum Negative Reference Range: Neg:<1:100 Performed at: - [facility] [id number] Finishing Range Operator: Marti Singh MD, Phone: [phone] Performed at: - [facility] [id number] Finishing Range Operator: Jesse Anne PhD, Phone: [phone] Performed By: #### L 2319.9994 #### [facility] [address] [place], [address] Neurology Visit Reporton Neurology Visit Report [facility] [address], [address] [place], [place] [address] OFFICE VISIT Date of Service: 08/15/24 MR#: [id number] Acct: [id number] Name: ESTEFANIA MONTIEL NIKITA Rep #: [id number] : 1940 Provider: Dr. Ingrid barnard MD Age/Sex: 83/F Location: [facility]. Status: Signed HPI [facility] [...] prior meningiom (more content not included)... Normal [facility] Surgery Specimen Level Steve 07-04-2024 Surgery Specimen Level IV Patient Age/Sex Location Account Attending Physician ESTEFANIA MONTIEL 83/F [facility] [id number] Dr. Britany Sexton MD Specimen: [id number] Received: 07/05/24 Status: SUNI Zayas Num: [id number] Spec Type: Lesion Subm Dr: Dr. Britany [...] and it is submitted entirely in A1. [facility] 07-05-2024 CPT:94367 Patient Age/Sex Location Account Attending Physician ESTEFANIA MONTIEL 83/F [facility] [id number] Dr. Britany Sexton MD Signed (signature on file) Dr. Liliana Coto MD 07/14/24 9023 Normal [facility] Comment on above: Performed By: #### L 500.4050, L100.0100 #### [facility] [address] [place], [address] ACHR AB Modulatingon 0325-2 025 ACHR AB MODULAT 0 Normal 0-45 [facility] Comment on above: Order Comment: Test( s) 932113-DBfK-rlcnrmusor Abwas developed and its performance characteristicsdetermined by [facility]. It has not been cleared or approvedby the Food and Drug Administration. Result Comment: Inte rpretive Information: Negative: 0 - 45% Positive: > 45% No single value for AChR-modulating antibody should be used as a sole basis for diagnosis or response to therapy. Performed By: #### L 500.4050, L100.0100 #### [facility] [address] [place], [address] ACHR Reweaver AB, Blockingon ACHR B2B SALES MANAGER AB 19 Normal 0-25 [facility] Comment on above: Order Comment: Test( s) 627983-DPdE Blocking Abs, SerumThis test was developed and its performance characteristicsdetermined by [facility]. It has not been cleared orapproved by the Food and Drug Administration. Result Comment: Nega tive: 0 - 25 Borderline: 26 - 30 Positive: >30 Performed By: #### L 500.4050, L100.0100 #### [facility] [address] [place], [address] Acetylcholine Receptoron ACHR AB 0.04 nmol/L Normal 0.00-0.24 [facility] Comment on above: Order Comment: Test( s) 559188-YHzP Blocking Abs, SerumThis test was developed and its performance characteristicsdetermined by [facility]. It has not been cleared orapproved by the Food and Drug Administration.N Result Comment: Nega tive: 0.00 - 0.24 Borderline: 0.25 - 0.40 Positive: >0.40 Performed By: #### L 500.4050, L100.0100 #### [facility] [address] [place], [address] Folates, RBCon 06-12-2024 Fol.,Hemolysate 396.0 ng/mL Normal Not Estab. [facility] Comment on above: Order Comment: Test( s) 473917-JDvR Blocking Abs, SerumThis test was developed and its performance characteristicsdetermined by [facility]. It has not been cleared orapproved by the Food and Drug Administration. Performed By: #### L 500.4050, L100.0100 #### [facility] [address] [place], [address] Folate, RBC 868 ng/mL Normal >498 [facility] Comment on above: Order Comment: Test( s) 301247-MGxJ Blocking Abs, SerumThis test was developed and its performance characteristicsdetermined by [facility]. It has not been cleared orapproved by the Food and Drug Administration. Performed By: #### L 500.4050, L100.0100 #### [facility] [address] [place], [address] Hematocrit (Bld) [Volume fraction] 45.6 % Normal 34.0-46.6 [facility] Comment on above: Order Comment: Test( s) 316193-UPyA Blocking Abs, SerumThis test was developed and its performance characteristicsdetermined by [facility]. It has not been cleared orapproved by the Food and Drug Administration. Performed By: #### L 500.4050, L100.0100 #### [facility] [address] [place], [address] Vitamin B1, Thiamineon 06-12 VIT B1 THIAMINE 124.5 nmol/L Normal 66.5-200.0 [facility] Comment on above: Order Comment: Test( s) 060985-IWuA Blocking Abs, SerumThis test was developed and its performance characteristicsdetermined by [facility]. It has not been cleared orapproved by the Food and Drug Administration. Result Comment: Perf ormed at: CB - [facility] [address] [id number] Finishing Range Operator: Jesse Anne PhD, Phone: [phone] Performed at: - [facility] [address] [id number] Finishing Range Operator: Marti Singh MD, Phone: [phone] Performed By: #### L 5004054, L100.0100 #### [facility] [address] [place], [place], [address] Acetylcholine receptorOrdere d By: Ingrid Michaels on 06-06-2024 Acetylcholine Receptor Antibody 0.04 nmol/L 0.00-0.24 [facility] Comment on above: Negative: 0.00 - 0.2 4 Borderline: 0.25 - 0.40 Positive: >0.40 Acetylcholine receptor block ing antibody assayOrdered By: Ingrid Michaels on 06-06-2024 Acetylcholine Receptor Blocking Ab 19 % 0-25 [facility] Comment on above: Negative: 0 - 25 Bor derline: 26 - 30 Positive: >30 Acetylcholine receptor modul ation Ab/Acetylcholine Ab.total (S) [Molar fraction]Ordered By: Ingrid Michaels on 06-06-2024 Acetylcholine Recept Modulating Ab 0 % 0-45 [facility] Comment on above: Interpretive Informa tion: Negative: 0 - 45% Positive: > 45%No single value for AChR-modulating antibody shouldbe used as a sole basis for diagnosis or responseto therapy. Anion gap in Serum or Plasma Ordered By: Ingrid Michaels on 06-06-2024 Anion gap [Moles/Vol] 15 mmol/L 5-15 [facility] BUN/creatinine ratioOrdered By: Ingrid Michaels on 06-06-2024 Urea nitrogen/Creatinine [Mass ratio] 22.0 mg/mg High 10-20 [facility] Bilirubin, totalOrdered By: Ingrid Michaels on 06-06-2024 Bilirubin [Mass/Vol] 0.62 mg/dL 0.00-1.30 [facility] CBC-Complete Blood Cnt No Di ffon 06-06-2024 Erythrocyte distribution width (RBC) [Ratio] 14.5 % Normal 11.6-14.6 [facility] Comment on above: Performed By: #### L 3300.8000, L3410.0100, L3410.0200, L501.9520, L100.0500, L3300.0600, L503.0106, L500.4050, L500.4100, L3100.1725, L506.0400 #### [facility] [address] [place], [place], [phone] (411) Hematocrit (Bld) [Volume fraction] 42.5 % Normal 37-47 [facility] Comment on above: Performed By: #### L 3300.8000, L3410.0100, L3410.0200, L501.9520, L100.0500, L3300.0600, L503.0106, L500.4050, L500.4100, L3100.1725, L506.0400 #### [facility] [address] [place], [place], [phone] (155) Hemoglobin (Bld) [Mass/Vol] 14.0 g/dL Normal 12.0-15.0 [facility] Comment on above: Performed By: #### L 3300.8000, L3410.0100, L3410.0200, L501.9520, L100.0500, L3300.0600, L503.0106, L500.4050, L500.4100, L3100.1725, L506.0400 #### [facility] [address] [place], [address] MCH (RBC) [Entitic mass] 30.0 pg Normal 27.0-32.0 [facility] Comment on above: Performed By: #### L 3300.8000, L3410.0100, L3410.0200, L501.9520, L100.0500, L3300.0600, L503.0106, L500.4050, L500.4100, L3100.1725, L506.0400 #### [facility] [address] [place], [address] MCHC (RBC) [Mass/Vol] 32.9 g/dL Normal 32-36 [facility] Comment on above: Performed By: #### L 3300.8000, L3410.0100, L3410.0200, L501.9520, L100.0500, L3300.0600, L503.0106, L500.4050, L500.4100, L3100.1725, L506.0400 #### [facility] [address] [place], [address] MCV (RBC) [Entitic vol] 91.2 fL Normal 81-99 [facility] Comment on above: Performed By: #### L 3300.8000, L3410.0100, L3410.0200, L501.9520, L100.0500, L3300.0600, L503.0106, L500.4050, L500.4100, L3100.1725, L506.0400 #### [facility] [address] [place], [address] Platelet mean volume (Bld) [Entitic vol] 12.3 fL High 6.2-12.0 [facility] Comment on above: Performed By: #### L 3300.8000, L3410.0100, L3410.0200, L501.9520, L100.0500, L3300.0600, L503.0106, L500.4050, L500.4100, L3100.1725, L506.0400 #### [facility] [address] [place], [address] Platelets (Bld) [#/Vol] 250 10*3/uL Normal 150-450 [facility] Comment on above: Performed By: #### L 3300.8000, L3410.0100, L3410.0200, L501.9520, L100.0500, L3300.0600, L503.0106, L500.4050, L500.4100, L3100.1725, L506.0400 #### [facility] [address] [place], [place], [phone] ([phone]) RBC (Bld) [#/Vol] 4.66 10*6/uL Normal 4.2-5.4 [facility] Comment on above: Performed By: #### L 3300.8000, L3410.0100, L3410.0200, L501.9520, L100.0500, L3300.0600, L503.0106, L500.4050, L500.4100, L3100.1725, L506.0400 #### [facility] [address] [place], [address] RDW SD 49.0 fl High 35.1-43.9 [facility] Comment on above: Performed By: #### L 3300.8000, L3410.0100, L3410.0200, L501.9520, L100.0500, L3300.0600, L503.0106, L500.4050, L500.4100, L3100.1725, L506.0400 #### [facility] [address] [place], [place], [phone] WBC (Bld) [#/Vol] 7.1 10*3/uL Normal 4.4-11.0 [facility] Comment on above: Performed By: #### L 3300.8000, L3410.0100, L3410.0200, L501.9520, L100.0500, L3300.0600, L503.0106, L500.4050, L500.4100, L3100.1725, L506.0400 #### [facility] [address] [place], [place], [phone] Calculated very low density lipoprotein (VLDL) cholesterol measurementOrdered By: Ingrid Mcihaels on 06-06-2024 Calculated very low density lipoprotein (VLDL) cholesterol measurement 14 mg/dL [facility] VLDL Cholesterol 14 mg/dL [facility] Carbon dioxide, total [Moles /volume] in Central venous bloodOrdered By: Ingrid Michaels on 06-06-2024 CO2 [Moles/Vol] 23.9 mmol/L 21.0-32.0 [facility] Chloride assayOrdered By: Ra asha Michaels on 06-06-2024 Chloride [Moles/Vol] 102 mmol/L 98-108 [facility] Comprehensive Metabolic Prof ilon 06-06-2024 Albumin [Mass/Vol] 4.2 g/dL Normal 3.4-4.8 [facility] Comment on above: Performed By: #### L 3300.8000, L3410.0100, L3410.0200, L501.9520, L100.0500, L3300.0600, L503.0106, L500.4050, L500.4100, L3100.1725, L506.0400 #### [facility] [address] [place], [place], [phone] Albumin/Globulin [Mass ratio] 1.2 {ratio} Normal 0.9-2.4 [facility] Comment on above: Performed By: #### L 3300.8000, L3410.0100, L3410.0200, L501.9520, L100.0500, L3300.0600, L503.0106, L500.4050, L500.4100, L3100.1725, L506.0400 #### [facility] [address] [place], [address] ALK PHOS 56 U/L Normal 35-104 [facility] Comment on above: Performed By: #### L 3300.8000, L3410.0100, L3410.0200, L501.9520, L100.0500, L3300.0600, L503.0106, L500.4050, L500.4100, L3100.1725, L506.0400 #### [facility] [address] [place], [address] ALT [Catalytic activity/Vol] 15 U/L Normal <=34 [facility] Comment on above: Performed By: #### L 3300.8000, L3410.0100, L3410.0200, L501.9520, L100.0500, L3300.0600, L503.0106, L500.4050, L500.4100, L3100.1725, L506.0400 #### [facility] [address] [place], [address] AST [Catalytic activity/Vol] 28 U/L Normal <=31 [facility] Comment on above: Performed By: #### L 3300.8000, L3410.0100, L3410.0200, L501.9520, L100.0500, L3300.0600, L503.0106, L500.4050, L500.4100, L3100.1725, L506.0400 #### [facility] [address] [place], [address] Bilirubin [Mass/Vol] 0.62 mg/dL Normal 0.00-1.30 [facility] Comment on above: Performed By: #### L 3300.8000, L3410.0100, L3410.0200, L501.9520, L100.0500, L3300.0600, L503.0106, L500.4050, L500.4100, L3100.1725, L506.0400 #### [facility] [address] [place], [address] BUN/CRE 22.0 RATIO High 10-20 [facility] Comment on above: Performed By: #### L 3300.8000, L3410.0100, L3410.0200, L501.9520, L100.0500, L3300.0600, L503.0106, L500.4050, L500.4100, L3100.1725, L506.0400 #### [facility] [address] [place], [place], [phone] (374) Calcium [Mass/Vol] 10.0 mg/dL Normal 7.6-11.0 [facility] Comment on above: Performed By: #### L 3300.8000, L3410.0100, L3410.0200, L501.9520, L100.0500, L3300.0600, L503.0106, L500.4050, L500.4100, L3100.1725, L506.0400 #### [facility] [address] [place], [place], [phone] (077) Chloride [Moles/Vol] 102 mmol/L Normal 98-108 [facility] Comment on above: Performed By: #### L 3300.8000, L3410.0100, L3410.0200, L501.9520, L100.0500, L3300.0600, L503.0106, L500.4050, L500.4100, L3100.1725, L506.0400 #### [facility] [address] [place], [place], [phone] (923) CO2 [Moles/Vol] 23.9 mmol/L Normal 21.0-32.0 [facility] Comment on above: Performed By: #### L 3300.8000, L3410.0100, L3410.0200, L501.9520, L100.0500, L3300.0600, L503.0106, L500.4050, L500.4100, L3100.1725, L506.0400 #### [facility] [address] [place], [place], [phone] (153) Creatinine [Mass/Vol] 0.95 mg/dL Normal 0.70-1.20 [facility] Comment on above: Performed By: #### L 3300.8000, L3410.0100, L3410.0200, L501.9520, L100.0500, L3300.0600, L503.0106, L500.4050, L500.4100, L3100.1725, L506.0400 #### [facility] [address] [facility] [place], [place], [phone] Normal 5-15 [facility] Comment on above: Performed By: #### L 3300.8000, L3410.0100, L3410.0200, L501.9520, L100.0500, L3300.0600, L503.0106, L500.4050, L500.4100, L3100.1725, L506.0400 #### [facility] [address] [facility] [place], [place], [phone] GFR/1.73 sq M.predicted among non-blacks MDRD (S/P/Bld) [Vol rate/Area] 59 mL/min/{1.73_m2} Low >60 [facility] Comment on above: Result Comment: mL/m in/1.73m2 CKD-EPI Creatinine Equation (2020) Performed By: #### L 3300.8000, L3410.0100, L3410.0200, L501.9520, L100.0500, L3300.0600, L503.0106, L500.4050, L500.4100, L3100.1725, L506.0400 #### [facility] [address] [place], [place], [phone] Globulin (S) [Mass/Vol] 3.6 g/dL Normal 2.2-4.2 [facility] Comment on above: Performed By: #### L 3300.8000, L3410.0100, L3410.0200, L501.9520, L100.0500, L3300.0600, L503.0106, L500.4050, L500.4100, L3100.1725, L506.0400 #### [facility] [address] [place], [address] Glucose [Mass/Vol] 108 mg/dL High 70-99 [facility] Comment on above: Performed By: #### L 3300.8000, L3410.0100, L3410.0200, L501.9520, L100.0500, L3300.0600, L503.0106, L500.4050, L500.4100, L3100.1725, L506.0400 #### [facility] [address] [place], [address] Potassium [Moles/Vol] 3.6 mmol/L Normal 3.3-5.1 [facility] Comment on above: Performed By: #### L 3300.8000, L3410.0100, L3410.0200, L501.9520, L100.0500, L3300.0600, L503.0106, L500.4050, L500.4100, L3100.1725, L506.0400 #### [facility] [address] [place], [address] Sodium [Moles/Vol] 141 mmol/L Normal 133-145 [facility] Comment on above: Performed By: #### L 3300.8000, L3410.0100, L3410.0200, L501.9520, L100.0500, L3300.0600, L503.0106, L500.4050, L500.4100, L3100.1725, L506.0400 #### [facility] [address] [place], [address] T PROT 7.8 g/dL Normal 5.9-8.4 [facility] Comment on above: Performed By: #### L 3300.8000, L3410.0100, L3410.0200, L501.9520, L100.0500, L3300.0600, L503.0106, L500.4050, L500.4100, L3100.1725, L506.0400 #### [facility] [address] [place], [address] Urea nitrogen [Mass/Vol] 21 mg/dL High 4-19 [facility] Comment on above: Performed By: #### L 3300.8000, L3410.0100, L3410.0200, L501.9520, L100.0500, L3300.0600, L503.0106, L500.4050, L500.4100, L3100.1725, L506.0400 #### [facility] [address] [place], [place], [address] Erythrocyte distribution wid th ratioOrdered By: Ingrid Michaels on 06-06-2024 Erythrocyte distribution width (RBC) [Ratio] 14.5 % 11.6-14.6 [facility] Erythrocyte distribution wid th standard deviationOrdered By: Ingrid Michaels on 06-06-2024 Erythrocyte distribution width (RBC) [Entitic vol] 49.0 fL High 35.1-43.9 [facility] Erythrocyte distribution width (RBC) [Ratio] 49.0 fl High 35.1-43.9 [facility] Erythrocyte folate measureme ntOrdered By: Ingrid Michaels on 06-06-2024 RBC Folate Hemolysate 396.0 ng/mL Not Estab. [facility] Red Blood Cell Folate 868 ng/mL >498 [facility] Erythrocyte folate measureme nt with hematocritOrdered By: Ingrid Michaels on 06-06-2024 Hematocrit (Bld) [Volume fraction] 45.6 % 34.0-46.6 [facility] GFR/1.73 sq M.predicted antonella g non-blacks MDRD (S/P/Bld) [Vol rate/Area]Ordered By: Ingrid Michaels on 06-06-2024 Estimated GFR (MDRD) Non-Af Amer 59 Low >60 [facility] Comment on above: mL/min/1.73m2 CKD-EP I Creatinine Equation (2020) Glomerular filtration rate ( GFR) estimation/1.73 sq m using serum, plasma, or whole bOrdered By: Ingrid Michaels on 06-06-2024 GFR/1.73 sq M.predicted among non-blacks MDRD (S/P/Bld) [Vol rate/Area] 59 mL/min/{1.73_m2} Low >60 [facility] Comment on above: mL/min/1.73m2 CKD-EP I Creatinine Equation (2020) Hematocrit Auto (Bld) [Volum e fraction]Ordered By: Ingrid Michaels on 06-06-2024 Hematocrit (Bld) [Volume fraction] 42.5 % 37-47 [facility] Hemoglobin measurementOrdere d By: Ingrid Michaels on 06-06-2024 Hemoglobin (Bld) [Mass/Vol] 14.0 g/dL 12.0-15.0 [facility] L503.0106on 06-06-2024 Cobalamin (Vitamin B12) [Mass/Vol] 610 pg/mL Normal 180-914 [facility] Comment on above: Performed By: #### L 500.4050, L100.0100 #### [facility] [address] [place] [address], [address] LDL calc ser/plasOrdered By: Ingrid Michaels on 06-06-2024 Cholesterol in LDL [Mass/Vol] 101 mg/dL [facility] Comment on above: Tcprbwnzwm=863-895 m g/dL & Higher Rxvr=138 mg/dL or greater LDL Cholesterol, Calculated 101 mg/dL [facility] Comment on above: Jheywcmhks=151-926 m g/dL & Higher Pbnu=042 mg/dL or greater Laboratory - Chemistry and C hemistry - challengeOrdered By: Ingrid Mihcaels on 06-06-2024 AST [Catalytic activity/Vol] 28 U/L <32 [facility] Lipid Profileon 06-06-2024 CHOL:HDL 2.34 Normal [facility] Comment on above: Performed By: #### L 3300.8000, L3410.0100, L3410.0200, L501.9520, L100.0500, L3300.0600, L503.0106, L500.4050, L500.4100, L3100.1725, L506.0400 #### [facility] [address] [place], [address] Cholesterol [Mass/Vol] 202 mg/dL High <=200 [facility] Comment on above: Result Comment: Chol esterol level, Desirable <200 mg/dL Borderline high cholesterol 200-239 mg/dL High cholesterol >=240 mg/dL Recommendations of the NCEP Adult Treatment Panel for the following risk-cutoff thresholds for the [place] population. Performed By: #### L 3300.8000, L3410.0100, L3410.0200, L501.9520, L100.0500, L3300.0600, L503.0106, L500.4050, L500.4100, L3100.1725, L506.0400 #### [facility] [address] [place], [address] Cholesterol in HDL [Mass/Vol] 86 mg/dL Normal [facility] Comment on above: Result Comment: Dina onal Cholesterol Education Program (NCEP) guidelines: <40 mg/dL: Low HDL-cholesterol (major risk factor for CHD) >= 60 mg/dL: High HDL-cholesterol (negative risk factor for CHD) HDL-cholesterol is affected by a number of factors, e.g. smoking, exercise, hormones, sex and age. Performed By: #### L 3300.8000, L3410.0100, L3410.0200, L501.9520, L100.0500, L3300.0600, L503.0106, L500.4050, L500.4100, L3100.1725, L506.0400 #### [facility] [address] [place], [address] Cholesterol in LDL [Mass/Vol] 101 mg/dL Normal [facility] Comment on above: Result Comment: Bord jxwkku=786-841 mg/dL Higher Rhgb=477 mg/dL or greater Performed By: #### L 3300.8000, L3410.0100, L3410.0200, L501.9520, L100.0500, L3300.0600, L503.0106, L500.4050, L500.4100, L3100.1725, L506.0400 #### [facility] [address] [place], [address] Cholesterol in VLDL [Mass/Vol] 14 mg/dL Normal 5-40 [facility] Comment on above: Performed By: #### L 3300.8000, L3410.0100, L3410.0200, L501.9520, L100.0500, L3300.0600, L503.0106, L500.4050, L500.4100, L3100.1725, L506.0400 #### [facility] [address] [place], [address] Triglyceride [Mass/Vol] 71 mg/dL Normal [facility] Comment on above: Result Comment: The drugs N-Acetylcysteine and Metamizole may falsely depress this assay. Normal range: <150 mg/dL Borderline High: 150-199 mg/dL High: 200-499 mg/dL Very High: >500 mg/dL Performed By: #### L 3300.8000, L3410.0100, L3410.0200, L501.9520, L100.0500, L3300.0600, L503.0106, L500.4050, L500.4100, L3100.1725, L506.0400 #### [facility] [address] [place], [address] MCV (mean corpuscular volume ) determinationOrdered By: Ingrid Michaels on 06-06-2024 MCV (RBC) [Entitic vol] 91.2 fL 81-99 [facility] Mean corpuscular hemoglobin (MCH) determinationOrdered By: Ingrid Michaels on 06-06-2024 MCH (RBC) [Entitic mass] 30.0 pg 27.0-32.0 [facility] Mean corpuscular hemoglobin concentration (MCHC) determinationOrdered By: Ingrid Michaels on 06-06-2024 MCHC (RBC) [Mass/Vol] 32.9 g/dL 32-36 [facility] Mean platelet volume determi nationOrdered By: Ingrid Michaels on 06-06-2024 Platelet mean volume (Bld) [Entitic vol] 12.3 fL High 6.2-12.0 [facility] Neurology Visit Reporton Neurology Visit Report [facility] [address] [place] [address] OFFICE VISIT Date of Service: 06/06/24 MR#: [id number] Acct: [id number] Name: ESTEFANIA MONTIEL) NIKITA Rep #: [id number] : 1940 Provider: Dr. 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 Normal [facility] Platelet countOrdered By: Ra asha Michaels on 06-06-2024 Platelets (Bld) [#/Vol] 250 10*3/uL 150-450 [facility] Potassium (Unsp spec) [Mass/ Vol]Ordered By: Ingrid Michaels on 06-06-2024 Potassium [Moles/Vol] 3.6 mmol/L 3.3-5.1 [facility] Potassium measurement (mass/ volume)Ordered By: Ingrid Michaels on 06-06-2024 Potassium (Unsp spec) [Mass/Vol] 3.6 mmol/L 3.3-5.1 [facility] RBC Auto (Bld) [#/Vol]Ordere d By: Ingrid Michaels on 06-06-2024 RBC (Bld) [#/Vol] 4.66 10*6/uL 4.2-5.4 [facility] Screening total cholesterol/ high density lipoprotein (HDL) cholesterol ratioOrdered By: Ingrid Michaels on 06-06-2024 Cholesterol.total/Choles terol in HDL [Mass ratio] 2.34 {ratio} [facility] Serum acetylcholine receptor modulation antibody/total acetylcholine antibody ratio (Ordered By: Ingrid Michaels on 06-06-2024 Acetylcholine receptor modulation Ab/Acetylcholine Ab.total (S) [Molar fraction] 0 % 0-45 [facility] Comment on above: Interpretive Informa tion: Negative: 0 - 45% Positive: > 45%No single value for AChR-modulating antibody shouldbe used as a sole basis for diagnosis or responseto therapy. Serum creatinine measurement (mass/volume)Ordered By: Ingrid Michaels on 06-06-2024 Creatinine [Mass/Vol] 0.95 mg/dL 0.70-1.20 [facility] Serum globulin measurementOr dered By: Ingrid Michaels on 06-06-2024 Globulin (S) [Mass/Vol] 3.6 g/dL 2.2-4.2 [facility] Serum glucose measurement (m ass/volume)Ordered By: Ingrid Michaels on 06-06-2024 Glucose [Mass/Vol] 108 mg/dL High 70-99 [facility] Serum or plasma alanine barahona otransferase (ALT) measurementOrdered By: Ingrid Michaels on 06-06-2024 ALT [Catalytic activity/Vol] 15 U/L <35 [facility] Serum or plasma albumin adrian urement (mass/volume)Ordered By: Ingrid Michaels on 06-06-2024 Albumin [Mass/Vol] 4.2 g/dL 3.4-4.8 [facility] Serum or plasma albumin/glob ulin mass ratioOrdered By: Ingrid Michaels 06-06-2024 Albumin/Globulin [Mass ratio] 1.2 {ratio} 0.9-2.4 [facility] Serum or plasma alkaline farnaz sphatase measurementOrdered By: Ingrid Michaels 06-06-2024 ALP [Catalytic activity/Vol] 56 U/L 35-104 [facility] Serum or plasma calcium adrian urement (mass/volume)Ordered By: Ingrid Michaels on 06-06-2024 Calcium [Mass/Vol] 10.0 mg/dL 7.6-11.0 [facility] Serum or plasma cholesterol in HDL measurement (mass/volume)Ordered By: Ingrid Michaels on 06-06-2024 Cholesterol in HDL [Mass/Vol] 86 mg/dL >40 [facility] Comment on above: National Cholesterol Education Program (NCEP) guidelines:<40 mg/dL: Low HDL-cholesterol (major risk factor for CHD)>= 60 mg/dL: High HDL-cholesterol (negative risk factor for CHD)HDL-cholesterol is affected by a number of factors, e.g. smoking, exercise, hormones, sex and age. Serum or plasma cholesterol measurement (mass/volume)Ordered By: Ingrid Michaels on 06-06-2024 Cholesterol [Mass/Vol] 202 mg/dL High <201 [facility] Comment on above: Cholesterol level, D esirable <200 mg/dLBorderline high cholesterol 200-239 mg/dLHigh cholesterol >=240 mg/dLRecommendations of the NCEP Adult Treatment Panel for the following risk-cutoff thresholds for the [place] population. Serum or plasma thiamine nitesh surement (mass/volume)Ordered By: Ingrid Michaels on 06-06-2024 Thiamine [Mass/Vol] 124.5 nmol/L 66.5-200.0 [facility] Comment on above: Performed at: [address] [id number] Director: Jesse Anne PhD, Phone: [phone] at: - [facility] [id number] Director: Marti Singh MD, Phone: [phone] Serum or plasma urea nitroge n measurement (mass/volume)Ordered By: Ingrid Michaels on 06-06-2024 Urea nitrogen [Mass/Vol] 21 mg/dL High 4-19 [facility] Sodium levelOrdered By: Farrukh Michaels on 06-06-2024 Sodium [Moles/Vol] 141 mmol/L 133-145 [facility] T4 Free Directon 06-06-2024 T4 FREE DIRECT 1.00 ng/dL Normal 0.76-1.46 [facility] Comment on above: Performed By: #### L 500.4050, L100.0100 #### [facility] [address] [place], [address] T4 freeOrdered By: Ingrid abernathy on 06-06-2024 Free T4 [Mass/Vol] 1.00 ng/dL 0.76-1.46 [facility] TSH DL <= 0.005 mIU/L QnOrde red By: Ingrid Michaels on 06-06-2024 Thyroid Stimulating Hormone (TSH) 2.220 uIU/mL 0.300-4.20 0 [facility] TSH Qn 2.220 uIU/mL 0.300-4.20 0 [facility] Thiamine [Mass/Vol]Ordered B y: Ingrid Michaels on 06-06-2024 Whole Blood Vitamin B1 Level 124.5 nmol/L 66.5-200.0 [facility] Comment on above: Performed at: - [address] [id number] Director: Jesse Anne PhD, Phone: [phone] at: - [facility] [id number] Director: Marti Singh MD, Phone: [phone] Thyroid Stim Hormone (TSH)on 06-06-2024 TSH 2.220 uIU/mL Normal 0.300-4.20 0 [facility] Comment on above: Performed By: #### L 500.4050, L100.0100 #### [facility] [address] [place] [address], [id number] Total proteinOrdered By: Kenrick Michaels on 06-06-2024 Protein [Mass/Vol] 7.8 g/dL 5.9-8.4 [facility] Triglycerides measurementOrd ered By: Ingrid Michaels on 06-06-2024 Triglyceride [Mass/Vol] 71 mg/dL <199 [facility] Comment on above: The drugs N-Acetylcy steine and Metamizole may falsely depress this assay. Normal range: <150 mg/dLBorderline High: 150-199 mg/dLHigh: 200-499 mg/dLVery High: >500 mg/dL Vitamin B12 ser/plasOrdered By: Ingrid Michaels on 06-06-2024 Cobalamin (Vitamin B12) [Mass/Vol] 610 pg/mL 180-914 [facility] White blood cell (WBC) count Ordered By: Ingrid Michaels on 06-06-2024 WBC (Bld) [#/Vol] 7.1 10*3/uL 4.4-11.0 [facility] EGDon 05-15-2024 Esophagogastroduodenosco py Table formatting [...] AM Specimens No specimens collected Procedure Location [facility] [address] [facility] [address] Referring Provider Stefan Cazares MD Procedure Provider Stefan Cazares MD [facility] EGD Study observation Narrat marisabel 05-15-2024 Table [...] AM Specimens No specimens collected Procedure Location [facility] [address] [facility] [id number] Referring Provider Stefan Cazares MD Procedure Provider Stefan Cazares MD [facility] Work Phone: [facility] Work Phone: Radiology Study observation (narrative) [facility] Work Phone: [place] [facility] ESOPHAGRAMon 5 [place] [facility] ESOPHAG[facility] Interpreted By: Con Vaz, STUDY: [place] GI ESOPHAGRAM; 04/17/2024 11:32 am INDICATION: Signs/Symptoms:post fundoplication dysphagia. ,R13.19 Other dysphagia COMPARISON: None. ACCESSION NUMBER(S): [id number] ORDERING CLINICIAN: STEFAN CAZARES TECHNIQUE: Initial c.o.d. biller radiograph of the esophagus was obtained. Multiple fluoroscopic spot images were obtained after the administration of 100 mL of barium contrast. The patient tolerated the procedure well. FINDINGS: Initial c.o.d. biller image is grossly unremarkable. Fluoroscopic images demonstrate [...] Con Shah 04/18/2024 10:04 AM Dictation workstation: [id number] [facility] CNOVon 02-02-2024 CNOV Office Visit (OTOLTW ) ----- ESTEFANIA MONTIEL ([id number]) 1940 F Date Time Provider Department 02/02/24 [...] Alhaji Javed MD Referring Provider: ALHAJI JAVED [[id number]] Allergies As of Date: 02/02/2024 Noted Allergy [...] Status:Closed by ALHAJI JAVED on 02/07/24 Normal [facility] Urine Cultureon 12-30-2023 URC Klebsiella pneumonia e sp pneum Walker Count >100,000 Klebsiella pneumoniae sp pneum: REACTION [...] TMP SMX Islt CHARO <=20 S Normal [facility] Comment on above: Performed By: #### L 500.4050, L100.0100 #### [facility] [address] [place], [address] Brain/Head without Contrasto n 12-28-2023 Brain/Head without Contrast [facility] Services [address] [place] [address] Brain/Head without Contrast MR#: [id number] Acct: [id number] Name: ESTEFANIA MONTIEL NIKITA Rep #: [id number] : 1940 F 83 From: Sudeep waters MD PCP: Care Physician,No Primary Status: REG ER Study: Brain/Head without Contrast Date of Exam: 04/21 Exam# [id number] Ordering Dr: Ino Aponte DO [id number] STUDY: CT BRAIN WITHOUT CONTRAST REASON FOR [...] Ino Aponte, DO; No Primary Care Physician Trimming Department Blocker: Signed Normal [facility] CBC W/Diff, Automatedon 10-0 Absolute Lymph 1.74 X10 3/uL Normal 0.83-4.51 [facility] Comment on above: Performed By: #### L 500.4050, L100.0100 #### [facility] [address] [place], [address] Absolute Neut 7.1 X10 3/uL Normal 2.0-7.7 [facility] Comment on above: Performed By: #### L 500.4050, L100.0100 #### [facility] [address] [place], [address] Basophils/100 WBC (Bld) 0.4 % Normal 0-1 [facility] Comment on above: Performed By: #### L 500.4050, L100.0100 #### [facility] [address] [place], [address] Eosinophils/100 WBC (Bld) 1.8 % Normal 0-5 [facility] Comment on above: Performed By: #### L 500.4050, L100.0100 #### [facility] [address] [place], [address] Erythrocyte distribution width (RBC) [Ratio] 13.1 % Normal 11.6-14.6 [facility] Comment on above: Performed By: #### L 500.4050, L100.0100 #### [facility] [address] [place], [address] Hematocrit (Bld) [Volume fraction] 45.0 % Normal 37-47 [facility] Comment on above: Performed By: #### L 500.4050, L100.0100 #### [facility] [address] [place], [address] Hemoglobin (Bld) [Mass/Vol] 14.6 g/dL Normal 12.0-15.0 [facility] Comment on above: Performed By: #### L 500.4050, L100.0100 #### [facility] [address] [place], [address] IG% 0.700 Normal 0.0-0.9 [facility] Comment on above: Result Comment: IG% - Immature Granulocytes (promyelocytes, myelocytes and metamyelocytes) > 1% indicates that a LEFT SHIFT is Present. Performed By: #### L 500.4050, L100.0100 #### [facility] [address] [place], [address] Lymphocytes/100 WBC (Bld) 17.5 % Low 19-41 [facility] Comment on above: Performed By: #### L 500.4050, L100.0100 #### [facility] [address] [place], [address] MCH (RBC) [Entitic mass] 30.5 pg Normal 27.0-32.0 [facility] Comment on above: Performed By: #### L 500.4050, L100.0100 #### [facility] [address] [place], [address] MCHC (RBC) [Mass/Vol] 32.4 g/dL Normal 32-36 [facility] Comment on above: Performed By: #### L 500.4050, L100.0100 #### [facility] [address] [place], [address] MCV (RBC) [Entitic vol] 94.1 fL Normal 81-99 [facility] Comment on above: Performed By: #### L 500.4050, L100.0100 #### [facility] [address] [place], [address] Monocytes/100 WBC (Bld) 7.8 % Normal 0-10 [facility] Comment on above: Performed By: #### L 500.4050, L100.0100 #### [facility] [address] [place], [address] Neutrophils/100 WBC (Bld) 71.8 % High 47-70 [facility] Comment on above: Performed By: #### L 500.4050, L100.0100 #### [facility] [address] [place], [address] Nucleated RBC (Bld) [#/Vol] 0 10*3/uL Normal 0-5 [facility] Comment on above: Performed By: #### L 500.4050, L100.0100 #### [facility] [address] [place], [address] Platelet mean volume (Bld) [Entitic vol] 10.2 fL Normal 6.2-12.0 [facility] Comment on above: Performed By: #### L 500.4050, L100.0100 #### [facility] [address] [place], [address] Platelets (Bld) [#/Vol] 262 10*3/uL Normal 150-450 [facility] Comment on above: Performed By: #### L 500.4050, L100.0100 #### [facility] [address] [place], [address] RBC (Bld) [#/Vol] 4.78 10*6/uL Normal 4.2-5.4 [facility] Comment on above: Performed By: #### L 500.4050, L100.0100 #### [facility] [address] [place], [address] RDW SD 45.5 fl High 35.1-43.9 [facility] Comment on above: Performed By: #### L 500.4050, L100.0100 #### [facility] [address] [place], [address] WBC (Bld) [#/Vol] 9.9 10*3/uL Normal 4.4-11.0 [facility] Comment on above: Performed By: #### L 500.4050, L100.0100 #### [facility] [address] [place], [address] CTA Chst, Abd, Pel W and/or WOon 12-28-2023 CTA Chst, Abd, Pel W and/or WO [facility] [address] [place] [address] CTA Chst, Abd, Pel W and/or WO MR#: [id number] Acct: [id number] Name: ESTEFANIA MONTIEL NIKITA Rep #: [id number] : 1940 F 83 From: Sudeep waters MD PCP: Care Physician,No Primary Status: [facility] ER Study: CTA Chst, Abd, Pel W and/or WO Date of Exam: Exam# [id number] Ordering Dr: Ino Aponte DO ADDENDUM by Dr. Sudeep Cooper MD on 01/07/24 at 1453 ADDENDUM [id number] ADDENDUM for billing purposes. Heading: CT chest [...] DO; No Primary Care Physician * Signed [id number] INDICATION: History of fall. COMPARISON: None. TECHNIQUE: [...] Ino Aponte, DO; No Primary Care Physician Trimming Department Blocker: Signed Normal [facility] Comprehensive Metabolic Prof ilon 12-28-2023 Albumin [Mass/Vol] 3.6 g/dL Normal 3.2-5.0 [facility] Comment on above: Performed By: #### L 500.4050, L100.0100 #### [facility] [address] [place], [address] Albumin/Globulin [Mass ratio] 0.9 {ratio} Normal 0.9-2.4 [facility] Comment on above: Performed By: #### L 500.4050, L100.0100 #### [facility] [address] [place], [address] ALK P 66 U/L Normal 45-117 [facility] Comment on above: Performed By: #### L 500.4050, L100.0100 #### [facility] [address] [place], [address] ALT [Catalytic activity/Vol] 25 U/L Normal 13-56 [facility] Comment on above: Performed By: #### L 500.4050, L100.0100 #### [facility] [address] [place], [address] AST [Catalytic activity/Vol] 23 U/L Normal 15-37 [facility] Comment on above: Performed By: #### L 500.4050, L100.0100 #### [facility] [address] [place], [address] Bilirubin [Mass/Vol] 0.90 mg/dL Normal 0.20-1.00 [facility] Comment on above: Result Comment: For patients on eltrombopag therapy, use of Dimension Kipling TBIL is not recommended. Performed By: #### L 500.4050, L100.0100 #### [facility] [address] [place], [address] BUN/CRE 16.1 RATIO Normal 10-20 [facility] Comment on above: Performed By: #### L 500.4050, L100.0100 #### [facility] [address] [place], [address] CA,Total 9.6 mg/dL Normal 8.5-10.1 [facility] Comment on above: Performed By: #### L 500.4050, L100.0100 #### [facility] [address] [place], [address] Chloride [Moles/Vol] 100 mmol/L Normal 98-107 [facility] Comment on above: Performed By: #### L 500.4050, L100.0100 #### [facility] [address] [place], [address] CO2 [Moles/Vol] 34.0 mmol/L High 21.0-32.0 [facility] Comment on above: Performed By: #### L 500.4050, L100.0100 #### [facility] [address] [place], [address] Creatinine [Mass/Vol] 0.99 mg/dL Normal 0.55-1.02 [facility] Comment on above: Result Comment: The validity of the calculated GFR GFRAA in patients over 70 years has not been determined. Clinical correlation is essential. Performed By: #### L 500.4050, L100.0100 #### [facility] [address] [place], [address] ECRCL 34.33 ml/min Normal [facility] Comment on above: Performed By: #### L 500.4050, L100.0100 #### [facility] [address] [place], [address] EST GFR - AA 69 mL/min Normal >60 [facility] Comment on above: Result Comment: Afri can [place] GFR Calc Performed By: #### L 500.4050, L100.0100 #### [facility] [address] [place], [address] GAP 4 Low 5-15 [facility] Comment on above: Performed By: #### L 500.4050, L100.0100 #### [facility] [address] [place], [address] GFR/1.73 sq M.predicted among non-blacks MDRD (S/P/Bld) [Vol rate/Area] 57 mL/min/{1.73_m2} Low >60 [facility] Comment on above: Result Comment: Non- GFR Calc Performed By: #### L 500.4050, L100.0100 #### [facility] [address] [place], [address] Globulin (S) [Mass/Vol] 4.1 g/dL Normal 2.2-4.2 [facility] Comment on above: Performed By: #### L 500.4050, L100.0100 #### [facility] [address] [place], [address] Glucose [Mass/Vol] 96 mg/dL Normal 74-106 [facility] Comment on above: Performed By: #### L 500.4050, L100.0100 #### [facility] [address] [place], [address] Potassium [Moles/Vol] 4.2 mmol/L Normal 3.5-5.1 [facility] Comment on above: Performed By: #### L 500.4050, L100.0100 #### [facility] [address] [place], [address] Sodium [Moles/Vol] 139 mmol/L Normal 136-145 [facility] Comment on above: Performed By: #### L 500.4050, L100.0100 #### [facility] [address] [place] [place], [address] T PROT 7.7 g/dL Normal 6.4-8.2 [facility] Comment on above: Performed By: #### L 500.4050, L100.0100 #### [facility] [address] [place], [address] Urea nitrogen [Mass/Vol] 16 mg/dL Normal 7-18 [facility] Comment on above: Performed By: #### L 500.4050, L100.0100 #### [facility] [address] [place], [address] Emergency Department Summary on 12-28-2023 Emergency Department Summary [facility] Medical Records Department [address] [place] [address] Emergency Department Summary 12/28/23 MR#: [id number] Acct: [id number] Name: ESTEFANIA MONTIEL NIKITA Rep #: [id number] : 1940 83 From: Ino Aponte DO [...] motor deficits and no sensory deficits noted [place] Coma Scale: document GCS findings Spontaneous Obeys [...] lab re (more content not included)... Normal [facility] Urinalysis, Completeon 12-27 WBC 0-5 SEEN Normal 0-5 [facility] Comment on above: Order Comment: [id number] MUSJ AB Performed By: #### L 0.9992 #### [facility] [address] [place], [place], [address] BACTERIA 2+ /hpf Normal None Seen [facility] Comment on above: Order Comment: [id number] 0 MUSJ AB Performed By: #### L 3410.9992 #### [facility] [address] [place], [place], [address] EPI,SQUAMOUS 0 SEEN Normal -10 [facility] Comment on above: Order Comment: [id number] 0 MUSJ AB Performed By: #### L 341.9992 #### [facility] [address] [place], [address] Mucus Ql (Urine sed) 0 SEEN Normal [facility] Comment on above: Order Comment: [id number] 0 MUSJ AB Performed By: #### L 3410.9992 #### [facility] [address] [place], [place], [address] RBC 0 SEEN Normal 0-5 [facility] Comment on above: Order Comment: [id number] 0 MUSJ AB Performed By: #### L 3410.9992 #### [facility] [address] [place], [place], [address] CNOVon 11-03-2023 CNOV Office Visit (OTOLTW ) ----- ESTEFANIA MONTIEL ([id number]) 1940 F Date Time Provider Department 11/03/23 [...] wish to proceed Surgeon: Alhaji Javed MD Industrial Equipment Wirer: Sandy Flores RN INDICATIONS: Adductor spasmodic dysphonia, [...] Past Histories independently gathered by the clinical applications support engineer and the remaining scribed note accurately describes my personal service to the patient. Alhaji Javed MD Referring Provider: ALHAJI JAVED [[id number]] Allergies As of Date: 11/03/2023 Noted Allergy [...] Take o (more content not included)... Normal [facility] COLONOSCOPYon 10-18-2023 Colonoscopy Table formatting fro [...] of bowel preparation was evaluated using the [place] Bowel Preparation Scale with scores of: right [...] Sunni Cooley RN 10/18/2023 1432 Procedure Location [facility] OR [address] [place] [id number] Referring Provider Rubio Mirza DO Procedure Provider Rubio Mirza DO [facility] Comment on above: Order Comment: 10/17 last [...] of bowel preparation was evaluated using the [place] Bowel Preparation Scale with scores of: right [...] Sunni Cooley RN 10/18/2023 1432 Procedure Location [facility] OR [address] [place] [phone] Referring Provider Rubio Mirza DO Procedure Provider Rubio Mirza DO [facility] Work Phone: [facility] Work Phone: Radiology Study observation (narrative) [facility] Work Phone: Surgical pathology studyon 0 10-18-2023 Surgical pathology study Pathology repor t.total SEE COMMENT Surgical Pathology Case: [id number] Authorizing Provider: Rubio Mirza DO Collected: 10/18/2023 1432 Ordering Location: [facility] Received: 10/18/2023 1616 Center OR Pathologist: [...] is submitted in toto in two cassettes. [facility] CNPNon 09-21-2023 CNPN Telephone (OTOLTW) ----- ESTEFANIA MONTIEL ([id number]) 1940 F Date Time Provider Department 09/21/23 [...] N/A Person calling: son: Call patient at: [phone] Was an appointment scheduled: No Closing statement: Results or non-symptom based questions: Thank you for calling [facility], your call will be returned [...] Status:Closed by RACHELE STERN on 09/21/23 Normal [facility] ACETYLCHOLINE REC BINDING AB on 09-07-2023 ACETYLCHOLINE BINDING, QUAL Negative Normal Negative [facility] Comment on above: Order Comment: Salvador luu Type: BLOOD SPECIMEN Ordering Facility: [facility] Address: [address] [place], [place] [address] Result Comment: Anti -acetylcholine receptor binding antibody test is used as an aid in diagnosis of myasthenia gravis. A negative result cannot exclude myasthenia gravis. Clinical correlation is required. Performed By: #### A CHRAB #### [facility] CLIA [id number] [address] [place] [address] [place] Acetylcholine receptor binding Ab (S) [Moles/Vol] 0.06 nmol/L Normal <0.21 [facility] Comment on above: Order Comment: Salvador luu Type: BLOOD SPECIMEN Ordering Facility: [facility] Address: [address] [place], [place] [address] Performed By: #### A CHRAB #### [facility] CLIA [id number] [address] [place] [address] [place] ACETYLCHOLINE REC BLOCKING A Bon 09-07-2023 ACETYLCHOLINE BLOCKING, QUAL Negative Normal Negative [facility] Comment on above: Order Comment: Salvador luu Type: BLOOD SPECIMEN Ordering Facility: [facility] Address: [address] [place] [address] Result Comment: Anti -acetylcholine receptor blocking antibody test is used as an aid in diagnosis of myasthenia gravis. A negative result cannot exclude myasthenia gravis. Clinical correlation is required. Performed By: #### A CHRAB #### [facility] CLIA [id number] [address] [place] [address] [place] Acetylcholine receptor blocking Ab/Acetylcholine Ab.total (S) [Molar fraction] <13 Normal <21 [facility] Comment on above: Order Comment: Salvador luu Type: BLOOD SPECIMEN Ordering Facility: [facility] Address: [address] [place] [address] Performed By: #### A CHRAB #### [facility] [place] [id number] [address] [place] [address] [place] ACETYLCHOLINE RECEPTOR MODUL ATING ANTIBODYon 09-07-2023 ACETYLCHOLINE RECEPT/MODULATING 1 % Normal <=45 [facility] Comment on above: Order Comment: Salvador luu Type: BLOOD SPECIMEN Ordering Facility: [facility] Address: [address] [place] [address] Result Comment: INTE RPRETIVE INFORMATION: Acetylcholine Modulating [...] developed and its performance characteristics determined by [facility]. It has not been cleared or approved by the [place] Food and Drug Administration. This test was performed in a CLIA certified laboratory and is intended for clinical purposes. Performed By: [facility] [employer] [address] [place] [address] Back End Engineer: Howard Jarrett MD, PhD CLIA Number: [id number] Performed By: #### A CEMOD #### [facility] CLIA [id number] [address] [place] [address] C diff Tox gens Stl Ql ELAINE+p robeon 09-07-2023 C. difficile toxin genes ELAINE+probe Ql (Stl) Negative Normal Negative for C. difficile toxin by PCR [facility] Comment on above: Order Comment: Salvador luu Type: BLOOD SPECIMEN Ordering Facility: [facility] Address: [address] [place] [address] Performed By: #### A CHRAB #### [facility] CLIA [id number] [address] [place] [address] [place] Calprotectin (Stl) [Mass/Mas s]on 09-07-2023 CALPROTECTIN, FECAL QUANTITATIVE 64.9 ug/g High <50 [facility] Comment on above: Order Comment: Salvador luu Type: BLOOD SPECIMEN Ordering Facility: [facility] Address: [address] [place] [address] Performed By: #### A CHRAB #### [facility] CLIA [id number] [address] [place] [address] [place] Gastrointestinal pathogens p beatrice ELAINE+probe (Stl)on 09-07-2023 ADENOVIRUS F 40/41 DNA Not detected Normal Not Detected [facility] Comment on above: Order Comment: Salvador ulu Type: BLOOD SPECIMEN Ordering Facility: [facility] Address: [address] [place] [address] Performed By: #### A CHRAB #### [facility] CLIA [id number] [address] [place] [address] [place] ASTROVIRUS RNA Not detected Normal Not Detected [facility] Comment on above: Order Comment: Speci men Type: BLOOD SPECIMEN Ordering Facility: [facility] Address: [address] [place] [address] Performed By: #### A CHRAB #### [facility] CLIA [id number] [address] [place] [address] [place] C. cayetanensis DNA ELAINE+probe Ql (Unsp spec) Not detected Normal Not Detected [facility] Comment on above: Order Comment: Minervai men Type: BLOOD SPECIMEN Ordering Facility: [facility] Address: [address] [place] [address] Performed By: #### A CHRAB #### [facility] CLIA [id number] [address] [place] [address] [place] Campylobacter sp DNA.diarrheagenic ELAINE+probe Ql (Stl) Not detected Normal Not Detected [facility] Comment on above: Order Comment: Minervai men Type: BLOOD SPECIMEN Ordering Facility: [facility] Address: [address] [place] [address] Performed By: #### A CHRAB #### [facility] CLIA [id number] [address] [place] [address] [place] Cryptosporidium sp DNA ELAINE+probe Ql (Unsp spec) Not detected Normal Not Detected [facility] Comment on above: Order Comment: Speci men Type: BLOOD SPECIMEN Ordering Facility: [facility] Address: [address] [place] [address] Performed By: #### A CHRAB #### [facility] CLIA [id number] [address] [place] [address] [place] E. coli O157:H7 DNA ELAINE+probe Ql (Unsp spec) Not Applicable Normal Not Detected [facility] Comment on above: Order Comment: Speci men Type: BLOOD SPECIMEN Ordering Facility: [facility] Address: [address] [place] [address] Performed By: #### A CHRAB #### [facility] CLIA [id number] [address] [place] [address] [place] E. coli stx1+stx2 genes ELAINE+probe Ql (Stl) Not detected Normal Not Detected [facility] Comment on above: Order Comment: Speci men Type: BLOOD SPECIMEN Ordering Facility: [facility] Address: [address] [place] [address] Performed By: #### A CHRAB #### [facility] CLIA [id number] [address] [place] [address] [place] E. histolytica DNA ELAINE+probe Ql (Unsp spec) Not detected Normal Not Detected [facility] Comment on above: Order Comment: Speci men Type: BLOOD SPECIMEN Ordering Facility: [facility] Address: [address] [place] [address] Performed By: #### A CHRAB #### [facility] CLIA [id number] [address] [place] [address] [place] ENTEROAGGREGATIVE E. COLI (EAEC) DNA Not detected Normal Not Detected [facility] Comment on above: Order Comment: Speci men Type: BLOOD SPECIMEN Ordering Facility: [facility] Address: [address] [place] [address] Performed By: #### A CHRAB #### [facility] CLIA [id number] [address] [place] [address] [place] ENTEROPATHOGENIC E. COLI (EPEC) DNA Not detected Normal Not Detected [facility] Comment on above: Order Comment: Speci men Type: BLOOD SPECIMEN Ordering Facility: [facility] Address: [address] [place] [address] Performed By: #### A CHRAB #### [facility] CLIA [id number] [address] [place] [address] [place] ENTEROTOXIGENIC E. COLI (ETEC) DNA Not detected Normal Not Detected [facility] Comment on above: Order Comment: Speci men Type: BLOOD SPECIMEN Ordering Facility: [facility] Address: [address] [place] [address] Performed By: #### A CHRAB #### [facility] CLIA [id number] [address] [place] [address] [place] G. lamblia DNA ELAINE+probe Ql (Unsp spec) Not detected Normal Not Detected [facility] Comment on above: Order Comment: Speci men Type: BLOOD SPECIMEN Ordering Facility: [facility] Address: [address] [place] [address] Performed By: #### A CHRAB #### [facility] CLIA [id number] [address] [place] [address] [place] NOROVIRUS GI/GII RNA Not detected Normal Not Detected [facility] Comment on above: Order Comment: Speci men Type: BLOOD SPECIMEN Ordering Facility: [facility] Address: [address] [place] [address] Performed By: #### A CHRAB #### [facility] CLIA [id number] [address] [place] [address] [place] PLESIOMONAS SHIGELLOIDES DNA Not detected Normal Not Detected [facility] Comment on above: Order Comment: Speci men Type: BLOOD SPECIMEN Ordering Facility: [facility] Address: [address] [place] [address] Performed By: #### A CHRAB #### [facility] CLIA [id number] [facility] [place] [address] [place] ROTAVIRUS A RNA Not detected Normal Not Detected [facility] Comment on above: Order Comment: Speci men Type: BLOOD SPECIMEN Ordering Facility: [facility] Address: [address] [place] [address] Performed By: #### A CHRAB #### [facility] CLIA [id number] [address] [place] [place] [address] [place] Salmonella sp DNA ELAINE+probe Ql (Unsp spec) Not detected Normal Not Detected [facility] Comment on above: Order Comment: Minervai men Type: BLOOD SPECIMEN Ordering Facility: [facility] Address: [address] [place] [address] Performed By: #### A CHRAB #### [facility] CLIA [id number] [address] [place] [address] [place] SAPOVIRUS (GENOGROUPS I, II, IV, V) RNA Not detected Normal Not Detected [facility] Comment on above: Order Comment: Speci men Type: BLOOD SPECIMEN Ordering Facility: [facility] Address: [address] [place] [address] Performed By: #### A CHRAB #### [facility] CLIA [id number] [address] [place] [address] [place] Shigella species+EIEC invasion plasmid antigen H ipaH gene ELAINE+probe Ql (Stl) Not detected Normal Not Detected [facility] Comment on above: Order Comment: Speci men Type: BLOOD SPECIMEN Ordering Facility: [facility] Address: [address] [place] [address] Performed By: #### A CHRAB #### [facility] CLIA [id number] [address] [place] [address] [place] V. cholerae DNA ELAINE+probe Ql (Unsp spec) Not detected Normal Not Detected [facility] Comment on above: Order Comment: Speci men Type: BLOOD SPECIMEN Ordering Facility: [facility] Address: [address] [place] [address] Performed By: #### A CHRAB #### [facility] CLIA [id number] [address] [place] [address] [place] Vibrio sp DNA ELAINE+probe Nom (Unsp spec) Not detected Normal Not Detected [facility] Comment on above: Order Comment: Speci men Type: BLOOD SPECIMEN Ordering Facility: [facility] Address: [address] [place] [address] Performed By: #### A CHRAB #### [facility] CLIA [id number] [address] [place] [address] [place] Yersinia sp DNA ELAINE+probe Nom (Unsp spec) Not detected Normal Not Detected [facility] Comment on above: Order Comment: Speci men Type: BLOOD SPECIMEN Ordering Facility: [facility] Address: [address] [place] [address] Performed By: #### A CHRAB #### [facility] CLIA [id number] [address] [place] [address] [place] PANC ELASTASE, FECALon 09-06 ELASTASE INTERPRETATION Normal Normal Normal C [facility] Comment on above: Order Comment: Speci men Type: BLOOD SPECIMEN Ordering Facility: [facility] Address: [address] [place] [address] Performed By: #### A CHRAB #### [facility] CLIA [id number] [address] [place] [address] [place] ELASTASE-1 CONCENTRATION >800 Normal >=200 [facility] Comment on above: Order Comment: Speci men Type: BLOOD SPECIMEN Ordering Facility: [facility] Address: [address] [place] [address] Result Comment: Inte rpretation: <100 ug/g: Severe Exocrine Pancreatic Insufficiency 100-199 ug/g: Mild to Moderate Exocrine Pancreatic Insufficiency >=200 ug/g: Normal Performed By: #### A CHRAB #### [facility] CLIA [id number] [address] [place] [address] [place] Absolute lymphocyte countOrd ered By: Dion Haji on 08-08-2023 Lymphocytes Auto (Unsp spec) [#/Vol] 1.48 10*3/uL 0.83-4.51 [facility] Automated lymphocyte count a s percentage of total leukocytesOrdered By: Dion Haji on 08-08-2023 Lymphocytes/100 WBC Auto (Unsp spec) 18.2 % 19-41 [facility] Basophil percentageOrdered B y: Dion Haji on 08-08-2023 Basophil percentage 2.2 mg/dL 2.5-4.9 [facility] Basophils/100 WBC (Bld) 0.1 % 0-1 [facility] Chloride [Moles/Vol] 107 mmol/L 98-107 [facility] Eosinophils/100 WBC (Bld) 2.6 % 0-5 [facility] Glucose [Mass/Vol] 106 mg/dL 74-106 [facility] Comment on above: Fasting Glucose resu lt from 100 to 125 mg/dL suggests IMPAIRED HOMEOSTASIS per A.D.A. criteria. Hemoglobin (Bld) [Mass/Vol] 12.0 g/dL 12.0-15.0 [facility] Monocytes/100 WBC (Bld) 9.6 % 0-10 [facility] Neutrophils (Bld) [#/Vol] 5.6 10*3/uL 2.0-7.7 [facility] Neutrophils/100 WBC (Bld) 68.9 % 47-70 [facility] Potassium [Moles/Vol] 3.5 mmol/L 3.5-5.1 [facility] Sodium [Moles/Vol] 140 mmol/L 136-145 [facility] WBC (Bld) [#/Vol] 8.1 10*3/uL 4.4-11.0 [facility] Determination of erythrocyte mean corpuscular volume (MCV)Ordered By: Dion Haji on 08-08-2023 MCV (RBC) [Entitic vol] 94.0 fL 81-99 [facility] Erythrocyte distribution wid th ratioOrdered By: Dion Haji on 08-08-2023 Erythrocyte distribution width (RBC) [Ratio] 13.7 % 11.6-14.6 [facility] Erythrocyte distribution wid th standard deviationOrdered By: Dion Haji on 08-08-2023 Erythrocyte distribution width (RBC) [Entitic vol] 47.1 fL 35.1-43.9 [facility] Hematocrit Auto (Bld) [Volum e fraction]Ordered By: Dion Haji on 08-08-2023 Hematocrit (Bld) [Volume fraction] 36.1 % 37-47 [facility] Immature granulocytes/100 WB C Auto (Bld)Ordered By: Dion Haji on 08-08-2023 Immature granulocytes/100 WBC (Bld) 0.600 % 0.0-0.9 [facility] Comment on above: IG% - Immature Granu locytes (promyelocytes, myelocytes and metamyelocytes) > 1% indicates that a LEFT SHIFT is Present. Laboratory - Chemistry and C hemistry - challengeOrdered By: Dion Haji on 08-08-2023 CO2 [Moles/Vol] 29.0 mmol/L 21.0-32.0 [facility] Magnesium [Mass/Vol] 1.5 mg/dL 1.6-2.6 [facility] Urea nitrogen/Creatinine [Mass ratio] 13.5 mg/mg 10-20 [facility] Laboratory - Hematology and Cell countsOrdered By: Dion Haji on 08-08-2023 MCH (RBC) [Entitic mass] 31.3 pg 27.0-32.0 [facility] MCHC (RBC) [Mass/Vol] 33.2 g/dL 32-36 [facility] Nucleated RBC/100 WBC (Bld) [Ratio] 0 % 0-5 [facility] Platelet mean volume (Bld) [Entitic vol] 10.2 fL 6.2-12.0 [facility] Platelets (Bld) [#/Vol] 221 10*3/uL 150-450 [facility] No Panel InformationOrdered By: Dion Haji on 08-08-2023 Estimated Creatinine Clearance Calc 43.05 ml/min [facility] Estimated GFR (MDRD) Amer 125 mL/min >60 [facility] Comment on above: GFR Calc Estimated GFR (MDRD) Non-Af Amer 103 mL/min >60 [facility] Comment on above: Non- GFR Calc RBC Auto (Bld) [#/Vol]Ordere d By: Dion Haji on 08-08-2023 RBC (Bld) [#/Vol] 3.84 10*6/uL 4.2-5.4 [facility] Serum or plasma calcium adrian urement (mass/volume)Ordered By: Dion Haji on 08-08-2023 Calcium [Mass/Vol] 8.5 mg/dL 8.5-10.1 [facility] Serum or plasma creatinine m easurement (mass/volume)Ordered By: Dion Haji on 08-08-2023 Creatinine [Mass/Vol] 0.59 mg/dL 0.55-1.02 [facility] Comment on above: The validity of the calculated GFR & GFRAA in patients over 70 years has not been determined. Clinical correlation is essential. Serum or plasma urea nitroge n measurement (mass/volume)Ordered By: Dion Haji on 08-08-2023 Urea nitrogen [Mass/Vol] 8 mg/dL 7-18 [facility] Thin prep Papanicolaou smear with manual screeningOrdered By: Dion Haji on 08-08-2023 Thin prep Papanicolaou smear with manual screening 4 5-15 [facility] Laboratory - Chemistry and C hemistry - challengeOrdered By: Dion Haji on 08-07-2023 Lipase [Catalytic activity/Vol] 63 U/L 13-75 [facility] Comment on above: Please note:LIPASE r evised reference range effective 22. New Lipase methodology. Expected to produce lower values than the previous assay method. NEW Reference Range: 13 - 75 U/L Basophil percentageOrdered B y: Emmett Guerrero on 08-06-2023 Lactate [Moles/Vol] 1.1 mmol/L 0.4-2.0 [facility] Bilirubin [Mass/Vol] 1.10 mg/dL 0.20-1.00 [facility] Comment on above: For patients on eltr ombopag therapy, use of Dimension Kipling TBIL is not recommended. Protein [Mass/Vol] 6.3 g/dL 6.4-8.2 [facility] Basophil percentageOrdered B y: Aylin Charles on 08-06-2023 Basophil percentage 5-10 SEEN /hpf 0-5 [facility] Bilirubin Test strip Ql (U)O rdered By: Aylin Charles on 08-06-2023 Bilirubin Ql (U) Negative Negative [facility] Blood manual differential co mment interpretation (narrative result)Ordered By: Emmett Guerrero on 08-06-2023 Manual differential comment Aden (Bld) [Interp] SCANNED [facility] Calcium oxalate crystals det ection in urine sediment by light microscopyOrdered By: Aylin Charles on 08-06-2023 Calcium oxalate crystals LM Ql (Urine sed) 4+ /hpf [facility] Ketones Test strip Ql (U)Ord ered By: Aylin Charles on 08-06-2023 Ketones Ql (U) Negative Negative [facility] Laboratory - Chemistry and C hemistry - challengeOrdered By: Emmett Guerrero on 08-06-2023 Albumin/Globulin [Mass ratio] 0.9 {ratio} 0.9-2.4 [facility] ALP [Catalytic activity/Vol] 67 U/L 45-117 [facility] ALT [Catalytic activity/Vol] 194 U/L 13-56 [facility] Globulin (S) [Mass/Vol] 3.3 g/dL 2.2-4.2 [facility] Mucus LM Ql (Urine sed)Order ed By: Aylin Charles on 08-06-2023 Mucus Ql (Urine sed) 0 SEEN /hpf [facility] Nitrite Test strip Ql (U)Ord ered By: Aylin Charles on 08-06-2023 Nitrite Ql (U) Negative Negative [facility] No Panel InformationOrdered By: Aylin Charles on 08-06-2023 Urine RBC 0 SEEN /hpf 0-5 [facility] Protein Test strip Ql (U)Ord ered By: Aylin Charles on 08-06-2023 Protein Ql (U) Negative Negative [facility] Review by pathologistOrdered By: Emmett Guerrero on 08-06-2023 Pathologist review Aden (Unsp spec) [Interp] July foll [facility] Squamous epithelial cells de tection in urine sediment by light microscopyOrdered By: Aylin Charles on 08-06-2023 Epithelial cells.squamous LM Ql (Urine sed) 0-5 SEEN /hpf 5-10 [facility] Thin prep Papanicolaou smear with manual screeningOrdered By: Emmett Guerrero on 08-06-2023 Thin prep Papanicolaou smear with manual screening 3.0 g/dL 3.2-5.0 [facility] Thin prep Papanicolaou smear with manual screening 285 U/L 15-37 [facility] Urine blood detectionOrdered By: Aylin Charles on 08-06-2023 RBC Ql (U) Negative Negative [facility] Urine clarityOrdered By: Fito Charles on 08-06-2023 Clarity (U) Clear Clear [facility] Urine color determinationOrd ered By: Aylin Charles on 08-06-2023 Color (U) Yellow Yellow [facility] Urine glucose detectionOrder ed By: Aylin Charles on 08-06-2023 Glucose Ql (U) Normal mg/dl Normal [facility] Urine leukocyte esterase det ection by dipstickOrdered By: Aylin Charles on 08-06-2023 Leukocyte esterase Test strip Ql (U) 100 /ul Negative [facility] Urine pHOrdered By: Elena Charles on 08-06-2023 pH (U) 5.0 [pH] 5.0 - 8.0 [facility] Urine sediment bacteria coun t by microscopy (number/high power field)Ordered By: Aylin Charles on 08-06-2023 Bacteria LM.HPF (Urine sed) [#/Area] 0 /[HPF] None Seen [facility] Urine specific gravity measu rementOrdered By: Aylin Charles on 08-06-2023 Specific gravity (U) [Rel density] 1.015 1.002-1.03 0 [facility] Urine urobilinogen measureme ntOrdered By: Aylin Charles on 08-06-2023 Urobilinogen Ql (U) Normal mg/dl Normal [facility] Absolute lymphocyte countOrd ered By: Aylin Charles on 08-05-2023 Lymphocytes Auto (Unsp spec) [#/Vol] 2.45 10*3/uL 0.83-4.51 [facility] Activated partial thrombopla stin time (aPTT) in platelet poor plasma by coagulation aOrdered By: Cornelius Bowden on 08-05-2023 aPTT Coag (PPP) [Time] 24.0 s 24.1-36.2 [facility] Automated lymphocyte count a s percentage of total leukocytesOrdered By: Aylin Charles on 08-05-2023 Lymphocytes/100 WBC Auto (Unsp spec) 8.8 % 19-41 [facility] Basophil percentageOrdered B y: Cornelius Bowden on 08-05-2023 Lactate [Moles/Vol] 2.5 mmol/L 0.4-2.0 [facility] Comment on above: Critical Result(s) C alled at: 23:16:15 08/05/2023 by: Ramila buckner TO [email or web address]. Results read back by same. Basophil percentageOrdered B y: Aylin Charles on 08-05-2023 Basophils/100 WBC (Bld) 0.6 % 0-1 [facility] Bilirubin [Mass/Vol] 0.70 mg/dL 0.20-1.00 [facility] Comment on above: For patients on eltr ombopag therapy, use of Dimension Kipling TBIL is not recommended. Chloride [Moles/Vol] 104 mmol/L 98-107 [facility] Eosinophils/100 WBC (Bld) 0.5 % 0-5 [facility] Glucose [Mass/Vol] 214 mg/dL 74-106 [facility] Comment on above: Glucose result great er than or equal to 200 mg/dLsuggests DIABETES MELLITUS per A.D.A. criteria. Hemoglobin (Bld) [Mass/Vol] 15.6 g/dL 12.0-15.0 [facility] Monocytes/100 WBC (Bld) 6.8 % 0-10 [facility] Neutrophils (Bld) [#/Vol] 23.0 10*3/uL 2.0-7.7 [facility] Neutrophils/100 WBC (Bld) 82.4 % 47-70 [facility] Potassium [Moles/Vol] 4.1 mmol/L 3.5-5.1 [facility] Protein [Mass/Vol] 7.5 g/dL 6.4-8.2 [facility] Sodium [Moles/Vol] 138 mmol/L 136-145 [facility] WBC (Bld) [#/Vol] 27.9 10*3/uL 4.4-11.0 [facility] Blood manual differential co mment interpretation (narrative result)Ordered By: Aylin Charles on 08-05-2023 Manual differential comment Aden (Bld) [Interp] SCANNED [facility] Comment on above: NEUTROPHILIA NOTEDMO NOCYTOSIS NOTED Determination of erythrocyte mean corpuscular volume (MCV)Ordered By: Aylin Charles on 08-05-2023 MCV (RBC) [Entitic vol] 93.7 fL 81-99 [facility] Erythrocyte distribution wid th ratioOrdered By: Aylin Charles on 08-05-2023 Erythrocyte distribution width (RBC) [Ratio] 13.8 % 11.6-14.6 [facility] Erythrocyte distribution wid th standard deviationOrdered By: Aylin Charles on 08-05-2023 Erythrocyte distribution width (RBC) [Entitic vol] 47.4 fL 35.1-43.9 [facility] Hematocrit Auto (Bld) [Volum e fraction]Ordered By: Aylin Charles on 08-05-2023 Hematocrit (Bld) [Volume fraction] 47.6 % 37-47 [facility] Immature granulocytes/100 WB C Auto (Bld)Ordered By: Aylin Charles on 08-05-2023 Immature granulocytes/100 WBC (Bld) 0.900 % 0.0-0.9 [facility] Comment on above: IG% - Immature Granu locytes (promyelocytes, myelocytes and metamyelocytes) > 1% indicates that a LEFT SHIFT is Present. Laboratory - Chemistry and C hemistry - challengeOrdered By: Aylin Charles on 08-05-2023 Albumin/Globulin [Mass ratio] 0.9 {ratio} 0.9-2.4 [facility] ALP [Catalytic activity/Vol] 54 U/L 45-117 [facility] ALT [Catalytic activity/Vol] 23 U/L 13-56 [facility] CO2 [Moles/Vol] 25.0 mmol/L 21.0-32.0 [facility] Globulin (S) [Mass/Vol] 4.0 g/dL 2.2-4.2 [facility] Lipase [Catalytic activity/Vol] 1168 U/L 13-75 [facility] Comment on above: Please note:LIPASE r evised reference range effective 22. New Lipase methodology. Expected to produce lower values than the previous assay method. NEW Reference Range: 13 - 75 U/L Urea nitrogen/Creatinine [Mass ratio] 41.7 mg/mg 10-20 [facility] Laboratory - CoagulationOrde red By: Cornelius Bowden on 08-05-2023 INR Coag (Bld) [Relative time] 1.1 {INR} [facility] PT Coag (PPP) [Time] 14.0 s 11.7-14.9 [facility] - Hematology and Cell countsOrdered By: Aylin Charles on 08-05-2023 MCH (RBC) [Entitic mass] 30.7 pg 27.0-32.0 [facility] MCHC (RBC) [Mass/Vol] 32.8 g/dL 32-36 [facility] Nucleated RBC/100 WBC (Bld) [Ratio] 0 % 0-5 [facility] Platelet mean volume (Bld) [Entitic vol] 10.9 fL 6.2-12.0 [facility] Platelets (Bld) [#/Vol] 336 10*3/uL 150-450 [facility] No Panel InformationOrdered By: Aylin Charles on 08-05-2023 Estimated Creatinine Clearance Calc 38.54 ml/min [facility] Estimated GFR (MDRD) Amer 78 mL/min >60 [facility] Comment on above: GFR Calc Estimated GFR (MDRD) Non-Af Amer 65 mL/min >60 [facility] Comment on above: Non- GFR Calc RBC Auto (Bld) [#/Vol]Ordere d By: Aylin Charles on 08-05-2023 RBC (Bld) [#/Vol] 5.08 10*6/uL 4.2-5.4 [facility] Review by pathologistOrdered By: Aylin Charles on 08-05-2023 Pathologist review Aden (Unsp spec) [Interp] May foll [facility] Serum or plasma calcium adrian urement (mass/volume)Ordered By: Aylin Charles on 08-05-2023 Calcium [Mass/Vol] 9.3 mg/dL 8.5-10.1 [facility] Serum or plasma creatinine m easurement (mass/volume)Ordered By: Aylin Charles on 08-05-2023 Creatinine [Mass/Vol] 0.89 mg/dL 0.55-1.02 [facility] Comment on above: The validity of the calculated GFR & GFRAA in patients over 70 years has not been determined. Clinical correlation is essential. Serum or plasma urea nitroge n measurement (mass/volume)Ordered By: Aylin Charles on 08-05-2023 Urea nitrogen [Mass/Vol] 37 mg/dL 7-18 [facility] Thin prep Papanicolaou smear with manual screeningOrdered By: Aylin Charles on 08-05-2023 Thin prep Papanicolaou smear with manual screening 3.5 g/dL 3.2-5.0 [facility] Thin prep Papanicolaou smear with manual screening 22 U/L 15-37 [facility] Thin prep Papanicolaou smear with manual screening 9 5-15 [facility] CNOVon 07-28-2023 CNOV Office Visit (OTOLTW ) ----- ESTEFANIA MONTIEL ([id number]) 1940 F Date Time Provider Department 07/28/23 [...] 2 yrs. ) S/p SLN series w/ [facility] Laryngology, most recent 04/20/23. Presenting today [...] of SD and tremor, acknowledged by The [place] [employer] Otolaryngology-Head and Neck [employer] is [...] treatment: A national survey. The Laryngoscope, 129: 6658-3040. https://doi.org/10.1002/l tere.64947 Neal Prabhakar, Koko KAMARA, Nolan C, Juan ACUNA, Fahn S. 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 Laryngoscope. 1991;102(2):163-7. doi: 10.1288/25084919-95978535 0-78849. PMID: 2547409. Royce Amin, Yanet H, Abraham Mcrae. 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 J Voice. 2006 May;20(1):137-43. doi: 10.1016/j.jvoice.2005.03. 008. Epub 2004Nov 21. PMID: 07627440. Sowmya MALIK, Kathryn CHACON, Benjy Mccarty, Farooq ORTIZ, Jeremy FERNANDEZ, Jesus MM 3rd. 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 Otolaryngol Head Neck Surg. 2008 Nov;139(3):421-3. doi: 10.1016/j.otohns.2008.06. 013. PMID: 55395265. Sowmya MALIK, Kathryn CHACON, Benjy Mccarty, Farooq ORTIZ, Jeremy FERNANDEZ, Jesus MM 3rd. 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 Otolaryngol Head Neck Surg. 2008 Nov;139(3):421-3. doi: 10.1016/j.otohns.2008.06. 013. PMID: 19340701. 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 S/p SLN series w/ [facility] laryngology, most (more content not included)... Normal [facility] ESTEFANIA MONTIEL ([id number]) 1940 F Date Time Provider Department 07/23/23 ALHAJI JAVED During your visit today, we recorded the following information about you: Mago Cali OCCA 07/23/2023 10:17 AM Signed Received medical records for patient from [facility] today 07/23/23. Has appointment with Tegan 07/28/23. Will have them scanned into the system. Allergies As of Date: 07/23/2023 Noted Allergy Reaction PENICILLINS 02/10/2007 Comments: skin peeling PERCODAN (OXYCODONE-ASPIRIN) 02/10/2007 1 - Mental Status Change Date Reviewed: 02/10/2007 Reviewed by: Madai Matthews Reason for Visit: Received Outside Medical Records [[id number]] Prescriptions as of 08/09/2023 - FLUoxetine (PROZAC) [...] Status:Closed by MAGO CALI on 08/09/23 Normal [facility] Vital Signs Date Time Vital Sign Value Performing Clinician Facility 12-12-2024 10:48-0400 Body height 160.02 cm No Primary Care Physician [facility] 12-12-2024 10:48-0400 Body mass index (BMI) [Ratio] 21.4 kg/m2 No [facility] [facility] 12-12-2024 10:48-0400 Body temperature 97.8 [degF] No Primary Care Physician [facility] 12-12-2024 10:48-0400 Body weight 54.88 kg No Primary Care Physician [facility] 12-12-2024 10:48-0400 Diastolic blood pressure 71 mm[Hg] No Primary Care Physician [facility] 12-12-2024 10:48-0400 Heart rate 81 /min No Primary Care Physician [facility] 12-12-2024 10:48-0400 Respiratory rate 15 /min No Primary Care Physician [facility] 12-12-2024 10:48-0400 SaO2% (BldA) [Mass fraction] 93 % No Primary Care Physician [facility] 12-12-2024 10:48-0400 Systolic blood pressure 125 mm[Hg] No Primary Care Physician [facility] 10-11-2024 10:47-0400 Body height 160.[address] Britany Sexton MD Work Phone: [facility] 10-11-2024 10:47-0400 Body mass index (BMI) [Ratio] 21 kg/m2 Dr. Britany Sexton MD Work Phone: [facility] 10-11-2024 10:47-0400 Body weight 53.[address] Britany Sexton MD Work Phone: [facility] 10-11-2024 10:47-0400 Diastolic blood pressure 80 mm[Hg] Dr. Britany Sexton MD Work Phone: [facility] 10-11-2024 10:47-0400 Heart rate 80 /min Dr. Britany Sexton MD Work Phone: [facility] 10-11-2024 10:47-0400 Respiratory rate 16 /min Dr. Britany Sexton MD Work Phone: [facility] 10-11-2024 10:47-0400 Systolic blood pressure 125 mm[Hg] Dr. Britany Sexton MD Work Phone: [facility] 08-15-2024 13:35-0400 Body height 160.02 cm No Primary Care Physician [facility] 08-15-2024 13:35-0400 Body mass index (BMI) [Ratio] 21.6 kg/m2 No Primary Care Physician [facility] 08-15-2024 13:35-0400 Body temperature 98.2 [degF] No Primary Care Physician [facility] 08-15-2024 13:35-0400 Body weight 55.33 kg No Primary Care Physician [facility] 08-15-2024 13:35-0400 Diastolic blood pressure 62 mm[Hg] No Primary Care Physician [facility] 08-15-2024 13:35-0400 Heart rate 98 /min No Primary Care Physician [facility] 08-15-2024 13:35-0400 Respiratory rate 17 /min No Primary Care Physician [facility] 08-15-2024 13:35-0400 SaO2% (BldA) [Mass fraction] 96 % No Primary Care Physician [facility] 08-15-2024 13:35-0400 Systolic blood pressure 135 mm[Hg] No Primary Care Physician [facility] 08-01-2024 13:27-0400 Body height 160 cm Ingrid Omalley MD Work Phone: [facility] 08-01-2024 13:27-0400 Body mass index (BMI) [Ratio] 20.94 kg/m2 Ingrid Omalley MD Work Phone: [facility] 08-01-2024 13:27-0400 Body temperature 98.2 [degF] Ingrid Omalley MD Work Phone: [facility] 08-01-2024 13:27-0400 Body weight 53.62 kg Ingrid Omalley MD Work Phone: [facility] 08-01-2024 13:27-0400 Diastolic blood pressure 78 mm[Hg] Ignrid Omalley MD Work Phone: [facility] 08-01-2024 13:27-0400 Heart rate 86 /min Ingrid Omalley MD Work Phone: [facility] 08-01-2024 13:27-0400 Systolic blood pressure 146 mm[Hg] Ingrid Omalley MD Work Phone: [facility] 06-06-2024 08:54-0400 Body height 160.02 cm No Primary Care Physician [facility] 06-06-2024 08:54-0400 Body mass index (BMI) [Ratio] 20.9 kg/m2 No Primary Care Physician [facility] 06-06-2024 08:54-0400 Body temperature 98 [degF] No Primary Care Physician [facility] 06-06-2024 08:54-0400 Body weight 53.52 kg No Primary Care Physician [facility] 06-06-2024 08:54-0400 Diastolic blood pressure 76 mm[Hg] No Primary Care Physician [facility] 06-06-2024 08:54-0400 Heart rate 85 /min No Primary Care Physician [facility] 06-06-2024 08:54-0400 Respiratory rate 16 /min No Primary Care Physician [facility] 06-06-2024 08:54-0400 SaO2% (BldA) [Mass fraction] 92 % No Primary Care Physician [facility] 06-06-2024 08:54-0400 Systolic blood pressure 112 mm[Hg] No Primary Care Physician [facility] 05-15-2024 09:30-0500 Diastolic blood pressure 68 mm[Hg] Stefan Cazares MD Work Phone: [facility] 05-15-2024 09:30-0500 Heart rate 71 /min Stefan Cazares MD Work Phone: [facility] 05-15-2024 09:30-0500 Respiratory rate 16 /min Stefan Cazares MD Work Phone: [facility] 05-15-2024 09:30-0500 SaO2% (BldA) [Mass fraction] 95 % Stefan Cazares MD Work Phone: [facility] 05-15-2024 09:30-0500 Systolic blood pressure 138 mm[Hg] Stefan Cazares MD Work Phone: [facility] 05-15-2024 08:53-0500 Body temperature 97.9 [degF] Stefan Cazares MD Work Phone: [facility] 05-15-2024 07:26-0500 Body height 160 cm Stefan Cazares MD Work Phone: [facility] 05-15-2024 07:26-0500 Body mass index (BMI) [Ratio] 20.54 kg/m2 Stefan Cazares MD Work Phone: [facility] 05-15-2024 07:26-0500 Body weight 52.6 kg Stefan Cazares MD Work Phone: [facility] 03-14-2024 13:55-0500 Body height 160 cm Stefan Cazares MD Work Phone: [facility] 03-14-2024 13:55-0500 Body mass index (BMI) [Ratio] 20.55 kg/m2 Stefan Cazares MD Work Phone: [facility] 03-14-2024 13:55-0500 Body weight 52.62 kg Stefan Cazares MD Work Phone: [facility] 03-14-2024 13:55-0500 Diastolic blood pressure 86 mm[Hg] Stefan Cazares MD Work Phone: [facility] 03-14-2024 13:55-0500 Heart rate 90 /min Stefan Cazares MD Work Phone: [facility] 03-14-2024 13:55-0500 Systolic blood pressure 140 mm[Hg] Stefan Cazares MD Work Phone: [facility] 01-17-2024 14:52-0400 Body height 160 cm Rubio Thomae DO Work Phone: [facility] 01-17-2024 14:52-0400 Body mass index (BMI) [Ratio] 19.67 kg/m2 Rubio Thomae DO Work Phone: [facility] 01-17-2024 14:52-0400 Body weight 50.35 kg Rubio Thomae DO Work Phone: [facility] 01-17-2024 14:52-0400 Diastolic blood pressure 70 mm[Hg] Rubio Thomae DO Work Phone: [facility] 01-17-2024 14:52-0400 Heart rate 76 /min Rubio Rutherfordae DO Work Phone: [facility] 01-17-2024 14:52-0400 Systolic blood pressure 131 mm[Hg] Rubio Thomae DO Work Phone: [facility] 10-18-2023 15:31-0400 Body temperature 97.81 [degF] [address] 10-18-2023 15:31-0400 Diastolic blood pressure 79 mm[Hg] [address] 10-18-2023 15:31-0400 Heart rate 70 /min [address] 10-18-2023 15:31-0400 Respiratory rate 16 /min [address] 10-18-2023 15:31-0400 SaO2% (BldA) [Mass fraction] 99 % [address] 10-18-2023 15:31-0400 Systolic blood pressure 122 mm[Hg] [address] 10-18-2023 13:58-0400 Body height [address] 10-18-2023 13:58-0400 Body mass index (BMI) [Ratio] 18.71 kg/m2 [address] 10-18-2023 13:58-0400 Body weight 47.[address] 08-09-2023 10:00-0400 Body temperature 97.8 [degF] Dr. Cornelius Bowden Work Phone: 6(745)801-840942 [place] [address] 08-09-2023 10:00-0400 Diastolic blood pressure 92 mm[Hg] Dr. Cornelius Bowden Work Phone: 3(788)566-879756 [place] [address] 08-09-2023 10:00-0400 Heart rate 85 /min Dr. Cornelius Bowden Work Phone: 9(743)498-919456 [place] [address] 08-09-2023 10:00-0400 Respiratory rate 14 /min Dr. Cornelius Bowden Work Phone: 3(591)460-520456 [place] [address] 08-09-2023 10:00-0400 SaO2% (BldA) [Mass fraction] 99 % Dr. Cornelius Bowden Work Phone: 1(682)864-957056 [place] [address] 08-09-2023 10:00-0400 Systolic blood pressure 168 mm[Hg] Dr. Cornelius Bowden Work Phone: 4(269)413-948488 [address] 08-06-2023 15:00-0400 Inhaled oxygen flow rate 2 L/min Dr. Cornelius Bowden Work Phone: 8(551)584-078988 [address] 08-06-2023 09:53-0400 Body height 160.[address] Cornelius Bowden Work Phone: 3(596)307-963542 [place] [address] 08-06-2023 09:53-0400 Body weight 50.[address] Cornelius Bowden Work Phone: [facility] 08-06-2023 06:37-0400 Body mass index (BMI) [Ratio] 19.6 kg/m2 Dr. Cornelius Bowden Work Phone: 3(110)597-655288 [address] 08-06-2023 01:44-0400 Body temperature 98.2 [degF] Dr. Cornelius Bowedn Work Phone: 0(286)582-643156 [place] [address] 08-06-2023 01:44-0400 Diastolic blood pressure 78 mm[Hg] Dr. Cornelius Bowden Work Phone: 1(075)336-982542 [place] [address] 08-06-2023 01:44-0400 Heart rate 86 /min Dr. Cornelius Bowden Work Phone: [facility] 08-06-2023 01:44-0400 Respiratory rate 16 /min Dr. Cornelius Bowden Work Phone: [facility] 08-06-2023 01:44-0400 SaO2% (BldA) [Mass fraction] 100 % Dr. Cornelius Bowden Work Phone: [facility] 08-06-2023 01:44-0400 Systolic blood pressure 133 mm[Hg] Dr. Cornelius Bowden Work Phone: [facility] 08-06-2023 01:00-0400 Inhaled oxygen flow rate 2 L/min Dr. Cornelius Bowden Work Phone: [facility] 08-05-2023 20:30-0400 Body height 160.[address] Cornelius Bowden Work Phone: [facility] 08-05-2023 20:30-0400 Body mass index (BMI) [Ratio] 19.5 kg/m2 Dr. Cornelius Bowden Work Phone: [facility] 08-05-2023 20:30-0400 Body weight 50.[address] Cornelius Bowden Work Phone: [facility] Encounters Encounter Date Encounter Type Care Provider Facility Start: 12-21-2024 ambulatory [facility] Facility: [facility] Start: 12-12-2024 End: 12-12-[address] Ingrid Michaels MD -[facility] Work Phone: Start: 12-12-2024 End: 12-12-2024 ambulatory No Primary Care Physician -[facility] Start: 12-05-2024 End: 12-05-2024 Patient encounter procedure Jaime Allen DO -[facility] Work Phone: Start: 12-05-2024 End: 12-05-2024 ambulatory No Primary Care Physician -[facility] Start: 11-07-2024 Non-patient / Non-visit Ana ASIF -[facility] Work Phone: Start: 11-07-2024 ambulatory [facility] Facility: [facility] Start: 11-06-2024 Non-patient / Non-visit Dr. Jackson LUDWIG -[facility] Start: 11-06-2024 End: 11-06-2024 ambulatory No Primary Care Physician -[facility] Start: 11-06-2024 End: 11-06-[address] Tim Samayoa MD -[facility] Work Phone: Start: 11-06-2024 End: 11-06-2024 ambulatory [facility] Facility:[facility] Start: 10-11-2024 End: 10-11-[address] Britany Sexton MD Work Phone: -Laboratory Start: 10-11-2024 End: 10-11-[address] Tim Samayoa MD -Laboratory Work Phone: Start: 10-11-2024 End: 10-11-[address] Tim Samayoa MD -[facility] Work Phone: Start: 10-11-2024 End: 10-11-[address] Britany Sexton MD Work Phone: -[facility] Start: 10-11-2024 End: 10-11-2024 ambulatory [facility] Facility:[facility] Start: 09-05-2024 End: 09-05-2024 Patient encounter procedure Jaime Allen DO -[facility] Work Phone: Start: 09-05-2024 End: 09-05-2024 ambulatory No Primary Care Physician [facility] Work Phone: Start: 08-15-2024 End: 08-15-[address] Ingrid Michaels MD -[facility] [place] Work Phone: Start: 08-15-2024 End: 08-15-2024 ambulatory No Primary Care Physician [facility] Work Phone: Start: 08-15-2024 End: 08-15-[address] Ingrid Michaels MD -[facility] Work Phone: Start: 08-15-2024 End: 08-15-2024 ambulatory No Primary Care Physician [facility] Work Phone: Start: 08-01-2024 End: 08-01-2024 Office outpatient new 45 minutes Ingrid Omalley MD Work Phone: [facility] Comment on above: History of Fabiano fu ndoplication Start: 08-01-2024 End: 08-01-2024 ambulatory INGRID Castro ALBERT [facility] Start: 07-05-2024 End: 07-05-2024 ambulatory No Primary Care Physician [facility] Work Phone: Start: 07-05-2024 End: 07-05-[address] Britany Sexton MD -Laboratory, [facility] Work Phone: Start: 07-05-2024 End: 07-05-2024 ambulatory Britany Sexton Facility:[facility] Start: 06-06-2024 End: 06-06-2024 ambulatory No Primary Care Physician [facility] Work Phone: Start: 06-06-2024 End: 06-06-[address] Ingrid Michaels MD -Laboratory, [place] Work Phone: Start: 06-06-2024 End: 06-06-[address] Ingrid Michaels MD -[facility] Work Phone: Start: 06-06-2024 End: 06-06-2024 ambulatory No Primary Care Physician Facility:[facility] Start: 06-05-2024 End: 06-05-2024 Office outpatient visit 15 minutes Rubio Rutherford Work Phone: [facility] Comment on above: Esophageal dysphagia (Primary Dx); Functional diarrhea Start: 06-05-2024 End: 06-06-2024 ambulatory [facility] Ambulatory Start: 05-15-2024 End: 05-15-2024 Subsequent hospital visit by physician Stefan Cazares MD Work Phone: [facility] Comment on above: Esophageal dysphagia Start: 05-15-2024 End: 05-15-2024 ambulatory [facility] Start: 04-24-2024 End: 04-24-2024 ambulatory [facility] Ambulatory Start: 04-24-2024 End: 04-24-2024 Office outpatient visit 15 minutes Rubio R Thomae DO Work Phone: [facility] Comment on above: Esophageal dysphagia (Primary Dx); History of Fabiano fundoplication; Functional diarrhea Start: 04-17-2024 End: 04-17-2024 Subsequent hospital visit by physician [facility] Comment on above: Arrived Start: 04-17-2024 End: 04-17-2024 ambulatory [facility] Start: 04-05-2024 End: 04-05-2024 ambulatory [facility] Start: 03-14-2024 End: 03-14-2024 Office outpatient new 45 minutes Stefan Cazares MD Work Phone: [facility] Comment on above: History of Fabiano fu ndoplication (Primary Dx); Esophageal dysphagia Start: 03-14-2024 End: 03-14-2024 ambulatory [facility] Ambulatory Start: 02-02-2024 End: 02-02-2024 ambulatory ALHAJI JAVED Facility:[facility] Start: 02-02-2024 End: 02-02-2024 Patient encounter procedure Alhaji Javed MD Work Phone: Otolaryngology Comment on above: Laryngeal spasm (Odette mago Dx); Vagal nerve sensitivity; Disorder of vocal cords; Chronic cough Start: 01-17-2024 End: 01-17-2024 ambulatory [facility] Ambulatory Start: 01-17-2024 End: 01-17-2024 Office outpatient visit 25 minutes Rubio R Thomae DO Work Phone: [facility] Comment on above: Functional diarrhea (Primary Dx); History of Fabiano fundoplication; Esophageal dysphagia Start: 12-28-2023 End: 12-28-2023 Emergency department patient visit Ino Aponte Facility:[facility] Start: 11-10-2023 ambulatory Alhaji Javed MD Work Phone: Otolaryngology Comment on above: Mom's voice Start: 11-03-2023 End: 11-03-2023 ambulatory ALHAJI JAVED Facility:[facility] Start: 11-03-2023 End: 11-03-2023 Patient encounter procedure Alhaji Javed MD Work Phone: Otolaryngology Comment on above: Laryngeal spasm (Odette mago Dx); Vagal nerve sensitivity; Disorder of vocal cords Start: 10-18-2023 End: 10-18-2023 Subsequent hospital visit by physician Rubio Mirza DO Work Phone: [facility] Comment on above: Microscopic colitis, unspecified microscopic colitis type Start: 10-18-2023 End: 10-18-2023 ambulatory [facility] Start: 10-06-2023 End: 10-06-2023 Office outpatient visit 15 minutes Rubio Mirza DO Work Phone: [facility] Comment on above: Microscopic colitis, unspecified microscopic colitis type (Primary Dx) Start: 10-06-2023 End: 10-06-2023 ambulatory [facility] Ambulatory Start: 09-21-2023 Telephone encounter Alhaji chang MD Work Phone: Otolaryngology Comment on above: Appointment Start: 09-07-2023 End: 09-07-2023 ambulatory ALHAJI JAVED Facility:[facility] Start: 09-02-2023 End: 09-02-2023 ambulatory [facility] Ambulatory Start: 08-09-2023 Non-patient / Non-visit Dr. Clyde Bowden Work Phone: [facility] Start: 08-08-2023 Non-patient / Non-visit Dr. Clyde Bowden Work Phone: [facility] Start: 08-07-2023 Non-patient / Non-visit Dr. Clyde Bowden Work Phone: [facility] Start: 08-06-2023 Non-patient / Non-visit Dr. Clyde Bowden Work Phone: [facility] Start: 08-06-2023 End: 08-09-2023 Evaluation and management of inpatient Dr. Cornelius Bowden Work Phone: [facility] Work Phone: Start: 07-28-2023 End: 07-28-2023 ambulatory ALHAJI JAVED Facility:[facility] Start: 07-28-2023 End: 07-28-2023 Patient encounter procedure Alhaji Javed MD Work Phone: Otolaryngology Comment on above: Chronic cough (Prima ry Dx); Myasthenia gravis (HCC); Laryngeal spasm; Vagal nerve sensitivity; Disorder of vocal cords Start: 07-23-2023 Telephone encounter Alhaji chang MD Work Phone: Otolaryngology Comment on above: Received Outside [facility] Records Procedures Date Procedure Procedure Detail Performing Clinician Start: 08-15-2024 End: 08-15-2024 Procedure No Primary Care Physician Comment on above: Test Ordered: [id number] Striation Abs, Seru mTest(s) [id number]-Webwhphwi Abs, Serumwas developed and its performance characteristicsdetermined by [facility]. It has not been cleared or approvedby the Food and Drug Administration.Striation Abs, Serum Negative [facility] Reference Range: Neg:<1:100Performed at: BN - [facility] [id number] Director: Marti Singh MD, Phone: [phone] at: - [facility] [address] [id number] Director: Jesse Anne PhD, Phone: [phone] Test Ordered: [id number] MuSK Abs, SerumMuSK Abs, Serum <1.0 U/mL [...] Autoimmunity 2014;52:90-100.2. Joe BEE et al. PNAS 2013;110(51);98172-37462.3. Meghanioni E et al. Neurology 2006;67:505-507.This test was developed and its performance characteristicsdetermined by [facility]. It has not been cleared or approvedby the Food and Drug Administration.Performed at: [facility] [employer] [facility] [address] [id number] Director: Fidencio Newman MD, Phone: [phone] at: [facility] [id number] [place], [place] [id number] Director: Jesse Anne PhD, Phone: [phone] Start: 06-06-2024 Acetylcholine receptor blocking antibody measurement [...] DTaP/Tdap/Td Vaccines (2 - Td or Tdap) [facility] Start: 04-02-2033 Urine microalbumin profile DTaP,Tdap,Td Vaccine (2 - T d or Tdap) [facility] Start: 05-05-2026 Screening for malignant neoplasm of colon FIT-DNA (Cologuard) [facility] Start: 11-27-2024 Influenza vaccination Influenza Vaccine (Season Ended) [facility] Start: 10-11-2024 Evaluation of diagnostic study results [facility] Start: 09-06-2024 Patient referral [facility] Work Phone: Start: 08-15-2024 Procedure [facility] Start: 08-15-2024 Patient referral [facility] Work Phone: Start: 06-06-2024 Acetylcholine receptor Ab [Moles/volume] in Serum [facility] Start: 06-06-2024 Acetylcholine receptor blocking Ab [Presence] in Serum [facility] Start: 06-06-2024 Acetylcholine receptor modulating antibody measurement [facility] Start: 06-06-2024 Folic acid measurement, RBC [facility] Start: 06-06-2024 Thiamine measurement [facility] Start: 06-05-2024 End: 06-05-2024 Patient encounter procedure 06/05/2024 3:30 PM EDT Office Visit [facility] [address] [place] [phone] Rubio Mirza DO [address] [facility], [address] [place] [address] [facility] Start: 05-22-2024 End: 05-22-2024 Patient encounter procedure 05/22/2024 2:00 PM EST Appointment [facility] [address] [place] [address] Stefan Cazares MD [address] [address] [facility] Start: 05-15-2024 End: 05-15-2024 Patient encounter procedure 05/15/2024 11:30 AM EST Appointment [facility] [address] [place] [address] Stefan Czaares MD [address] [address] [facility] Start: 04-24-2024 End: 04-24-2024 Patient encounter procedure 04/24/2024 2:30 PM EST Office Visit [facility] [address] [place] [address] Rubio Mirza DO [address] [facility], [address] [place] [address] [facility] Start: 04-21-2024 End: 04-21-2024 Patient encounter procedure 04/21/2024 11:00 AM EST Office Visit [facility] [address] [facility] [address] [place] [id number] Rubio Mirza, [address] [facility], [address] [place] [address] [facility] Start: 03-15-2024 End: 03-15-2024 Patient encounter procedure 03/15/2024 10:20 AM EST Office Visit Otolaryngology [address] [place] [address] Alhaji Javed MD [address] [place] [address] 6 week follow up per [facility] Comment on above: 6 week follow up per [facility] Start: 03-14-2024 End: 03-14-2025 ALFARO ALFARO GI Routine Esophageal dysphagia Expected: 03/14/2024, Expires: 03/14/2025 [facility] Work Phone: Comment on above: Expected: 03/14/2024, Expires: 5 Start: 03-14-2024 End: 09-12-2025 Esophagogastroduodenoscopy (EGD) w EndoFlip Esophagogastroduodenoscopy (EGD) w EndoFlip Endoscopy Routine Esophageal dysphagia Expected: 03/14/2024, Expires: 09/12/2025 [facility] Work Phone: Comment on above: Expected: 03/14/2024, Expires: Start: 03-14-2024 End: 03-14-2025 RF Esophagus Views W barium contrast PO FL GI esophagram Imaging Routine Esophageal dysphagia Expected: 03/14/2024, Expires: 03/14/2025 [facility] Work Phone: Comment on above: Expected: 03/14/2024, Expires: Start: 02-02-2024 End: 02-02-2024 Patient encounter procedure 02/02/2024 1:30 PM EST Office Visit Otolaryngology [address] [place] [address] Alhaji Javed MD [address] [place], [place] [id number] botox Otolaryngology Comment on above: botox Start: 01-24-2024 End: 01-24-2024 Patient encounter procedure 01/24/2024 9:00 AM EDT Office Visit Gastro[facility] [place] [facility] [address] [place] [address] [place] [address] [place] [address] [facility] G[facility] Comment on above: COLITIS Start: 11-28-2023 COVID-19 Vaccine ( season) COVID-19 Vaccine ( season) [facility] Start: 11-28-2023 Covid-19 Vaccine ( season) Covid-19 Vaccine ( season) [facility] Start: 11-28-2023 Influenza vaccination Influenza Vaccine (#1) [facility] Start: 11-03-2023 End: 11-03-2023 Patient encounter procedure 11/03/2023 2:30 PM EDT Office Visit Otolaryngology [address] [place] [address] Alhaji Javed MD [address] [place], [place] [id number] [facility] Comment on above: [facility] Start: 10-18-2023 End: 10-18-2023 Patient encounter procedure 10/18/2023 2:50 PM EDT Appointment [address] [address] Rubio Mirza, DO [address] [facility], [address] [place] [address] [facility] [place] Start: 10-06-2023 End: 10-05-2024 Colonoscopy study Colonoscopy Diagnostic Endoscopy Routine Microscopic colitis, unspecified microscopic colitis type Expected: 10/06/2023, Expires: 10/05/2024 [facility] Service Area Work Phone: Comment on above: Expected: 10/06/2023, Expires: Start: 09-29-2023 End: 09-29-2023 Patient encounter procedure 09/29/2023 2:10 PM EDT Office Visit Otolaryngology [address] [place] [address] Alhaji Javed MD [address] [place] [address] [facility] Comment on above: [facility] Start: 08-09-2023 Patient discharge [facility] Start: 08-09-2023 [facility] Start: 08-06-2023 [facility] Start: 08-06-2023 Plain X-ray abdomen Abdomen Single View (Portable) [facility] Start: 08-06-2023 Triacylglycerol lipase measurement [facility] Start: 08-06-2023 [facility] Start: 08-06-2023 Application of intermittent pneumatic compression device [facility] Start: 08-06-2023 Following clinical pathway protocol [facility] Start: 08-06-2023 Transfusion of blood product [facility] Start: 08-06-2023 Ambulation without limitation [facility] Start: 08-06-2023 Following clinical pathway protocol [facility] Start: 08-06-2023 Incentive spirometry [facility] Start: 08-06-2023 Measuring intake and output [facility] Start: 08-06-2023 Taking patient vital signs [facility] Start: 08-06-2023 [facility] Start: 08-06-2023 Hospital admission, emergency, from emergency room, medical nature [facility] Start: 08-06-2023 Admission procedure [facility] Start: 08-06-2023 Patient referral to dietitian [facility] Start: 08-05-2023 End: 08-05-2023 Blood culture [facility] Start: 08-05-2023 [facility] Start: 08-05-2023 Bacteria identified in Blood by Culture Blood Culture [facility] Start: 05-14-2023 Covid-19 Vaccine () Covid-19 Vaccine () [facility] Start: 05-14-2023 Covid-19 Vaccine () Covid-19 Vaccine () [facility] Start: 03-29-2023 Advance Directive Discussion Advance Directive Discussion [facility] Start: 03-29-2023 Behavioral Health Screening Behavioral Health Screening [facility] Start: 11-27-2022 COVID-19 Vaccine ( season) COVID-19 Vaccine () [facility] Start: 11-27-2022 COVID-19 Vaccine () COVID-19 Vaccine () [facility] Start: 02-10-2010 Diabetes Screening Diabetes Screening [facility] Start: 05-13-2007 Hepatitis B Vaccines (2 of 3 - 19+ 3-dose series) Hepatitis B Vaccines (2 of 3 - 19+ 3-dose series) [facility] Start: 2005 Pneumococcal Vaccine: 65+ (1 of 1 - PCV) Pneumococcal Vaccine: 65+ (1 of 1 - PCV) [facility] Start: 2005 Pneumococcal Vaccine: 65+ Years (1 of 1 - PCV) Pneumococcal Vaccine: 65+ Years (1 of 1 - PCV) [facility] Start: 2005 Screening for osteoporosis Bone Density Screening [facility] Start: 2000 RSV patients and/or patients aged 60+ years (1 - 1-dose 60+ series) RSV patients and/or patients aged 60+ years (1 - 1-dose 60+ series) [facility] Start: 1990 Zoster Vaccines (1 of 2) Zoster Vaccines (1 of 2) [facility] Start: 1962 DTaP/Tdap/Td Vaccines (1 - Tdap) DTaP/Tdap/Td Vaccines (1 - Tdap) [facility] Start: 1958 Anxiety Screening Anxiety Screening [facility] Start: 1958 Depression Screening Depression Screening [facility] Start: 1946 Pneumococcal Vaccine: 65+ Years (1 of 2 - PCV) Pneumococcal Vaccine: 65+ Years (1 of 2 - PCV) [facility] Start: 1941 Hepatitis B Surface Antibody [facility] Cyanocobalamin vitamin b-12 Vitamin B-12 [facility] Start: 1940 Lipid panel Lipid Panel [facility] Start: 1940 Medicare Annual Wellness Visit Medicare Annual Wellness Visit (AWV) [facility] Start: 1940 Screening for malignant neoplasm of colon [facility] Start: 1940 Screening for osteoporosis Bone Density Scan [facility] Start: 1940 TB Test TB Test [facility] Start: 1940 Thyroid stimulating hormone measurement TSH Level [facility] Start: 1940 Vitamin D25-OH Vitamin D25-OH [facility] Alanine aminotransfe rase [Enzymatic activity/volume] in Serum or Plasma [facility] Albumin [Mass/volume ] in Serum or Plasma [facility] Alkaline phosphatase [Enzymatic activity/volume] in Serum or Plasma [facility] Anion gap measurement [facility] Aspartate aminotrans ferase [Enzymatic activity/volume] in Serum or Plasma [facility] Bilirubin, total measurement [facility] BUN/Creatinine ratio [facility] Calcium [Mass/volume ] in Serum or Plasma [facility] Carbon dioxide, tota l [Moles/volume] in Serum or Plasma [facility] Chloride [Moles/volu me] in Serum or Plasma [facility] Creatinine [Moles/vo lume] in Serum or Plasma [facility] CT Neck W contrast IV [facility] Erythrocyte mean cor puscular volume determination [facility] Glucose [Mass/volume ] in Serum or Plasma [facility] Glucose [Mass/volume ] in Serum or Plasma POCT Glucose Point of Care Testing - Docked Device Routine As needed (Lab) until discontinued starting 10/18/2023 [facility] Service Area Work Phone: Comment on above: As needed (Lab) until discontinued start ing 10/18/2023 Hematocrit [Volume F raction] of Blood [facility] Hemoglobin [Mass/vol ume] in Blood [facility] Leukocytes [#/volume ] in Blood [facility] Magnesium [Mass/volu me] in Serum or Plasma [facility] Mean corpuscular hem oglobin concentration determination [facility] Mean corpuscular hem oglobin determination [facility] Measurement of renal function [facility] End: 05-15-2024 Moderate Sedation Moderate Sedation Procedures Routine Once for 1 Occurrences starting 05/15/2024 until 05/15/2024 [facility] Service Area Work Phone: Comment on above: Once for 1 Occurrences starting 05/15/19 until 05/15/2024 Neutrophil count [facility] Neutrophil percent differential count [facility] Patient referral [facility] Work Phone: Platelets [#/volume] in Blood [facility] Potassium [Moles/vol ume] in Serum or Plasma [facility] End: 05-15-2024 Pulse oximetry, continuous Pulse oximetry, continuous Respiratory Care Routine Continuous until discontinued starting 05/15/2024 [facility] Work Phone: Comment on above: Continuous until discontinued starting 0 05/15/2024 Red blood cell count [facility] Red cell distributio n width determination [facility] Serum inorganic phos phate measurement [facility] Sodium [Moles/volume ] in Serum or Plasma [facility] Surgical pathology study [facility] Service Area Work Phone: Comment on above: Release Upon Ordering for 1 Occurrences starting 10/18/2023 Total protein measurement [facility] Urea nitrogen [Mass/ volume] in Serum or Plasma [facility] Immunizations Immunization Date Immunization Notes Care Provider Karine cownay 04-02-2023 Pneumococcal conjuga te vaccine, 20-valent (PREVNAR 20) Ingrid Omalley MD Work Phone: [facility] Work Phone: 04-02-2023 tetanus toxoid, redu cr diphtheria toxoid, and acellular pertussis vaccine, adsorbed Ingrid Omalley MD Work Phone: [facility] Work Phone: 03-15-2023 zoster vaccine recombinant Ingrid Omalley MD Work Phone: [facility] Work Phone: 12-11-2022 influenza, injectabl e, quadrivalent, preservative free Ingrid Omalley MD Work Phone: [facility] Work Phone: 12-11-2022 RSV, 60 Years And Ol jena (AREXVY) Ingrid Omalley MD Work Phone: [facility] Work Phone: 12-11-2022 zoster vaccine recombinant Ingrid Omalley MD Work Phone: [facility] Work Phone: 12-11-2022 influenza virus vaccine, unspecified formulation Alhaji Javed MD Work Phone: [facility] 01-17-2022 Influenza, Seasonal, Quadrivalent, Adjuvanted Ingrid Omalley MD Work Phone: [facility] Work Phone: 12-31-2021 Moderna COVID-19 vaccine, bivalent, blue cap/puga label *Check age/dose* Ingrid Omalley MD Work Phone: [facility] Work Phone: 01-07-2021 Influenza, Seasonal, Quadrivalent, Adjuvanted Ingrid Omalley MD Work Phone: [facility] Work Phone: 01-07-2021 influenza virus vaccine, unspecified formulation Tolu 04 [facility] Work Phone: 11-30-2019 influenza, injectabl e, quadrivalent, preservative free Ingrid Omalley MD Work Phone: [facility] Work Phone: 01-04-2019 Seasonal trivalent influenza vaccine, adjuvanted, preservative free Ingrid Omalley MD Work Phone: [facility] Work Phone: 01-28-2018 Seasonal trivalent influenza vaccine, adjuvanted, preservative free Ingrid Omalley MD Work Phone: [facility] Work Phone: 12-22-2012 influenza virus vaccine, unspecified formulation Ingrid Omalley MD Work Phone: [facility] Work Phone: 04-07-2012 influenza virus vaccine, unspecified formulation Ingrid Omalley MD Work Phone: [facility] Work Phone: 04-15-2007 hepatitis B vaccine, unspecified formulation Ingrid Omalley MD Work Phone: [facility] Work Phone: Payers Date Payer Category Payer Self-pay 2022 Private Health Insurance [id number] 2022 Unknown [id number] 2022 Medicare [id number] 2005 Medicare [id number] 2005 Medicare [id number] 1940 Unknown [id number] 2.16.8 [id number] 1940 Unknown [id number] 2.16.8 40.1.660774.3.579.2.1243 1940 Unknown [id number] 2.16.8 40.1.352157.3.579.2.1242 1940 Unknown [id number] 2.16. 840.1.147631.3.579.2.1243 1940 Unknown [id number] 2.16. 840.1.742134.3.579.2.1243 1940 Unknown [id number] 2.16. 840.1.230040.3.579.2.1243 1940 Unknown [id number] 2.16. 840.1.698749.3.579.2.1243 1940 Unknown [id number] 2.16.8 40.1.155799.3.579.2.1243 1940 Unknown [id number] 2.16.8 40.1.204746.3.579.2.124 1940 Unknown [id number] 2.16.8 40.1.460730.3.579.2.124 1940 Unknown [id number] 2.16.8 40.1.880744.3.579.2.1242 Unknown [id number] 2.16.8 40.1.705228.3.579.2.462 Unknown [id number] 2.16.8 40.1.306311.3.579.2.462 Unknown [id number] 2.16.8 40.1.098990.3.579.2.462 Unknown [id number] 2.16.8 40.1.634962.3.579.2.462 Unknown [id number] 2.16.8 40.1.115674.3.579.2.462 Unknown [id number] 2.16.8 40.1.474149.3.579.2.462 Unknown [id number] 2.16.8 40.1.833053.3.579.2.462 Unknown [id number] 2.16.8 40.1.034499.3.579.2.462 Unknown [id number] 2.16.8 40.1.799277.3.579.2.462 Unknown [id number] 2.16.8 40.1.006757.3.579.2.462 Unknown [id number] 2.16.8 40.1.985119.3.579.2.462 Unknown [id number] 2.16.8 40.1.525174.3.579.2.462 Unknown [id number] 2.16.8 40.1.327432.3.579.2.462 Unknown [id number] 2.16.8 40.1.959671.3.579.2.462 Unknown [id number] 2.16.8 40.1.231274.3.579.2.462 Social History Date Type Detail Facility Start: 07-28-2023 End: 12-28-2023 Tobacco smoking status NHIS Never smoked tobacco [facility] Start: 07-28-2023 End: 09-02-2023 Tobacco use and exposure Smokeless tobacco non-user [facility] Start: 07-28-2023 End: 05-15-2024 History of Social function [facility] Start: 07-28-2023 End: 05-15-2024 Tobacco use panel [facility] Start: 1940 Sex Assigned At Not on file [facility] Start: 08-05-2023 End: 08-06-2023 Tobacco smoking status NHIS Unknown if ever smoked [facility] Start: 1940 Sex Assigned At Female W [facility] Start: 01-17-2024 End: 05-15-2024 Alcoholic beverage intake Lifetime non-drinker (finding) [facility] Work Phone: Start: 09-26-2023 End: 08-01-2024 Exposure to SARS-CoV-2 (event) Not sure [facility] Start: 06-15-2024 End: 07-07-2024 Sex Female (finding) [facility] Start: 10-06-2024 Tobacco smoking status NHIS Ex-smoker (finding) [facility] NEGATED: Highlighted rowStart: NINF History of tobacco use Passive smoker [facility] NEGATED: Highlighted row [facility] Goals Date Patient Goal Desired Activity /State Functional Status Date Assessment Result Facility 08-09-2023 Functional status Independent [place] [facility] Work Phone: 08-09-2023 Functional status Patient Activi ty Bathroom Privilege [facility] Work Phone: Mental Status Date Assessment Result Facility 08-09-2023 Cognitive function Voice/Name [place] [facility] [place] Work Phone: 08-05-2023 Cognitive function Level Of Cons ciousness Awake;Alert;Appropriate;Follow s Commands [facility] Work Phone: Clinical Notes 07-23-2023 to 08-15-2024 [...] Chronic cough chronic September 05, 2024 7:45am [facility] Work Phone: [phone] Evaluation note* Diagnosis Onset Date Resolution Status [...] 10:43am Palpitations acute October 11 025 10:43am [facility] Work Phone: 1(323) 986-118005-20-2025 Evaluation note* Diagnosis Onset Date Resolution Status [...] December 052024 10:21am Dysphagia acute November 10:45am [facility] Work Phone: 1(875) 984-518305-06-2025 History of Present illness Narrative* Ingrid Omalley MD - 08/01/2024 1:30 PM EDT History Of Present Illness Estefania Simms is a 83 y.o. female presenting with a long history of dysphagia. She underwent a Fabiano fundoplication by Saad at [facility] in 2006. This was done for extra [...] in her symptoms from injection therapy from [facility]. She also seems away from the [facility] recently for this. When she is describing to me her difficulty with swallowing she is always playing to her neck. She feels that she isaspirating at times. Again she has recently moved to [facility] from [place]. She states that she has had about 40 different dilatations in [place]. She had a nice thorough workup to [...] had a very complicated perforated diverticulitis at [place] also in 2021. They did give her diverting colostomy. This done to the midline incision. I do not have the operative note from the first diverticulitis operation I was able to find some note talk about the second 1 where they can reconnect her. She is also had a previous open cholecystectomy. She also had in [place] hospitalization for partial small bowel obstruction last [...] her to surgery. Ingrid Omalley MD FACS claims coordinator Janneth Vera Chair in Surgical [place] [facility] [employer] [address] [place] [address], [phone] email: [email or web address] documented in this [facility] Work Phone: 1(745) 587-170103-11-2025 Evaluation note* Diagnosis Onset Date Resolution Status Admit Date Fatigue acute June 06 8:53am Myasthenia gravis acute May 272024 8:53am [facility] Work Phone: 1(881) 572-999003-11-2025 Evaluation note* Diagnosis Onset Date Resolution Status Admit Date Fatigue acute June 06 8:53am Myasthenia gravis acute May 272024 8:53am Actinic keratosis acute July 1:16pm [employer] [facility] Work Phone: 1(460) 375-586403-11-2025 Evaluation note* Diagnosis Onset Date Resolution Status Admit Date Fatigue acute June 06 8:53am Myasthenia gravis acute May 272024 8:53am Actinic keratosis acute July h2024 1:16pm Dysphagia acute August 15, 2024 1:16pm Myasthenia gravis acute July h2024 1:16pm Chronic cough chronic August 15, 025 1:16pm [employer] [facility] Work Phone: 1(212) 205-683403-11-2025 Evaluation note* Diagnosis Onset Date Resolution Status [...] Chronic cough chronic September 05, 2024 7:45am [facility] Work Phone: 1(246) 571-553403-10-2025 History of Present illness Narrative* Rubio Mirza [...] Remote hiatal hernia surgery while living in [place]. Now with dysphagia. Endoflip showed incomplete relaxation [...] to gain weight since moving home from [place] and is now up to 110 pounds. [...] DO 06/06/24 5:21 PM documented in this [facility] Work Phone: 1(226) 798-526802-17-2025 History and physical note* Stefan Cazares MD - 05/15/2024 8:10 AM EST Procedure H&P Patient Profile-Procedures Name Estefania Montiel Date of 1940 Address [address] [place] [id number] [place] [address] Primary Secondary Phone Number Rubio Reddy Procedure(s): Procedures: EGD Primary contact name and number Extended Emergency Contact Information Primary Emergency Contact: DELROY SANTIZO Mobile Relation: Son Preferred language: German Brush Worker needed? No General Health Weight Vitals: 05/15/24 [...] met Stefan Cazares MD 05/15/2024 8:27 AM [facility] Work Phone: 1(400) 122-804502-17-2025 History and physical note* Stefan Cazares MD - 05/15/2024 8:10 AM EST Procedure H&P Patient Profile-Procedures Name Estefania Montiel Date of 1940 Address [address] [place] [id number] [place] [address] [address] Secondary [address] Number [facility] Rubio Mirza Procedure(s): Procedures: EGD Primary contact name and number Extended Emergency Contact Information Primary Emergency Contact: DELROY SANTIZO Mobile Relation: Son Preferred language: German Brush Worker needed? No General Health Weight Vitals: 05/15/24 [...] MD 05/15/2024 8:27 AM documented in this [facility] Work Phone: 1(167) 945-847401-27-2025 History of Present illness Narrative* Rubio Mirza [...] DO 04/24/24 2:41 PM documented in this [facility] Work Phone: 1(274) 466-371912-17-2024 History of Present illness Narrative* Stefan Cazares MD - 03/14/2024 2:00 PM EST Subjective History of Present Illness: Estefania Simms is a 83 y.o. female who presents to GI clinic for evaluation of dysphagia. She has a history of Fabiano fundoplication done in [place] in 2007 because of a chronic cough. [...] She was evaluated by Dr Mirza in [place] and he referred her to me . [...] order an esophagram to be done at [facility] because it is close to [facility] or in [place]. I will schedule for EGD, Endoflip, and Alfaro, all to be done at the same time. Depending on the results of that I can consider surgery. We will do a virtual follow-up after the results are available. Stefan Cazares MD [facility] Work Phone: 1(466) 913-585611-06-2024 History of Present illness Narrative* Alhjai Javed MD - 02/02/2024 1:30 PM EST [...] options Alhaji Javed MD [facility] NoteHNO ID: [id number] Author: ALHAJI JAVED MD Service: ? Author [...] 6 weeks to revisit options Alhaji Javed, [facility]10-21-2024 History of Present illness Narrative* Rubio Christopher Yuki, DO - 01/17/2024 2:45 PM EDT Subjective Patient ID: Estefania Simms is a 83 y.o. female who presents for Follow-up (Follow up for functional colitis and possible Lotronex prescription. No change. ). GERARDO Simms is a pleasant 83-year-old female who I saw back in August. She relocated from [place] back to [place]. While in [place] had colonic resection for recurrent diverticular disease after surgery hadchronic diarrhea. GI workup in [place] was negative. Because of persistent diarrhea presented here.Stool cultures, pancreatic elastase and celiac panel have been negative. Underwent colonoscopy due to elevated calprotectin exclude inflammatory diarrhea biopsies throughout her colon and ileum returned no evidence of microscopic colitis. She had failed [id number] Imodium was placed on Lotronex. Despite increasing [...] her Fabiano taken down. Her surgeon in [place] cautioned her against this stating it would [...] Like to see Dr. Kenny Cazares in [place] to have a full evaluation done to see if pneumatic dilatation may not be of benefit andif there is evidence of esophageal dysmotility taking down her Fabiano may be the best option for her. Rubio Mirza DO 01/17/24 3:04 PM documented in this [facility] Work Phone: 1(687) 884-445508-07-2024 History of Present illness Narrative* Alhaji Javed [...] wish to proceed Surgeon: Alhaji Javed MD Industrial Equipment Wirer: Sandy Flores RN INDICATIONS: Adductor spasmodic dysphonia, [...] Past Histories independently gathered by the clinical applications support engineer and the remaining scribed note accurately describes my personal service to the patient. Alhaji Javed MD [facility]24 NoteHNO ID: [id number] Author: ALHAJI JAVED MD Service: ? Author [...] wish to proceed Surgeon: Alhaji Javed MD Industrial Equipment Wirer: Sandy Flores RN INDICATIONS: Adductor spasmodic dysphonia, [...] Past Histories independently gathered by the clinical applications support engineer and the remaining scribed note accurately describes my personal service to the patient. Alhaji Javed, [facility]07-22-2024 Hospital Discharge instructions* Discharge Instructions* Mirella [...] week ofhaving your procedure, call the [facility] to be advised whether a visit to [...] Lab, please call: Nurse Signature Date Patient/Responsible Libertarian Signature Date documented in this [facility] Work Phone: [phone] Attending History and physical note* Rubio Mirza [...] have CT scan of abdomen performed in [place] priorto relocating to [place] in late June. CT did show swelling [...] propofol. Rubio Mirza DO 10/06/23 1:25 PM [facility] Work Phone: 1(840) 330-777807-22-2024 History and physical note* Rubio Mirza DO [...] have CT scan of abdomen performed in [place] priorto relocating to [place] in late June. CT did show swelling [...] DO 10/06/23 1:25 PM documented in this [facility] Work Phone: 1([phone]) 348-774107-10-2024 History of Present illness Narrative* Rubio Mirza [...] have CT scan of abdomen performed in [place] priorto relocating to [place] in late June. CT did show swelling [...] DO 10/06/23 1:25 PM [facility] Phone: [phone]) 450-458106-25-2024 Telephone encounter Note* Telephone Encounter - Rachele Stern RN - 09/21/2023 4:04 PM EDT Called and spoke to patient's sonDelroy. Rescheduled Botox 11/03/23. Will forward as FYI. [facility]06-25-2024 Miscellaneous Notes* Telephone Encounter - [...] N/A Person calling: son: Call patient at: [phone] Was an appointment scheduled: No Closing statement: Results or non-symptom based questions: Thank you for calling [facility], your call will be returned within the next business day. Tiffani Levy PAC documented in this [facility] Telephone encounter Note * Telephone [...] N/A Person calling: son: Call patient at: [phone] Was an appointment scheduled: No Closing statement: Results or non-symptom based questions: Thank you for calling [facility], your call will be returned within the next business day. Tiffani Levy PAC [facility]06-11-2024 NoteBorderline elevated. Re-evaluation in 4-6 weeks is recommended if clinically indicated.[facility] HospitalComment on above:Order Comment: Specimen Type: BLOOD SPECIMEN Ordering Facility: [facility] Address: [address] [place], [place] [id number] Comment: On August 18, 2022, [facility] implemented a new fecal calprotectinmethod, the DiaSorin Liaison Calprotectin assay. For assistance with interpretation of results in patients undergoing serial monitoring, contact Client Services at [phone] or [phone] to discuss options, preferably within 7 days of issuing this report. Interpretation: <50.0 ug/g: Normal 50.0 ug/g - 120.0 ug/g: Borderline elevated. Re-evaluation in 4-6 weeks is recommended if clinically indicated. >120.0 ug/g: ElevatedPerformed By: #### ACHRAB #### [facility] CLIA [id number] [address] [place] [address] [id number] Discharge summary Author Camilla Thomas [facility] August 09, 2023 12:56pm Note Date/Time August 09, 2023 11:46 am [facility] Medical Records Department [facility] [place] [place] [address] Discharge Summary 08/09/23 1144 MR#: [id number] Acct: [id number] Name: ESTEFANIA MONTIEL NIKITA Rep #:[id number] : 1940 82 From: Camilla TRIPLETT PA-C PCP: Care Physician,No Primary Status :ADM IN [facility] Prov[facility] Date of Admission: 08/06/23 Primary Care [...] Follow-up as needed. Our office number is [phone] if any questions orconcerns come up. Meaningful [...] cereals, and grains Eat: White breads, waffles, Ecuadorean toast, plain white rolls, or white bread [...] types of beans Potatoes with skin Peas [place] Cabbage, broccoli, cauliflower, [place] sprouts, and greens Sauerkraut Onions Fruits and [...] juice, prunes, and raisins Other foods Eat: [facility] Medical Centeraise and mild salad dressings Margarine, [...] - Ino Monroe MD [Med Staff - Hip Hop Artist] - Richard Arguello MD [Med Staff - Hip Hop Artist] - Care Physician,No Primary [Primary Care Provider] - NOT,DEFINED [Non-Staff] - Disposition Disposition (needs filled in before D/C Order can be placed): Home, Self Care Charges/Coding Visit Charges Inpatient E&M: 00622 Disch Hosp >30min 08/09/23 1256 <Electronically signed by Camilla TRIPLETT PA-C> Cosigner Signature (if applicable): CC: VALERIA Thomas; No Primary Care Physician~ Signed [facility] Work Phone: 1(108) 258-583205-13-2024 Progress note Author Emmett Guerrero [facility] August 09, 2023 7:13am Note Date/Time August 09, 2023 7:12a m [facility] Medical Records Department [address] [place] [address] Progress Note - Surgery 08/09/23 0711 MR#: [id number] Acct: [id number] Name: CARLOSESTEFANIA Christopher NIKITA Rep #:[id number] : 1940 82 From: Emmett greenwood MD PCP: Care Physician,No Primary Status :ADM IN Location: MS3 [id number] Subjective Subjective Patient reports no abdominal pain [...] home today if tolerating regular diet. Emmett Guerrero MD Pager: [facility] [address] [place] [address], [address] [place] [address] Office: 08/09/23 3368 <Electronically signed by Emmett Guerrero MD> Cosigner Signature (if applicable): CC: ~ Signed [facility] Work Phone: 1(531) 996-733905-12-2024 Progress note Author Dion Haji [facility] August 08, 2023 12:05pm Note Date/Time August 08, 2023 9:10a m [facility] Medical Records Department [address] [place] [address] Progress Note - Surgery 08/08/23909 MR#: [id number] Acct: [id number] Name: ESTEFANIA MONTIEL NIKITA Rep #:[id number] : 1940 82 From: Dion Wolf PCP: Care Physician,No Primary Status :ADM IN Location: [place] [address] Subjective Subjective Patient seen and examined during [...] (Auto) 71.2 H, Lymph % (Auto) 17.4 L,[place] % (Auto) 8.1, Eos % (Auto) 2.5, [...] (Auto) 68.9, Lymph % (Auto) 18.2 L, [place] % (Auto) 9.6, Eos % (Auto) 2.6, [...] Haji MD General Surgery Endocrine Surgery Pager: [facility] [address] [place] [address], [facility], [address] [place] [address] Office: [phone] Charges/Coding Visit Charges Inpatient E&M: 10869 Subs Hosp L2 08/08/23 1205 <Electronically signed by Dion Haji MD> Cosigner Signature (if applicable): CC: ~ Signed [facility] Work Phone: 1(566) 797-541305-11-2024 Progress note Author Dion Haji [facility] August 07, 2023 10:56am Note Date/Time August 07, 2023 10:09 am [facility] Medical Records Department [address] [place], [place] [id number] Progress Note - Surgery 08/07/23 1008 MR#: [id number] Acct: [id number] Name: ESTEFANIA MONTIEL NIKITA Rep #:[id number] : 1940 82 From: Dion Wolf PCP: Care Physician,No Primary Status :ADM IN Location: [place] [address] Subjective Subjective Patient seen and examined during [...] Haji MD General Surgery Endocrine Surgery Pager: [facility] [address] [place] [address], [facility], [address] [place] [address] Office: [phone] Charges/Coding Visit Charges Inpatient E&M: 59333 Subs Hosp L2 08/07/23 1056 <Electronically signed by Dion Haji MD> Cosigner Signature (if applicable): CC: ~ Signed [facility] Work Phone: 1(812) 952-467905-10-2024 Progress note Author Emmett Guerrero [facility] August 06, 2023 8:35am Note Date/Time August 06, 2023 8:35a m [facility] Medical Records Department [address] [place] [address] Progress Note - Surgery 08/06/23 0834 MR#: [id number] Acct: [id number] Name: ESTEFANIA MONTIEL NIKITA Rep #:[id number] : 1940 82 From: Emmett greenwood MD PCP: Care Physician,No Primary Status :ADM IN Location: [place] [address]- Subjective Subjective Patient reports no abdominal pain [...] (Auto) 82.4 H, Lymph % (Auto) 8.8L, [place] % (Auto) 6.8, Eos % (Auto) 0.5, [...] Clarity Clear, Urine pH 5.0, Ur Specific [place] 1.015, Urine Protein Negative, Urine Glucose (UA) [...] 85.9 H, Lymph % (Auto) 3.5 L, [place] % (Auto) 9.2, Eos % (Auto) 0.3, [...] back to suction. Emmett Guerrero MD Pager: [facility] [address] [facility], [address] [place] [address] Office: 08/06/23 6025 <Electronically signed by Emmett Guerrero MD> Cosigner Signature (if applicable): CC: ~ Signed [facility] Work Phone: 1(205) 898-906005-10-2024 History and physical note Author Emmett Guerrero [facility] August 06, 2023 1:16am Note Date/Time August 06, 2023 1:16a m [facility] Medical Records Department [address] [place] [address] H&P Exam - Surgical 08/06/23 0112 MR#: [id number] Acct: [id number] Name: ESTEFANIA MONTIEL NIKITA Rep #:[id number] : 1940 82 From: Emmett greenwood MD [...] told also thatayesha does not have COPD. [facility] Home Medications fluoxetine 20 mg capsule [...] 82.4 H, Lymph % (Auto) 8.8 L, [place] % (Auto) 6.8, Eos % (Auto) 0.5, [...] small bowel follow-through. Emmett Guerrero MD Pager: [facility] [address] [place] [address], [address] [place] [address] Office: 08/06/23 0116 <Electronically signed by Emmett Guerrero MD> Cosigner Signature (if applicable): CC: Dr. Emmett Guerrero MD; No Primary Care Physician~ Signed [facility] Work Phone: 1(940) 623-454705-10-2024 Discharge summary Author Cornelius Dennise [facility] August 06, 2023 1:06am Note Date/Time August 05, 2023 9:11pm [facility] Medical Records Department [address] [place], [place] [id number] Emergency Department Summary 08/05/23 MR#: [id number] Acct: [id number] Name: ESTEFANIA MONTIEL NIKITA Rep #:[id number] : 1940 82 From: Aylin TRIPLETT PCP: [...] <IOANA Osborn - Last Filed: 08/05/23 21:50> [facility] Narrative Medical decision making narrative: Patient presenting [...] 82.4 H Lymph % (Auto) 8.8 L [place] % (Auto) 6.8 Eos % (Auto) 0.5 [...] (Auto) Neut % (Auto) Lymph % (Auto) [place] % (Auto) Eos % (Auto) Baso % [...] Attending note: Patient seen and evaluated with diagram clerk. I perform my own czrm-lp-zdhm evaluation. I agree with the plan of work-up. Increasing mid abdominal pain since yesterday worsened today with increased distention. Cholecystectomy, appendectomy, colostomy with reversal in 2021 from diverticulitis. Recently moved here from [place] here with son. Reports has chronic continued [...] General surgery This note was generated with Texere dictation software. It may contain incorrectwords, spelling, [...] 82.4 H Lymph % (Auto) 8.8 L [place] % (Auto) 6.8 Eos % (Auto) 0.5 [...] (Auto) Neut % (Auto) Lymph % (Auto) [place] % (Auto) Eos % (Auto) Baso % [...] Acute pancreatitis Disposition Disposition: Acute Care Hospital [facility] What to do if you have Problems For any increased pain, shortness of breath, bleeding, nausea or vomiting, chestpain, or any unexpected problems, contact your Primary Care Provider. Call [facility] ([phone]) or report to the closest Emergency Room. Call 911 if necessary. 08/05/23 2150 <Electronically signed by Aylin TRIPLETT> Cosigner Signature (if applicable): 08/06/23 0106 <Electronically signed by Cornelius Aparicio> CC: No Primary Care Physician ~ Signed [facility] Work Phone: 1(114) 277-139705-09-2024 Discharge summary Author Cornelius Bowden [facility] August 06, 2023 1:06am Note Date/Time August 05, 2023 9:11pm [facility] Medical Records Department [address] [place] [address] Emergency Department Summary 08/05/23 MR#: [id number] Acct: [id number] Name: ESTEFANIA MONTIEL Rep #:[id number] : 1940 82 From: Aylin TRIPLETT PCP: [...] <IOANA Osborn - Last Filed: 08/05/23 21:50> [facility] MDM Narrative Medical decision making narrative: [...] 82.4 H Lymph % (Auto) 8.8 L [place] % (Auto) 6.8 Eos % (Auto) 0.5 [...] (Auto) Neut % (Auto) Lymph % (Auto) [place] % (Auto) Eos % (Auto) Baso % [...] 0:01 EDT Reading Location ID and State: [facility] / [place] Tel , Service support , <Dr. Cornelius [...] Attending note: Patient seen and evaluated with diagram clerk. I perform my own jgvy-al-hchb evaluation. I agree with the plan of work-up. Increasing mid abdominal pain since yesterday worsened today with increased distention. Cholecystectomy, appendectomy, colostomy with reversal in 2021 from diverticulitis. Recently moved here from [place] here with son. Reports has chronic continued [...] General surgery This note was generated with Texere dictation software. It may contain incorrectwords, spelling, [...] 82.4 H Lymph % (Auto) 8.8 L [place] % (Auto) 6.8 Eos % (Auto) 0.5 [...] (Auto) Neut % (Auto) Lymph % (Auto) [place] % (Auto) Eos % (Auto) Baso % [...] Acute pancreatitis Disposition Disposition: Acute Care Hospital [facility] What to do if you have Problems For any increased pain, shortness of breath, bleeding, nausea or vomiting, chestpain, or any unexpected problems, contact your Primary Care Provider. Call [facility] ([phone]) or report to the closest Emergency Room. Call 911 if necessary. 08/05/23 2150 <Electronically signed by Aylin TRIPLETT> Cosigner Signature (if applicable): 08/06/23 0106 <Electronically signed by Cornelius Aparicio> CC: No Primary Care Physician ~ Signed [facility] Work Phone: 1([phone]) 536-443405-01-2024 History of Present illness Narrative* Alhaji Javed [...] 2 yrs. ) S/p SLN series w/ [facility] Laryngology, most recent 04/20/23. Presenting today [...] of SD and tremor, acknowledged by The [place] [employer] Otolaryngo logy-Head and Neck Surgery [...] treatment: A national survey. The Laryngoscope, 129: 6001-4577. https://doi.org/10.1002/walt.77107 Neal A, Koko MF, Nolan C, Juan JE, Magaly S. 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 Laryngoscope. 1991;102(2):163-7. doi: 10.1288/74300929-877262405-53342. PMID: 7390627. Royce G, Yanet H, Abraham T. 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 J Voice. 2005;20(1):137-43. doi: 10.1016/j.jvoice.2005.03.008. Epub 2004Nov 21. PMID: 15632142. Sowmya MALIK, Benjy Kuhn DelGaudio JM, Jeremy FERNANDEZ, Jesus MM 3rd. 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 Otolaryngol Head Neck Surg. 2008 Nov;139(3):421-3. doi: 10.1016/j.otohns.2008.06.013. PMID: 22297403. Kathryn Deng AM, Wise J, Farooq ORTIZ, Jeremy FERNANDEZ, Jesus FAN 3rd. 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 Otolaryngol Head Neck Surg. 2008 Nov;139(3):421-3. doi: 10.1016/j.otohns.2008.06.013. PMID: 95908172. 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 S/p SLN series w/ [facility] laryngology, most recent 04/20/23. Presenting today [...] patent--no endobronchial lesions Multiple procedure notes from [facility] ALLERGIES Allergen Reactions Penicillins skin peeling [...] R), trigger point zone Alhaji Javed MD [place] [address] [facility] OPERATIVE REPORT UNIVERSAL PROTOCOL / SAFETY [...] of Dr. Alhaji Javed Electronically signed, Harshad Mckinney, Scribe July 28, 2023 3:20 PM I agree with the chief complaint, ROS, and Past Histories independently gathered by the clinical applications support engineer and the remaining scribed note accurately describes my personal service to the patient. Alhaji Javed MD documented [facility]-2024 NoteHNO ID: [id number] Author: ALHAJI JAVED MD Service: ? Author [...] 2 yrs. ) S/p SLN series w/ [facility] Laryngology, most recent 04/20/23. Presenting today [...] of SD and tremor, acknowledged by The [place] [employer] of Otolaryngology-Head and Neck Surgery is [...] treatment: A national survey. The Laryngoscope, 129: 8647-7821. https://doi.org/10.1002/walt.57817 Neal A, Koko MF, Nolan C, Juan JE, Magaly S. 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 Laryngoscope. 1991;102(2):163-7. doi: 10.1288/00920589-104923441-24425. PMID: 4794508. Royce G, Yanet H, Abraham T. 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 J Voice. 2006 May;20(1):137-43. doi: 10.1016/j.jvoice.2005.03.008. Epub 2004Nov 21. PMID: 11721877. Kathryn Deng AM, Wise J, DelGaudio JM, Jeremy FERNANDEZ, [facility] 3rd. 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 Otolaryngol Head Neck Surg. 2008 Nov;139(3):421-3. doi: 10.1016/j.otohns.2008.06.013. PMID: 42047120. Kathryn Deng AM, Wise J, DelGaudio JM, Jeremy FERNANDEZ, [facility] 3rd. 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 Otolaryngol Head Neck Surg. 2007;139(3):421-3. doi: 10.1016/j.otohns.2008.06.013. PMID: 65780786. 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 S/p SLN series w/ [facility] laryngology, most recent 04/20/23. Presenting today [...] window images demonstrate non (more content not included)...[facility]05-01-[facility] Nurse Note* Tahira Lyle OCCA - 07/28/2023 2:38 PM EDT Patient Entered Questionnaires 07/23/2023 Eating Asessment Tool Score EAT Score 16 07/23/2023 [place] Cough Physical Sum Score 2.63 Psychological Sum Score 1.14 Social Sum Score 1.5 Total Score 5.27 (Lower scores are indicative of increased impact or lower quality of life. ) [facility]05-01-2024 Nurse Note* Tahira Lyle OCCA - 07/28/2023 2:38 PM EDT Patient Entered Questionnaires 07/23/2023 Eating Asessment Tool Score EAT Score 16 07/23/2023 [place] Cough Physical Sum Score 2.63 Psychological Sum Score 1.14 Social Sum Score 1.5 Total Score 5.27 (Lower scores are indicative of increased impact or lower quality of life. ) documented in this [facility]04-[facility]-2024 Telephone encounter Note * Telephone Encounter - Mago Cali OCCA - 07/23/2023 10:15 AM EDT Received medical records for patient from [facility] today 07/23/23. Has appointment with Tegan 07/28/23. Will have them scanned into the system. [facility]04-26-2024 Miscellaneous Notes* Telephone Encounter - Mago Cali OCCA - 07/23/2023 10:15 AM EDT Received medical records for patient from [facility] today 07/23/23. Has appointment with Tegan 07/28/23. Will have them scanned into the system. 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 [facility]* Diagnosis Onset Date Resolution Status Abdominal pain acute Acute pancreatitis acute Complete small bowel obstruction acute Small bowel obstruction alex david [facility] Work Phone: Evaluation note* Diagnosis Laryngeal spasm- Primary Vagal nerve 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 [facility]* Diagnosis 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 Esophageal dysphagia Dysphagia, pharyngoesophageal phase documented in this encounter [facility] Work Phone: [phone] note* Diagnosis Laryngeal spasm- Primary Vagal nerve 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 Chronic cough Cough documented in this encounter [facility]* Diagnosis Microscopic colitis, unspecified microscopic colitis type- Primary documented in this encounter [facility] Work Phone: [phone] note* Diagnosis Microscopic colitis, unspecified microscopic colitis type documented in this encounter [facility] Work Phone: [phone] note* Diagnosis History of Fabiano fundoplication- Primary Esophageal dysphagia Dysphagia, pharyngoesophageal phase documented in this encounter [facility] Work Phone: [phone] note* Diagnosis Esophageal dysphagia- Primary Dysphagia, pharyngoesophageal phase History of Fabiano fundoplication Functional diarrhea documented in this encounter [facility] Work Phone: [phone] note* Diagnosis Esophageal dysphagia Dysphagia, pharyngoesophageal phase documented in this encounter [facility] Work Phone: [phone] note* Diagnosis Esophageal dysphagia- Primary Dysphagia, pharyngoesophageal phase Functional diarrhea documented in this encounter [facility] Work Phone: [phone] note* Diagnosis History of Fabiano fundoplication documented in this encounter [facility] Work Phone: [phone] and physical note Author Emmett Calabretta [facility] August 06, 2023 1:16am Note Date/Time August 06, 2023 1:16a m [facility] Medical Records Department [address] [place] [address] H&P Exam - Surgical 08/06/23111 MR#: [id number] Acct: [id number] Name: ESTEFANIA MONTIEL NIKITA Rep #:[id number] : 1940 82 From: Emmett greenwood MD [...] 82.4 H, Lymph % (Auto) 8.8 L, [place] % (Auto) 6.8, Eos % (Auto) 0.5, [...] small bowel follow-through. Emmett Guerrero MD Pager: [facility] [address] [place] [address], [address] [place] [address] Office: 08/06/23 0116 <Electronically signed by Emmett Guerrero MD> Cosigner Signature (if applicable): CC: Dr. Emmett Guerrero MD; No Primary Care Physician~ Signed [facility] Work Phone: Hospital Discharge instructionsAmbulatory Orders* Dermatology Location: None Selected [facility] Work Phone: Hospital Discharge instructionsAmbulatory Orders* Cardiology Location: None Selected * General Surgery Location: None Selected [facility] Work Phone: Reason for referral (narrative)No reason for referral information availableWSelect Medical Special[facility], [facility] Work Phone: Reason for visit Narrative* Imaging (Routine) - Authorized Specialty Diagnoses / Procedures Referred By Indira mcrae Referred To Contact Radiology Diagnoses Esophageal dysphagia Procedures [place] GI esophagram Rubio Mirza, DO [address] [facility] [address] [place] [address] Phone: tel: fax: Referral ID Status Reason Start Date Expiration Date Visits Requested Visits Authorized [id number] Authorized Perform Procedure 4 03/14/2025 1 1 [facility] Work Phone: Reason for visit Narrative* Gastroenterology (Routine) - Canceled Specialty Diagnoses / Procedures Referred By Indira mcrae Referred To Contact Gastroenterology Diagnoses Esophageal dysphagia Procedures Stefan Kyle, MD [email or web address] [facility] [address] [place] [address] Phone: tel: fax: Referral ID Status Reason Start Date Expiration Date V isits Requested Visits Authorized [id number] Canceled 03/14/2024 03/14/2025 1 1 [facility] Work Phone: Reason for visit Narrative* Consultation (Routine) - Authorized Specialty Diagnoses / Procedures Referred By Indira mcrae Referred To Contact General Surgery Diagnoses History of Fabiano fundoplication Stefan Cazares MD [email or web address] [facility] [address] [place] [address] Phone: tel: fax: [place] [address] [facility] [place] [address] Phone: tel: fax: Referral ID Status Reason Start Date Expiration Date Visits Requested Visits Authorized [id number] Authorized Specialty Services Required 06/29/2024 06/29/2025 1 1 [facility] Work Phone: Reason for Referral Specialty Diagnoses / Procedures Referred By Indira mcrae Referred To Contact Neurology Diagnoses Myasthenia gravis (HCC) Procedures CONSULT TO NEUROLOGY OFFICE/OUTPATIENT [facility] 60 MINUTES Alhaji Javed MD [address] [place] [address] Referral ID Status Reason Start Date Expiration Date Visits Requested Visits Authorized [id number] Authorized PCP Requested Referral 07/28/2023 07/27/2024 1 1 Specialty Diagnoses / Procedures Referred By Indira t Referred To Contact Gastroenterology Diagnoses Microscopic colitis, unspecified microscopic colitis type Procedures Colonoscopy Diagnostic DC COLONOSCOPY FLX DX W/COLLJ SPEC WHEN PFRMD DC COLONOSCOPY W/BIOPSY SINGLE/MULTIPLE DC COLSC FLX W/RMVL OF TUMOR POLYP LESION SNARE TQ DC COLSC FLX W/REMOVAL LESION BY HOT BX FORCEPS Rubio Mirza, DO [address] [facility], [place] [address] [place] [id number] Referral ID Status Reason Start Date Expiration Date V isits Requested Visits Authorized [id number] Pending Review 10/06/2023 10/05/2024 1 1 Referral ID Status Reason Start Date Expiration Date V isits Requested Visits Authorized [id number] Authorized 10/06/2023 10/05/2024 1 1 Chief Complaint [...] August 05, 2023 8: 56pm Power of Inspector Salvage No August 05, 2023 8:56pm Advance Directive Response Recorded Date/ Time Name of Medical Power of Inspector Salvage Delroy Santizo August 06, 2023 2:02am Living Will Yes August 06, 2023 2 :02am Power of Inspector Salvage Yes August 06, 2023 2:02am Advance Directive Response Recorded Date/ Time Living Will Yes August 06, 2023 2 :02am Do you have a Healthcare Power of Inspector Salvage? Yes August 06, 2023 2:02am Summary Purpose [...] or prosecute any alcohol or drug abuse patient.[facility] the event this information is protected by the Federal Confidentiality of Alcohol and Drug Abuse Patient Records regulations: The Federal rules restrict any use of the information to criminally investigate or prosecute any alcohol or drug abuse patient.[facility] the event this information is protected by the Federal Confidentiality of Alcohol and Drug Abuse Patient Records regulations: The Federal rules restrict any use of the information to criminally investigate or prosecute any alcohol or drug abuse patient.[facility] the event this information is protected by the Federal Confidentiality of Alcohol and Drug Abuse Patient Records regulations: The Federal rules restrict any use of the information to criminally investigate or prosecute any alcohol or drug abuse patient.[facility] the event this information is protected by the Federal Confidentiality of Alcohol and Drug Abuse Patient Records regulations: The Federal rules restrict any use of the information to criminally investigate or prosecute any alcohol or drug abuse patient.[facility] the event this information is protected by the Federal Confidentiality of Alcohol and Drug Abuse Patient Records regulations: The Federal rules restrict any use of the information to criminally investigate or prosecute any alcohol or drug abuse patient.[facility] Reason for Visit (unrecogniz ed section and content) Reason Comments Botox Injection Specialty Diagnoses / Procedures Referred By Contac t Referred To Contact ENT-OTOLARYNGOLOGY Diagnoses Chronic cough Myasthenia gravis (HCC) Laryngeal spasm Procedures BOTULINUM TOXIN A PER 1 UNIT CHEMODENERVATION MUSCLE LARYNX UNILAT W/EMG Alhaji Javed MD [address] [place] [address] [address] [address] Referral ID Status Reason Start Date Expiration Date V isits Requested Visits Authorized [id number] Authorized 07/30/2023 03/28/2024 99 99 Reason Comments [...] unspecified microscopic colitis type Procedures Colonoscopy Diagnostic DC COLONOSCOPY FLX DX W/COLLJ SPEC WHEN PFRMD DC COLONOSCOPY W/BIOPSY SINGLE/MULTIPLE DC COLSC FLX W/RMVL OF TUMOR POLYP LESION SNARE TQ DC COLSC FLX W/REMOVAL LESION BY HOT BX FORCEPS Rubio Mirza, DO [address] [facility], [facility] [address] [place] [address] Referral ID Status Reason Start Date Expiration Date V isits Requested Visits Authorized [id number] Authorized 10/06/2023 10/05/2024 1 1 Reason Comments [...] Dr. Emmett Guerrero MD Attending Provider Active Veterinary Toxicologist Relationship Specialty Start Date End Date Generic Provider, No Assigned PcpMD [place] [address] PCP - General Manufacturing Project Manager 04/05/24 Stefan Cazares MD [email or web address] [place] [address] [place] [address] Consulting Physician Gastroenterology 03/14/24 Veterinary Toxicologist Relationship Specialty Start Date End Date Generic Provider, No Assigned MD Farnaz [place] [address] PCP - General Manufacturing Project Manager 04/05/24 Stefan Cazares MD [address] [place] [address] [place] [address] Consulting Physician Gastroenterology 03/14/24 Veterinary Toxicologist Relationship Specialty Start Date End Date Generic Provider, No Assigned MD Farnaz [place] [address] PCP - General Manufacturing Project Manager 04/05/24 Stefan Cazares MD [address] [place] [address] [place] [address] Consulting Physician Gastroenterology 03/14/24 Veterinary Toxicologist Relationship Specialty Start Date End Date Generic Provider, No [place] [address] PCP - General Manufacturing Project Manager 04/05/24 Stefan Cazares MD [email or web address] [facility] [address] [place] [address] Consulting Physician Gastroenterology 03/14/24 Team Status: Active [...] July 05, 2024 End: July 05, 2024 Veterinary Toxicologist Relationship Specialty Start Date End Date Generic Provider, No [place] [address] PCP - General Manufacturing Project Manager 04/05/24 Setfan Cazares MD [address] [facility] [address] [place] [address] Consulting Physician Gastroenterology 03/14/24 Team Status: Inactive [...] 05, 2024 End: September 05, 2024 Dr. Birtany Sexton MD Referring Provider Active Start: September [...] Active Start: November 07, 2024 Ana Bush DIRECTOR TELEVISION, DIRECTOR TELEVISION-C Attending Provider Active Start: November 07, 2024 [...] section and content) DATE CREATED AUTHOR 02/08/2024 [facility] DATE CREATED AUTHOR AUTHOR'S ORGANIZ ATION 04/21/2024 [facility] DATE CREATED AUTHOR AUTHOR'S ORGANIZ ATION 06/09/2024 [facility] DATE CREATED AUTHOR AUTHOR'S ORGANIZ ATION 06/17/2024 [facility] DATE CREATED AUTHOR AUTHOR'S ORGANIZ ATION 08/06/2024 [facility] DATE CREATED AUTHOR AUTHOR'S ORGANIZ ATION 12/19/2024 [facility] FOR RECORDS PERTAINING TO PATIENTS WHO ARE [...] BE BASED ON THE PRIMARY CLINICAL RECORDS. [employer]. provides no warranty or guarantee of the accuracy or completeness of information in this document.
== END | disposition home or self-care (01) ==
LOC: CT 10:04
PROVIDERS: PCP Family Medicine; Referring Provider Psychiatry & Neurology Neurology; Visit Provider Psychiatry & Neurology Neurology
DX: R13.10 Dysphagia, unspecified (principal)
CPT/HCPCS: 70491; Q9967

== ENCOUNTER → 2024-12-28 | Outpatient (CLI) | payer MEDICARE, OTHER, SELFPAY ==
[2024-12-28 11:56] LABS: Hematocrit 42.6 % (37-47); Hemoglobin 14.2 g/dL (12.0-15.0); Immature Granulocytes Count 0.100 X10^3/uL (0.0-0.0); Mean Corp Hgb Conc 33.3 g/dL (32-36); Mean Corpuscular Volume 91.4 fL (81-99); Mean Platelet Vol. 10.1 fl (6.2-12.0); NRBC Flagged by Analyzer 0 % (0-5); Platelet Count 276 K/mm3 (150-450); RBC Distribution Width CV 14.8 % (11.6-14.6); RBC Distribution Width SD 49.4 fl (35.1-43.9); Red Blood Count 4.66 M/mm3 (4.2-5.4); White Blood Count 7.6 K/mm3 (4.4-11.0)
[2025-01-01 21:07] LABS: Ash, White <0.10 kU/L (Class 0); Black Walnut <0.10 kU/L (Class 0); Cat Hair / Dander,Stand <0.10 kU/L (Class 0); Cedar, Mountain <0.10 kU/L (Class 0); Cockroach, American <0.10 kU/L (Class 0); Dog Epithelia <0.10 kU/L (Class 0); Elm, American White <0.10 kU/L (Class 0); Mulberry, White <0.10 kU/L (Class 0); Oak, White <0.10 kU/L (Class 0); Pigweed, Rough <0.10 kU/L (Class 0); Ragweed, Short/Common <0.10 kU/L (Class 0); Sycamore, American <0.10 kU/L (Class 0)
[2025-01-02 16:09] LABS: Aspirgillus flavus Negative (Neg:<1:1); Aspirgillus fumigatus Negative (Neg:<1:1); Aspirgillus niger Negative (Neg:<1:1)
== END | disposition home or self-care (01) ==
LOC: PAVLAB 11:27
PROVIDERS: PCP Family Medicine; Referring Provider Internal Medicine Critical Care Medicine; Visit Provider Internal Medicine Critical Care Medicine
DX: R05.3 Chronic cough (principal)
CPT/HCPCS: 36415; 82785; 85025; 86003; 86606

== ENCOUNTER → 2025-01-04 | Outpatient (CLI) | payer MEDICARE, OTHER, SELFPAY ==
--- NOTE | 2025-01-04 10:35 | CPS ---
Pt was unable to do Lung Diffusion, can't take a deep enouggh breath to trigger gases. She gave effort. She has a near constant cough and breathes shallow and fast.
== END | disposition home or self-care (01) ==
LOC: PSN 10:20
PROVIDERS: PCP Family Medicine; Referring Provider Internal Medicine Critical Care Medicine; Visit Provider Internal Medicine Critical Care Medicine
DX: R05.3 Chronic cough (principal)
CPT/HCPCS: 94060; 94726

== ENCOUNTER → 2025-01-08 | Outpatient (CLI) | payer MEDICARE, OTHER, SELFPAY ==
[2025-01-08 13:53] VITALS: PULSE 109; PULSE 111; PULSE 113; PULSE 116; PULSE 84; PULSE 85; PULSE 96; O2SAT 86; O2SAT 89; O2SAT 91; O2SAT 92; O2SAT 95; O2SAT 96
--- NOTE | 2025-01-08 13:56 | CPS ---
At the 4th minute of testing SpO2 86%. Patient rested for 30 seconds and SpO2 came back up to 89%. Patient refused oxygen. Patient was able to walk the remaining 2 minutes of the test, SpO2 89%.
--- NOTE | 2025-01-12 10:36 | PCM.PSN.6M ---
PSN 6 Minute Walk Test 6 Minute Walk Test 6 Minute Walk Test: 6 Minute Walk Test PSN:6-Minute Walk Test Start: 01/08/25 13:53 Freq: Status: Active Protocol: [id number] Document 01/08/25 13:53 DEIDRE (Rec: 01/08/25 13:58 DEIDRE [id number]) 6 Minute Walk Test Date Performed 01/08/25 Time Performed 13:30 Height 5 ft 3 in Weight: 115 lb Weight in Pounds 115.[address]: Seth Torres Assistive device None used: Pre-test Oxygen Delivery Room Air Method Pulse Ox (%) 96 Pulse Rate (60-100 84 beats/min) Dyspnea Bryon Scale ( 0.5 0-10) Exertion Bryon Scale 6 (6-20) 1st minute Oxygen Delivery Room Air Method Pulse Ox (%) 91 Pulse Rate (60-100 96 beats/min) 2nd minute Oxygen Delivery Room Air Method Pulse Ox (%) 92 Pulse Rate (60-100 111 H beats/min) 3rd minute Oxygen Delivery Room Air Method Pulse Ox (%) 89 Pulse Rate (60-100 113 H beats/min) 4th minute Oxygen Delivery Room Air Method Pulse Ox (%) 86 Pulse Rate (60-100 116 H beats/min) Number of Rests 1 Taken 5th minute Oxygen Delivery Room Air Method Pulse Ox (%) 92 Pulse Rate (60-100 109 H beats/min) 6th minute Oxygen Delivery Room Air Method Pulse Ox (%) 89 Pulse Rate (60-100 109 H beats/min) Dyspnea Bryon Scale ( 4 0-10) Exertion Bryon Scale 13 (6-20) Post-test Oxygen Delivery Room Air Method Pulse Ox (%) 95 Pulse Rate (60-100 85 beats/min) Full Laps Walked 16 Partial Lap, Number 26 of Tiles Walked Total Distance 970 Walked (ft) 01/08/25 13:56 Cardiopulmonary Services by Noemi Hernandez At the 4th minute of testing SpO2 86%. Patient rested for 30 seconds and SpO2 came back up to 89%. Patient refused oxygen. Patient was able to walk the remaining 2 minutes of the test, SpO2 89%. Initialized on 01/08/25 13:56 - END OF NOTE Interpretation Interpretation: The patient ambulated 970 feet over the course of 6 minutes beginning on room air without assistive devices. Pretesting oxygen saturation was noted to be 96% on room air. With ambulation, the zulema oxygen saturation was 86%, consistent with significant exertional oxygen desaturation. However, the patient refused supplemental O2. Recommendations Recommendations: The patient met criteria for supplemental oxygen with exertion, but subsequently refused the intervention.
== END | disposition home or self-care (01) ==
LOC: PSN 13:19
PROVIDERS: PCP Family Medicine; Referring Provider Internal Medicine Critical Care Medicine; Visit Provider Internal Medicine Critical Care Medicine
DX: R05.3 Chronic cough (principal)
CPT/HCPCS: 94618

== ENCOUNTER → 2025-02-28 | Outpatient (CLI) | payer MEDICARE, OTHER, SELFPAY ==
--- NOTE | 2025-02-28 13:40 | CT_ITS ---
PROCEDURE: CHEST WITHOUT CONTRAST 02/28/2025 REASON FOR EXAM: PULMONARY FIBROSIS TECHNIQUE: Chest CT without contrast. Coronal and Sagittal reconstruction series were provided. One or more dose reduction techniques were used (e.g., Automated exposure control, adjustment of the mA and/or kV according to patient size, use of iterative reconstruction technique RADIATION DOSE SUMMARY: CTDlvol: 4.9 mGy DLP: 168.5 mGycm COMPARISON: 12.28.2023 FINDINGS: Stable appearing bilateral pulmonary asymmetric areas of intralobular and interlobular interstitial thickening with associated fibrotic bands, areas of ground glass haze as well as mild bronchiectasis, such changes are mostly manifest along the subpleural regions with associated microcystic changes and architectural distortion with honeycombing formation. More or less stable appearance of the right upper lung lobe apical segment 7-8 mm solid pulmonary nodule. No pulmonary mass. There is no focal infiltrate or consolidation. . There are no pleural effusions. No pneumothorax is seen. No mediastinal or hilar adenopathy is identified. The thyroid is unremarkable. The central airways are patent. The chest wall appears unremarkable. No axillary adenopathy is identified. The thoracic aorta demonstrates atheromatous calcification. The heart is again seen enlarged. There are coronary artery calcifications. No pericardial effusion is identified. Redemonstration of the dilated main pulmonary artery trunk measures 3.4 cm. No aggressive-appearing osseous lesions are identified. Degenerative changes are present in the spine. The included abdominal cuts show stable cholecystectomy clips, gastric fundal wall thickening and left renal cortical cyst. CT/Chest without Contrast IMPRESSION: Redemonstration of the pulmonary interstitial changes in keeping with interstit ial lung disease, recommend clinical correlation and if needed further workup. Redemonstration of the pulmonary artery dilatation that could represent pulmona ry hypertension. Recommend echocardiography More or less stable appearance of the right upper lung lobe apical segment 7-8 mm solid pulmonary nodule. Annual follow-up is recommended. Reading [facility]
== END | disposition home or self-care (01) ==
PROVIDERS: PCP Family Medicine; Referring Provider Nurse Practitioner Acute Care; Visit Provider Nurse Practitioner Acute Care
DX: J84.10 Pulmonary fibrosis, unspecified (principal)
CPT/HCPCS: 71250